=== PATIENT | female | born 1940 | race Caucasian/White ===

== ENCOUNTER 2016-07-04 18:26 | Outpatient (CLI) | payer MEDICARE | END 2016-07-04 18:27 | disposition critical access hospital (66) | DX: S09.90XA Unspecified injury of head, initial encounter (principal); R47.81 Slurred speech; W07.XXXA Fall from chair, initial encounter; Y92.009 Unspecified place in unspecified non-institutional (private) residence as the place of occurrence of the external cause | CPT/HCPCS: A0425; A0427 ==

== ENCOUNTER 2016-07-04 18:35 | Emergency (ER) | payer MEDICARE ==
[2016-07-04] MEDS ORDERED: TETANUS/DIPHTHERIA/PERTUSSIS 0.5 ML SYRINGE IM ONE ×2 (19:04→19:17)
[2016-07-04] MEDS ORDERED: LIDOCAINE 1%-EPI 1:100000 20 ML MDV ONE (20:40)
== END 2016-07-04 21:25 | disposition home or self-care (01) ==
DX: S09.90XA Unspecified injury of head, initial encounter (principal); S01.01XA Laceration without foreign body of scalp, initial encounter; W07.XXXA Fall from chair, initial encounter; Z23 Encounter for immunization; F10.129 Alcohol abuse with intoxication, unspecified; I10 Essential (primary) hypertension; Z98.1 Arthrodesis status; F17.200 Nicotine dependence, unspecified, uncomplicated
CPT/HCPCS: 12001; 36415; 70450; 72125; 80053; 83690; 85025; 86850; 86900; 86901; 90471; 90715; 99284; G0480

== ENCOUNTER 2016-10-15 19:35 | Outpatient (CLI) | payer MEDICARE ==
[2016-10-15 19:54] LABS: BASOPHILS # (AUTO) 0.1 10^3/uL (0.0-0.1); BASOPHILS % (AUTO) 1.1 %; EOSINOPHILS # (AUTO) 0.3 10^3/uL (0.0-0.7); EOSINOPHILS % (AUTO) 3.2 %; HCT - HEMATOCRIT 39.2 % (37.0-47.0); HGB - HEMOGLOBIN 12.5 g/dL (12.0-16.0); LYMPHOCYTES # (AUTO) 3.1 10^3/uL (1.5-3.5); LYMPHOCYTES % (AUTO) 33.5 %; MEAN CORPUSCULAR HEMOGLOBIN 27.1 pg (27.0-31.0); MEAN CORPUSCULAR HGB CONC 31.9 g/dL (32.0-36.0); MEAN CORPUSCULAR VOLUME 84.9 fL (81.0-99.0); MEAN PLATELET VOLUME 7.7 fL (7.9-10.8); MONOCYTES # (AUTO) 0.8 10^3/uL (0.0-1.0); MONOCYTES % (AUTO) 8.6 %; NEUTROPHILS % (AUTO) 53.6 %; RED BLOOD COUNT 4.61 10^6/uL (4.20-5.40); UNCORRECTED WHITE BLOOD COUNT 9.3 x10^3/uL; WHITE BLOOD COUNT 9.3 x10^3/uL (4.8-10.8)
--- NOTE | 2016-10-15 20:34 | CT Preliminary Report ---
Exam: CT Head W/O IMPRESSION: Normal head CT. [facility] SITE ID: [id number]
[2016-10-15 20:54] LABS: BILIRUBIN,TOTAL 0.3 mg/dL (0.2-1.0); CALCIUM 10.7 mg/dL (8.5-10.3); CREATININE 1.8 mg/dL (0.4-1.0); POTASSIUM 4.6 mmol/L (3.5-5.0); TOTAL PROTEIN 8.4 g/dL (6.7-8.2)
--- NOTE | 2016-10-15 21:05 | CT Report ---
EXAM: CT HEAD EXAM DATE: 10/15/2016 08:11 PM. CLINICAL HISTORY: Headache. Hypertension. COMPARISON: 07/04/2016. TECHNIQUE: Multiaxial CT images were obtained from the foramen magnum to the vertex. IV contrast: Non e. Reformats: Coronal. In accordance with CT protocol optimization, one or more of the following dose reduction techniques w ere utilized for this exam: automated exposure control, adjustment of mA and/or KV based on patient s ize, or use of iterative reconstructive technique. FINDINGS: Parenchyma: No intraparenchymal hemorrhage. No evidence of mass, midline shift, or CT findings of inf arction. Werner-white differentiation is distinct. Extraaxial Spaces: Normal for age. No subdural or epidural collections identified. Ventricles: Normal in size and position. Sinuses: Imaged paranasal sinuses, orbits, and mastoids show no significant abnormality. Bones: No evidence of fracture or calvarial defect. Other: Interval resolution of the left parietal scalp hematoma. IMPRESSION: Normal head CT. [facility] Referring Provider Line: [phone] SITE ID: [id number]
== END 2016-10-15 19:36 | disposition home or self-care (01) ==
LOC: DI 19:35
PROVIDERS: ATTEND Family Medicine
DX: R51 Headache (principal)
CPT/HCPCS: 36415; 70450; 80053; 85025; 85651; 86140

== ENCOUNTER 2016-11-07 14:03 | Outpatient (CLI) | payer MEDICARE ==
[2016-11-07 14:34] LABS: CALCIUM 8.9 mg/dL (8.5-10.3); CREATININE 1.2 mg/dL (0.4-1.0); POTASSIUM 4.1 mmol/L (3.5-5.0)
== END 2016-11-07 14:04 | disposition home or self-care (01) ==
LOC: LAB 14:03
PROVIDERS: ATTEND Family Medicine
DX: E87.1 Hypo-osmolality and hyponatremia (principal)
CPT/HCPCS: 36415; 80048

== ENCOUNTER 2017-01-27 14:57 | Outpatient (CLI) | payer MEDICARE | END 2017-01-27 14:58 | disposition critical access hospital (66) | LOC: EMS 14:57 | PROVIDERS: ATTEND Surgery | DX: R55 Syncope and collapse (principal) | CPT/HCPCS: A0425; A0429 ==

== ENCOUNTER 2017-01-27 15:18 | Emergency (ER) | payer MEDICARE ==
--- NOTE | 2017-01-27 15:24 | ED Physician Documentation ---
PD HPI SYNCOPE - Stated complaint Stated Complaint: NEAR SYNCOPAL - History obtained from History obtained from: Patient, Family - History of Present Illness Witnessed: Witnessed Timing - onset: Today Duration: Seconds Preceding symptoms: Generalized weakness (she had been walking around more than usual and her leg was hurting, so she felt tired. She says she was resting but family says she slumped over, but roused with stimulation right away.). No: Headache, Chest pain, Abdominal pain Associated symptoms: No: Chest pain, Palpitations Contributing factors: Decreased PO intake (had not eaten much today). No: Noxious stimulae Injury occurred: No: Fell, Head injury, Neck injury Similar symptoms before: Has not had sx before Recently seen: Surgery (had angioplasty of left arteries recently for claudication and was doing okay. Noting some pain in leg with walking further the past week, and did walk further than usual today.) Review of Systems Constitutional: denies: Fever, Chills Nose: denies: Rhinorrhea / runny nose, Congestion Throat: denies: Sore throat Cardiac: denies: Chest pain / pressure, Palpitations Respiratory: denies: Dyspnea, Cough GI: denies: Abdominal Pain, Nausea, Vomiting, Diarrhea Musculoskeletal: reports: Extremity pain (left lower leg with walking. No edema nor calf tenderness.). denies: Neck pain, Back pain Neurologic: reports: Generalized weakness. denies: Focal weakness, Numbness Immunocompromised: denies: Immunocompromised PD PAST MEDICAL HISTORY - Past Medical History Cardiovascular: Hypertension - Past Surgical History Past Surgical History: Yes - Present Medications Home Medications: Ambulatory Orders Medication Instructions Recorded Confirmed Metoprolol Tartrate 50 mg PO BID 06/01/14 01/27/17 Gabapentin 100 mg ORAL TID 01/27/17 01/27/17 Losartan [Cozaar] 100 mg PO DAILY 01/27/17 01/27/17 - Allergies Allergies/Adverse Reactions: Allergies Allergy/AdvReac Type Severity Reaction Status Date / Time acetaminophen AdvReac Intermediate Itching Verified 01/27/17 15:25 [From Tylenol-Codeine #3] codeine phosphate * AdvReac Intermediate Itching Verified 01/27/17 15:25 [From Tylenol-Codeine #3] - Social History Does the pt smoke?: Yes Smoking Status: Current every day smoker Does the pt drink ETOH?: Yes Does the pt have substance abuse?: No - Immunizations Immunizations are current?: Yes - POLST Patient has POLST: No PD ED PE NORMAL - Vitals Vital signs reviewed: Yes - General General: Alert and oriented X 3, No acute distress, Well developed/nourished - Neck Neck: Supple, no meningeal sign, No adenopathy - Cardiac Cardiac: RRR, No murmur - Respiratory Respiratory: Clear bilaterally - Abdomen Abdomen: Soft, Non tender - Female Female : Deferred - Rectal Rectal: Deferred - Back Back: No CVA TTP - Derm Derm: Normal color, Warm and dry - Extremities Extremities: No deformity, No tenderness to palpate, No edema, No calf tenderness / cord, Other (faint but palpable pulses on tops of feet. Good color and cap refill in toes. ) - Neuro Neuro: Alert and oriented X 3, paper and prints restorer 2-12 intact, No motor deficit, No sensory deficit, Normal speech - Psych Psych: Normal mood, Normal affect Results - Vitals Vitals: Oxygen O2 Source Room air - EKG (time done) 1533 Rate: Rate (enter#) (65) Rhythm: NSR [place]: Normal Intervals: Normal [place] QRS: Normal Ischemia: Normal ST segments. No: ST elevation c/w ischemia, ST depression - Labs Labs: Laboratory Tests 01/27/17 01/27/17 01/27/17 16:11 16:11 16:11 WBC 7.4 RBC 4.01 L Hgb 11.0 L Hct 34.0 L MCV 85.0 MCH 27.5 MCHC 32.4 RDW 16.7 H Plt Count 301 MPV 8.1 Neut # 4.9 Lymph # 1.7 [place] # 0.5 Eos # 0.2 Baso # 0.1 Absolute Nucleated RBC 0.00 Nucleated RBC % 0.0 Sodium 136 Potassium 4.6 Chloride 100 L Carbon Dioxide 27 Anion Gap 9.0 BUN 45 H Creatinine 1.6 H Estimated GFR (MDRD) 31 L Glucose 135 H Calcium 9.4 Magnesium 2.2 Total Bilirubin 0.4 AST 29 ALT 13 Alkaline Phosphatase 87 Total Creatine Kinase 51 Troponin I < 0.04 Total Protein 7.9 Albumin 4.2 Globulin 3.7 Albumin/Globulin Ratio 1.1 Lipase 80 H - Rads (name of study) Duplex arterial left Radiology: Prelim report reviewed (occluded SFA with collateral flow reconstituting the popliteal. Less monophasis flow distal. ) PD MEDICAL DECISION MAKING - ED course Complexity details: reviewed results (less but present flow distally. DIfficult to compare on Saturday afternoon, and since she does have flow integrity to foot, it would be deferred to next day anyway, so she can walk less and talk with her Vascular surgeon tomorrow. ), considered differential, d/w patient Departure - Departure Disposition: Home, Self Care Clinical Impression: Claudication Lower leg pain Qualifiers: Laterality: left Qualified Code(s): M79.662 - Pain in left lower leg Condition: Stable Record reviewed to determine appropriate education?: Yes Follow-Up: Arianna Smith DO [Primary Care Provider] - Comments: Use some Tylenol 500 mg 3-4 times a day for leg pains. Minimal to light walking and standing for the next couple of days. Call your vascular surgeon tomorrow to have the get the results from our ultrasound and arrange a follow- up appointment. Return if persistent pain through the legs. Discharge Date/Time: 01/27/17 17:29
[2017-01-27] MEDS ORDERED: ACETAMINOPHEN 325 MG TABLET PO STA (16:00)
[2017-01-27] MEDS ORDERED: ACETAMINOPHEN 325 MG TABLET PO ONE (16:15)
[2017-01-27 16:19] LABS: BASOPHILS # (AUTO) 0.1 10^3/uL (0.0-0.1); BASOPHILS % (AUTO) 0.8 %; EOSINOPHILS # (AUTO) 0.2 10^3/uL (0.0-0.7); EOSINOPHILS % (AUTO) 2.3 %; LYMPHOCYTES # (AUTO) 1.7 10^3/uL (1.5-3.5); LYMPHOCYTES % (AUTO) 23.2 %; MEAN CORPUSCULAR HEMOGLOBIN 27.5 pg (27.0-31.0); MEAN CORPUSCULAR HGB CONC 32.4 g/dL (32.0-36.0); MEAN PLATELET VOLUME 8.1 fL (7.9-10.8); MONOCYTES # (AUTO) 0.5 10^3/uL (0.0-1.0); MONOCYTES % (AUTO) 7.3 %; NEUTROPHILS # (AUTO) 4.9 10^3/uL (1.5-6.6); NEUTROPHILS % (AUTO) 66.4 %; RED BLOOD COUNT 4.01 10^6/uL (4.20-5.40); RED CELL DISTRIBUTION WIDTH 16.7 % (12.0-15.0); UNCORRECTED WHITE BLOOD COUNT 7.4 x10^3/uL; WHITE BLOOD COUNT 7.4 x10^3/uL (4.8-10.8)
[2017-01-27 16:30] LABS: ALBUMIN/GLOBULIN RATIO 1.1 (1.0-2.2); BILIRUBIN,TOTAL 0.4 mg/dL (0.2-1.0); CALCIUM 9.4 mg/dL (8.5-10.3); CREATININE 1.6 mg/dL (0.4-1.0); MAGNESIUM 2.2 mg/dL (1.7-2.8); POTASSIUM 4.6 mmol/L (3.5-5.0); TOTAL PROTEIN 7.9 g/dL (6.7-8.2)
--- NOTE | 2017-01-27 17:13 | Ultrasound Preliminary Report ---
Exam: US Duplex Lwr Ext Arterial LT IMPRESSION: 1. Distal left SFA occlusion with collaterals reconstituting the popliteal artery. 2. Occluded left posterior tibial artery. [facility] SITE ID: [id number]
[2017-01-27 17:27] VITALS: BP 183/55
--- NOTE | 2017-01-27 17:45 | Ultrasound Report ---
EXAM: LEFT LOWER EXTREMITY ARTERIAL DOPPLER ULTRASOUND EXAM DATE: 01/27/2017 04:55 PM. CLINICAL HISTORY: Left leg pain with walking today. COMPARISON: None. TECHNIQUE: Real-time sonographic vascular imaging was performed by the labor economist, utilizing color-f low, Doppler flow, and spectral analysis. Multiple ocean import representative static images were saved for review . FINDINGS: Right Leg: SENIOR WATER RESOURCES ENGINEER: PSV 101 cm/sec. Biphasic Waveform. Left Leg: SENIOR WATER RESOURCES ENGINEER: PSV 83 cm/sec. Triphasic Waveform. PSFA: PSV 60 cm/sec. Triphasic Waveform. MSFA: PSV 33 cm/sec. Triphasic Waveform. DSFA: PSV 21 cm/sec. Monophasic Waveform. PFA: PSV 124 cm/sec. Triphasic Waveform. POP: PSV 19 cm/sec. Monophasic Waveform. BRAXTON: PSV 12 cm/sec. Monophasic Waveform. GARBAGE COLLECTION SUPERVISOR: PSV 0 cm/sec. Occluded. PER: PSV 21 cm/sec. Monophasic Waveform. DPA: PSV 11 cm/sec. Monophasic Waveform. IMPRESSION: 1. Distal SFA occlusion with collaterals reconstituting the popliteal artery. 2. Occluded posterior tibial artery. [facility] Referring Provider Line: [phone] SITE ID: [id number]
== END 2017-01-27 17:29 | disposition home or self-care (01) ==
LOC: EDUNIT# → ED 15:18
DX: I73.9 Peripheral vascular disease, unspecified (principal); M79.662 Pain in left lower leg; I10 Essential (primary) hypertension; F17.200 Nicotine dependence, unspecified, uncomplicated
CPT/HCPCS: 36415; 80053; 82550; 83690; 83735; 84484; 85025; 93005; 93926; 99283; 99284; A9270

== ENCOUNTER 2017-03-13 15:15 | Observation (INO) | payer MEDICARE ==
[2017-03-13] MEDS ORDERED: PANTOPRAZOLE 40 MG VIAL IVP STA (15:46)
--- NOTE | 2017-03-13 15:48 | ED Physician Documentation ---
History of Present Illness - Stated complaint Stated Complaint: DIZZY,BLACK STOOL-S/P LEG SURGERY - Chief complaint Chief Complaint: General - History obtained from History obtained from: Patient - History of Present Illness Timing: Other (76-year-old woman with peripheral vascular disease had a stent placed in the left leg 8 days ago. She was feeling bad so she actually stopped her Plavix 4 days ago. She continues to have lightheadedness and headaches and black and tarry stools without abdominal pain. She has vomited a few times but she did not know for was bloody or not. She has no history of internal bleeding or ulcers. She does not drink alcohol to any significant extent.) Review of Systems Ten Systems: 10 systems reviewed and negative Constitutional: reports: Reviewed and negative Throat: reports: Reviewed and negative Cardiac: reports: Chest pain / pressure (She has ongoing intermittent chest pressure for which she has been referred to a monkey trainer) Respiratory: reports: Reviewed and negative PD PAST MEDICAL HISTORY - Past Medical History Cardiovascular: Hypertension Neuro: Peripheral neuropathy - Past Surgical History Past Surgical History: Yes - Present Medications Home Medications: Ambulatory Orders Medication Instructions Recorded Confirmed Metoprolol Tartrate 50 mg PO BID 06/01/14 01/27/17 Gabapentin 100 mg ORAL TID 01/27/17 01/27/17 Losartan [Cozaar] 100 mg PO DAILY 01/27/17 01/27/17 - Allergies Allergies/Adverse Reactions: Allergies Allergy/AdvReac Type Severity Reaction Status Date / Time acetaminophen AdvReac Intermediate Itching Verified 01/27/17 15:25 [From Tylenol-Codeine #3] codeine phosphate * AdvReac Intermediate Itching Verified 01/27/17 15:25 [From Tylenol-Codeine #3] - Social History Does the pt smoke?: Yes Smoking Status: Current every day smoker Does the pt drink ETOH?: Yes Does the pt have substance abuse?: No - Family History Family history: reports: Non contributory - Immunizations Immunizations are current?: Yes - POLST Patient has POLST: No PD ED PE NORMAL - Vitals Vital signs reviewed: Yes - General General: Alert and oriented X 3, No acute distress - HEENT HEENT: PERRL, EOMI - Neck Neck: Supple, no meningeal sign, No bony TTP - Cardiac Cardiac: RRR, No murmur - Respiratory Respiratory: No respiratory distress, Clear bilaterally - Abdomen Abdomen: Soft, Non tender - Rectal Rectal: Other (Melena, guaiac positive, Luz ELMORE present) - Extremities Extremities: No edema, No calf tenderness / cord, Other (Excellent left pedal pulses) - Neuro Neuro: Alert and oriented X 3, Normal speech - Psych Psych: Normal mood, Normal affect Results - Vitals Vitals: Vital Signs - 24 hr 03/13/17 15:31 Temperature 36.8 C Heart Rate 79 Respiratory 16 Rate Blood Pressure 144/38 H O2 Saturation 99 Oxygen O2 Source Room air - EKG (time done) 1532 Rate: Rate (enter#) (73) Rhythm: NSR [place]: Normal Intervals: Normal [place] QRS: Normal Ischemia: Normal ST segments Computer interpretation: Agree with computer - Labs Labs: Laboratory Tests 03/13/17 03/13/17 03/13/17 15:35 15:39 15:39 WBC 9.0 RBC 3.04 L Hgb 8.4 L Hct 26.2 L MCV 86.4 MCH 27.6 MCHC 31.9 L RDW 16.0 H Plt Count 523 H MPV 7.8 L Neut # 5.8 Lymph # 2.5 [place] # 0.6 Eos # 0.0 Baso # 0.1 Absolute Nucleated RBC 0.00 Nucleated RBC % 0.1 PT 11.0 INR 1.0 Sodium Potassium Chloride Carbon Dioxide Anion Gap BUN Creatinine Estimated GFR (MDRD) Glucose Calcium Total Bilirubin AST ALT Alkaline Phosphatase Troponin I < 0.04 Total Protein Albumin Globulin Albumin/Globulin Ratio Lipase Blood Type Antibody Screen Crossmatch IS Only 03/13/17 03/13/17 15:39 15:39 WBC RBC Hgb Hct MCV MCH MCHC RDW Plt Count MPV Neut # Lymph # [place] # Eos # Baso # Absolute Nucleated RBC Nucleated RBC % PT INR Sodium 136 Potassium 3.9 Chloride 100 L Carbon Dioxide 22 Anion Gap 14.0 H BUN 62 H Creatinine 1.8 H Estimated GFR (MDRD) 27 L Glucose 128 H Calcium 9.3 Total Bilirubin 0.4 AST 28 ALT 12 Alkaline Phosphatase 78 Troponin I Total Protein 7.6 Albumin 3.9 Globulin 3.7 Albumin/Globulin Ratio 1.1 Lipase 106 H Blood Type A POSITIVE Antibody Screen NEGATIVE Crossmatch IS Only See Detail PD MEDICAL DECISION MAKING - ED course ED course: 76-year-old woman with history of recent stent placement in the left leg. She presents with signs and symptoms of probably an upper GI bleed with anemia, hemoglobin 8.4, baseline is 12. Blood was readied but she does not need it at this juncture at least not initially, but may need in short order. Spoke with the on-call surgeon, Dr. Padilla at 4 PM who will see her in consultation, would like us to get the op report from [facility] to see if it was a drug-eluting stent which we will do. Spoke with Dr. Oh the hospitalist for admission at 4:08 PM. She did receive Protonix IV in the emergency department. Departure - Departure Disposition: ED Place in Observation Clinical Impression: Upper GI bleed Condition: Serious Discharge Date/Time: 03/13/17 17:00
[2017-03-13 15:52] LABS: BASOPHILS # (AUTO) 0.1 10^3/uL (0.0-0.1); EOSINOPHILS % (AUTO) 0.5 %; HCT - HEMATOCRIT 26.2 % (37.0-47.0); HGB - HEMOGLOBIN 8.4 g/dL (12.0-16.0); LYMPHOCYTES # (AUTO) 2.5 10^3/uL (1.5-3.5); LYMPHOCYTES % (AUTO) 27.8 %; MEAN CORPUSCULAR HEMOGLOBIN 27.6 pg (27.0-31.0); MEAN CORPUSCULAR HGB CONC 31.9 g/dL (32.0-36.0); MEAN CORPUSCULAR VOLUME 86.4 fL (81.0-99.0); MEAN PLATELET VOLUME 7.8 fL (7.9-10.8); MONOCYTES # (AUTO) 0.6 10^3/uL (0.0-1.0); NEUTROPHILS # (AUTO) 5.8 10^3/uL (1.5-6.6); NEUTROPHILS % (AUTO) 63.7 %; NUCLEATED RED BLOOD CELLS AUTO 0.1 /100WBC; RED BLOOD COUNT 3.04 10^6/uL (4.20-5.40)
[2017-03-13 16:05] LABS: ALBUMIN/GLOBULIN RATIO 1.1 (1.0-2.2); BILIRUBIN,TOTAL 0.4 mg/dL (0.2-1.0); CALCIUM 9.3 mg/dL (8.5-10.3); CREATININE 1.8 mg/dL (0.4-1.0); POTASSIUM 3.9 mmol/L (3.5-5.0); TOTAL PROTEIN 7.6 g/dL (6.7-8.2)
[2017-03-13] MEDS ORDERED: ONDANSETRON ODT 4 MG TABLET TL PRN (16:23)
[2017-03-13] MEDS ORDERED: ONDANSETRON 4 MG/2 ML VIAL IVP PRN (16:23)
[2017-03-13] MEDS ORDERED: LIDOCAINE-MPF 2% 5 ML VIAL IM ONE (18:50)
[2017-03-13] MEDS ORDERED: MIDAZOLAM 2 MG/2 ML VIAL IVP ONE (18:50)
[2017-03-13] MEDS ORDERED: GLYCOPYRROLATE 1 MG/5 ML VIAL IVP ONE (18:50)
[2017-03-13] MEDS ORDERED: KETAMINE 500 MG/10 ML VIAL IVP ONE (18:50)
[2017-03-13] MEDS ORDERED: SODIUM CHLORIDE 0.9% 1,000 ML IV SCH (19:00)
--- NOTE | 2017-03-13 19:24 | HISTORY & PHYSICAL EXAMINATION ---
DATE OF ADMISSION: 03/13/2017 HISTORY OF PRESENT ILLNESS: I am called on consultation by Dr. Moise Fan to evaluate this very pleasant 76-year-old female for anemia that is presumed to be due to an upper GI bleed. The patient, importantly had a biliary (this is not typographical error) stent placed in peripheral vascular posit ion in her leg approximately 8 days ago. I am a little bit unsure about the placement of her leg dewey use the ecchymosis is on her right hand side, but the paperwork says that her stent was placed on the left hand side. She started feeling badly soon after the stent was placed and after she had been joon ana on Plavix, so she stopped the Plavix. She had headaches and lightheadedness with black tarry stoo ls without any abdominal pain. She did have several bouts of vomiting, but cannot tell whether or not there was any blood in the vomit. She has no history of internal bleeding or ulcers. She does not dr ink any significant amount of alcohol. She states that she has not had a CT scan of her abdomen to ru le out a retroperitoneal or abdominal bleed following her stent placement. Additionally, she states i s the first time that the stent was placed to hold pressure they held such pressure that it had actua lly caught the stent to fail. ALLERGIES: 1. TYLENOL. 2. CODEINE. MEDICATIONS: 1. Metoprolol 50 mg p.o. b.i.d.. 2. Gabapentin 100 mg p.o. t.i.d.. 3. Losartan 100 mg p.o. daily. PAST MEDICAL AND SURGICAL HISTORY: 1. Hypertension. 2. Peripheral neuropathy. 3. Peripheral vascular disease. 4. History of stent placement. SOCIAL HISTORY: Dr. Fan's notes states that she is an everyday smoker. The patient states that thi s is incorrect. She stopped smoking on April 23, 2016 and prior to that had smoked on again off agai n for years. She affirms to me that she is not a current smoker. Alcohol small to moderate use. Recreational drug use, none. FAMILY HISTORY: No family history of gastrointestinal bleeding. REVIEW OF SYSTEMS: CONSTITUTIONAL: She denies weight loss, fever. HEENT: She denies any increase or decrease in her vision or hearing. NECK: She denies any difficulty speaking or swallowing. CARDIAC: She has occasional chest pressure, for which she is being sent to her physical sciences professor. She cece es any cardiac arrhythmias. RESPIRATORY: Denies shortness of breath or productive cough. ABDOMEN: She denies abdominal pain. NEUROLOGIC: She denies focal deficit. HEMATOLOGIC: She denies easy bleeding or bruising. PHYSICAL EXAMINATION: The patient was examined in room [facility] at [facility]'s observ ation unit. She was examined while in bed. GENERAL: She is alert and oriented to person, place and time. She asks and answers questions well. He r mood and affect are appropriate. She is thin, bordering on cachectic. VITAL SIGNS: Please refer to nurses' notes. HEENT: She is normocephalic, atraumatic. Sclerae are noninjected, nonicteric. mucous membranes are pi nk and slightly dry. NECK: Supple without mass or bruit. CARDIOVASCULAR: Her heart is regular rate and rhythm without rub, murmur or gallop although she does have an occasional PAC. LUNGS: Clear to auscultation bilaterally. EXTREMITIES: Abdomen is slightly firm. She has normoactive bowel sounds. She has no palpable hepatosp lenomegaly. She has an ecchymosis in the right lower quadrant occupying most of the right lower quadr ant, it seems to be resolving. She has no peritoneal findings. EXTREMITIES: Show no clubbing, cyanosis, or edema. RECTAL: Deferred. GENITOURINARY: Deferred. GAIT: Not evaluated. LABS: Abnormalities on his CMP include chloride of 100, anion gap 14, BUN 62, creatinine of 1.8, GFR 27, glucose 128, and a lipase of 106. She has no abnormalities on her coagulation studies and abnorma lities on her hematology include an RBC of 3.04, hemoglobin of 8.4, hematocrit 26.2, MCHC at 31.9, RD W 15. Platelet count of 523 and a MPP of 7.8. RADIOLOGY: No studies were ordered. ASSESSMENT: A 56-year-old female with a recent history of stent placement had been placed on anticoag ulation, who comes in anemic and complaining of some nausea, vomiting and some possible melena. PLAN: Esophagogastroduodenoscopy with possible biopsies and/or polypectomies. The indications, proced ure, alternatives and possible complications including, but not limited to perforation requiring oper ative repair, bleeding with all of its attendant risks including transfusion, and were fully ex plained to the patient and all questions were answered. Verbal and written consent were obtained. The patient in preparation for this has been maintained n.p.o. Additionally, if the EGD is not revealing of a potential source of bleeding, I would recommend a CT scan of her abdomen and pelvis to make alma e that she did not have a retroperitoneal bleed as a result of this intervention where the stent was placed. Again, the ecchymosis on the right-hand side without a significant hematoma that I can note. It would be easy to hide a large amount of blood in the retroperitoneum to account for her anemia. I would like to thank Dr. Fan, as well as Dr. Oh very much for this consultation. JOB #: [id number] EXT JOB #:[id number]
[2017-03-13] MEDS ORDERED: SODIUM CHLORIDE 0.9% 1,000 ML IV ONE (19:29)
[2017-03-13] MEDS ORDERED: LACTATED RINGERS 1,000 ML IV ONE (19:34)
[2017-03-13] MEDS: LACTATED RINGERS 1,000 ML IV ONE (19:35)
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
[2017-03-13] MEDS: SODIUM CHLORIDE FLUSH 0.9% 10 ML SYRINGE IVP SCH (22:02)
[2017-03-13 22:05] LABS: BASOPHILS # (AUTO) 0.1 10^3/uL (0.0-0.1); BASOPHILS % (AUTO) 0.8 %; EOSINOPHILS # (AUTO) 0.1 10^3/uL (0.0-0.7); EOSINOPHILS % (AUTO) 1.4 %; HCT - HEMATOCRIT 22.6 % (37.0-47.0); HGB - HEMOGLOBIN 7.4 g/dL (12.0-16.0); LYMPHOCYTES # (AUTO) 2.2 10^3/uL (1.5-3.5); LYMPHOCYTES % (AUTO) 28.8 %; MEAN CORPUSCULAR HGB CONC 32.9 g/dL (32.0-36.0); MEAN CORPUSCULAR VOLUME 85.1 fL (81.0-99.0); MEAN PLATELET VOLUME 7.1 fL (7.9-10.8); MONOCYTES # (AUTO) 0.7 10^3/uL (0.0-1.0); NEUTROPHILS # (AUTO) 4.6 10^3/uL (1.5-6.6); RED BLOOD COUNT 2.66 10^6/uL (4.20-5.40); RED CELL DISTRIBUTION WIDTH 15.8 % (12.0-15.0); UNCORRECTED WHITE BLOOD COUNT 7.7 x10^3/uL; WHITE BLOOD COUNT 7.7 x10^3/uL (4.8-10.8)
--- NOTE | 2017-03-13 23:40 | CT Preliminary Report ---
Exam: CT ABDOMEN/PELVIS W/O IMPRESSION: 1. Smaller nodular density seen in the right anterior aspect of the pelvis, could represent small ext raperitoneal hemorrhage measuring 1 x 2.3 x 3.9 cm. Follow-up is recommended to ensure resolution. Un derlying mass or lymphadenopathy not excluded. 2. Multiple solid-appearing liver masses, could be malignant or benign. Further evaluation could be o btained with an MR abdomen or ultrasound. 3. Multiple bilateral renal calculi which are nonobstructing. No hydronephrosis. 4. Multiple small renal cysts. There are low density masses too small to fully characterize and solid small renal masses not excluded. 5. Low-density mass at the tail the pancreas measuring 8 mm, Representing a pancreatic cyst. Pancreat ic cystic malignancy not excluded. This could be evaluated with the abdomen MRI. 6. Otherwise, as above. RADIA The above critical findings were discussed with Dr. Land by Dr. Selena Welch at 23:35 hrs on . SITE ID: [id number]
--- NOTE | 2017-03-14 00:05 | CT Report ---
EXAM: CT ABDOMEN AND PELVIS (CT KUB) EXAM DATE: 03/13/2017 09:34 PM. CLINICAL HISTORY: Anemia with recent left leg stent possible retroperitoneal bleed. COMPARISONS: Renal ultrasound 03/02/2011. TECHNIQUE: Routine axial helical CT imaging was performed through the abdomen and pelvis without IV c ontrast. Reconstructions: Coronal and sagittal. In accordance with CT protocol optimization, one or more of the following dose reduction techniques w ere utilized for this exam: automated exposure control, adjustment of mA and/or KV based on patient s ize, or use of iterative reconstructive technique. FINDINGS: Lung bases: Marked calcification of the descending thoracic aorta at the distal aspect. Mil d coronary artery calcification. Mild bibasilar atelectasis suspected. Liver: Multiple solid-appearing liver masses are seen in the right and left hepatic lobes. There is a solid-appearing mass in segment 6 of the liver measuring 1.9 x 1.2 cm. Another mass is seen in the j unction of the right and left hepatic lobes, measures 1.6 x 1.1 cm. Multiple masses seen in the left hepatic lobe, one of the largest seen measuring 1.4 cm on axial image 19. Gallbladder: Normal. Bile ducts: No bile duct dilatation. Pancreas: Small low-density mass seen at the tail of the pancreas measuring 8 mm. Hounsfield units ar e 10, most suggestive for a pancreatic cyst. Pancreatic cystic malignancy not excluded. Probable focal densely calcified splenic artery adjacent t o the pancreas. Spleen: Unremarkable. Adrenals: Unremarkable. Kidneys: There appear to be multiple small renal cysts, one of the largest seen in the upper pole rig ht kidney measuring 1.2 cm. Evaluation is limited without IV contrast. Small solid renal mass not exc luded. Multiple bilateral renal calculi which are nonobstructing, measure 3-4 mm. No hydronephrosis. No hydr oureter or ureteral calculi. Severe atherosclerotic calcification of the abdominal aorta. No abdominal aortic aneurysm. Bowel: No dilated bowel loops are seen to suggest obstruction. A few sigmoid colon diverticula withou t evidence for acute diverticulitis. No acute bowel findings are seen. No free fluid or free air. Pelvis: Bladder and remaining pelvic structures appear unremarkable. No acute bone findings. Small nodular density seen in the right anterior aspect of the pelvis, could represent small extraper itoneal hemorrhage measuring 1 x 2.3 x 3.9 cm. Follow-up is recommended to ensure resolution. Underly ing mass or lymphadenopathy not excluded. IMPRESSION: 1. Small nodular density seen in the right anterior aspect of the pelvis, could represent small extra peritoneal hemorrhage measuring 1 x 2.3 x 3.9 cm. Follow-up is recommended to ensure resolution. Unde rlying mass or lymphadenopathy not excluded. 2. Multiple solid-appearing liver masses, could be malignant or benign. Further evaluation could be o btained with an MR abdomen or ultrasound. 3. Multiple bilateral renal calculi which are nonobstructing. No hydronephrosis. 4. Multiple small renal cysts. There are low density masses too small to fully characterize and solid small renal masses not excluded. 5. Low-density mass at the tail of the pancreas measuring 8 mm, could represent a pancreatic cyst. Pa ncreatic cystic malignancy not excluded. This could be evaluated with the abdomen MRI. 6. Otherwise, as above. RADIA The above critical findings were discussed with Dr. Land by Dr. Selena Welch at 23:35 hrs on . Referring Provider Line: [phone] SITE ID: [id number]
--- NOTE | 2017-03-14 00:51 | PROVIDER PROGRESS NOTE ---
Hospitalist Cross-cover Note - Cross-Cover Note Cross-Cover Note: MD was called about critical findings on CT abdomen/pelvis without contrast. Radiology stated that there was a small extraperitoneal hemorrhage measuring 1 x 2.3 x 3.[address] imaging. The [facility] vascular surgery department was consulted. I spoke with Dr. Nogueira who stated that he thought that the size of the hemorrhage was too small to cause such a significant bleed. He felt that the most likely source of the patient's bleeding was the GI tract given the melanotic stools. He recommended a CT angiogram of the abdomen and pelvis however I did explain to him that given the patient's kidney function this was not possible at this time. He then recommended giving the patient IV fluids rechecking her kidney function and then trying to do a CT angiogram. He also recommended that the patient be transfused as needed. His final recommendation was a consult with general surgery and a colonoscopy to look for lower GI source of bleeding. The patient was updated about the situation and seemed to understand the plan. The patient's repeat hemoglobin had dropped to 7.4 therefore 2 units of packed RBCs were ordered and patient should be transfused overnight. We will continue to monitor her CBC and discuss the case with general surgery in the morning. The patient is hemodynamically stable.
[2017-03-14] MEDS: SODIUM CHLORIDE FLUSH 0.9% 10 ML SYRINGE IVP PRN ×2 (04:48→06:32)
[2017-03-14] MEDS: SODIUM CHLORIDE FLUSH 0.9% 10 ML SYRINGE IVP SCH ×2 (05:24→06:31)
[2017-03-14] MEDS ORDERED: PANTOPRAZOLE 40 MG VIAL IVP SCH (07:00)
[2017-03-14] MEDS ORDERED: INSULIN ASPART 300 UNIT/3 ML PEN SUBQ SCH (08:00)
[2017-03-14 08:27] VITALS: BP 167/58
[2017-03-14] MEDS ORDERED: POLYETHYLENE GLYCOL 3350 17 GM PACKET PO SCH (09:00)
[2017-03-14 10:26] LABS: BASOPHILS % (AUTO) 1.9 %; EOSINOPHILS % (AUTO) 1.1 %; HGB - HEMOGLOBIN 12.1 g/dL (12.0-16.0); LYMPHOCYTES % (AUTO) 14.1 %; MEAN CORPUSCULAR HEMOGLOBIN 28.2 pg (27.0-31.0); MEAN CORPUSCULAR HGB CONC 33.6 g/dL (32.0-36.0); MEAN CORPUSCULAR VOLUME 84.1 fL (81.0-99.0); MEAN PLATELET VOLUME 7.6 fL (7.9-10.8); MONOCYTES % (AUTO) 5.3 %; NEUTROPHILS % (AUTO) 77.6 %; RED BLOOD COUNT 4.28 10^6/uL (4.20-5.40); RED CELL DISTRIBUTION WIDTH 15.7 % (12.0-15.0); UNCORRECTED WHITE BLOOD COUNT 12.6 x10^3/uL; WHITE BLOOD COUNT 12.6 x10^3/uL (4.8-10.8)
[2017-03-14 10:29] LABS: BAND NEUTROPHILS % (MANUAL) 0 %
--- NOTE | 2017-03-14 10:41 | Discharge Plan ---
Discharge Plan Disposition: 01 Home, Self Care Condition: Good Diet: Regular Activity Restrictions: Activity as Tolerated Shower Restrictions: No Driving Restrictions: No Additional Instructions or Follow Up instructions: You were placed in observation in the hospital because you had come to the emergency room complaining of dizziness, and black stools after having a vascular procedure. You felt something was wrong even before you came in, and had stopped your Plavix 4 days before you came to see us. On admission your blood pressure was good at 144/38 and your heart rate was good at 79. But your hemoglobin was 8.4. We thought you were having a bleeding ulcer in your stomach that was unmasked by your Plavix. As such, you underwent an EGD, an upper endoscopy, and the surgeon found nothing present. Suspecting that you may have had a small puncture that leaked from your previous vascular procedure, he asked us to do CAT scan of your abdomen. The CAT scan of your abdomen has a small area where you seemed to have bled. This is where the catheter went in on the right side. There is a 1 cm x 2.3 cm x 3.9 cm area. We spoke to the vascular surgeon at [facility], Dr. Nogueira, who felt that the size of the hemorrhage was too small to cause such a significant drop in your hemoglobin. He still feels that you should undergo a colonoscopy in the outpatient setting to make sure there is no loss of blood in the bowel. Dr. Nogueira also wanted us to do CT angiogram of your abdomen and pelvis but your kidney function has a creatinine of 1.8 and a filtration rate of 27 and as such an angiogram is not in your best interest right now. Dye with lowered kidney function can cause further irreversible kidney function and if you can wait to do the study until your filtration is >45, that is better. You have been transfused 2 units of blood. Your blood pressure is staying stable at 167/58 today. We do not have the ability to do interventional radiology here. Weighing the pros and cons of keeping you in the hospital, I feel that you are stable enough to go home and get the rest of your workup in the outpatient setting. Right now your hemoglobin is 12. Unfortunately, the CAT scan also shows a small low-density mass in the tail of the pancreas. It looks like a simple pancreatic cyst. You also have multiple solid-appearing liver masses in the right and left lobes of the liver. They are unable to say whether these are malignant or benign looking. Recommendation is for you to have an MRI of the abdomen and pelvis. This will look at the tail of the pancreas, liver masses, and the small bleeding in the right pelvis. You may need a biopsy of the liver masses with an interventional radiologist. You have already identified that you have lived next door to an oncologist, Lauri Franks MD. And that oncologist is a partner to Lloydyelena Luc, the oncologist that sees your for his melanoma. You are seeing Dr. Smith on Saturday (today is ) and I am asking Dr. Smith to make a referral to interventional radiology at [facility] for the biopsies, and a referral to Dr. Franks or Dr. Calle. You will also need to see [facility] in follow-up for the small bleeding that you had, that is contained, in the right pelvis. They may still want a CT angiogram as well. Dr. Smith will also need to refer you for a colonoscopy, and Dr. Padilla was the surgeon who did the EGD. You can see him for the colonoscopy if you want. We are sending you home on a holiday weekend. We know that services are limited in many institutions. Please do not feel that you have to wait at home if there is a change in your status. If you develop more melanotic, dark, tarry stool, get lightheaded, get dizzy, your blood pressure drops, your heart rate gets faster or you get nauseated and sweaty, you can come back to our emergency room. No Smoking: If you smoke, Please STOP! Call for help. Follow-up with: Arianna Smith DO [Primary Care Provider] -
[2017-03-14 11:15] LABS: LYMPHOCYTES % (MANUAL) 12 %; NEUTROPHILS % (MANUAL) 84 %; TOTAL CELLS COUNTED 100
[2017-03-14 11:16] LABS: NP AUTO DIFFERENTIAL? YES; NP MAN DIFFERENTIAL? NO; PLATELET ESTIMATE, MANUAL NORMAL (130-450,000) (NORMAL); PLATELET MORPHOLOGY NORMAL APPEARANCE (NORMAL); WBC MORPHOLOGY (MULTIPLE) 2+ HYPERSEG NEUT (NORMAL)
--- NOTE | 2017-03-14 19:50 | DISCHARGE SUMMARY ---
DATE OF ADMISSION: 03/13/2017 DATE OF DISCHARGE: 03/14/2017 PRIMARY CARE PROVIDER: Arianna Smith MD. DISCHARGE DIAGNOSES: 1. Acute blood loss anemia, status post 2 units of transfused packed red cells. 2. Complication of procedure, most likely an extraperitoneal hemorrhage from recent peripheral vascular stent. 3. Melena. 4. Peripheral vascular disease with claudication. 5. Present descending artery. 6. Hypertension. DISCHARGE MEDICATIONS: All medications unchanged from admission. 1. Gabapentin 100 mg p.o. b.i.d.. 2. Hydrochlorothiazide 25 mg p.o. daily. 3. Losartan 100 mg p.o. daily. 4. Metoprolol XL 50 mg daily. 5. Rosuvastatin 10 mg daily. Plavix was discontinued. PRINCIPAL PROCEDURES: 1. Esophagogastroduodenoscopy that was completely normal. 2. Transfusion of 2 units of packed cells. 3. CT of abdomen and pelvis showing multiple followed liver masses in the right and left hepatic lobe, low density mass seen at the tail of the pancreas measuring 8 mm, most suggestive of pancreatic cyst, multiple small renal cysts with small solid renal mass is not excluded, multiple bilateral renal calculi, which were nonobstructing, severe atherosclerotic calcification of his abdominal , aortic, small modular density in the right anterior aspect of the pelvis that could possibly represent a small extraperitoneal hemorrhage measuring 1 x 2.3 x 3.9 cm. HOSPITAL COURSE: The patient was admitted placed in observation. She is 76 years old and had a recent vascular stenting procedure done for claudication of her lower extremities. She presented as melena, dizziness, weakness and fatigue in association with the use of Plavix and the procedure. She stopped the Plavix few days ago. Her usual hemoglobin is between 11 and 12. When she went to the emergency room, hemoglobin was 8. She was not hypotensive. Not tachycardic. In workup for her acute blood loss anemia she underwent an EGD which was negative. She will still need a colonoscopy to further visualize her bowel. The general surgeon felt that because of the recent stenting procedure, we should also look for retroperitoneal bleed. CT of the abdomen was ordered and the above findings noted. While we did find evidence of blood extravasation indicating a small contained air hemorrhage, we also unfortunately found the pancreatic cystic area and the liver tumors. This patient will need outpatient evaluation with MRCP, and most likely CT-guided biopsy of the liver masses. While Vascular surgeon did recommend a colonoscopy, the patient felt stable enough and we agreed that she could go home in the outpatient setting and get that done there. Throughout her entire stay, blood pressure was stable. She had no melenic stool. No abdominal pain. We felt it prudent to stop Plavix at this time. She is instructed to return to us if there are any more melenic stool, further dizziness and lightheadedness, or any abdominal pain. In reviewing her medical record in [facility] there was a note where she was referred to Dr. Sher by Kelsey Flores, for hematuria, many years ago. The patient says she has no recollection of that and she does not think it was her chart they are referring to. She does acknowledge that she saw a search engine marketing manager in January where he changed all of her blood pressure medication. But she felt so lousy after 2-3 days she went back to her normal regimen and that is why she is not on those medications from that note. She is discharged in stable condition. at the bedside. Understandably both of them are not upset at the news about the CT of the liver. Temperature is 36.6, pulse 79, blood pressure 167/58, respirations 16, she is 97% on room air. She is a slender, alert, elderly woman who looks much younger than stated age. Supple neck. Clear lungs. Regular rate and rhythm with a soft systolic ejection murmur. ABDOMEN: Soft, nontender with bilateral femoral bruits. She has a hematoma of the right groin/right lower quadrant. She continues to have claudication in the right leg. The left leg has slight pulse. She says for the most part claudication is gone on the left leg. She is ambulating in the room without any assistance. Has tolerated a regular diet without any problems. She is asked to follow through with Dr. Smith. She has an appointment on Saturday, today is . JOB #: [id number] EXT JOB #:[id number] MTDD
== END 2017-03-14 10:59 | disposition home or self-care (01) ==
LOC: ED 15:15 → OBS 16:23
PROVIDERS: ADMIT Specialist; ATTEND Specialist
PROC: 30233N1 Transfusion of Nonautologous Red Blood Cells into Peripheral Vein, Percutaneous Approach (ICD-10-PCS; 2017-03-13)
PROC: 0DB78ZX Excision of Stomach, Pylorus, Via Natural or Artificial Opening Endoscopic, Diagnostic (ICD-10-PCS; principal; 2017-03-13 19:15)
DX: I97.618 Postprocedural hemorrhage of a circulatory system organ or structure following other circulatory system procedure (principal); Y83.1 Surgical operation with implant of artificial internal device as the cause of abnormal reaction of the patient, or of later complication, without mention of misadventure at the time of the procedure; D62 Acute posthemorrhagic anemia; K92.1 Melena; I73.9 Peripheral vascular disease, unspecified; I10 Essential (primary) hypertension; G62.9 Polyneuropathy, unspecified; R93.2 Abnormal findings on diagnostic imaging of liver and biliary tract; R93.422 Abnormal radiologic findings on diagnostic imaging of left kidney; R93.421 Abnormal radiologic findings on diagnostic imaging of right kidney; R93.5 Abnormal findings on diagnostic imaging of other abdominal regions, including retroperitoneum; Z87.891 Personal history of nicotine dependence; Z95.828 Presence of other vascular implants and grafts
CPT/HCPCS: 36415; 43239; 74176; 80053; 83690; 84484; 85025; 85610; 86850; 86900; 86901; 86920; 87081; 93005; 94761; 96374; 99283; 99285; G0378; J7120; P9016; 83036; 99284

== ENCOUNTER 2017-03-21 14:54 | Outpatient (CLI) | payer MEDICARE ==
[2017-03-21 15:28] LABS: BASOPHILS # (AUTO) 0.1 10^3/uL (0.0-0.1); BASOPHILS % (AUTO) 0.8 %; EOSINOPHILS # (AUTO) 0.3 10^3/uL (0.0-0.7); EOSINOPHILS % (AUTO) 3.2 %; HCT - HEMATOCRIT 39.4 % (37.0-47.0); HGB - HEMOGLOBIN 12.8 g/dL (12.0-16.0); LYMPHOCYTES # (AUTO) 1.5 10^3/uL (1.5-3.5); LYMPHOCYTES % (AUTO) 17.9 %; MEAN CORPUSCULAR HEMOGLOBIN 28.5 pg (27.0-31.0); MEAN CORPUSCULAR HGB CONC 32.5 g/dL (32.0-36.0); MEAN CORPUSCULAR VOLUME 87.7 fL (81.0-99.0); MEAN PLATELET VOLUME 7.9 fL (7.9-10.8); MONOCYTES # (AUTO) 0.6 10^3/uL (0.0-1.0); MONOCYTES % (AUTO) 7.5 %; NEUTROPHILS # (AUTO) 5.8 10^3/uL (1.5-6.6); NEUTROPHILS % (AUTO) 70.6 %; RED CELL DISTRIBUTION WIDTH 16.4 % (12.0-15.0); UNCORRECTED WHITE BLOOD COUNT 8.2 x10^3/uL; WHITE BLOOD COUNT 8.2 x10^3/uL (4.8-10.8)
[2017-03-21 15:39] LABS: ALBUMIN/GLOBULIN RATIO 1.1 (1.0-2.2); BILIRUBIN,TOTAL 0.6 mg/dL (0.2-1.0); CALCIUM 9.7 mg/dL (8.5-10.3); CREATININE 1.5 mg/dL (0.4-1.0); POTASSIUM 4.6 mmol/L (3.5-5.0); TOTAL PROTEIN 7.6 g/dL (6.7-8.2)
--- NOTE | 2017-03-22 10:22 | Ultrasound Report ---
COMPLETE ABDOMINAL ULTRASOUND: 03/21/2017 CLINICAL INDICATION: Multiple liver masses, pancreatic cyst on CT of 03/13/2017. COMPARISON: CT of 03/13/2017, renal ultrasound of 03/02/2011. TECHNIQUE: Real-time scanning was performed with tax compliance representative static images obtained. FINDINGS: The liver measures 14.4 cm. Hepatic echotexture is heterogeneous. Multiple echogenic nodul es are present, measuring up to 2.2 cm in the right lobe and 1.5 cm in the left lobe. The ultrasound appearance is compatible with hemangiomas. The common bile duct measures 6 mm. The gallbladder is nor mal. The visualized head and body of the pancreas are unremarkable, but the pancreatic tail, includin g the region of pancreatic cyst mentioned on CT, is obscured by bowel gas. The right kidney measures 9.4 cm, and the left kidney measures 10.6 cm. Cortical cysts are present. No hydronephrosis or solid renal lesion is appreciated. The spleen measures 7 cm, and demonstrates normal echotexture. The abdom inal aorta is normal in caliber. The inferior vena cava is unremarkable. No free fluid is present. IMPRESSION: 1. MULTIPLE ECHOGENIC NODULES IN THE LIVER, COMPATIBLE WITH MULTIPLE HEMANGIOMAS, MEASURING UP TO 2.2 CM. 2. NONVISUALIZATION OF THE TAIL OF THE PANCREAS. CONSIDER MRI OF THE ABDOMEN WITH AND WITHOUT CONTRAS T TO FURTHER CHARACTERIZE THE HEMANGIOMAS AND VISUALIZE THE PANCREATIC TAIL LESION. JOB #: [id number] EXT JOB #:[id number]
== END 2017-03-21 14:55 | disposition home or self-care (01) ==
LOC: DI 14:54
PROVIDERS: ATTEND Family Medicine
DX: K76.89 Other specified diseases of liver (principal); K86.2 Cyst of pancreas
CPT/HCPCS: 36415; 76700; 80053; 85025

== ENCOUNTER 2017-04-02 15:22 | Inpatient (IN) | payer MEDICARE ==
[2017-04-02 16:20] LABS: BASOPHILS % (AUTO) 0.5 %; EOSINOPHILS # (AUTO) 0.1 10^3/uL (0.0-0.7); EOSINOPHILS % (AUTO) 1.4 %; HCT - HEMATOCRIT 29.6 % (37.0-47.0); HGB - HEMOGLOBIN 9.7 g/dL (12.0-16.0); LYMPHOCYTES # (AUTO) 1.9 10^3/uL (1.5-3.5); LYMPHOCYTES % (AUTO) 23.9 %; MEAN CORPUSCULAR HEMOGLOBIN 29.1 pg (27.0-31.0); MEAN CORPUSCULAR HGB CONC 32.8 g/dL (32.0-36.0); MEAN CORPUSCULAR VOLUME 88.9 fL (81.0-99.0); MEAN PLATELET VOLUME 8.4 fL (7.9-10.8); MONOCYTES # (AUTO) 0.6 10^3/uL (0.0-1.0); MONOCYTES % (AUTO) 7.2 %; NEUTROPHILS # (AUTO) 5.3 10^3/uL (1.5-6.6); RED BLOOD COUNT 3.34 10^6/uL (4.20-5.40); RED CELL DISTRIBUTION WIDTH 17.3 % (12.0-15.0); UNCORRECTED WHITE BLOOD COUNT 7.9 x10^3/uL; WHITE BLOOD COUNT 7.9 x10^3/uL (4.8-10.8)
[2017-04-02 16:32] LABS: ALBUMIN/GLOBULIN RATIO 1.2 (1.0-2.2); BILIRUBIN,TOTAL 0.4 mg/dL (0.2-1.0); CALCIUM 9.3 mg/dL (8.5-10.3); CREATININE 1.8 mg/dL (0.4-1.0); POTASSIUM 3.9 mmol/L (3.5-5.0); TOTAL PROTEIN 7.6 g/dL (6.7-8.2)
[2017-04-02] MEDS ORDERED: PANTOPRAZOLE 80 MG in SODIUM CHLORIDE 0.9% 100ML 100 ML IV STA (16:34)
[2017-04-02 16:35] LABS: PT - PROTHROMBIN TIME 10.8 secs (9.9-12.6)
[2017-04-02 16:43] LABS: PARTIAL THROMBOPLASTIN TIME 26.4 secs (24.9-33.3)
--- NOTE | 2017-04-02 17:18 | ED Physician Documentation ---
History of Present Illness - Stated complaint Stated Complaint: BLOODY STOOL - Chief complaint Chief Complaint: Abd Pain - Additonal information Additional information: 76-year-old female presents the emergency department with dark stools for the last 2 days.She had one episode yesterday and one episode today of formed black stool. She had this at the end of February as well, it then progressed to bloody stool.She was admitted to the hospital and transfused at that time.She has some mild chest burning since this began, she does not have any left-sided chest pain, she does report that she has been feeling dizzy ever since she started Plavix. She did have one episode of vomiting yesterday but it is nonbloody but no calf grounds or any dark matter,She complains of a headache but no abdominal pain. During her previous admission she was 8 days following her stenting procedure, that she reports was on her left groin (some uncertainty about this), and it was felt that she may have had retroperitoneal bleeding as the source of her anemia to 8.0. A CT was perfomed with a [id number] collection that may have indicated hemmorhage. EGD during admission revealed no active bleeding and mild gastritis. EGD with findings of mild gastritis. PD PAST MEDICAL HISTORY - Past Medical History Past Medical History: Yes Cardiovascular: Hypertension Respiratory: None Neuro: Peripheral neuropathy Endocrine/Autoimmune: None GI: None : None HEENT: Dental implants Psych: None Musculoskeletal: None Derm: Psoriasis - Past Surgical History Past Surgical History: Yes - Present Medications Home Medications: Ambulatory Orders Medication Instructions Recorded Confirmed Gabapentin 100 mg ORAL BID 01/27/17 04/02/17 Losartan [Cozaar] 100 mg PO DAILY 01/27/17 04/02/17 Metoprolol Succinate [Toprol Xl] 50 mg PO DAILY 03/14/17 04/02/17 Rosuvastatin Calcium 10 mg PO QPM 03/14/17 04/02/17 hydroCHLOROthiazide 25 mg PO DAILY 03/14/17 04/02/17 [Hydrochlorothiazide] - Allergies Allergies/Adverse Reactions: Allergies Allergy/AdvReac Type Severity Reaction Status Date / Time acetaminophen AdvReac Intermediate Itching Verified 01/27/17 15:25 [From Tylenol-Codeine #3] codeine phosphate * AdvReac Intermediate Itching Verified 01/27/17 15:25 [From Tylenol-Codeine #3] - Social History Does the pt smoke?: Yes Smoking Status: Current every day smoker Does the pt drink ETOH?: Yes Does the pt have substance abuse?: No - Immunizations Immunizations are current?: Yes - POLST Patient has POLST: No PD ED PE NORMAL - Vitals Vital signs reviewed: Yes - General General: No acute distress, Other (thin, frail female ) - HEENT HEENT: PERRL - Neck Neck: Supple, no meningeal sign - Cardiac Cardiac: RRR, No murmur - Respiratory Respiratory: Clear bilaterally - Abdomen Abdomen: Normal bowel sounds, Soft, Non tender, Non distended, Other (Black stool at bedside Hemoccult positive.) - Derm Derm: Warm and dry - Extremities Extremities: No deformity - Neuro Neuro: Alert and oriented X 3 - Psych Psych: Normal mood, Normal affect Results - Vitals Vitals: Vital Signs - 24 hr 04/02/17 04/02/17 15:31 16:52 Temperature 36.5 C Heart Rate 119 H 84 Respiratory 18 18 Rate Blood Pressure 139/79 H 169/62 H O2 Saturation 99 100 Oxygen O2 Source Room air - EKG (time done) No standard instances Rate: Rate (enter#) (94) Rhythm: Sinus tachycardia [place]: Normal Intervals: Normal CA Ischemia: Normal ST segments - Labs Labs: Laboratory Tests 04/02/17 04/02/17 04/02/17 16:14 16:14 16:14 WBC 7.9 RBC 3.34 L Hgb 9.7 L Hct 29.6 L MCV 88.9 MCH 29.1 MCHC 32.8 RDW 17.3 H Plt Count 305 MPV 8.4 Neut # 5.3 Lymph # 1.9 Grant # 0.6 Eos # 0.1 Baso # 0.0 Absolute Nucleated RBC 0.00 Nucleated RBC % 0.0 PT 10.8 INR 1.0 APTT 26.4 Sodium 137 Potassium 3.9 Chloride 102 Carbon Dioxide 24 Anion Gap 11.0 BUN 54 H Creatinine 1.8 H Estimated GFR (MDRD) 27 L Glucose 96 Lactic Acid Calcium 9.3 Total Bilirubin 0.4 AST 33 ALT 14 Alkaline Phosphatase 69 Troponin I Total Protein 7.6 Albumin 4.2 Globulin 3.4 Albumin/Globulin Ratio 1.2 Blood Type Antibody Screen 04/02/17 04/02/17 04/02/17 16:14 16:42 16:42 WBC RBC Hgb Hct MCV MCH MCHC RDW Plt Count MPV Neut # Lymph # Grant # Eos # Baso # Absolute Nucleated RBC Nucleated RBC % PT INR APTT Sodium Potassium Chloride Carbon Dioxide Anion Gap BUN Creatinine Estimated GFR (MDRD) Glucose Lactic Acid 1.6 Calcium Total Bilirubin AST ALT Alkaline Phosphatase Troponin I < 0.04 Total Protein Albumin Globulin Albumin/Globulin Ratio Blood Type A POSITIVE Antibody Screen NEGATIVE PD MEDICAL DECISION MAKING - ED course ED course: 76-year-old female presents with melanotic stool, Hemoccult positive. Hemoglobin decrease from 12.8 on March 21 to 9.7 today. Uncertain whether acute decrease. May have occurred over the last few days in setting of recurrent bleeding. Do not suspect that current hemoglobin drop is related to her procedure 1 month ago. Patient does have tachycardia on arrival to the emergency department, and continues to have symptoms that may be related to anemia.Given the source of her GI bleeding was not found last time and she did not have a colonoscopy, discussed with hospitalist Dr. Zamudio admission to the hospital for monitoring serial hemoglobins and colonoscopy, Uncertain of the value of repeat endoscopy, would defer to specialist. I have administered a bolus dose of Protonix, did not yet start infusion, defer to hospitalist for further management of PPI. Departure - Departure Disposition: [facility] DC/Eliceo
[2017-04-02] MEDS ORDERED: SODIUM CHLORIDE 0.9% 1,000 ML IV ONE (17:33)
[2017-04-02] MEDS ORDERED: ACETAMINOPHEN 325 MG TABLET PO PRN (18:32)
[2017-04-02] MEDS ORDERED: ONDANSETRON 4 MG/2 ML VIAL IVP PRN (18:32)
[2017-04-02] MEDS ORDERED: METOPROLOL SUCCINATE 50 MG TABLET PO SCH (18:39)
[2017-04-02] MEDS ORDERED: hydrALAZINE INJ 20 MG/ML VIAL IVP PRN (18:43)
--- NOTE | 2017-04-02 18:52 | HISTORY & PHYSICAL EXAMINATION ---
Chief Complaint - Chief Complaint Chief Complaint: GI bleeding History of Present Illness - Admitted From Admitted From:: ER - History Obtained From History obtained from: patient and her - History of Present Illness HPI Comment/Other: This is a 76-year-old female with a significant past medical history of peripheral vascular disease with status post of stent placed in the left leg , HTN, peripheral neuropathy, psoriasis, osteoarthritis, hyperlipidemia, cervical fusion, GERD, Anxiety, who present ER for complaint of black stool. Pt report she did have twice bowel movement with black stool today. Pt state to me she did take Plavix before today for peripheral vascular disease with status post of stent placed in the left leg. Pt had an EGD during her last hospitalization which did not demonstrate any significant findings other than mild gastritis. Pt denies shortness of breath, chest pain, abdominal pain, nausea, vomiting, diarrhea. Pt denies other complaints. Pt's HD is stable. Pt's HGB is 9.7, it was 12.8 on 03/21/17. Pt's CKD is her baseline today. Surgeon is consulted, plan to have colonoscopy on tomorrow. History - Past Medical History Cardiovascular: reports: Hypertension Respiratory: reports: None Neuro: reports: Peripheral neuropathy Endocrine/Autoimmune: reports: None GI: reports: None : reports: None HEENT: reports: Dental implants Psych: reports: None Musculoskeletal: reports: None Derm: reports: Psoriasis MRSA Hx?: No - Family & Social History Family History: Mother: , Cancer, Father: , CAD, COPD/Emphysema , CVA/TIA Family History Comment/Other: pt state she was retired, and lived with her at [facility]. Pt report she has one daughter with two grandchild. Pt report she quit cigarette smoking on 2016, denies alcohol and drug abuse. Living arrangement: At home Living Situation: With spouse/s.o. - Substance History Use: Uses substance without health or social issues: NONE Abuse: Recurrent use of substance despite neg consequences: NONE Dependence: Experiences withdrawal or developed tolerances: NONE - POLST Patient has POLST: No POLST Status: DNR Meds/Allgy - Home Medications Home Medications: Ambulatory Orders Medication Instructions Recorded Confirmed Losartan [Cozaar] 100 mg PO QPM 01/27/17 04/02/17 Metoprolol Succinate [Toprol Xl] 50 mg PO DAILY 03/14/17 04/02/17 hydroCHLOROthiazide 25 mg PO DAILY 03/14/17 04/02/17 [Hydrochlorothiazide] Aspirin [Aspirin EC] 81 mg PO DAILY 04/02/17 04/02/17 Rosuvastatin Calcium [Crestor] 10 mg PO QPM 04/03/17 04/03/17 - Allergies Allergies/Adverse Reactions: Allergies Allergy/AdvReac Type Severity Reaction Status Date / Time acetaminophen AdvReac Intermediate Itching Verified 01/27/17 15:25 [From Tylenol-Codeine #3] codeine phosphate * AdvReac Intermediate Itching Verified 01/27/17 15:25 [From Tylenol-Codeine #3] Review of Systems - Constitutional Constitutional: reports: Weakness. denies: Fatigue, Fever, Malaise, Poor appetite, Diaphoresis, Night sweats, Weight gain, Weight loss - Eyes Eyes: denies: Pain, Irritation, Amaurosis, Blurred vision, Spots in vision, Field loss, Vision loss, Dipolpia - Ears, Nose & Throat Ears, Nose & Throat: denies: Ear pain, Hearing loss, Hearing aids, Tinnitus, Vertigo, Nasal pain, Nasal discharge, Nosebleeds, Sore throat, Mouth lesions, Bleeding gums - Cardiovascular Cariovascular: denies: Irregular heart rate, Palpitations, Chest pain, Edema, Lightheadedness, Syncope, Exertional dyspnea, Decr. exercise tolerance - Respiratory Respiratory: denies: Cough, Sputum production, Wheezing, Snoring, Hemoptysis, Orthopnea, SOB at rest, SOB with exertion - Gastrointestinal Gastrointestinal: reports: Black stools. denies: Abdominal pain, Abdominal distention, Constipation, Diarrhea, Change in bowel habits, Rectal bleeding, Bloody stools, Nausea, Vomiting, Bile emesis, Ariel blood emesis, Coffee grounds emesis, Reflux/heartburn - Genitourinary Genitourinary: denies: Dysuria, Frequency, Urgency, Hematuria, Incontinence, Flank pain - Musculoskeletal Musculoskeletal: denies: Muscle pain, Back pain, Muscle aches, Stiffness, Limited range of motion, Muscle weakness, Gout, Joint pain - Integumentary Integumentary: denies: Rash, Pruritis, Lesions, Dryness, Pigment changes - Neurological Neurological: denies: General weakness, Focal weakness, Headache, Dizziness, Numbness, Memory problems, Abnormal gait, Seizures, Incoordination, Slurred speech - Psychiatric Psychiatric: denies: Depression, Anxiety, Suicidal, Delusions, Hallucinations, Homicidal - Endocrine Endocrine: denies: Polyuria, Polydypsia, Polyphagia, Intolerance to cold, Intolerance to heat - Hematologic/Lymphatic Hematologic/Lymphatic: reports: Anemia. denies: Bruising, Petechiae, Blood clots, Lymphadenopathy, Bleeding tendencies, Recurrent infections Exam - Vital Signs Reviewed Vital Signs: Yes Vital Signs: Vital Signs x48h Temp Pulse Resp BP Pulse Ox 04/02/17 18:22 103 H 15 182/76 H 100 04/02/17 16:52 84 18 169/62 H 100 04/02/17 15:31 36.5 C 119 H 18 139/79 H 99 - Physical Exam General Appearance: positive: No acute distress, Alert. negative: Lethargic Eyes Bilateral: positive: Normal inspection, PERRL, EOMI, No lid inflammation, Conjunctivae nml ENT: positive: ENT inspection nml, Pharynx nml, No signs of dehydration. negative: Purulent nasal drainage, Pharyngeal erythema, Oral lesions, Dry mucous membranes Neck: positive: Nml inspection, Thyroid nml, No JVD, Trachea midline. negative : Thyromegaly, Lymphadenopathy (R), Lymphadenopathy (L), Stiff neck, Carotid bruit, Swelling/bruising, Tracheal deviation Respiratory: positive: Chest non-tender, No respiratory distress, Breath sounds nml. negative: Wheezes, Rales, Rhonchi Cardiovascular: positive: Regular rate & rhythm, No murmur, No gallop, Tachycardia. negative: Irregularly irregular, Extrasystoles, Bradycardia, Systolic murmur, Diastolic murmur Peripheral Pulses: positive: 2+ Abdomen: positive: Non-tender, No organomegaly, Nml bowel sounds, No distention. negative: Tenderness, Guarding, Rebound Back: positive: Nml inspection. negative: CVA tenderness (R), CVA tenderness (L ) Skin: positive: Color nml, No rash, Warm, Dry. negative: Cyanosis, Diaphoresis , Pallor Extremities: positive: Non-tender, Full ROM, Nml appearance. negative: Calf tenderness, Joint swelling, Dank's sign/cords Neurologic/Psychiatric: positive: Oriented x3, Motor nml, Sensation nml, Mood/ affect nml. negative: Sensory loss, Facial droop, Slurred/abnml speech, Depressed mood/affect Conclusion/Plan - Problem List (1) Black stool Conclusion/Plan: it is recurrent black stool, and significantly drop HGB level. Pt took Plavix. Pt had EGD on last admission but no significant founding continue H&H consult with surgeon, plan to do Colonoscopy on next day NPO and IVF (2) Acute blood loss anemia Conclusion/Plan: pt's HGB significan drop from last test. Pt took Plavix. Pt's HD is stable. HGB today is 9.7 H&H, follow up order cross and match closely monitor vital, HD hold Plavix (3) HTN (hypertension) Conclusion/Plan: resume home BP meds PRN hydralazine (4) Claudication in peripheral vascular disease Conclusion/Plan: pt is status post of stent replaced. pt is stable, no pain reported. pt quitted the cigarette couple of months ago. hold Plavix now. pt is following up her vascular surgeon CT of abdomen does not reveal hematoma on abdomen and pelvis wall. vital monitor (5) Liver mass, right lobe Conclusion/Plan: US of abdomen on 03/21/17 indicates compatible hemangiomas. pt state she had MRI of abdomen on 04.08.17 as the out-pt. (6) Hyperlipidemia Conclusion/Plan: stable, continue home meds (7) DVT prophylaxis Conclusion/Plan: SCD (8) Do not intubate, cardiopulmonary resuscitation (CPR)-only code status Conclusion/Plan: pt request DNR - Lab Results Fish Bones: 04/03/17 13:20 04/03/17 05:23 Issues/Core Measures - Anticipated LOS Anticipated Stay Length: 2 or more midnights (pt had acute blood loss and GI bleeding, expected 2 or more midnights) - [facility] Requirement for [facility] I expect patient to be DC'd or transferred within 96 hours.: Yes
--- NOTE | 2017-04-02 19:38 | CT Preliminary Report ---
Exam: CT ABDOMEN/PELVIS W/O IMPRESSION: 1. There are several indeterminate hypodensities within the liver. 2. There is likely nephrolithiasis. No evidence of distal obstructing stone or hydronephrosis. 3. No acute gastrointestinal tract abnormalities are seen. 4. No evidence of abdominal or pelvic hematoma. SITE ID: [id number]
--- NOTE | 2017-04-02 19:40 | CT Report ---
EXAM: CT ABDOMEN AND PELVIS EXAM DATE: 04/02/2017 07:05 PM. CLINICAL HISTORY: Extraperitoneal hematoma. COMPARISONS: 03/13/2017. TECHNIQUE: Routine axial helical CT imaging was performed through the abdomen and pelvis without IV c ontrast. Reconstructions: Coronal and sagittal. In accordance with CT protocol optimization, one or more of the following dose reduction techniques w ere utilized for this exam: automated exposure control, adjustment of mA and/or KV based on patient s ize, or use of iterative reconstructive technique. FINDINGS: Lung Bases: Unremarkable. Abdominal Organs: There are several indeterminate rounded hypodensities within the liver. The largest measures 1.1 x 1.8 cm and is located within the right hepatic lobe (image 16 series 3). The spleen, pancreas, adrenal glands, and kidneys demonstrate no acute abnormalities. There is likely bilateral n ephrolithiasis. Gallbladder/bile ducts: No significant abnormalities. Peritoneal Cavity: No dilated or thick-walled bowel is seen. There is no intraperitoneal free air or free fluid. There are no enlarged mesenteric or retroperitoneal lymph nodes. Pelvic Organs: No bladder stones or wall thickening. Noncontrast images of the visualized pelvic orga ns are unremarkable. Vasculature: There are extensive vascular calcifications. No acute abnormalities are seen. Other: No evidence of abdominal wall hematoma. IMPRESSION: 1. There are several indeterminate hypodensities within the liver. 2. There is likely nephrolithiasis. No evidence of distal obstructing stone or hydronephrosis. 3. No acute gastrointestinal tract abnormalities are seen. 4. No evidence of abdominal or pelvic hematoma. Referring Provider Line: [phone] SITE ID: [id number]
[2017-04-02 19:55] LABS: HCT - HEMATOCRIT 27.7 % (37.0-47.0); HGB - HEMOGLOBIN 8.7 g/dL (12.0-16.0)
[2017-04-02] MEDS: SODIUM CHLORIDE 0.9% 1,000 ML IV SCH (19:57)
[2017-04-02] MEDS: SODIUM CHLORIDE FLUSH 0.9% 10 ML SYRINGE IVP SCH (20:18)
[2017-04-02] MEDS: LOSARTAN 50 MG TABLET PO SCH (20:18)
[2017-04-02] MEDS: PANTOPRAZOLE 40 MG VIAL IVP SCH (20:18)
[2017-04-02] MEDS ORDERED: ROSUVASTATIN CALCIUM 10 MG PO SCH (21:00)
[2017-04-03 02:09] LABS: HCT - HEMATOCRIT 24.6 % (37.0-47.0)
[2017-04-03] MEDS: SODIUM CHLORIDE FLUSH 0.9% 10 ML SYRINGE IVP SCH ×3 (03:08→16:21)
[2017-04-03] MEDS: SODIUM CHLORIDE 0.9% 1,000 ML IV SCH ×3 (03:08→22:30)
[2017-04-03 05:48] LABS: BASOPHILS % (AUTO) 0.6 %; EOSINOPHILS # (AUTO) 0.3 10^3/uL (0.0-0.7); EOSINOPHILS % (AUTO) 4.4 %; HGB - HEMOGLOBIN 8.7 g/dL (12.0-16.0); LYMPHOCYTES # (AUTO) 1.8 10^3/uL (1.5-3.5); LYMPHOCYTES % (AUTO) 27.6 %; MEAN CORPUSCULAR HEMOGLOBIN 29.1 pg (27.0-31.0); MEAN CORPUSCULAR HGB CONC 32.2 g/dL (32.0-36.0); MEAN CORPUSCULAR VOLUME 90.5 fL (81.0-99.0); MEAN PLATELET VOLUME 8.5 fL (7.9-10.8); MONOCYTES # (AUTO) 0.6 10^3/uL (0.0-1.0); MONOCYTES % (AUTO) 9.5 %; NEUTROPHILS # (AUTO) 3.8 10^3/uL (1.5-6.6); NEUTROPHILS % (AUTO) 57.9 %; RED BLOOD COUNT 2.98 10^6/uL (4.20-5.40); RED CELL DISTRIBUTION WIDTH 17.1 % (12.0-15.0); UNCORRECTED WHITE BLOOD COUNT 6.6 x10^3/uL; WHITE BLOOD COUNT 6.6 x10^3/uL (4.8-10.8)
[2017-04-03 06:01] LABS: ALBUMIN/GLOBULIN RATIO 1.3 (1.0-2.2); BILIRUBIN,TOTAL 0.6 mg/dL (0.2-1.0); CALCIUM 8.7 mg/dL (8.5-10.3); CREATININE 1.4 mg/dL (0.4-1.0); MAGNESIUM 1.9 mg/dL (1.7-2.8); POTASSIUM 4.1 mmol/L (3.5-5.0); TOTAL PROTEIN 6.2 g/dL (6.7-8.2)
[2017-04-03] MEDS: SODIUM CHLORIDE FLUSH 0.9% 10 ML SYRINGE IVP PRN ×2 (06:17→16:15)
[2017-04-03] MEDS: PANTOPRAZOLE 40 MG VIAL IVP SCH ×2 (06:17→16:14)
[2017-04-03] MEDS: hydroCHLOROthiazide 25 MG TABLET PO SCH (10:03)
[2017-04-03] MEDS: METOPROLOL SUCCINATE 50 MG TABLET PO SCH (10:03)
[2017-04-03] MEDS: POLYETHYLENE GLYCOL 3350 17 GM PACKET PO SCH (10:03)
--- NOTE | 2017-04-03 10:30 | CONSULTATION NOTE ---
Referring Provider Name of Referring Provider:: SURAJ Calle History of Present Illness - Admitted From Admitted From:: ER - History of Present Illness HPI Comment/Other: Ms. Nava is a 76-year-old female who returns to the emergency department today for recurrent dark tarry stools. She was admitted to the hospital approximately 2 weeks ago for the same complaints. At that visit her workup included a CT scan of the abdomen which demonstrated a small extraperitoneal hematoma in the right groin. She had undergone a left lower extremity stent via a right femoral access approximately 2 weeks prior. She is on Plavix daily secondary to her claudication and recent stent placement. She stopped taking Plavix yesterday. She developed 2 episodes of dark tarry stools yesterday and the day prior and subsequently came to the emergency department with these complaints. At her prior hospitalization her discharge H&H was noted to be and on evaluation in the ER yesterday 01/16. She has remained hemodynamically stable. She did receive 2 U of PRBC during her prior admission. Additionally she underwent an EGD during her last hospitalization which did not demonstrate any significant findings other than mild gastritis. Stomach biopsies were negative for H. pylori. She denies any associated GERD or peptic ulcer disease associated symptoms.She occasionally takes a baby aspirin and denies any significant use of NSAIDs. She denies abdominal pain.She believes her most recent colonoscopy was performed approximately 10 years ago. She has no family history of colon cancer. History - Past Medical History Cardiovascular: reports: Hypertension Respiratory: reports: None Neuro: reports: Peripheral neuropathy Endocrine/Autoimmune: reports: None GI: reports: None : reports: None HEENT: reports: Dental implants Psych: reports: None Musculoskeletal: reports: None Derm: reports: Psoriasis MRSA Hx?: No - POLST Patient has POLST: No Meds/Allgy - Home Medications Home Medications: Ambulatory Orders Medication Instructions Recorded Confirmed Losartan [Cozaar] 100 mg PO QPM 01/27/17 04/02/17 Metoprolol Succinate [Toprol Xl] 50 mg PO DAILY 03/14/17 04/02/17 hydroCHLOROthiazide 25 mg PO DAILY 03/14/17 04/02/17 [Hydrochlorothiazide] Aspirin [Aspirin EC] 81 mg PO DAILY 04/02/17 04/02/17 Rosuvastatin Calcium [Crestor] 10 mg PO QPM 04/03/17 04/03/17 - Allergies Allergies/Adverse Reactions: Allergies Allergy/AdvReac Type Severity Reaction Status Date / Time acetaminophen AdvReac Intermediate Itching Verified 01/27/17 15:25 [From Tylenol-Codeine #3] codeine phosphate * AdvReac Intermediate Itching Verified 01/27/17 15:25 [From Tylenol-Codeine #3] Exam - Vital Signs Reviewed Vital Signs: Yes Vital Signs: Vital Signs x48h Temp Pulse Resp BP Pulse Ox 04/03/17 07:33 36.6 C 90 16 157/54 H 98 04/03/17 05:17 36.5 C 89 18 121/62 97 - Physical Exam General Appearance: positive: No acute distress Respiratory: positive: No respiratory distress Cardiovascular: positive: Regular rate & rhythm Abdomen: positive: Non-tender, No distention Extremities: positive: No pedal edema, Other (well perfused) Neurologic/Psychiatric: positive: Oriented x3 Conclusion/Plan - Diagnosis Diagnosis: Gi bleed - Plan Plan: I do recommend proceeding with a colonoscopy for further evaluation of her dark tarry stools. An upper GI source has been ruled out by her recent EGD. The procedure was explained to the patient in detail including potential risks involved including but not limited to bleeding and perforation. I did indicate that if any large polyps are discovered polypectomy will need to be deferred until her Plavix has been held for at least 5 days. She will start her bowel prep this evening and the colonoscopy be performed tomorrow. Her recent EGD was negative and she demonstrates no symptoms concerning for an upper GI source for her bleeding at this time. If her colonoscopy is additionally negative she will require further workup including a possible capsule endoscopy, bleeding scan or push enteroscopy to rule out small bowel source. - Lab Results Fish Bones: 04/03/17 05:23 04/03/17 05:23
[2017-04-03 13:32] LABS: HCT - HEMATOCRIT 25.6 % (37.0-47.0); HGB - HEMOGLOBIN 8.5 g/dL (12.0-16.0)
--- NOTE | 2017-04-03 15:04 | PROVIDER PROGRESS NOTE ---
Subjective - Prog Note Date Prog Note Date: 04/03/17 - Subjective Pt reports feeling: Improved Subjective: pt report she did not have bowel movement yet. no other complaints. HD is stable. Current Medications - Current Medications Current Medications: Active Medications Acetaminophen (Tylenol) 650 mg PO Q4HR PRN PRN Reason: Pain 1 to 4 Hydralazine HCl (Apresoline Inj) 10 mg IVP TID PRN PRN Reason: Hypertensive Emergency Hydrochlorothiazide (Hydrodiuril) 25 mg PO DAILY [facility] Last Admin: 04/03/17 10:03 Dose: 25 mg Sodium Chloride (Normal Saline 0.9%) 1,000 mls @ 100 mls/hr IV .Q10H [facility] Last Admin: 04/03/17 13:10 Dose: 100 mls/hr Losartan Potassium (Cozaar) 100 mg PO QPM [facility] Last Admin: 04/02/17 20:18 Dose: 100 mg Metoprolol Succinate (Toprol Xl) 50 mg PO DAILY [facility] Last Admin: 04/03/17 10:03 Dose: 50 mg Ondansetron HCl (Zofran Inj) 4 mg IVP Q6HR PRN PRN Reason: Nausea / Vomiting Pantoprazole Sodium (Protonix) 40 mg IVP BIDAC [facility] Last Admin: 04/03/17 06:17 Dose: 40 mg Polyethylene Glycol (Miralax) 17 gm PO DAILY [facility] Last Admin: 04/03/17 10:03 Dose: 17 gm Sodium Chloride (Normal Saline Flush 0.9%) 10 ml IVP PRN PRN PRN Reason: NEEDED PER PROVIDER ORDERS Last Admin: 04/03/17 06:17 Dose: 10 ml Sodium Chloride (Normal Saline Flush 0.9%) 10 ml IVP Q8HR [facility] Last Admin: 04/03/17 13:50 Dose: Not Given Losartan [Cozaar] 100 mg PO QPM 01/27/17 Metoprolol Succinate [Toprol Xl] 50 mg PO DAILY 03/14/17 hydroCHLOROthiazide [Hydrochlorothiazide] 25 mg PO DAILY 03/14/17 Aspirin [Aspirin EC] 81 mg PO DAILY 04/02/17 Rosuvastatin Calcium [Crestor] 10 mg PO QPM 04/03/17 Objective - Vital Signs/Intake & Output Reviewed Vital Signs: Yes Vital Signs: Vital Signs x48h Temp Pulse Resp BP Pulse Ox 04/03/17 12:20 36.7 C 78 16 137/64 H 98 04/03/17 07:33 36.6 C 90 16 157/54 H 98 Intake & Output: Intake & Output 03/31/17 04/01/17 04/02/17 04/03/17 23:59 23:59 23:59 23:59 Intake Total 1200 2078.333 Output Total 700 Balance 1200 1378.333 - Objective General Appearance: positive: No acute distress, Alert. negative: Lethargic Eyes Bilateral: positive: Normal inspection, PERRL, No lid inflammation, Conjunctivae nml ENT: positive: ENT inspection nml, Pharynx nml, No signs of dehydration. negative: Purulent nasal drainage, Pharyngeal erythema, Oral lesions, Dry mucous membranes Neck: positive: Nml inspection, Thyroid nml, No JVD, Trachea midline. negative : Thyromegaly, Lymphadenopathy (R), Lymphadenopathy (L), Stiff neck, Carotid bruit, Swelling/bruising, Tracheal deviation Respiratory: positive: Chest non-tender, No respiratory distress, Breath sounds nml. negative: Wheezes, Rales, Rhonchi Cardiovascular: positive: Regular rate & rhythm, No murmur, No gallop. negative : Irregularly irregular, Extrasystoles, Tachycardia, Bradycardia, Systolic murmur, Diastolic murmur Peripheral Pulses: 2+ Radial (R), 2+ Radial (L), 2+ Dorsalis pedis (R), 2+ Dorsalis pedis (L) Abdomen: positive: Non-tender, No organomegaly, Nml bowel sounds, No distention. negative: Tenderness, Guarding, Rebound Back: positive: Nml inspection. negative: CVA tenderness (R), CVA tenderness (L ) Skin: positive: Color nml, No rash, Warm, Dry. negative: Cyanosis, Diaphoresis , Pallor Extremities: positive: Non-tender, Full ROM, Nml appearance. negative: Calf tenderness, Joint swelling, Dank's sign/cords Neurologic/Psychiatric: positive: Oriented x3, Motor nml, Sensation nml, Mood/ affect nml. negative: Sensory loss, Facial droop, Slurred/abnml speech, Depressed mood/affect - Lab Results Fish Bones: 04/03/17 13:20 04/03/17 05:23 Other Labs: Lab Results x24hrs 04/03/17 04/03/17 04/03/17 Range/Units 13:20 05:23 05:23 WBC 6.6 (4.8-10.8) x10^3/uL RBC 2.98 L (4.20-5.40) 10^6/uL Hgb 8.5 L 8.7 L (12.0-16.0) g/dL Hct 25.6 L 27.0 L (37.0-47.0) % MCV 90.5 (81.0-99.0) fL MCH 29.1 (27.0-31.0) pg MCHC 32.2 (32.0-36.0) g/dL RDW 17.1 H (12.0-15.0) % Plt Count 261 (130-450) 10^3/uL MPV 8.5 (7.9-10.8) fL Neut # 3.8 (1.5-6.6) 10^3/uL Lymph # 1.8 (1.5-3.5) 10^3/uL Faulkner # 0.6 (0.0-1.0) 10^3/uL Eos # 0.3 (0.0-0.7) 10^3/uL Baso # 0.0 (0.0-0.1) 10^3/uL Absolute Nucleated RBC 0.00 x10^3/uL Nucleated RBC % 0.0 /100WBC Sodium 141 (135-145) mmol/L Potassium 4.1 (3.5-5.0) mmol/L Chloride 112 H (101-111) mmol/L Carbon Dioxide 22 (21-32) mmol/L Anion Gap 7.0 (6-13) BUN 45 H (6-20) mg/dL Creatinine 1.4 H (0.4-1.0) mg/dL Estimated GFR (MDRD) 36 L (>89) Glucose 86 (70-100) mg/dL Calcium 8.7 (8.5-10.3) mg/dL Magnesium 1.9 (1.7-2.8) mg/dL Total Bilirubin 0.6 (0.2-1.0) mg/dL AST 25 (10-42) IU/L ALT 12 (10-60) IU/L Alkaline Phosphatase 56 (42-121) IU/L Total Protein 6.2 L (6.7-8.2) g/dL Albumin 3.5 (3.2-5.5) g/dL Globulin 2.7 (2.1-4.2) g/dL Albumin/Globulin Ratio 1.3 (1.0-2.2) 04/03/17 04/02/17 Range/Units 02:00 19:46 WBC (4.8-10.8) x10^3/uL RBC (4.20-5.40) 10^6/uL Hgb 8.0 L 8.7 L (12.0-16.0) g/dL Hct 24.6 L 27.7 L (37.0-47.0) % MCV (81.0-99.0) fL MCH (27.0-31.0) pg MCHC (32.0-36.0) g/dL RDW (12.0-15.0) % Plt Count (130-450) 10^3/uL MPV (7.9-10.8) fL Neut # (1.5-6.6) 10^3/uL Lymph # (1.5-3.5) 10^3/uL Faulkner # (0.0-1.0) 10^3/uL Eos # (0.0-0.7) 10^3/uL Baso # (0.0-0.1) 10^3/uL Absolute Nucleated RBC x10^3/uL Nucleated RBC % /100WBC Sodium (135-145) mmol/L Potassium (3.5-5.0) mmol/L Chloride (101-111) mmol/L Carbon Dioxide (21-32) mmol/L Anion Gap (6-13) BUN (6-20) mg/dL Creatinine (0.4-1.0) mg/dL Estimated GFR (MDRD) (>89) Glucose (70-100) mg/dL Calcium (8.5-10.3) mg/dL Magnesium (1.7-2.8) mg/dL Total Bilirubin (0.2-1.0) mg/dL AST (10-42) IU/L ALT (10-60) IU/L Alkaline Phosphatase (42-121) IU/L Total Protein (6.7-8.2) g/dL Albumin (3.2-5.5) g/dL Globulin (2.1-4.2) g/dL Albumin/Globulin Ratio (1.0-2.2) Assessment/Plan - Problem List (1) Black stool Impression: Conclusion/Plan: pt's HGB is slight decreased, could be derived from dilation of IVF pt's HD is stable continue H&H, and closely monitor pt will have Colonoscopy tomorrow it is recurrent black stool, and significantly drop HGB level. Pt took Plavix. Pt had EGD on last admission but no significant founding continue H&H consult with surgeon, plan to do Colonoscopy on next day NPO and IVF (2) Acute blood loss anemia Conclusion/Plan: pt's HGB is slight decreased, could be derived from dilation of IVF pt's HD is stable will transfusion of blood as clinic indicated pt's HGB significan drop from last test. Pt took Plavix. Pt's HD is stable. HGB today is 9.7 H&H, follow up order cross and match closely monitor vital, HD hold Plavix (3) HTN (hypertension) Conclusion/Plan: STABLE continue vital monitor resume home BP meds PRN hydralazine (4) Claudication in peripheral vascular disease Conclusion/Plan: pt is status post of stent replaced. pt is stable, no pain reported. pt quitted the cigarette couple of months ago. hold Plavix now. pt is following up her vascular surgeon CT of abdomen does not reveal hematoma on abdomen and pelvis wall. vital monitor (5) Liver mass, right lobe Conclusion/Plan: US of abdomen on 03/21/17 indicates compatible hemangiomas. pt state she had MRI of abdomen on 04.08.17 as the out-pt. (6) Hyperlipidemia Conclusion/Plan: stable, continue home meds
[2017-04-03 19:09] LABS: HCT - HEMATOCRIT 25.2 % (37.0-47.0); HGB - HEMOGLOBIN 8.2 g/dL (12.0-16.0)
[2017-04-03] MEDS: SODIUM/POTASSIUM/MAG SULFATES 354 ML PREP KIT PO SCH (19:58)
[2017-04-03] MEDS: LOSARTAN 50 MG TABLET PO SCH (20:01)
[2017-04-04 05:11] LABS: BASOPHILS % (AUTO) 0.7 %; EOSINOPHILS # (AUTO) 0.3 10^3/uL (0.0-0.7); EOSINOPHILS % (AUTO) 4.2 %; HCT - HEMATOCRIT 28.8 % (37.0-47.0); HGB - HEMOGLOBIN 9.2 g/dL (12.0-16.0); LYMPHOCYTES # (AUTO) 2.5 10^3/uL (1.5-3.5); LYMPHOCYTES % (AUTO) 35.8 %; MEAN CORPUSCULAR HEMOGLOBIN 29.2 pg (27.0-31.0); MEAN CORPUSCULAR VOLUME 91.1 fL (81.0-99.0); MEAN PLATELET VOLUME 8.5 fL (7.9-10.8); MONOCYTES # (AUTO) 0.6 10^3/uL (0.0-1.0); MONOCYTES % (AUTO) 8.9 %; NEUTROPHILS # (AUTO) 3.6 10^3/uL (1.5-6.6); NEUTROPHILS % (AUTO) 50.4 %; RED BLOOD COUNT 3.16 10^6/uL (4.20-5.40); RED CELL DISTRIBUTION WIDTH 17.6 % (12.0-15.0); UNCORRECTED WHITE BLOOD COUNT 7.1 x10^3/uL; WHITE BLOOD COUNT 7.1 x10^3/uL (4.8-10.8)
[2017-04-04 05:23] LABS: ALBUMIN/GLOBULIN RATIO 1.3 (1.0-2.2); BILIRUBIN,TOTAL 0.5 mg/dL (0.2-1.0); CALCIUM 8.6 mg/dL (8.5-10.3); CREATININE 1.1 mg/dL (0.4-1.0); POTASSIUM 4.7 mmol/L (3.5-5.0); TOTAL PROTEIN 6.1 g/dL (6.7-8.2)
[2017-04-04] MEDS: PANTOPRAZOLE 40 MG VIAL IVP SCH ×2 (06:42→16:28)
[2017-04-04] MEDS: SODIUM CHLORIDE FLUSH 0.9% 10 ML SYRINGE IVP SCH ×2 (06:43→12:46)
[2017-04-04] MEDS: SODIUM/POTASSIUM/MAG SULFATES 354 ML PREP KIT PO SCH (08:43)
[2017-04-04] MEDS: SODIUM CHLORIDE 0.9% 1,000 ML IV SCH (08:43)
[2017-04-04] MEDS: POLYETHYLENE GLYCOL 3350 17 GM PACKET PO SCH (08:43)
[2017-04-04] MEDS: hydroCHLOROthiazide 25 MG TABLET PO SCH (12:42)
[2017-04-04] MEDS: METOPROLOL SUCCINATE 50 MG TABLET PO SCH (12:42)
[2017-04-04] MEDS ORDERED: SODIUM CHLORIDE 0.9% 1,000 ML IV ONE (16:32)
[2017-04-04] MEDS ORDERED: LACTATED RINGERS 1,000 ML IV ONE (17:00)
--- NOTE | 2017-04-04 17:52 | PROVIDER PROGRESS NOTE ---
Subjective - Prog Note Date Prog Note Date: 04/04/17 - Subjective Pt reports feeling: Improved Objective - Vital Signs/Intake & Output Vital Signs: Vital Signs x48h Temp Pulse Resp BP Pulse Ox 04/04/17 17:40 100 04/04/17 17:35 100 04/04/17 17:30 100 04/04/17 17:25 99 04/04/17 15:25 36.7 C 77 18 164/64 H 98 04/04/17 12:15 36.6 C 74 20 164/56 H 99 Intake & Output: Intake & Output 04/01/17 04/02/17 04/03/17 04/04/17 23:59 23:59 23:59 23:59 Intake Total 1200 3561.666 1781.667 Output Total 1350 250 Balance 1200 2211.666 1531.667 - Lab Results Fish Bones: 04/04/17 04:50 04/04/17 04:50 Other Labs: Lab Results x24hrs 04/04/17 04/04/17 04/03/17 Range/Units 04:50 04:50 19:02 WBC 7.1 (4.8-10.8) x10^3/uL RBC 3.16 L (4.20-5.40) 10^6/uL Hgb 9.2 L 8.2 L (12.0-16.0) g/dL Hct 28.8 L 25.2 L (37.0-47.0) % MCV 91.1 (81.0-99.0) fL MCH 29.2 (27.0-31.0) pg MCHC 32.0 (32.0-36.0) g/dL RDW 17.6 H (12.0-15.0) % Plt Count 298 (130-450) 10^3/uL MPV 8.5 (7.9-10.8) fL Neut # 3.6 (1.5-6.6) 10^3/uL Lymph # 2.5 (1.5-3.5) 10^3/uL Sevier # 0.6 (0.0-1.0) 10^3/uL Eos # 0.3 (0.0-0.7) 10^3/uL Baso # 0.0 (0.0-0.1) 10^3/uL Absolute Nucleated RBC 0.00 x10^3/uL Nucleated RBC % 0.0 /100WBC Sodium 142 (135-145) mmol/L Potassium 4.7 (3.5-5.0) mmol/L Chloride 110 (101-111) mmol/L Carbon Dioxide 23 (21-32) mmol/L Anion Gap 9.0 (6-13) BUN 24 H (6-20) mg/dL Creatinine 1.1 H (0.4-1.0) mg/dL Estimated GFR (MDRD) 48 L (>89) Glucose 97 (70-100) mg/dL Calcium 8.6 (8.5-10.3) mg/dL Total Bilirubin 0.5 (0.2-1.0) mg/dL AST 25 (10-42) IU/L ALT 11 (10-60) IU/L Alkaline Phosphatase 52 (42-121) IU/L Total Protein 6.1 L (6.7-8.2) g/dL Albumin 3.4 (3.2-5.5) g/dL Globulin 2.7 (2.1-4.2) g/dL Albumin/Globulin Ratio 1.3 (1.0-2.2)
--- NOTE | 2017-04-04 18:42 | Discharge Plan ---
Discharge Plan Disposition: 01 Home, Self Care Condition: Stable Diet: Regular Activity Restrictions: Activity as Tolerated Shower Restrictions: No Weight Bearing: Full Weight Instruction Topics: Bleeding Gastrointestinal, ED Hematochezia Stable Additional Instructions or Follow Up instructions: May follow up PCP in four days, see Digital Sales Assistant within one week. May hold Aspirin for 48 hours. Should symptoms return or worsen, call 911 or present to ER. You are welcome to our service. Follow-Up Care: [facility] - Cardiac No Smoking: If you smoke, Please STOP! Call for help. Follow-up with: Arianna Smith DO [Primary Care Provider] -
--- NOTE | 2017-04-04 18:57 | DISCHARGE SUMMARY ---
"Discharge Summary Discharge Date: 04/04/17 Condition at Discharge: Stable Discharge Disposition: 01 Home, Self Care - DIAGNOSES Admission Diagnoses: (1) Black stool (2) anemia (3) HTN (hypertension) (4) Claudication in peripheral vascular disease (5) Liver mass, right lobe (6) Hyperlipidemia Discharge Diagnoses with Status of Each Condition: (1) Black stool occult stool test positive. No bleeding site was found by surgeon on Colonoscopy , per surgeon on phone call to me. Surgeon did remove many Polyps when on Colonoscopy. Per surgeon recommend if pt still has black stool, pt is advised to see GI specialist. Pt state she understand, and will request urgent referral from her PCP to see GI doctor if happened again. surgeon recommend pt hold her blood thinner medications: Aspirin and Plavix for 48 hours. Pt state she understands. (2) anemia stable, pt initiate HGB 9.7 at admission, HGB 9.2 at discharge. No further bleeding at hospital. (3) HTN (hypertension) stable, continue home meds regime (4) Claudication in peripheral vascular disease pt state she will follow up her vascular surgeon (5) Liver mass, right lobe Pt state she will have MRI at 04/08/17 as out-pt. Pt is informed the CT finding as her previous findings. Pt had US of liver on 03/21/17, which was reviewed by her oncologist, and was begin per pt's statement. (6) Hyperlipidemia stable, continue home regime - HPI History of Present Illness: please refer from my HPI on 04/02/17 as the following: This is a 76-year-old female with a significant past medical history of peripheral vascular disease with status post of stent placed in the left leg , HTN, peripheral neuropathy, psoriasis, osteoarthritis, hyperlipidemia, cervical fusion, GERD, Anxiety, who present ER for complaint of black stool. Pt report she did have twice bowel movement with black stool today. Pt state to me she did take Plavix before today for peripheral vascular disease with status post of stent placed in the left leg. Pt had an EGD during her last hospitalization which did not demonstrate any significant findings other than mild gastritis. Pt denies shortness of breath, chest pain, abdominal pain, nausea, vomiting, diarrhea. Pt denies other complaints. Pt's HD is stable. Pt's HGB is 9.7, it was 12.8 on 03/21/17. Pt's CKD is her baseline today. Surgeon is consulted, plan to have colonoscopy on tomorrow. - CONSULTS | PROCEDURES Consultations: surgeon Dr. Becerra - HOSPITAL COURSE Hospital Course: pt was admitted for black stool. Pt's HGB 9.7 at admission. Her HGB was above 12 about one month ago. Occult stool test positive. Surgeon was consulted. Colonoscopy was done. Surgeon called me she did not find any bleeding site at colonoscopy. She recommended pt can be d/c, if symptoms returns, see GI doctor as the out-pt, hold blood thinner for 48 hours. Surgeon removed lots of polyps in the colonoscopy. Pt was informed above information. pt state she understand. pt's HGB is 9.2 at discharge day. pt really want to be discharged to home tonight. - ALLERGIES Allergies/Adverse Reactions: Allergies Allergy/AdvReac Type Severity Reaction Status Date / Time acetaminophen AdvReac Intermediate Itching Verified 01/27/17 15:25 [From Tylenol-Codeine #3] codeine phosphate * AdvReac Intermediate Itching Verified 01/27/17 15:25 [From Tylenol-Codeine #3] - MEDICATIONS Home Medications: Ambulatory Orders Medication Instructions Recorded Confirmed Losartan [Cozaar] 100 mg PO QPM 01/27/17 04/04/17 Metoprolol Succinate [Toprol Xl] 50 mg PO DAILY 03/14/17 04/04/17 hydroCHLOROthiazide 25 mg PO DAILY 03/14/17 04/04/17 [Hydrochlorothiazide] Aspirin [Aspirin EC] 81 mg PO DAILY 04/02/17 04/04/17 Rosuvastatin Calcium [Crestor] 10 mg PO QPM 04/03/17 04/04/17 - PHYSICAL EXAM AT DISCHARGE General Appearance: positive: No acute distress, Alert. negative: Lethargic Eyes Bilateral: positive: Normal inspection, PERRL, EOMI, No lid inflammation, Conjunctivae nml ENT: positive: ENT inspection nml, Pharynx nml, No signs of dehydration. negative: Purulent nasal drainage, Pharyngeal erythema, Oral lesions, Dry mucous membranes Neck: positive: Nml inspection, Thyroid nml, No JVD, Trachea midline. negative : Thyromegaly, Lymphadenopathy (R), Lymphadenopathy (L), Stiff neck, Carotid bruit, Swelling/bruising, Tracheal deviation Respiratory: positive: Chest non-tender, No respiratory distress, Breath sounds nml. negative: Wheezes, Rales, Rhonchi Cardiovascular: positive: Regular rate & rhythm, No murmur, No gallop. negative : Irregularly irregular, Extrasystoles, Tachycardia, Bradycardia, Systolic murmur, Diastolic murmur Peripheral Pulses: positive: 2+ Abdomen: positive: Non-tender, No organomegaly, Nml bowel sounds, No distention. negative: Tenderness, Guarding, Rebound Back: positive: Nml inspection. negative: CVA tenderness (R), CVA tenderness (L ) Skin: positive: Color nml, No rash, Warm, Dry. negative: Cyanosis, Diaphoresis , Pallor, Skin rash Extremities: positive: Non-tender, Full ROM, Nml appearance. negative: Pedal edema, Joint swelling, Dank's sign/cords Neurologic/Psychiatric: positive: Oriented x3, Motor nml, Sensation nml, Mood/ affect nml. negative: Sensory loss, Facial droop, Slurred/abnml speech, Depressed mood/affect - LABS Result Diagrams: 04/04/17 04:50 04/04/17 04:50 - FOLLOW UP Follow Up: May see PCP in four days, urgent referral to GI specialist if continue the black stool or GI bleeding. May hold blooding thinner, Aspirin or Plavix, for 48 hours. Should symptoms return or worsen, present ER or call 911 for help. - TIME SPENT Time Spent in Discharge (Minutes): 60"
[2017-04-04 19:28] VITALS: BP 154/72
== END 2017-04-04 19:19 | disposition home or self-care (01) | DRG 378 ==
LOC: ED 15:22 → MS2 18:32
PROVIDERS: ADMIT Nurse Practitioner Gerontology; ATTEND Nurse Practitioner Gerontology
PROC: 0DBE8ZZ Excision of Large Intestine, Via Natural or Artificial Opening Endoscopic (ICD-10-PCS; principal; 2017-04-04 15:45)
DX: K92.1 Melena (principal); D64.9 Anemia, unspecified; I10 Essential (primary) hypertension; D62 Acute posthemorrhagic anemia; F17.200 Nicotine dependence, unspecified, uncomplicated; I73.9 Peripheral vascular disease, unspecified; Z95.9 Presence of cardiac and vascular implant and graft, unspecified; I12.9 Hypertensive chronic kidney disease with stage 1 through stage 4 chronic kidney disease, or unspecified chronic kidney disease; N18.9 Chronic kidney disease, unspecified; E78.5 Hyperlipidemia, unspecified; G62.9 Polyneuropathy, unspecified; K21.9 Gastro-esophageal reflux disease without esophagitis; Z66 Do not resuscitate; Z79.82 Long term (current) use of aspirin; Z79.02 Long term (current) use of antithrombotics/antiplatelets; Z95.828 Presence of other vascular implants and grafts; Z98.1 Arthrodesis status; Z87.19 Personal history of other diseases of the digestive system; Z87.891 Personal history of nicotine dependence
CPT/HCPCS: 36415; 74176; 80053; 82270; 83605; 83735; 84484; 85014; 85018; 85025; 85610; 85730; 86850; 86900; 86901; 93005; 96365; 99283; 99284

== ENCOUNTER 2017-04-04 20:41 | Outpatient (CLI) | payer MEDICARE | END 2017-04-04 20:42 | disposition critical access hospital (66) | LOC: EMS 20:41 | PROVIDERS: ATTEND Surgery | DX: R55 Syncope and collapse (principal) | CPT/HCPCS: A0425; A0429 ==

== ENCOUNTER 2017-04-08 15:29 | Outpatient (CLI) | payer MEDICARE ==
--- NOTE | 2017-04-09 12:29 | MRI Report ---
EXAM: MR ABDOMEN WITHOUT CONTRAST EXAM DATE: 04/08/2017 04:51 PM. CLINICAL HISTORY: Pancreatic cyst. Liver mass. Follow up. COMPARISON: 04/02/2017. 03/13/2017. 03/21/2017. 03/02/2011. TECHNIQUE: Multiplanar breath-hold T1, T2, and DWI sequences obtained through the abdomen on an [facility] k[facility]ene. No intravenous contrast was utilized due to patient's GFR. FINDINGS: Lung Bases: Heart is enlarged lung bases are clear. Liver: Approximately 11 lesions are seen in the liver, some of which are markedly T2 hyperintense and some of which are only mildly T2 hyperintense, although the lesions are of decreased signal intensit y on the T1 weighted sequences and correspond to the lesions noted on recent CT. The largest in the l eft lobe and segment 4A measuring 1.1 x 1 cm as well as along the margins of segment 4A and 8 measuri ng 1.6 x 1.4 cm. The largest in the right lobe along the margins of segment 8/7 posteriorly measuring 1.3 x 1.1 cm and more inferiorly there is either a lobular or 2 separate adjacent lesions measuring overall 1.8 x 1.2 cm. Several lesions are smaller than 1 cm in size. Gallbladder: Gallbladder is mildly distended. Common bile duct in its upper portion measures 8-9 mm. The lower common bile duct tapers and measures 6-7 mm and can be seen to the ampulla and confluence w ith the pancreatic duct. No filling defects are identified. Mild intrahepatic ductal dilatation is no munir. Pancreas: Mildly atrophic pancreas. No peripancreatic edema. Involving the tail of the pancreas is a T2 hyperintense and T1 hypointense lesion which measures 1.1 x 1.1 cm. Due to its location, it is unc ertain whether this communicates with the pancreatic duct. In the body of the pancreas are at two T2 hyperintense lesions, one of which is oval and appears to communicate with the duct measuring approxi mately 5 mm seen best on the thin section MRCP images. Pancreatic duct measures 2.5-3 mm and can be s een down its confluence with the common bile lobe. Spleen: The spleen appears normal. Kidneys and Adrenals: Within both kidneys are numerous largely subcentimeter T2 hyperintense lesions, some of which are markedly T2 hyperintense and some of which are very mildly T2 hyperintense . There is a lesion in the lower pole of the right kidney which has a fluid-fluid level and is T1 hyperinten se measuring 5 mm, favoring a proteinaceous or hemorrhagic cyst. Similar appearance is a lesion measu ring 5 mm in the upper pole of the right kidney. The largest T2 hyperintense lesion is in the upper p ole measuring approximately 5 mm. The largest T2 hyperintense lesion in the left kidney is in the upp er pole measuring 9 mm and 10 mm in the mid left kidney. Other lesions or largely less than 5 or 6 mm in size and numerous which are indeterminant. No hydronephrosis. Mild perinephric stranding which ma y be senescent. Adrenal glands appear normal. Bowel: Stomach is mildly distended and unremarkable. No evidence for small bowel obstruction. Include d portions of the small bowel and colon are unremarkable. No mesenteric adenopathy. Retroperitoneum: Abdominal aortic atheromatous disease is seen. No aneurysm. No retroperitoneal adeno maryse. Degenerative changes of the thoracic and lumbar spine. IMPRESSION: 1. Multiple hepatic cystic lesions as described, some of which likely represent cysts, others of whi ch are indeterminant, although some which may represent hemangiomas. Although a solid lesion would be difficult to exclude given the appearance of several of the lesions. Continued surveillance is recom mended. 2. Mild common bile duct prominence and mild intrahepatic ductal dilatation. Common bile duct is like ly normal for patient's age. No MR evidence for choledocholithiasis. 3. Pancreatic cystic lesions the largest in the pancreatic tail measuring 1.1 cm. Uncertain whether i t communicates with the duct, although may represent IPM although appear simple. Smaller lesions dulce g the body of pancreas appear to communicate may represent IPMT. 4. Renal cysts, the majority of which likely represent simple cysts, and with others which may repres ent hemorrhagic or proteinaceous cysts. [facility] Referring Provider Line: [phone] SITE ID: [id number]
== END 2017-04-08 15:30 | disposition home or self-care (01) ==
LOC: DI 15:29
PROVIDERS: ATTEND Family Medicine
DX: K76.9 Liver disease, unspecified (principal); K86.2 Cyst of pancreas; Q61.02 Congenital multiple renal cysts
CPT/HCPCS: 74181

== ENCOUNTER 2017-05-03 14:45 | Outpatient (CLI) | payer MEDICARE ==
[2017-05-03 19:03] LABS: BASOPHILS % (AUTO) 0.5 %; EOSINOPHILS # (AUTO) 0.1 10^3/uL (0.0-0.7); EOSINOPHILS % (AUTO) 1.3 %; HGB - HEMOGLOBIN 8.6 g/dL (12.0-16.0); LYMPHOCYTES % (AUTO) 21.4 %; MEAN CORPUSCULAR HEMOGLOBIN 27.1 pg (27.0-31.0); MEAN CORPUSCULAR HGB CONC 31.1 g/dL (32.0-36.0); MEAN PLATELET VOLUME 7.8 fL (7.9-10.8); MONOCYTES # (AUTO) 0.7 10^3/uL (0.0-1.0); MONOCYTES % (AUTO) 7.3 %; NEUTROPHILS # (AUTO) 6.4 10^3/uL (1.5-6.6); NEUTROPHILS % (AUTO) 69.5 %; PLT - PLATELET COUNT 609 10^3/uL (130-450); RED BLOOD COUNT 3.18 10^6/uL (4.20-5.40); RED CELL DISTRIBUTION WIDTH 17.3 % (12.0-15.0); WHITE BLOOD COUNT 9.2 x10^3/uL (4.8-10.8)
[2017-05-03 19:20] LABS: ALBUMIN 3.8 g/dL (3.2-5.5); BILIRUBIN,TOTAL 0.2 mg/dL (0.2-1.0); CALCIUM 9.2 mg/dL (8.5-10.3); CREATININE 1.4 mg/dL (0.4-1.0); TOTAL PROTEIN 7.8 g/dL (6.7-8.2)
== END 2017-05-03 14:46 | disposition home or self-care (01) ==
LOC: LAB.WCP 14:45
PROVIDERS: ATTEND Physician Assistant Medical
DX: R42 Dizziness and giddiness (principal); R51 Headache
CPT/HCPCS: 36415; 80053; 85025

== ENCOUNTER 2017-06-23 10:24 | Emergency (ER) | payer MEDICARE ==
--- NOTE | 2017-06-23 11:53 | XRAY Preliminary Report ---
Exam: XR CHEST 2 VIEW X-RAY IMPRESSION: 3 mm hyperdense structure overlying right paratracheal stripe, query surgical suture from prior procedure. [facility] SITE ID: [id number]
--- NOTE | 2017-06-23 11:53 | XRAY Report ---
EXAM: CHEST RADIOGRAPHY EXAM DATE: 06/23/2017 11:11 AM. CLINICAL HISTORY: May have swallowed partial plate. COMPARISON: None. TECHNIQUE: 2 views. FINDINGS: Lungs/Pleura: No focal opacities evident. No pleural effusion. No pneumothorax. 3 mm hyperdensity ove rlying the right paratracheal stripe on AP view. Mediastinum: Heart and mediastinal contours are unremarkable. Other: None. IMPRESSION: 3 mm hyperdense structure overlying right paratracheal stripe, query surgical suture from prior procedure. [facility] Referring Provider Line: [phone] SITE ID: [id number]
--- NOTE | 2017-06-23 12:14 | ED Physician Documentation ---
History of Present Illness - Stated complaint Stated Complaint: POSSIBLE F/O INGESTION - Chief complaint Chief Complaint: General - History obtained from History obtained from: Patient, Family - History of Present Illness Timing: Other (16) Pain level max: 0 Pain level now: 0 Improved by: nothing Worsened by: nothing - Additonal information Additional information: States she thinks that she may have swallowed her bridge last night (3 teeth). No abd pain. no vomiting. Normal BM today. No cough. Review of Systems GI: denies: Vomiting, Diarrhea Skin: denies: Rash PD PAST MEDICAL HISTORY - Past Medical History Cardiovascular: None Respiratory: None Neuro: Peripheral neuropathy Endocrine/Autoimmune: None GI: None : None HEENT: None Psych: None Musculoskeletal: None Derm: Psoriasis - Past Surgical History Past Surgical History: Yes Ortho: Other - Present Medications Home Medications: Ambulatory Orders Medication Instructions Recorded Confirmed Losartan [Cozaar] 100 mg PO QPM 01/27/17 05/21/17 Metoprolol Succinate [Toprol Xl] 50 mg PO DAILY 03/14/17 05/21/17 hydroCHLOROthiazide 25 mg PO DAILY 03/14/17 05/21/17 [Hydrochlorothiazide] Aspirin [Aspirin EC] 81 mg PO DAILY 04/02/17 05/21/17 - Allergies Allergies/Adverse Reactions: Allergies Allergy/AdvReac Type Severity Reaction Status Date / Time acetaminophen AdvReac Intermediate Itching Verified 01/27/17 15:25 [From Tylenol-Codeine #3] codeine phosphate * AdvReac Intermediate Itching Verified 01/27/17 15:25 [From Tylenol-Codeine #3] - Social History Does the pt smoke?: Yes Smoking Status: Current every day smoker Does the pt drink ETOH?: Yes Does the pt have substance abuse?: No - Immunizations Immunizations are current?: Yes - POLST Patient has POLST: No POLST Status: DNR PD ED PE NORMAL - Vitals Vital signs reviewed: Yes - General General: Alert and oriented X 3, No acute distress - HEENT HEENT: Moist mucous membranes - Neck Neck: Supple, no meningeal sign - Cardiac Cardiac: RRR, Strong equal pulses - Respiratory Respiratory: No respiratory distress, Clear bilaterally - Abdomen Abdomen: Soft, Non tender, Non distended - Derm Derm: Warm and dry - Neuro Neuro: Alert and oriented X 3 - Psych Psych: Normal mood, Normal affect Results - Vitals Vitals: Vital Signs - 24 hr 06/23/17 06/23/17 10:34 12:39 Temperature 36.6 C Heart Rate 69 82 Respiratory 18 16 Rate Blood Pressure 181/68 H 158/88 H O2 Saturation 100 98 Oxygen O2 Source Room air - Rads (name of study) cxr Radiology: Prelim report reviewed, EMP read contemporaneously, See rad report ( 3 mm hyperdense structure overlying right paratracheal stripe, query surgical suture from prior procedure. ) PD MEDICAL DECISION MAKING - ED course Complexity details: reviewed results, re-evaluated patient, considered differential, d/w patient, d/w family ED course: Patient is a 68-year-old female who thinks that she may have swallowed her partial bridge. No radiopaque foreign bodies on x-ray. She is asymptomatic. We will have her monitor herself at home and return if she develops abdominal pain, vomiting or blood in the stool. Patient counseled regarding signs and symptoms for which I believe and urgent re-evaluation would be necessary. Patient with good understanding of and agreement to plan and is comfortable going home at this time This document was made in part using voice recognition software. While efforts are made to proofread this document, sound alike and grammatical errors may occur. Departure - Departure Disposition: 01 Home, Self Care Clinical Impression: Foreign body ingestion Qualifiers: Encounter type: initial encounter Qualified Code(s): T18.9XXA - Foreign body of alimentary tract, part unspecified, initial encounter Condition: Good Instructions: ED Foreign Body Swallowed Adult Follow-Up: Arianna Smith DO [Primary Care Provider] - Within 1 week Comments: We do not see any foreign body on the xrays today. Return if you develop symptoms such as abdominal pain, vomiting, or bleeding from the rectum. Discharge Date/Time: 06/23/17 12:39
[2017-06-23 12:39] VITALS: BP 158/88
== END 2017-06-23 12:39 | disposition home or self-care (01) ==
LOC: ED 10:24
DX: T18.9XXA Foreign body of alimentary tract, part unspecified, initial encounter (principal); X58.XXXA Exposure to other specified factors, initial encounter; G62.9 Polyneuropathy, unspecified; F17.200 Nicotine dependence, unspecified, uncomplicated
CPT/HCPCS: 71046; 99283

== ENCOUNTER 2017-06-25 13:26 | Outpatient (CLI) | payer MEDICARE ==
--- NOTE | 2017-06-25 17:06 | XRAY Report ---
TWO-VIEW ABDOMEN: 06/25/2017 CLINICAL INDICATION: Possible foreign body ingestion (dental bridge). FINDINGS: Supine and upright views of the abdomen demonstrate a normal bowel gas pattern. No radiopaque foreign body is appreciated. Vascular calcifications are noted. No free intraperitoneal gas is present. IMPRESSION: NO EVIDENCE OF A RADIOPAQUE FOREIGN BODY IN THE ABDOMEN. NO EVIDENCE OF OBSTRUCTION OR PERFORATION. cc: Arianna Smith D.O. TD: 06/25/2017 17:05 cc: Arianna Smith D.O.
== END 2017-06-25 13:27 | disposition home or self-care (01) ==
LOC: DI 13:26
PROVIDERS: ATTEND Family Medicine
DX: T18.9XXA Foreign body of alimentary tract, part unspecified, initial encounter (principal)
CPT/HCPCS: 74019

== ENCOUNTER 2017-07-04 21:29 | Outpatient (CLI) | payer MEDICARE | END 2017-07-04 21:30 | disposition critical access hospital (66) | LOC: EMS 21:29 | PROVIDERS: ATTEND Surgery | DX: R10.31 Right lower quadrant pain (principal); W18.30XA Fall on same level, unspecified, initial encounter; Y92.003 Bedroom of unspecified non-institutional (private) residence as the place of occurrence of the external cause | CPT/HCPCS: A0425; A0429 ==

== ENCOUNTER 2017-07-04 21:44 | Inpatient (IN) | payer MEDICARE ==
--- NOTE | 2017-07-04 21:54 | ED Physician Documentation ---
PD HPI LOWER EXT INJURY - Stated complaint Stated Complaint: R SIDE PX - History obtained from History obtained from: Patient, EMS - History of Present Illness PD HPI LOW EXT INJURY LOCATION: Right, Hip, Upper leg Type of injury: Twist Where injury occurred: Home Timing - details: Abrupt onset Worsened by: Moving, Palpating Similar symptoms before: Has not had sx before Recently seen: Not recently seen - Additional information Additional information: Patient is a 76 year old female with multiple medical issues who is presenting to the emergency department for right sided hip pain. Patient states that tonight the dogs were getting into bed with her this evening and she twisted her right leg. Patient denies any other trauma but reports that she cannot lift up her right leg without pain. Review of Systems Constitutional: denies: Fever, Chills Eyes: reports: Reviewed and negative Ears: reports: Reviewed and negative Nose: reports: Reviewed and negative Throat: reports: Reviewed and negative Cardiac: denies: Chest pain / pressure, Palpitations Respiratory: denies: Dyspnea GI: denies: Nausea, Vomiting : reports: Reviewed and negative Skin: denies: Abrasion (s), Laceration (s) Musculoskeletal: reports: Extremity pain, Joint pain, Pain with weight bearing Neurologic: reports: Focal weakness. denies: Generalized weakness Immunocompromised: denies: Immunocompromised PD PAST MEDICAL HISTORY - Past Medical History Cardiovascular: None Respiratory: None Neuro: Peripheral neuropathy Endocrine/Autoimmune: None GI: None : None HEENT: None Psych: None Musculoskeletal: None Derm: Psoriasis - Past Surgical History Past Surgical History: Yes Ortho: Other - Present Medications Home Medications: Ambulatory Orders Medication Instructions Recorded Confirmed Metoprolol Succinate [Toprol Xl] 50 mg PO DAILY 03/14/17 06/25/17 hydroCHLOROthiazide 25 mg PO DAILY 03/14/17 06/25/17 [Hydrochlorothiazide] Aspirin [Aspirin EC] 81 mg PO DAILY 04/02/17 06/25/17 - Allergies Allergies/Adverse Reactions: Allergies Allergy/AdvReac Type Severity Reaction Status Date / Time acetaminophen AdvReac Intermediate Itching Verified 01/27/17 15:25 [From Tylenol-Codeine #3] codeine phosphate * AdvReac Intermediate Itching Verified 07/04/17 21:53 [From Tylenol-Codeine #3] - Social History Does the pt smoke?: Yes Smoking Status: Current every day smoker Does the pt drink ETOH?: Yes Does the pt have substance abuse?: No - Immunizations Immunizations are current?: Yes - POLST Patient has POLST: No POLST Status: DNR PD ED PE NORMAL - Vitals Vital signs reviewed: Yes - General General: Alert and oriented X 3 - HEENT HEENT: Atraumatic, PERRL, Dentition benign - Neck Neck: Supple, no meningeal sign, No bony TTP - Cardiac Cardiac: RRR, No murmur - Respiratory Respiratory: No respiratory distress - Abdomen Abdomen: Soft, Non distended - Derm Derm: Normal color, No rash - Neuro Neuro: Alert and oriented X 3, No sensory deficit, Normal speech Eye Opening: Spontaneous Motor: Obeys Commands Verbal: Oriented GCS Score: 15 PD ED PE EXPANDED - HEENT HEENT: Dry mucous membranes - Extremities Extremities: Right hip (tenderness to palpation of right hip, decreased rom secondary to pain), Vascular intact Results - Vitals Vitals: Vital Signs - 24 hr 07/04/17 21:44 Temperature 36.2 C L Heart Rate 78 Respiratory 18 Rate Blood Pressure 191/71 H O2 Saturation 96 Oxygen O2 Source Room air - Labs Labs: Laboratory Tests 07/04/17 07/04/17 07/04/17 23:52 23:52 23:52 WBC 7.8 RBC 4.03 L Hgb 11.6 L Hct 36.2 L MCV 89.8 MCH 28.7 MCHC 31.9 L RDW 21.0 H Plt Count 238 MPV 8.4 Neut # 5.8 Lymph # 1.5 [place] # 0.4 Eos # 0.1 Baso # 0.1 Absolute Nucleated RBC 0.00 Nucleated RBC % 0.0 Manual Slide Review Indicated Platelet Estimate NORMAL (130-450,000) RBC Morph Micro Appear 1+ OVALOCYTES PT 10.6 INR 0.9 APTT 24.4 L Sodium 137 Potassium 4.1 Chloride 104 Carbon Dioxide 21 Anion Gap 12.0 BUN 38 H Creatinine 1.3 H Estimated GFR (MDRD) 40 L Glucose 112 H Calcium 8.9 Total Bilirubin 0.5 AST 33 ALT 17 Alkaline Phosphatase 91 Total Protein 7.5 Albumin 4.0 Globulin 3.5 Albumin/Globulin Ratio 1.1 Lipase 72 H - Rads (name of study) right hip x-ray Radiology: Final report received (femoral neck fracture. ) PD MEDICAL DECISION MAKING - ED course Complexity details: reviewed old records, reviewed results, re-evaluated patient , considered differential, d/w patient, d/w building energy consultant ED course: Patient was seen and examined at bedside. patient was sent for imaging. when patient returned the results were reviewed and were consistent with a hip fracture. IV access was gained and patient was treated with morphine for pain. business applications analyst orthopedics, dr. Chance was contacted and the case was discussed with him. He agreed to consult on the patient. Hospitalist was contacted and case was discussed with her. Patient was admitted for further evaluation and care. Departure - Departure Disposition: [facility]/[place] Clinical Impression: Femoral neck fracture Condition: Good Discharge Date/Time: 07/05/17 02:09
--- NOTE | 2017-07-04 22:27 | XRAY Preliminary Report ---
Exam: XR HIP W/PELVIS 2-3V RT IMPRESSION: Subcapital right femoral neck fracture. [facility] SITE ID: [id number]
--- NOTE | 2017-07-04 22:27 | XRAY Report ---
EXAM: RIGHT HIP AND PELVIS RADIOGRAPHY EXAM DATE: 07/04/2017 10:20 PM. HISTORY: Pain with moving her rt. leg, twisted it . COMPARISONS: None. TECHNIQUE: 1 view of the pelvis and 1 view of the hip. FINDINGS: Bones: Minimally displaced subcapital right femoral neck fracture. No other fracture seen. Joints: The bilateral hip, pubis symphysis, and sacroiliac joints are preserved. Soft Tissues: Normal. No soft tissue swelling. IMPRESSION: Subcapital right femoral neck fracture. [facility] Referring Provider Line: [phone] SITE ID: [id number]
[2017-07-04] MEDS ORDERED: MORPHINE 2 MG/ML CARPUJECT IVP STA (23:05)
[2017-07-05 00:05] LABS: BASOPHILS # (AUTO) 0.1 10^3/uL (0.0-0.1); BASOPHILS % (AUTO) 0.8 %; EOSINOPHILS # (AUTO) 0.1 10^3/uL (0.0-0.7); HGB - HEMOGLOBIN 11.6 g/dL (12.0-16.0); INR 0.9 (0.8-1.2); LYMPHOCYTES # (AUTO) 1.5 10^3/uL (1.5-3.5); LYMPHOCYTES % (AUTO) 19.2 %; MEAN CORPUSCULAR HEMOGLOBIN 28.7 pg (27.0-31.0); MEAN CORPUSCULAR HGB CONC 31.9 g/dL (32.0-36.0); MEAN CORPUSCULAR VOLUME 89.8 fL (81.0-99.0); MEAN PLATELET VOLUME 8.4 fL (7.9-10.8); MONOCYTES # (AUTO) 0.4 10^3/uL (0.0-1.0); MONOCYTES % (AUTO) 5.2 %; NEUTROPHILS # (AUTO) 5.8 10^3/uL (1.5-6.6); NEUTROPHILS % (AUTO) 73.8 %; PLT - PLATELET COUNT 238 10^3/uL (130-450); PT - PROTHROMBIN TIME 10.6 secs (9.9-12.6); RED BLOOD COUNT 4.03 10^6/uL (4.20-5.40); WHITE BLOOD COUNT 7.8 x10^3/uL (4.8-10.8)
[2017-07-05 00:12] LABS: ALBUMIN/GLOBULIN RATIO 1.1 (1.0-2.2); BILIRUBIN,TOTAL 0.5 mg/dL (0.2-1.0); CALCIUM 8.9 mg/dL (8.5-10.3); CREATININE 1.3 mg/dL (0.4-1.0); TOTAL PROTEIN 7.5 g/dL (6.7-8.2)
[2017-07-05 00:23] LABS: PLATELET ESTIMATE, MANUAL NORMAL (130-450,000) (NORMAL)
[2017-07-05] MEDS ORDERED: MORPHINE 2 MG/ML CARPUJECT IVP STA (00:39)
[2017-07-05] MEDS ORDERED: ONDANSETRON 4 MG/2 ML VIAL IVP PRN (00:55)
[2017-07-05] MEDS ORDERED: SODIUM CHLORIDE FLUSH 0.9% 10 ML SYRINGE IVP PRN (00:55)
[2017-07-05] MEDS ORDERED: HYDROmorphone 1 MG/ML SYRINGE IVP PRN (00:55)
[2017-07-05] MEDS ORDERED: TEMAZEPAM 15 MG CAPSULE PO PRN (00:55)
[2017-07-05] MEDS ORDERED: DEXTROSE 5%-0.9% NACL 1,000 ML IV SCH (01:00)
[2017-07-05] MEDS: METOPROLOL SUCCINATE 50 MG TABLET PO SCH ×3 (03:03→20:31)
[2017-07-05] MEDS: SODIUM CHLORIDE FLUSH 0.9% 10 ML SYRINGE IVP SCH ×3 (03:04→18:21)
[2017-07-05] MEDS: HYDROmorphone 1 MG/ML SYRINGE IVP PRN ×4 (03:04→09:15)
--- NOTE | 2017-07-05 04:09 | HISTORY & PHYSICAL EXAMINATION ---
DATE OF SERVICE: 07/05/2017 Physician: Mary Samuel MD HISTORY OF PRESENT ILLNESS: This is a 76-year-old, white female with history of peripheral vascular disease with stenting of the left leg, history of anemia felt to be due to an occult GI blood loss for which she underwent multiple evaluations in [place] including endoscopy, colonoscopy, and even pill endoscopy imaging, and states that the site was found ; and she points to her right lower quadrant. She is supposed to get endoscopy for cauterization of this area in the next week. The patient states she was on Plavix and this has been discontinued because of the bleeding. The patient presents today after tripping on a stair-step next to her bed, which is there for animals, and falling, while twisting her foot under the opening for the stair-step and developed right hip pain. She was in the emergency room and diagnosed with a right hip fracture. The Orthopod has been called regarding a potential surgery. The patient describes a 7 to 8 out of 10 pain, but she received narcotics and is currently under better pain control. Her blood pressure is excessive, however. She states that she missed last night's metoprolol dose. REVIEW OF SYSTEMS: A comprehensive review of systems was performed and pertinent positives are described above, all the rest are negative. PAST MEDICAL HISTORY: GI blood loss anemia, hypertension, recent ex-smoker. SOCIAL HISTORY: The patient smoked a pack a day, but quit 14 months ago. Drinks social alcohol, more heavily when she was young. Denies any illicit drug use. ALLERGIES 1. TYLENOL. 2. CODEINE. MEDICATIONS AT HOME 1. Hydrochlorothiazide 25 mg daily. 2. Baby aspirin daily. 3. Metoprolol succinate 50 mg in the morning and 100 mg in the evening. FAMILY HISTORY: Positive for hypertension, otherwise no inherited diseases. PHYSICAL EXAMINATION GENERAL: White female who is in no distress, supine in bed. VITAL SIGNS: Blood pressure 208/72, pulse is 80 in sinus rhythm. She is afebrile. Room air saturation 93%. HEENT: Unremarkable, except for increased facial wrinkling consistent with her heavy smoking history. Oral mucosa is moist. NECK: Without JVD or carotid bruits. CHEST: Clear. HEART: Heart sounds normal. No audible murmur. ABDOMEN: Soft. EXTREMITIES: Without clubbing, cyanosis or edema. NEUROLOGIC: Intact. LABORATORIES: Normal electrolytes. BUN 38, creatinine 1.3. INR normal at 0.9. White blood count 7.8, hemoglobin 11.6, RDW 21, platelet count normal at 238. No chest x-ray was done. No EKG was done. Hip x-rays showed a subcapital right femoral neck fracture. IMPRESSION/DIAGNOSES 1. Right hip fracture after a fall at home. 2. Hypertension, poorly controlled. 3. Recent ex-smoker 4. Anemia from a GI bleed. 5. Peripheral vascular disease with stent of the left leg. 6. Pre-renal azotemia, possibly from HCTZ use. RECOMMENDATIONS AND PLAN: Obtain an EKG. This patient states that her "body's blood vessels" have been evaluated, including her cardiac status, when she was evaluated for the peripheral vascular disease and states there is no coronary artery disease. Since she gives me no history of angina, if her EKG is acceptable, she will have low cardiac risk for undergoing hip fracture with general anesthesia. Treat her blood pressure by resuming her normal medications, but stop the HCTZ since she has prerenal azotemia. Some P.r.n. hydralazine could be used for better blood pressure control. Pain control will also help improve her blood pressure. Dilaudid will be used for pain control. Because of this patient's Tylenol allergy, Motrin could also be considered. Aspirin will be discontinued briefly before surgery. DEEP VENOUS THROMBOSIS PROPHYLAXIS: Lovenox. CODE STATUS: FULL CODE. ATTESTATION: The patient is expected to be discharged or transferred to another facility within 96 hours: Yes. TD: 07/05/2017 04:07 ANGELA
[2017-07-05] MEDS ORDERED: hydrALAZINE INJ 20 MG/ML VIAL IVP ONE (04:17)
[2017-07-05 06:01] LABS: BASOPHILS # (AUTO) 0.1 10^3/uL (0.0-0.1); BASOPHILS % (AUTO) 0.8 %; EOSINOPHILS # (AUTO) 0.1 10^3/uL (0.0-0.7); EOSINOPHILS % (AUTO) 0.7 %; HGB - HEMOGLOBIN 11.3 g/dL (12.0-16.0); LYMPHOCYTES # (AUTO) 1.7 10^3/uL (1.5-3.5); LYMPHOCYTES % (AUTO) 17.8 %; MEAN CORPUSCULAR HEMOGLOBIN 28.9 pg (27.0-31.0); MEAN CORPUSCULAR HGB CONC 32.1 g/dL (32.0-36.0); MEAN CORPUSCULAR VOLUME 90.1 fL (81.0-99.0); MEAN PLATELET VOLUME 8.4 fL (7.9-10.8); MONOCYTES # (AUTO) 0.7 10^3/uL (0.0-1.0); MONOCYTES % (AUTO) 7.5 %; NEUTROPHILS # (AUTO) 6.8 10^3/uL (1.5-6.6); NEUTROPHILS % (AUTO) 73.2 %; PLT - PLATELET COUNT 232 10^3/uL (130-450); RED CELL DISTRIBUTION WIDTH 20.9 % (12.0-15.0); WHITE BLOOD COUNT 9.3 x10^3/uL (4.8-10.8)
[2017-07-05 06:10] LABS: CALCIUM 8.8 mg/dL (8.5-10.3); CREATININE 1.2 mg/dL (0.4-1.0); MAGNESIUM 1.7 mg/dL (1.7-2.8)
[2017-07-05] MEDS ORDERED: ENOXAPARIN 40 MG/0.4 ML SYRINGE SUBQ SCH (09:00)
[2017-07-05] MEDS ORDERED: ENOXAPARIN 30 MG/0.3 ML SYRINGE SUBQ SCH (09:00)
--- NOTE | 2017-07-05 09:51 | CONSULTATION NOTE ---
DATE OF SERVICE: Physician: Juaquin Elise MD REQUESTING PROVIDER: Dr. Samuel HISTORY OF PRESENT ILLNESS: This 76-year-old woman fell at home in the middle of the night, fracturing her right hip. She is interesting in that for the past 4-5 days since some unusual gardening, she has had some vague anterior hip pain. She does not think that she hit the ground in the fall, but actually twisted her hip hard. She has not had prior fractures except for what was a patellar fracture 3 or so years ago. This was nondisplaced and healed uneventfully. PAST MEDICAL HISTORY: She recently had a problem with bleeding in the GI area. She was treated on the [facility]. She was to go to the [facility] for a colonoscopy I think with some cauterization of the bleeding point, which was found by arteriogram I believe. In mid March she had treatment of peripheral artery disease with a stent placed in her left lower extremity. She says this was successful. She had some peripheral artery disease on the right side, but has not had this fixed possibly because she has some collateral flow that she describes. She was placed on Plavix after the stent, but then developed the bleeding mentioned above. She has not used Plavix for about 3 months. Other past medical history, she has a 40-year smoking history but quit just over a year ago. She does drink some alcohol, but not every day. She drank more earlier. She does not use illicit drugs. PAST SURGICAL HISTORY: Cervical fusion back in the '60s. ALLERGIES 1. TYLENOL. 2. CODEINE. MEDICATIONS AT HOME 1. Hydrochlorothiazide. 2. Metoprolol. 3. ASA 81 mg. 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 She lives with her . [place] They are considering moving to the [facility] to be closer to her. PHYSICAL EXAMINATION GENERAL: She is a cachectic, elderly woman who is cognitively intact. History taken from her. HEENT: Her pupils are equally reactive to light. She is able to lift her head off the pillow without pain. EXTREMITIES: Both upper extremities move well without any sign of injury. She has no pain with compression of the iliac crest. Her right lower extremity is shortened and externally rotated. Thigh is not excessively large yet. In the foot she has sensation and moves her toes well. I cannot feel a dorsalis pedis pulse. There is 1 second capillary refill. RADIOGRAPHS: AP pelvis as her only film shows a high femoral neck fracture with complete displacement. There is no arthritis in the natural hip joint. She has osteopenia. LABORATORY DATA: Hemoglobin is 11.4. INR 0.9. Platelets are greater than 100,000. IMPRESSION: Elderly, frail woman with a displaced femoral neck fracture. PLAN: Proper treatment for this is a hemiarthroplasty or a total hip replacement. Given her bleeding situation, certainly we would do only a hemiarthroplasty today. I spent some time discussing the procedure with the patient including risk of infection, bleeding, DVT, and dislocation. A discussion of normal aftercare was done. She had no further questions and signed the surgical consent in my presence. Her came in just after that and I went over the explanation again with him. He seemed to understand well and also wishes to proceed. TD: 07/05/2017 09:13
[2017-07-05] MEDS ORDERED: LACTATED RINGERS 1,000 ML IV ONE ×2 (10:29→12:41)
[2017-07-05] MEDS ORDERED: BUPIVACAINE 0.25% PF 30 ML VIAL SUBQ ONE ×2 (10:35→11:10)
[2017-07-05] MEDS ORDERED: fentaNYL 250 MCG/5 ML VIAL IVP ONE (12:00)
[2017-07-05] MEDS ORDERED: LIDOCAINE-MPF 2% 5 ML VIAL IM ONE (12:00)
[2017-07-05] MEDS ORDERED: SUCCINYLCHOLINE 200 MG/10 ML VIAL IVP ONE (12:00)
[2017-07-05] MEDS ORDERED: PHENYLEPHRINE 10 MG/ML VIAL IV ONE (12:00)
[2017-07-05] MEDS ORDERED: MIDAZOLAM 2 MG/2 ML VIAL IVP ONE (12:00)
[2017-07-05] MEDS ORDERED: PROPOFOL 200 MG/20 ML VIAL IVP ONE (12:00)
[2017-07-05] MEDS ORDERED: ONDANSETRON 4 MG/2 ML VIAL IVP ONE (12:00)
[2017-07-05] MEDS ORDERED: DEXAMETHASONE 4 MG/ML VIAL IVP ONE (12:00)
[2017-07-05] MEDS ORDERED: ceFAZolin 1 GM VIAL IV ONE (12:00)
[2017-07-05] MEDS ORDERED: ACETAMINOPHEN 1,000 MG/100 ML 100 ML IV ONE (12:00)
--- NOTE | 2017-07-05 13:25 | OPERATIVE REPORT ---
Operative Report - General Admit Date: 07/05/17 Procedure Date: 07/05/17 Planned Procedure: Hemiarthroplasty right hip Pre-Op Diagnosis: right hip femoral neck fracture Procedure Performed: Right hip hemiarthroplasty Post Op Diagnosis: same - Procedure Note Primary Surgeon: PARTHA Secondary Surgeon: Krista Anesthesia Provider: KARI Anesthesia Technique: General ET tube Pathology: NO SPECIMEN SENT Estimated Blood Loss (mL): 150 Complications: NONE - Other Other Information/Narrative: cOMPONENTS. bIOMET TAPELOC POROUS STEM #11 BY 142 STD OFFSET 28 BY -3 BEARING; 46 MM BIPOLAR SHELL
[2017-07-05] MEDS: FAMOTIDINE 20 MG TABLET PO SCH (15:37)
[2017-07-05] MEDS: POLYETHYLENE GLYCOL 3350 17 GM PACKET PO SCH (15:38)
[2017-07-05] MEDS: D5.45NS W/20 MEQ KCL 1,000 ML IV SCH (16:31)
[2017-07-05] MEDS: ceFAZolin 1 GM in SODIUM CHLORIDE 0.9% MINIBAG 100 ML IV SCH (18:19)
--- NOTE | 2017-07-05 20:13 | OPERATIVE REPORT ---
DATE OF SERVICE: 07/05/2017 Physician: Juaquin Elise MD PREOPERATIVE DIAGNOSIS: Right hip displaced femoral neck fracture. POSTOPERATIVE DIAGNOSIS: Right hip displaced femoral neck fracture. NAME OF PROCEDURE: Right hip hemiarthroplasty for fracture. SURGEON: Juaquin Elise MD [employer] BUSINESS DEVELOPMENT OFFICER: None. ANESTHESIA TYPE: General endotracheal. AUTOCLAVE OPERATOR: KARI. IMPLANTS 1. Biomet Taperloc 11 x 142, standard offset, type 1 taper, porous coat. 2. Bipolar acetabular cup, 46 mm. 3. Modular head component, 28 mm taper with a -3 neck. COMPLICATIONS: None. ESTIMATED BLOOD LOSS: 150 mL. INDICATIONS: This woman had fallen last night, suffering the above-mentioned injury. DESCRIPTION OF PROCEDURE: The patient was brought into the operating room and placed under adequate general anesthesia with ET tube. She was then brought supine to the operating table and then turned into the left lateral decubitus position with pegboard to hold her securely. Bony prominences were padded. The right hip region was prepped and sterilely draped. A timeout was held to identify the patient, site and procedure. The posterolateral wound was designed and skin infiltrated with 0.25% Marcaine with epinephrine. A straight incision was then carried down through the dermis sharply with spreading through the subcutaneous tissue with a Padilla scissors. The fascia jase was found quickly. Division was made in the direction of its fibers and through the gluteus josé miguel down into the tendinous portion. This was divided for a short distance in the direction of the fibers. A Charnley retractor was placed. The fatty bursa which was hemorrhagic distally was then swept back. Hemostasis obtained with electrocautery. The piriformis was then identified, cut as far distally as possible, and retracted. The short external rotators were then cut from the femoral neck with electrocautery. A Hohmann retractor was gotten around the inferior aspect of the neck for better inspection. There was a jagged fracture through the femoral neck. The oscillating saw was then used to cut off the jagged portion of the neck and this turned out to be exactly the right length relative to the lesser trochanter. It then possible to pull the main portion of the femur anteriorly a bit and gain good access to the femoral head. A corkscrew device was then placed in, and the head was removed. The wound was irrigated throughout the procedure with normal saline. Sometimes, this was pulse lavaged. The acetabulum was inspected and several bits of bone were removed from it. The box osteotome was then used in the femur, as well as a canal finder. Broaching was then done from a size 4 on up to a size 11. At 10, there was very poor rotatory control. With introducing the 11, there was immediately good rotatory control. Briefly, a 12 was pushed in and it seemed like it would be a tough fit, and so this was not actually broached. Trial reduction was then done. It was very difficult to be sure what was going on. It was clear that the patellae were even and the heels showed a little short on the operative side. On the other hand, if a longer neck was placed in, the hip joint was too tight even though the feet got a little closer to same length, but the patella too distal. The components were removed. The pulsating lavage was used to carefully wash the wound in the femur. A 11 Biomet Taperloc component was then hammered into place. It sat very well with a snug fit and good rotational control. She had about 10 degrees of anteversion. This actually was a little greater than her natural anteversion, judging by the posterior neck. Trialing was again done, and the decision was made to proceed with a -3 neck, giving her a good range of motion just out to full extension. She was somewhat tight in external rotation. She was stable to 45 degrees of internal rotation and 90 degrees flexion. At 45 degrees of flexion, hanging her by her ankle did not produce dislocation. The final components were then applied. Range of motion and stability were as above. The wound was irrigated with pulse lavage again. The capsule, which was difficult to reapproximate, was pulled together some in its more proximal portion. Piriformis was then attached to the posterolateral corner of the trochanter with 0 PDS suture. The iliotibial band was then reapproximated distally with [id number] 0 PDS sutures and more proximally through the muscle with a running 0 PDS suture. The subcutaneous tissue was again lavaged. Some of this was tacked together with 3-0 PDS interrupted sutures and a running suture more proximally. The skin was closed with a running 3-0 Prolene subcuticular stitch, reinforced with Steri-Strips. A bandage was applied. The patient was then turned supine and taken to the recovery room in good condition, having tolerated the procedure well. TD: 07/05/2017 20:12
[2017-07-06] MEDS: ceFAZolin 1 GM in SODIUM CHLORIDE 0.9% MINIBAG 100 ML IV SCH (01:34)
[2017-07-06] MEDS: D5.45NS W/20 MEQ KCL 1,000 ML IV SCH (02:22)
[2017-07-06] MEDS: SODIUM CHLORIDE FLUSH 0.9% 10 ML SYRINGE IVP SCH ×3 (02:49→17:14)
[2017-07-06] MEDS: HYDROmorphone 1 MG/ML SYRINGE IVP PRN ×2 (07:43→08:48)
[2017-07-06 07:45] LABS: CALCIUM 7.9 mg/dL (8.5-10.3); CREATININE 1.2 mg/dL (0.4-1.0)
[2017-07-06 07:49] LABS: HGB - HEMOGLOBIN 9.8 g/dL (12.0-16.0); MEAN CORPUSCULAR HEMOGLOBIN 29.6 pg (27.0-31.0); MEAN CORPUSCULAR HGB CONC 32.8 g/dL (32.0-36.0); MEAN PLATELET VOLUME 8.2 fL (7.9-10.8); RED BLOOD COUNT 3.31 10^6/uL (4.20-5.40); RED CELL DISTRIBUTION WIDTH 21.3 % (12.0-15.0); WHITE BLOOD COUNT 9.7 x10^3/uL (4.8-10.8)
[2017-07-06] MEDS: METOPROLOL SUCCINATE 50 MG TABLET PO SCH ×2 (08:43→20:12)
[2017-07-06] MEDS: POLYETHYLENE GLYCOL 3350 17 GM PACKET PO SCH (08:44)
[2017-07-06] MEDS: FAMOTIDINE 20 MG TABLET PO SCH (08:44)
[2017-07-06] MEDS: AMOXICILLIN 500 MG PO SCH ×2 (08:46→20:14)
[2017-07-06] MEDS: CLARITHROMYCIN 500 MG PO SCH ×2 (08:46→20:15)
--- NOTE | 2017-07-06 09:32 | PROVIDER PROGRESS NOTE ---
Subjective - General Admit Date: 07/05/17 Procedure Date: 07/05/17 Post Op Days: 1 - Review of Systems General: positive: Other (11/29 pain before analgesic) Objective - Patient Data Vital Signs: Vital Signs x48h Temp Pulse Resp BP Pulse Ox 07/06/17 08:00 36.8 C 72 16 188/68 H 97 Weight: Weight 07/04/17 07/05/17 07/06/17 23:59 23:59 23:59 Weight (kg) 45 kg Intake & Output: Intake and Output Totals x24h 07/04/17 07/05/17 07/06/17 23:59 23:59 23:59 Intake Total 1908 1445 Output Total 350 775 Balance 1558 670 - Lab Results Lab Results: 07/06/17 07:30 07/06/17 07:30 Other Lab Results: Lab Results x24hrs 07/06/17 07/06/17 Range/Units 07:30 07:30 WBC 9.7 (4.8-10.8) x10^3/uL RBC 3.31 L (4.20-5.40) 10^6/uL Hgb 9.8 L (12.0-16.0) g/dL Hct 29.8 L (37.0-47.0) % MCV 90.0 (81.0-99.0) fL MCH 29.6 (27.0-31.0) pg MCHC 32.8 (32.0-36.0) g/dL RDW 21.3 H (12.0-15.0) % Plt Count 184 (130-450) 10^3/uL MPV 8.2 (7.9-10.8) fL Sodium 132 L (135-145) mmol/L Potassium 5.0 (3.5-5.0) mmol/L Chloride 105 (101-111) mmol/L Carbon Dioxide 20 L (21-32) mmol/L Anion Gap 7.0 (6-13) BUN 23 H (6-20) mg/dL Creatinine 1.2 H (0.4-1.0) mg/dL Estimated GFR (MDRD) 43 L (>89) Glucose 148 H (70-100) mg/dL Calcium 7.9 L (8.5-10.3) mg/dL - Imaging Results Radiology Imaging: positive: Other (to be done) - Current Medications Current Medications: Current Medications Generic Name Dose Route Start Last Admin Trade Name Freq PRN Reason Stop Dose Admin Famotidine 20 mg 07/05/17 09:00 07/06/17 08:44 Pepcid PO 20 mg DAILY JIA Administration Hydromorphone HCl 1 mg 07/05/17 08:08 07/06/17 08:48 Dilaudid Inj Syringe IVP 1 mg Q1H PRN Administration PAIN Dextrose/Sodium Chloride 1,000 mls @ 0 mls/hr 07/05/17 01:00 07/05/17 16:34 D5ns IV Infused .Q0M JIA Infusion TKO Potassium Chloride/Dextrose/Sod Cl 1,000 mls @ 100 mls/hr 07/05/17 14:00 02:22 D5.45ns W/20 Meq Kcl IV 100 mls/hr .Q10H JIA Administration Metoprolol Succinate 50 mg 07/05/17 09:00 07/06/17 08:43 Toprol Xl PO 50 mg DAILY JIA Administration Metoprolol Succinate 100 mg 07/05/17 03:00 07/05/17 20:31 Toprol Xl PO 100 mg QPM JIA Administration (Amoxicillin [ 2 each 07/06/17 09:00 07/06/17 08:46 Amoxicillin] 500 Mg) PO 07/09/17 21:01 2 each Caps BID JIA Administration (Clarithromycin [ 1 each 07/06/17 09:00 07/06/17 08:46 Clarithromycin] 500 PO 07/09/17 21:01 1 each Mg) Tab BID JIA Administration (Omeprazole [ 1 each 07/06/17 09:00 07/06/17 08:46 Omeprazole] 20 Mg) PO 07/09/17 21:01 Not Given Cap BID JIA Polyethylene Glycol 17 gm 07/05/17 09:00 07/06/17 08:44 Miralax PO 17 gm DAILY JIA Administration Sodium Chloride 10 ml 07/05/17 01:00 07/06/17 02:49 Normal Saline Flush 0.9% IVP Not Given 0100,0900,1700 JIA - Physical Exam Wound/Incisions: positive: Other (two small areas of drainage visible along wound area) Extremities: positive: Other (good position and length of RLE. MS intact right foot. good cap refill with no pulse.)
[2017-07-06] MEDS: oxyCOD/ACETAMIN 5 MG/325 MG TABLET PO PRN ×3 (10:42→20:21)
--- NOTE | 2017-07-06 12:33 | PROVIDER PROGRESS NOTE ---
Subjective - Prog Note Date Prog Note Date: 07/06/17 Prog Note Time: 11:45 - Subjective Pt reports feeling: Improved (The patient has had her hip surgically repaired in her pain is under control. Yesterday she was unable to move because of fear of the unstable hip. She denies any fever, chills, shortness of breath, nausea , or vomiting.) Current Medications - Current Medications Current Medications: D5W, Pepcid, hydromorphone, metoprolol, Zofran, Percocet, polyethylene glycol, sodium chloride, temazepam Objective - Vital Signs/Intake & Output Reviewed Vital Signs: Yes Vital Signs: Vital Signs x48h Temp Pulse Resp BP Pulse Ox 07/06/17 12:10 78 138/70 H 07/06/17 08:00 36.8 C 72 16 188/68 H 97 Intake & Output: Intake & Output 07/03/17 07/04/17 07/05/17 07/06/17 23:59 23:59 23:59 23:59 Intake Total 1908 1445 Output Total 350 775 Balance 1558 670 - Objective General Appearance: positive: No acute distress, Alert Eyes Bilateral: positive: Normal inspection, PERRL, EOMI, No lid inflammation, Conjunctivae nml, No scleral icterus ENT: positive: ENT inspection nml, Pharynx nml, No signs of dehydration Neck: positive: Nml inspection, Thyroid nml, No JVD, Trachea midline. negative : Thyromegaly Respiratory: positive: Chest non-tender, No respiratory distress, Breath sounds nml. negative: Wheezes, Rales, Rhonchi Cardiovascular: positive: Regular rate & rhythm, No murmur, No gallop Abdomen: positive: Non-tender, No organomegaly, Nml bowel sounds, No distention. negative: Guarding, Rebound Back: positive: Nml inspection. negative: CVA tenderness (R), CVA tenderness (L ) Skin: positive: Color nml, No rash, Warm, Dry. negative: Cyanosis Extremities: positive: Non-tender, Full ROM, Nml appearance. negative: No pedal edema Neurologic/Psychiatric: positive: Oriented x3, CN's nml (2-12), Motor nml, Sensation nml, Mood/affect nml - Lab Results Fish Bones: 07/06/17 07:30 07/06/17 07:30 Other Labs: Lab Results x24hrs 07/06/17 07/06/17 Range/Units 07:30 07:30 WBC 9.7 (4.8-10.8) x10^3/uL RBC 3.31 L (4.20-5.40) 10^6/uL Hgb 9.8 L (12.0-16.0) g/dL Hct 29.8 L (37.0-47.0) % MCV 90.0 (81.0-99.0) fL MCH 29.6 (27.0-31.0) pg MCHC 32.8 (32.0-36.0) g/dL RDW 21.3 H (12.0-15.0) % Plt Count 184 (130-450) 10^3/uL MPV 8.2 (7.9-10.8) fL Sodium 132 L (135-145) mmol/L Potassium 5.0 (3.5-5.0) mmol/L Chloride 105 (101-111) mmol/L Carbon Dioxide 20 L (21-32) mmol/L Anion Gap 7.0 (6-13) BUN 23 H (6-20) mg/dL Creatinine 1.2 H (0.4-1.0) mg/dL Estimated GFR (MDRD) 43 L (>89) Glucose 148 H (70-100) mg/dL Calcium 7.9 L (8.5-10.3) mg/dL - Diagnostic Imaging Diagnostic Imaging Results: positive: Final report reviewed Diagnostic Imaging Comments: EXAM: RIGHT HIP AND PELVIS RADIOGRAPHY EXAM DATE: 07/04/2017 10:20 PM. HISTORY: Pain with moving her rt. leg, twisted it . COMPARISONS: None. TECHNIQUE: 1 view of the pelvis and 1 view of the hip. FINDINGS: Bones: Minimally displaced subcapital right femoral neck fracture. No other fracture seen. Joints: The bilateral hip, pubis symphysis, and sacroiliac joints are preserved. Soft Tissues: Normal. No soft tissue swelling. IMPRESSION: Subcapital right femoral neck fracture. Assessment/Plan - Problem List (1) Closed right hip fracture Impression: The patient's hip was surgically repaired yesterday and she is doing well today. Distal toes are warm and pink with good capillary refill. Patient's pain is well-managed. Continue present care. (2) Acute blood loss anemia Impression: The patient's GI bleed was isolated following a camera study in which the patient swallowed the pill had a camera in it. She will follow-up with those providers for care of the GI bleed. (3) Claudication in peripheral vascular disease Impression: Continue losartan. If the claudication continues consider Pletal. (4) HTN (hypertension) Impression: The patient's blood pressure is elevated but this may be related to pain associated with the recent surgery. Continue hydrochlorothiazide, losartan, and metoprolol.
--- NOTE | 2017-07-06 19:54 | XRAY Report ---
EXAM: RIGHT HIP AND PELVIS RADIOGRAPHY EXAM DATE: 07/06/2017 01:44 PM. HISTORY: Postoperative right hip surgery. COMPARISONS: 07/04/2017. TECHNIQUE: 1 view of the pelvis and 1 view of the hip. FINDINGS: Bones: The patient has had placement of a right hip arthroplasty with non-fixated components. There i s gross anatomic alignment. No unexpected periprostatic lucencies or fractures. Mild osteopenia is pr esent. Soft Tissues: Normal. No soft tissue swelling. IMPRESSION: Expected appearance of right hip arthroplasty. [facility] Referring Provider Line: [phone] SITE ID: [id number]
[2017-07-07] MEDS: oxyCOD/ACETAMIN 5 MG/325 MG TABLET PO PRN ×5 (00:37→21:55)
[2017-07-07] MEDS: HYDROmorphone 1 MG/ML SYRINGE IVP PRN ×2 (02:39→07:25)
[2017-07-07] MEDS: SODIUM CHLORIDE FLUSH 0.9% 10 ML SYRINGE IVP SCH ×3 (02:40→18:13)
[2017-07-07 06:45] LABS: HGB - HEMOGLOBIN 8.9 g/dL (12.0-16.0); MEAN CORPUSCULAR HGB CONC 31.7 g/dL (32.0-36.0); MEAN CORPUSCULAR VOLUME 91.4 fL (81.0-99.0); MEAN PLATELET VOLUME 8.4 fL (7.9-10.8); RED BLOOD COUNT 3.08 10^6/uL (4.20-5.40); RED CELL DISTRIBUTION WIDTH 21.8 % (12.0-15.0); WHITE BLOOD COUNT 9.9 x10^3/uL (4.8-10.8)
[2017-07-07 06:56] LABS: CALCIUM 8.3 mg/dL (8.5-10.3); CREATININE 1.3 mg/dL (0.4-1.0)
[2017-07-07] MEDS: METOPROLOL SUCCINATE 50 MG TABLET PO SCH ×2 (08:56→22:00)
[2017-07-07] MEDS: FAMOTIDINE 20 MG TABLET PO SCH (08:56)
[2017-07-07] MEDS: POLYETHYLENE GLYCOL 3350 17 GM PACKET PO SCH (08:57)
[2017-07-07] MEDS: CLARITHROMYCIN 500 MG PO SCH ×2 (09:01→21:57)
[2017-07-07] MEDS: AMOXICILLIN 500 MG PO SCH ×2 (09:01→21:57)
--- NOTE | 2017-07-07 11:45 | Discharge Plan ---
Discharge Plan Disposition: Home, Self Care Condition: Good Prescriptions: oxyCODONE/ACET 5/325 [Percocet 5 mg/325 mg] 1 tab PO Q4HR PRN #25 tablet PRN Reason: Pain Diet: Regular Activity Restrictions: Wt Bearing as Tolerated Shower Restrictions: No Driving Restrictions: No Assistance Devices: Walker Weight Bearing: Partial Weight Instruction Topics: Acetaminophen Oxycodone tablets, Hip Replace Total Activity , Hip Replace At Home, Hip Replace Total Dc Additional Instructions or Follow Up instructions: Follow up with Dr Cho in 1-2 weeks. Follow up with Dr Smith in 1 week. Follow-Up Care: Outpatient Rehab - PT, Outpatient Rehab - OT No Smoking: If you smoke, Please STOP! Call for help. Follow-up with: Arianna Smith DO [Primary Care Provider] -
--- NOTE | 2017-07-07 11:56 | PROVIDER PROGRESS NOTE ---
Subjective - Prog Note Date Prog Note Date: 07/07/17 Prog Note Time: 11:40 - Subjective Pt reports feeling: Improved (The patient is doing well. She is ambulating with assistance in the hallway and to the bathroom. She complains of some pain to the right hip which is not unexpected given that she recently had a right hip replacement. She is eating and drinking and moving her bowels. She denies any shortness of breath, fevers or chills.) Current Medications - Current Medications Current Medications: D5W, Pepcid, hydromorphone, metoprolol, Zofran, Percocet, polyethylene glycol, sodium chloride, temazepam Objective - Vital Signs/Intake & Output Reviewed Vital Signs: Yes Vital Signs: Vital Signs x48h Temp Pulse Resp BP Pulse Ox 07/07/17 08:00 36.9 C 66 20 186/51 H 96 Intake & Output: Intake & Output 07/04/17 07/05/17 07/06/17 07/07/17 23:59 23:59 23:59 23:59 Intake Total 1908 3425 360 Output Total 350 1525 Balance 1558 1900 360 - Objective General Appearance: positive: No acute distress, Alert Eyes Bilateral: positive: Normal inspection, PERRL, EOMI, No lid inflammation, Conjunctivae nml, No scleral icterus ENT: positive: ENT inspection nml, Pharynx nml, No signs of dehydration Neck: positive: Nml inspection, Thyroid nml, No JVD, Trachea midline. negative : Thyromegaly Respiratory: positive: Chest non-tender, No respiratory distress, Breath sounds nml. negative: Wheezes, Rales, Rhonchi Cardiovascular: positive: Regular rate & rhythm, No murmur, No gallop Abdomen: positive: Non-tender, No organomegaly, Nml bowel sounds, No distention. negative: Guarding, Rebound Back: positive: Nml inspection. negative: CVA tenderness (R), CVA tenderness (L ) Skin: positive: Color nml, No rash, Warm, Dry. negative: Cyanosis Extremities: positive: Non-tender, Full ROM, Nml appearance, No pedal edema Neurologic/Psychiatric: positive: Oriented x3, CN's nml (2-12), Motor nml, Sensation nml, Mood/affect nml - Lab Results Fish Bones: 03/18/18 06:18 18 06:18 Other Labs: Lab Results x24hrs 07/07/17 07/07/17 Range/Units 06:18 06:18 WBC 9.9 (4.8-10.8) x10^3/uL RBC 3.08 L (4.20-5.40) 10^6/uL Hgb 8.9 L (12.0-16.0) g/dL Hct 28.2 L (37.0-47.0) % MCV 91.4 (81.0-99.0) fL MCH 29.0 (27.0-31.0) pg MCHC 31.7 L (32.0-36.0) g/dL RDW 21.8 H (12.0-15.0) % Plt Count 185 (130-450) 10^3/uL MPV 8.4 (7.9-10.8) fL Sodium 136 (135-145) mmol/L Potassium 5.3 H (3.5-5.0) mmol/L Chloride 107 (101-111) mmol/L Carbon Dioxide 23 (21-32) mmol/L Anion Gap 6.0 (6-13) BUN 28 H (6-20) mg/dL Creatinine 1.3 H (0.4-1.0) mg/dL Estimated GFR (MDRD) 40 L (>89) Glucose 107 H (70-100) mg/dL Calcium 8.3 L (8.5-10.3) mg/dL - Diagnostic Imaging Diagnostic Imaging Comments: EXAM: RIGHT HIP AND PELVIS RADIOGRAPHY EXAM DATE: 07/06/2017 01:44 PM. HISTORY: Postoperative right hip surgery. COMPARISONS: 07/04/2017. TECHNIQUE: 1 view of the pelvis and 1 view of the hip. FINDINGS: Bones: The patient has had placement of a right hip arthroplasty with non- fixated components. There is gross anatomic alignment. No unexpected periprostatic lucencies or fractures. Mild osteopenia is present. Soft Tissues: Normal. No soft tissue swelling. IMPRESSION: Expected appearance of right hip arthroplasty. EXAM: RIGHT HIP AND PELVIS RADIOGRAPHY EXAM DATE: 07/04/2017 10:20 PM. HISTORY: Pain with moving her rt. leg, twisted it . COMPARISONS: None. TECHNIQUE: 1 view of the pelvis and 1 view of the hip. FINDINGS: Bones: Minimally displaced subcapital right femoral neck fracture. No other fracture seen. Joints: The bilateral hip, pubis symphysis, and sacroiliac joints are preserved. Soft Tissues: Normal. No soft tissue swelling. IMPRESSION: Subcapital right femoral neck fracture. Assessment/Plan - Problem List (1) Closed right hip fracture Impression: The patient's hip was surgically repaired Saturday and she is doing well today. Distal toes are warm and pink with good capillary refill. Patient's pain is well-managed. Anticipate discharge tomorrow to home. Continue present care. (2) Acute blood loss anemia Impression: The patient lost about a unit of blood during her surgery on Saturday, which was not unexpected.The patient's GI bleed was isolated following a camera study in which the patient swallowed the pill had a camera in it. She will follow-up with those providers for care of the GI bleed. (3) Claudication in peripheral vascular disease Impression: Continue losartan. If the claudication continues consider Pletal. (4) HTN (hypertension) Impression: The patient's blood pressure is elevated but this may be related to pain associated with the recent surgery. Continue hydrochlorothiazide, losartan, and metoprolol.
--- NOTE | 2017-07-07 12:08 | PROVIDER PROGRESS NOTE ---
Subjective - General Admit Date: 07/05/17 Procedure Date: 07/05/17 Post Op Days: 2 Procedure Performed: Hemiarthroplasty right hip - Review of Systems Wound/Incisions: positive: Other (two small areas of drainage visible along wound area) General: positive: Other (3/10 pain before analgesic) - Other Other Information/Narrative: Able to walk around [place] times 2. Feels ready for DC tomorrow Objective - Patient Data Vital Signs: Vital Signs x48h Temp Pulse Resp BP Pulse Ox 07/07/17 08:00 36.9 C 66 20 186/51 H 96 Weight: Weight 07/05/17 07/06/17 07/07/17 23:59 23:59 23:59 Weight (kg) 45 kg Intake & Output: Intake and Output Totals x24h 07/05/17 07/06/17 07/07/17 23:59 23:59 23:59 Intake Total 1908 3425 360 Output Total 350 1525 Balance 1558 1900 360 - Lab Results Lab Results: 07/07/17 06:18 07/07/17 06:18 Other Lab Results: Lab Results x24hrs 07/07/17 07/07/17 Range/Units 06:18 06:18 WBC 9.9 (4.8-10.8) x10^3/uL RBC 3.08 L (4.20-5.40) 10^6/uL Hgb 8.9 L (12.0-16.0) g/dL Hct 28.2 L (37.0-47.0) % MCV 91.4 (81.0-99.0) fL MCH 29.0 (27.0-31.0) pg MCHC 31.7 L (32.0-36.0) g/dL RDW 21.8 H (12.0-15.0) % Plt Count 185 (130-450) 10^3/uL MPV 8.4 (7.9-10.8) fL Sodium 136 (135-145) mmol/L Potassium 5.3 H (3.5-5.0) mmol/L Chloride 107 (101-111) mmol/L Carbon Dioxide 23 (21-32) mmol/L Anion Gap 6.0 (6-13) BUN 28 H (6-20) mg/dL Creatinine 1.3 H (0.4-1.0) mg/dL Estimated GFR (MDRD) 40 L (>89) Glucose 107 H (70-100) mg/dL Calcium 8.3 L (8.5-10.3) mg/dL - Current Medications Current Medications: Current Medications Generic Name Dose Route Start Last Admin Trade Name Freq PRN Reason Stop Dose Admin Famotidine 20 mg 07/05/17 09:00 07/07/17 08:56 Pepcid PO 20 mg DAILY JIA Administration Hydromorphone HCl 1 mg 07/05/17 08:08 07/07/17 07:25 Dilaudid Inj Syringe IVP 1 mg Q1H PRN Administration PAIN Dextrose/Sodium Chloride 1,000 mls @ 0 mls/hr 07/05/17 01:00 07/05/17 16:34 D5ns IV Infused .Q0M JIA Infusion TKO Metoprolol Succinate 50 mg 07/05/17 09:00 07/07/17 08:56 Toprol Xl PO 50 mg DAILY JIA Administration Metoprolol Succinate 100 mg 07/05/17 03:00 07/06/17 20:12 Toprol Xl PO 100 mg QPM JIA Administration Oxycodone/Acetaminophen 1 tab 07/06/17 09:28 07/07/17 06:31 Percocet 5 Mg/325 Mg PO 1 tab Q4HR PRN Administration PAIN (Amoxicillin [ 2 each 07/06/17 09:00 07/07/17 09:01 Amoxicillin] 500 Mg) PO 07/09/17 21:01 2 each Caps BID JIA Administration (Clarithromycin [ 1 each 07/06/17 09:00 07/07/17 09:01 Clarithromycin] 500 PO 07/09/17 21:01 1 each Mg) Tab BID JIA Administration (Omeprazole [ 1 each 07/06/17 09:00 07/07/17 09:02 Omeprazole] 20 Mg) PO 07/09/17 21:01 Not Given Cap BID JIA Polyethylene Glycol 17 gm 07/05/17 09:00 07/07/17 08:57 Miralax PO 17 gm DAILY JIA Administration Sodium Chloride 10 ml 07/05/17 01:00 07/07/17 07:27 Normal Saline Flush 0.9% IVP 20 ml 0100,0900,1700 JIA Administration - Physical Exam Wound/Incisions: positive: Drainage (Very small drainage. Dressing changed. Margins well apposed.) Impression/Plan - Problem List Problem List: Doing very well post op. Patient ready for DC to home tomorrow. I provided extra dressing material, but for use only if problem with existing. F/u in my office in 2 wks and 2 days. Urged patient to call my office anytime she thinks there could be a problem.
[2017-07-07] MEDS ORDERED: HYDROmorphone 1 MG/ML CARPUJECT IVP PRN (13:13)
[2017-07-07] MEDS: DOCUSATE SODIUM 250 MG CAPSULE PO SCH (21:55)
[2017-07-07] MEDS: SENNA 8.6 MG TABLET PO SCH (21:55)
[2017-07-08] MEDS: SODIUM CHLORIDE FLUSH 0.9% 10 ML SYRINGE IVP SCH ×2 (02:04→08:06)
[2017-07-08 06:09] LABS: HGB - HEMOGLOBIN 8.5 g/dL (12.0-16.0); MEAN CORPUSCULAR HEMOGLOBIN 28.8 pg (27.0-31.0); MEAN CORPUSCULAR HGB CONC 31.6 g/dL (32.0-36.0); MEAN CORPUSCULAR VOLUME 91.3 fL (81.0-99.0); MEAN PLATELET VOLUME 8.6 fL (7.9-10.8); RED BLOOD COUNT 2.95 10^6/uL (4.20-5.40); RED CELL DISTRIBUTION WIDTH 21.2 % (12.0-15.0); WHITE BLOOD COUNT 8.2 x10^3/uL (4.8-10.8)
[2017-07-08 06:17] LABS: CALCIUM 8.2 mg/dL (8.5-10.3); CREATININE 1.3 mg/dL (0.4-1.0)
[2017-07-08] MEDS: DOCUSATE SODIUM 250 MG CAPSULE PO SCH (08:01)
[2017-07-08] MEDS: oxyCOD/ACETAMIN 5 MG/325 MG TABLET PO PRN ×2 (08:02→12:44)
[2017-07-08] MEDS: METOPROLOL SUCCINATE 50 MG TABLET PO SCH (08:02)
[2017-07-08] MEDS: SENNA 8.6 MG TABLET PO SCH (08:02)
[2017-07-08] MEDS: FAMOTIDINE 20 MG TABLET PO SCH (08:03)
[2017-07-08] MEDS: POLYETHYLENE GLYCOL 3350 17 GM PACKET PO SCH (08:03)
[2017-07-08] MEDS: AMOXICILLIN 500 MG PO SCH (08:03)
[2017-07-08] MEDS: CLARITHROMYCIN 500 MG PO SCH (08:04)
[2017-07-08 08:10] VITALS: BP 172/56
[2017-07-08] MEDS ORDERED: SENNA 8.6 MG TABLET PO SCH (09:00)
--- NOTE | 2017-07-08 12:20 | DISCHARGE SUMMARY ---
Discharge Summary Admit Date: 07/05/17 Discharge Date: 07/08/17 Discharging Provider: Leila Salguero DO Primary Care Provider: Arianna Smith Code Status: Attempt Resuscitation Condition at Discharge: Good Discharge Disposition: 01 Home, Self Care - DIAGNOSES Admission Diagnoses: 1. Right hip fracture after fall at home 2. Hypertension, poorly controlled 3. Recent ex-smoker 4. Anemia from GI bleed 5. Peripheral vascular disease with stenting of left leg 6. Prerenal azotemia Discharge Diagnoses with Status of Each Condition: 1. Right hip fracture after fall at home -Surgically repaired, follow up with Dr. Cho in 1-2 weeks.Follow-up with Dr. Smith in 1 week. 2. Hypertension, poorly controlled- Resume your home medications, with the addition of amlodipine. 3. Recent ex-smoker- Continue to remain smoke-free 4. Anemia from GI bleed - Area detected on camera pill. Follow-up next week. Your red blood cell count is dropping slowly every day. 5. Peripheral vascular disease with stenting of left leg - No new events during this current hospitalization. Resume home care. 6. Prerenal azotemia- Corrected. - HPI History of Present Illness: From Dr. aSmuel's H&P: The patient is a 76-year-old white female with a history of peripheral vascular disease with stenting of the left leg, history of anemia felt to be due to an occult GI blood loss for which she underwent multiple evaluations in [place] including endoscopy, colonoscopy, and even pill endoscopy imaging, and states that the site was found; and she points to her right lower quadrant. She is supposed to get endoscopy for cauterization of this area in the next week. Patient states she was on Plavix and this has been discontinued because of the bleeding. Patient presents today after tripping on a stair step next to her bed and while falling twisting her foot and developing right hip pain. Patient was found to have a right hip fracture and orthopedics has been called in for evaluation and treatment. - HOSPITAL COURSE Hospital Course: The patient was admitted to the hospital and underwent a right hip repair. She had some hypertension following the surgery but this has been well controlled and her pain has been well controlled as well. Her plan is now to go home with the help of her who is taken 2 weeks off of work and she will also return to neighbors for additional assistance should she need it. - ALLERGIES Allergies/Adverse Reactions: Allergies Allergy/AdvReac Type Severity Reaction Status Date / Time codeine phosphate * AdvReac Intermediate Itching Verified 07/04/17 21:53 [From Tylenol-Codeine #3] - MEDICATIONS Home Medications: Ambulatory Orders Medication Instructions Recorded Confirmed Metoprolol Succinate [Toprol Xl] 50 mg PO DAILY 03/14/17 07/05/17 hydroCHLOROthiazide 25 mg PO DAILY 03/14/17 07/05/17 [Hydrochlorothiazide] Aspirin [Aspirin EC] 81 mg PO DAILY 04/02/17 07/05/17 Amoxicillin 1,000 mg PO [id number] 07/05/17 07/05/17 Clarithromycin 500 mg PO [id number] 07/05/17 07/05/17 Losartan Potassium 100 mg PO DAILY 07/05/17 07/05/17 Omeprazole 20 mg PO [id number] 07/05/17 07/05/17 oxyCODONE/ACET 5/325 [Percocet 5 1 tab PO Q4HR PRN #25 tablet 07/07/17 mg/325 mg] - PHYSICAL EXAM AT DISCHARGE General Appearance: positive: No acute distress, Alert Eyes Bilateral: positive: Normal inspection, PERRL, EOMI, No lid inflammation, Conjunctivae nml, No scleral icterus ENT: positive: ENT inspection nml, Pharynx nml, No signs of dehydration Neck: positive: Nml inspection, Thyroid nml, No JVD, Trachea midline. negative : Thyromegaly Respiratory: positive: Chest non-tender, No respiratory distress, Breath sounds nml. negative: Wheezes, Rales, Rhonchi Cardiovascular: positive: Regular rate & rhythm, No murmur, No gallop Peripheral Pulses: positive: 1+ Abdomen: positive: Non-tender, No organomegaly, Nml bowel sounds, No distention. negative: Guarding, Rebound Back: positive: Nml inspection. negative: CVA tenderness (R), CVA tenderness (L ) Skin: positive: Color nml, No rash, Warm, Dry. negative: Cyanosis Extremities: positive: Non-tender, Full ROM, Nml appearance Neurologic/Psychiatric: positive: Oriented x3, CN's nml (2-12), Motor nml, Sensation nml, Mood/affect nml - LABS Result Diagrams: 07/08/17 05:23 07/08/17 05:23 - DIAGNOSTIC IMAGING Diagnostic Imaging Results: Final report reviewed Diagnostic Imaging Results Comments: EXAM: RIGHT HIP AND PELVIS RADIOGRAPHY EXAM DATE: 07/06/2017 01:44 PM. HISTORY: Postoperative right hip surgery. COMPARISONS: 07/04/2017. TECHNIQUE: 1 view of the pelvis and 1 view of the hip. FINDINGS: Bones: The patient has had placement of a right hip arthroplasty with non- fixated components. There is gross anatomic alignment. No unexpected periprostatic lucencies or fractures. Mild osteopenia is present. Soft Tissues: Normal. No soft tissue swelling. IMPRESSION: Expected appearance of right hip arthroplasty. - FOLLOW UP Follow Up: Follow-up with Dr. Smith next week. Follow-up with gastroenterology for your GI bleed next week. - TIME SPENT Time Spent in Discharge (Minutes): 40
--- NOTE | 2017-07-08 12:21 | PROVIDER PROGRESS NOTE ---
Subjective - General Admit Date: 07/05/17 Procedure Date: 07/05/17 Post Op Days: 3 Procedure Performed: Hemiarthroplasty right hip - Review of Systems Wound/Incisions: positive: Drainage (Very small drainage. Dressing changed. Margins well apposed.) General: positive: Other (3/10 pain before analgesic) - Other Other Information/Narrative: Patient has no complaints. Is worried about her being overwhelmed. She does not think he will actually have to do much for her at home. Therapist has suggest that DC to home is OK and that she does not need SNF Objective - Patient Data Vital Signs: Vital Signs x48h Temp Pulse Resp BP Pulse Ox 07/08/17 08:00 36.6 C 72 20 172/56 H 97 Intake & Output: Intake and Output Totals x24h 07/06/17 07/07/17 07/08/17 23:59 23:59 23:59 Intake Total 3425 1140 200 Output Total 1525 Balance 1900 1140 200 - Lab Results Lab Results: 07/08/17 05:23 07/08/17 05:23 Other Lab Results: Lab Results x24hrs 07/08/17 07/08/17 Range/Units 05:23 05:23 WBC 8.2 (4.8-10.8) x10^3/uL RBC 2.95 L (4.20-5.40) 10^6/uL Hgb 8.5 L (12.0-16.0) g/dL Hct 27.0 L (37.0-47.0) % MCV 91.3 (81.0-99.0) fL MCH 28.8 (27.0-31.0) pg MCHC 31.6 L (32.0-36.0) g/dL RDW 21.2 H (12.0-15.0) % Plt Count 183 (130-450) 10^3/uL MPV 8.6 (7.9-10.8) fL Sodium 136 (135-145) mmol/L Potassium 4.9 (3.5-5.0) mmol/L Chloride 106 (101-111) mmol/L Carbon Dioxide 24 (21-32) mmol/L Anion Gap 6.0 (6-13) BUN 30 H (6-20) mg/dL Creatinine 1.3 H (0.4-1.0) mg/dL Estimated GFR (MDRD) 40 L (>89) Glucose 95 (70-100) mg/dL Calcium 8.2 L (8.5-10.3) mg/dL - Current Medications Current Medications: Current Medications Generic Name Dose Route Start Last Admin Trade Name Freq PRN Reason Stop Dose Admin Docusate Sodium 250 - 500 mg 07/07/17 18:07 07/08/17 08:01 Colace 250mg Capsule PO 250 mg DAILY JIA Administration Famotidine 20 mg 07/05/17 09:00 07/08/17 08:03 Pepcid PO 20 mg DAILY JIA Administration Dextrose/Sodium Chloride 1,000 mls @ 0 mls/hr 07/05/17 01:00 07/05/17 16:34 D5ns IV Infused .Q0M JIA Infusion TKO Metoprolol Succinate 50 mg 07/05/17 09:00 07/08/17 08:02 Toprol Xl PO 50 mg DAILY JIA Administration Metoprolol Succinate 100 mg 07/05/17 03:00 07/07/17 22:00 Toprol Xl PO 100 mg QPM JIA Administration Oxycodone/Acetaminophen 1 tab 07/06/17 09:28 07/08/17 08:02 Percocet 5 Mg/325 Mg PO 1 tab Q4HR PRN Administration PAIN (Amoxicillin [ 2 each 07/06/17 09:00 07/08/17 08:03 Amoxicillin] 500 Mg) PO 07/09/17 21:01 2 each Caps BID JIA Administration (Clarithromycin [ 1 each 07/06/17 09:00 07/08/17 08:04 Clarithromycin] 500 PO 07/09/17 21:01 1 each Mg) Tab BID JIA Administration (Omeprazole [ 1 each 07/06/17 09:00 07/08/17 08:05 Omeprazole] 20 Mg) PO 07/09/17 21:01 Not Given Cap BID JIA Polyethylene Glycol 17 gm 07/05/17 09:00 07/08/17 08:03 Miralax PO 17 gm DAILY JIA Administration Senna 8.6 - 17.2 mg 07/07/17 18:11 07/08/17 08:02 Senokot PO 17.2 mg DAILY JIA Administration Sodium Chloride 10 ml 07/05/17 01:00 07/08/17 08:06 Normal Saline Flush 0.9% IVP Not Given 0100,0900,1700 JIA - Physical Exam Extremities: positive: Other (Seated without pain.) Impression/Plan - Problem List Problem List: Fx Hip -- Patient is cleared surgically for DC to home. Followup in 2 weeks at Ortho office. No wound care needed.
== END 2017-07-08 14:25 | disposition home or self-care (01) | DRG 470 ==
LOC: EDUNIT# → ED 21:44 → MS2 07-05 00:55
PROVIDERS: ADMIT Internal Medicine; ATTEND Hospitalist
PROC: 0SRR01A Replacement of Right Hip Joint, Femoral Surface with Metal Synthetic Substitute, Uncemented, Open Approach (ICD-10-PCS; principal; 2017-07-05 10:00)
DX: S72.011A Unspecified intracapsular fracture of right femur, initial encounter for closed fracture (principal); X50.1XXA Overexertion from prolonged static or awkward postures, initial encounter; D62 Acute posthemorrhagic anemia; F17.200 Nicotine dependence, unspecified, uncomplicated; K92.2 Gastrointestinal hemorrhage, unspecified; I10 Essential (primary) hypertension; I73.9 Peripheral vascular disease, unspecified; W10.8XXA Fall (on) (from) other stairs and steps, initial encounter; Y92.003 Bedroom of unspecified non-institutional (private) residence as the place of occurrence of the external cause; M85.88 Other specified disorders of bone density and structure, other site; Z87.891 Personal history of nicotine dependence; Z95.828 Presence of other vascular implants and grafts; Z79.82 Long term (current) use of aspirin; Z98.1 Arthrodesis status
CPT/HCPCS: 36415; 80048; 80053; 83690; 83735; 85025; 85610; 85730; 93005; 96374; 96376; 99283; 99284

== ENCOUNTER 2017-10-01 14:45 | Outpatient (CLI) | payer MEDICARE ==
--- NOTE | 2017-10-02 13:35 | Ultrasound Report ---
Procedure Date: 10/01/2017 Accession Number: [id number] / [id number] Procedure: US - Duplex Lwr Ext Arterial Bilat CPT Code: FULL RESULT: EXAM: BILATERAL LOWER EXTREMITY ARTERIAL DOPPLER ULTRASOUND EXAM DATE: 10/01/2017 04:05 PM. CLINICAL HISTORY: Claudication, intermittent. Peripheral artery disease. COMPARISON: None. TECHNIQUE: Real-time sonographic vascular imaging was performed by the printing plate setter, utilizing color-flow, Doppler flow, and spectral analysis. Multiple access services representative static images were saved for review. FINDINGS: Right Lower Extremity: Common Femoral: PSV 134 cm/sec, triphasic waveform. SFA Proximal: PSV 73 cm/sec, biphasic waveform. SFA Mid: PSV 136 cm/sec, biphasic waveform. SFA Distal: PSV 29 cm/sec, monophasic waveform. PFA: PSV 91 cm/sec, biphasic waveform. Popliteal: PSV 19 cm/sec, monophasic waveform. BRAXTON: PSV 32 cm/sec, monophasic waveform. POSTAL [employer]ICE MAIL PROCESSOR: PSV 23 cm/sec, monophasic waveform. PER: PSV 27 cm/sec, monophasic waveform. DPA: PSV 7 cm/sec, monophasic waveform. Left Lower Extremity: Common Femoral: PSV 100 cm/sec, triphasic waveform. SFA Proximal: PSV 81 cm/sec, triphasic waveform. SFA Mid: PSV 115 cm/sec, biphasic waveform. SFA Distal: PSV 312 cm/sec, biphasic waveform. PFA: PSV 111 cm/sec, biphasic waveform. Popliteal: PSV 59 cm/sec, biphasic waveform. BRAXTON: PSV 21 cm/sec, monophasic waveform. POSTAL SERVICE MAIL PROCESSOR: Not seen. PER: PSV 17 cm/sec, monophasic waveform. DPA: PSV 32 cm/sec, monophasic waveform. IMPRESSION: 1. Mid right SFA shows biphasic mildly elevated flow indicative of moderate stenosis. 2. Low amplitude monophasic flow below the knee on the right side. 3. Marked increased flow seen at the distal left SFA stent measuring up to 312 cm/s. High-grade stenosis. 4. Left posterior tibial not seen, presumably occluded. 5. Left popliteal is biphasic flow. Anterior tibial, peroneal and dorsalis pedis show low velocity monophasic flow. RADIA
== END 2017-10-01 14:46 | disposition home or self-care (01) ==
LOC: DI 14:45
PROVIDERS: ATTEND Family Medicine
DX: I73.9 Peripheral vascular disease, unspecified (principal); I70.202 Unspecified atherosclerosis of native arteries of extremities, left leg
CPT/HCPCS: 93925

== ENCOUNTER 2018-03-17 10:54 | Emergency (ER) | payer MEDICARE ==
[2018-03-17 11:45] LABS: MEAN CORPUSCULAR HEMOGLOBIN 30.2 pg (27.0-31.0); MEAN CORPUSCULAR HGB CONC 32.5 g/dL (32.0-36.0); MEAN CORPUSCULAR VOLUME 92.8 fL (81.0-99.0); MEAN PLATELET VOLUME 8.2 fL (7.9-10.8); RED BLOOD COUNT 3.31 10^6/uL (4.20-5.40); RED CELL DISTRIBUTION WIDTH 14.1 % (12.0-15.0); WHITE BLOOD COUNT 8.5 x10^3/uL (4.8-10.8)
[2018-03-17 12:03] LABS: ALBUMIN 3.8 g/dL (3.2-5.5); BILIRUBIN,TOTAL 0.7 mg/dL (0.2-1.0); CALCIUM 9.2 mg/dL (8.5-10.3); CREATININE 1.7 mg/dL (0.4-1.0); TOTAL PROTEIN 7.6 g/dL (6.7-8.2)
[2018-03-17 12:22] LABS: PT - PROTHROMBIN TIME 11.2 secs (9.9-12.6)
[2018-03-17 14:04] VITALS: BP 185/73
--- NOTE | 2018-03-17 14:45 | ED Physician Documentation ---
History of Present Illness - Stated complaint Stated Complaint: BLACK STOOL - Chief complaint Chief Complaint: Abd Pain - Additonal information Additional information: hx from pt 77 female in short summary she has chronic / recurrent GI bleeding that started a year ago when she was put on plavix for claudication - not on plavix now - she has been extensively worked up by numerous GI specialists and a pill camera identified two bleeding sites in her small bowel and she still has not had surgery though she might be getting surgery at the [facility] in [place] she periodically needs transfusions at the [facility] today she felt weak and had black macey [facility] sent her to ER no fever no abd pain no NV no urianry sx cough etc Review of Systems Constitutional: reports: Fatigue. denies: Fever, Chills Cardiac: denies: Chest pain / pressure Respiratory: denies: Dyspnea, Cough GI: reports: Bloody / black stool. denies: Abdominal Pain, Vomiting : denies: Dysuria Neurologic: reports: Generalized weakness Endocrine: denies: Easy bruising / bleeding Immunocompromised: denies: Immunocompromised PD PAST MEDICAL HISTORY - Past Medical History Cardiovascular: None, Hypertension, Peripheral Vascular Disease, Other Respiratory: None Endocrine/Autoimmune: None GI: GI bleed : None HEENT: None Psych: None Musculoskeletal: None Derm: Psoriasis Other Past Medical History: arterial sclerolsis of bilateral elgs - Past Surgical History Past Surgical History: Yes General: Colonoscopy, EGD Ortho: Hip replacement, Other Cardiovascular: Vascular surgery, Angioplasty - Present Medications Home Medications: Ambulatory Orders Medication Instructions Recorded Confirmed Metoprolol Succinate [Toprol Xl] 50 mg PO DAILY 03/14/17 12/24/17 hydroCHLOROthiazide 25 mg PO DAILY 03/14/17 12/24/17 [Hydrochlorothiazide] Aspirin [Aspirin EC] 81 mg PO DAILY 04/02/17 12/24/17 Losartan Potassium 100 mg PO DAILY 07/05/17 12/24/17 Omeprazole 20 mg PO [id number] 07/05/17 12/24/17 - Allergies Allergies/Adverse Reactions: Allergies Allergy/AdvReac Type Severity Reaction Status Date / Time codeine phosphate * AdvReac Intermediate Itching Verified 03/17/18 11:20 [From Tylenol-Codeine #3] - Social History Does the pt smoke?: Yes Smoking Status: Former smoker Does the pt drink ETOH?: Yes ETOH Use: Wine Does the pt have substance abuse?: No - Immunizations Immunizations are current?: Yes - POLST Patient has POLST: No POLST Status: DNR PD ED PE NORMAL - Vitals Vital signs reviewed: Yes - Neck Neck: Supple, no meningeal sign - Cardiac Cardiac: RRR - Respiratory Respiratory: No respiratory distress - Abdomen Abdomen: Soft, Non tender - Rectal Rectal: Other (no mass, black stool, occult blood +) Results - Vitals Vitals: Vital Signs - 24 hr 03/17/18 03/17/18 11:11 14:04 Temperature 36.4 C L Heart Rate 69 72 Respiratory 16 20 Rate Blood Pressure 148/69 H 185/73 H O2 Saturation 100 100 Oxygen O2 Source [With Activity] Room air O2 Source Room air - Labs Labs: Laboratory Tests 03/17/18 03/17/18 03/17/18 11:38 11:38 11:38 WBC 8.5 RBC 3.31 L Hgb 10.0 L Hct 30.7 L MCV 92.8 MCH 30.2 MCHC 32.5 RDW 14.1 Plt Count 406 MPV 8.2 PT INR APTT 27.9 Sodium 139 Potassium 5.0 Chloride 109 Carbon Dioxide 21 Anion Gap 9.0 BUN 61 H Creatinine 1.7 H Estimated GFR (MDRD) 29 L Glucose 95 Calcium 9.2 Total Bilirubin 0.7 AST 27 ALT 12 Alkaline Phosphatase 91 Total Protein 7.6 Albumin 3.8 Globulin 3.8 Albumin/Globulin Ratio 1.0 Lipase 73 H Blood Type Antibody Screen 03/17/18 03/17/18 12:12 Unknown WBC RBC Hgb Hct MCV MCH MCHC RDW Plt Count MPV PT 11.2 INR 1.0 APTT Sodium Potassium Chloride Carbon Dioxide Anion Gap BUN Creatinine Estimated GFR (MDRD) Glucose Calcium Total Bilirubin AST ALT Alkaline Phosphatase Total Protein Albumin Globulin Albumin/Globulin Ratio Lipase Blood Type A POSITIVE Antibody Screen NEGATIVE PD MEDICAL DECISION MAKING - ED course ED course: hgb presently 10 and BP HR [facility] very close to capacity for admissions seems reasonable to set pt up for next day blood ct and [place] if [place] [facility] [place] site of this surgery cannot be addressed at [facility] she is potentially getting surgery at [facility] next Apr but in the meantime will need symptomatic care and periodic transfusions as has been going on for the last year since this started Departure - Departure Disposition: 01 Home, Self Care Clinical Impression: GI bleed Qualifiers: GI bleed type/associated pathology: unspecified gastrointestinal hemorrhage type Qualified Code(s): K92.2 - Gastrointestinal hemorrhage, unspecified Condition: Good Follow-Up: Arianna Smith DO [Primary Care Provider] - Comments: You do have blood in your stools again. But your blood count is fine right now. My understanding is that you might be going to get surgery at [facility] next April but in the mean time are being managed with periodic blood transfusions as needed. Right now your hemoglobin is 10 so you do not need a transfusion today But you should have another blood count tomorrow - you might lose more blood and need a transfusion by then The [facility] should be able to handle this. Please walk over to schedule an appointment for tomorrow. If you are worse in any way or cannot otherwise get a repeat blood count tomorrow, please just come back to the ER You also have renal insufficiency but that is not new - please follow up with Dr Smith about that
[2018-03-17 15:55] LABS: BILIRUBIN,URINE NEGATIVE (NEGATIVE); GLUCOSE, URINE (UA) NEGATIVE (NEGATIVE); KETONES,URINE (UA) NEGATIVE (NEGATIVE); LEUKOCYTE ESTERASE, URINE NEGATIVE (NEGATIVE); NITRITE,URINE NEGATIVE (NEGATIVE); OCCULT BLOOD,URINE NEGATIVE (NEGATIVE); PROTEIN,URINE NEGATIVE (NEGATIVE); UROBILINOGEN,URINE 0.2 (NORMAL) E.U./dL (NORMAL)
[2018-03-17 15:59] LABS: CLARITY,URINE CLEAR (CLEAR)
== END 2018-03-17 15:18 | disposition home or self-care (01) ==
LOC: ED 10:54
DX: K92.2 Gastrointestinal hemorrhage, unspecified (principal); K92.1 Melena; I10 Essential (primary) hypertension; Z87.891 Personal history of nicotine dependence
CPT/HCPCS: 36415; 80053; 81001; 81003; 83690; 85027; 85610; 85730; 86850; 86900; 86901; 87086; 99283

== ENCOUNTER 2018-06-18 08:56 | Outpatient (CLI) | payer MEDICARE ==
[2018-06-18 09:44] LABS: CHOLESTEROL 249 mg/dL; HDL CHOLESTEROL 124 mg/dL; LDL CHOLESTEROL,CALCULATED 112 mg/dL; LDL/HDL RATIO 0.9 (<4.4); VLDL CHOLESTEROL 13 mg/dL
== END 2018-06-18 08:57 | disposition home or self-care (01) ==
LOC: LAB 08:56
PROVIDERS: ATTEND Family Medicine
DX: E78.5 Hyperlipidemia, unspecified (principal)
CPT/HCPCS: 36415; 80061; 83721

== ENCOUNTER 2019-02-18 08:00 | Outpatient (CLI) | payer MEDICARE ==
[2019-02-18 19:01] LABS: BASOPHILS % (AUTO) 0.4 %; EOSINOPHILS # (AUTO) 0.1 10^3/uL (0.0-0.7); EOSINOPHILS % (AUTO) 0.7 %; HGB - HEMOGLOBIN 13.1 g/dL (12.0-16.0); LYMPHOCYTES # (AUTO) 1.8 10^3/uL (1.5-3.5); LYMPHOCYTES % (AUTO) 25.6 %; MEAN CORPUSCULAR HEMOGLOBIN 29.2 pg (27.0-31.0); MEAN CORPUSCULAR HGB CONC 29.7 g/dL (32.0-36.0); MEAN CORPUSCULAR VOLUME 98.4 fL (81.0-99.0); MONOCYTES # (AUTO) 0.7 10^3/uL (0.0-1.0); MONOCYTES % (AUTO) 10.3 %; NEUTROPHILS # (AUTO) 4.3 10^3/uL (1.5-6.6); NEUTROPHILS % (AUTO) 62.7 %; PLT - PLATELET COUNT 300 10^3/uL (130-450); RED BLOOD COUNT 4.48 10^6/uL (4.20-5.40); RED CELL DISTRIBUTION WIDTH 14.2 % (12.0-15.0); WHITE BLOOD COUNT 6.9 x10^3/uL (4.8-10.8)
[2019-02-18 19:18] LABS: ALBUMIN 4.1 g/dL (3.2-5.5); ALKALINE PHOSPHATASE 108 IU/L (42-121); ALT ALANINE AMINOTRANSFERASE 14 IU/L (10-60); AST ASPARTATE AMINOTRANSFERASE 32 IU/L (10-42); BILIRUBIN,TOTAL 0.7 mg/dL (0.2-1.0); BUN - BLOOD UREA NITROGEN 44 mg/dL (6-20); CALCIUM 9.1 mg/dL (8.5-10.3); CARBON DIOXIDE - CO2 27 mmol/L (21-32); CHLORIDE 103 mmol/L (101-111); CHOL/HDL RATIO 2.4 (<4.4); CHOLESTEROL 248 mg/dL; CREATININE 1.5 mg/dL (0.4-1.0); GFR - MDRD 33 (>89); GLUCOSE 103 mg/dL (70-100); HDL CHOLESTEROL 102 mg/dL; LDL CHOLESTEROL,CALCULATED 128 mg/dL; LDL/HDL RATIO 1.3 (<4.4); SODIUM 139 mmol/L (135-145); TOTAL PROTEIN 8.2 g/dL (6.7-8.2); VLDL CHOLESTEROL 18 mg/dL
== END 2019-02-18 23:59 | disposition home or self-care (01) ==
LOC: LAB.WCP 08:00
PROVIDERS: ATTEND Family Medicine
DX: I10 Essential (primary) hypertension (principal); E78.5 Hyperlipidemia, unspecified
CPT/HCPCS: 36415; 80053; 80061; 83721; 85025

== ENCOUNTER 2019-05-12 17:57 | Outpatient (CLI) | payer MEDICARE | END 2019-05-12 17:58 | disposition critical access hospital (66) | LOC: EMS 17:57 | PROVIDERS: ATTEND Surgery | DX: M25.552 Pain in left hip (principal); M25.512 Pain in left shoulder; W19.XXXA Unspecified fall, initial encounter; Y92.000 Kitchen of unspecified non-institutional (private) residence as the place of occurrence of the external cause | CPT/HCPCS: A0425; A0427 ==

== ENCOUNTER 2019-05-12 18:14 | Inpatient (IN) | payer MEDICARE ==
--- NOTE | 2019-05-12 18:22 | ED Physician Documentation ---
PD HPI HEAD INJURY - Stated complaint Stated Complaint: FALL - History obtained from History obtained from: Patient (Her went to the store to go grocery shopping, evidently she had some alcohol and then was found on the floor when she got back. She has a bruise on the forehead. She does not know what happened. She does not really know why she is here. She does not really want to be here. She denies any pain. Paramedics tell me she was having left shoulder pain but now she is moving it fine. I asked her if they try to walk her and they said yes but she could not, I asked why she could not walk, was a due to pain or weakness?, Alcohol was the answer.), EMS Review of Systems Unable to obtain: Intoxicated PD PAST MEDICAL HISTORY - Past Medical History Cardiovascular: None, Hypertension, Peripheral Vascular Disease, Other Respiratory: None Endocrine/Autoimmune: None GI: GI bleed : None HEENT: None Psych: None Musculoskeletal: None Derm: Psoriasis - Past Surgical History Past Surgical History: Yes General: Colonoscopy, EGD Ortho: Hip replacement, Other Cardiovascular: Vascular surgery, Angioplasty - Present Medications Home Medications: Ambulatory Orders Medication Instructions Recorded Confirmed Metoprolol Succinate [Toprol Xl] 50 mg PO DAILY 03/14/17 05/27/18 Aspirin [Aspirin EC] 81 mg PO DAILY 04/02/17 05/27/18 Losartan Potassium 100 mg PO DAILY 07/05/17 05/27/18 Omeprazole 20 mg PO [id number] 07/05/17 05/27/18 - Allergies Allergies/Adverse Reactions: Allergies Allergy/AdvReac Type Severity Reaction Status Date / Time hydrocodone Allergy Nausea Verified 05/12/19 18:29 lisinopril Allergy Nausea Verified 05/12/19 18:29 codeine phosphate * AdvReac Intermediate Itching Verified 05/12/19 18:29 [From Tylenol-Codeine #3] - Living Situation Living Situation: reports: With spouse/s.o. - Social History Does the pt smoke?: Yes Smoking Status: Former smoker Does the pt drink ETOH?: Yes Does the pt have substance abuse?: No - Immunizations Immunizations are current?: Yes - POLST Patient has POLST: No POLST Status: DNR PD ED PE NORMAL - Vitals Vital signs reviewed: Yes - General General: Other (Alert and oriented to person and place but not time or events) - HEENT HEENT: PERRL, EOMI, Other (There is a small bruise that is forming just anterior to the right confucianism) - Neck Neck: No bony TTP - Cardiac Cardiac: RRR, No murmur - Respiratory Respiratory: No respiratory distress, Clear bilaterally - Abdomen Abdomen: Normal bowel sounds, Soft, Non tender - Extremities Extremities: No deformity, No tenderness to palpate, Other (I am able to range all major joints without evident pain) - Neuro Neuro: No motor deficit, No sensory deficit Eye Opening: Spontaneous Motor: Obeys Commands Verbal: Confused GCS Score: 14 Results - Vitals Vitals: Vital Signs - 24 hr 05/12/19 05/12/19 05/12/19 18:30 18:57 19:17 Temperature 36.6 C Heart Rate 69 65 Respiratory 18 14 16 Rate Blood Pressure 199/102 H 222/99 H O2 Saturation 95 93 05/12/19 05/12/19 19:25 19:43 Temperature Heart Rate 71 Respiratory 17 17 Rate Blood Pressure 237/93 H O2 Saturation 94 Oxygen O2 Source [With Activity] Room air O2 Source Room air - Labs Labs: Laboratory Tests 05/12/19 05/12/19 05/12/19 18:50 18:50 18:50 WBC 6.8 RBC 3.96 L Hgb 11.9 L Hct 39.2 MCV 99.0 MCH 30.1 MCHC 30.4 L RDW 13.1 Plt Count 310 MPV 10.5 Neut # (Auto) 5.0 Lymph # (Auto) 1.1 L Archuleta # (Auto) 0.4 Eos # (Auto) 0.1 Baso # (Auto) 0.1 Absolute Nucleated RBC 0.00 Nucleated RBC % 0.0 PT 10.9 INR 1.0 Sodium 140 Potassium 4.6 Chloride 103 Carbon Dioxide 24 Anion Gap 13.0 BUN 44 H Creatinine 1.6 H Estimated GFR (MDRD) 31 L Glucose 112 H Calcium 9.3 Total Bilirubin 0.4 AST 31 ALT 17 Alkaline Phosphatase 90 Total Protein 7.6 Albumin 3.9 Globulin 3.7 Albumin/Globulin Ratio 1.1 Lipase 102 H Ethyl Alcohol 219.5 - Rads (name of study) Head CT Radiology: EMP read contemporaneously (atrophy, NAD) C Spine CT Radiology: EMP read contemporaneously (DJD/DDD, no frx) PD MEDICAL DECISION MAKING - ED course Complexity details: d/w design center consultant (Dr Kauffman, ortho will see in c/s. Sling for shoulder, that is non-op, plans to fix hip tomorrow after clinic. ) ED course: 78-year-old presents after a fall while intoxicated that she does not remember. Initial concern was for head injury but CT C-spine and head were negative. She did have a femoral neck and proximal humeral fracture on plain film imaging and case was discussed by phone with on-call orthopedics, Dr. Kemp, humeral fracture will be non-op but plans to take her to the OR for the hip tomorrow. Spoke with Dr. Boone for admission at 8:14 PM. Departure - Departure Disposition: [facility] DC/Xfer Clinical Impression: Left displaced femoral neck fracture Closed fracture of left proximal humerus Qualifiers: Encounter type: initial encounter Fracture morphology: other fracture Fracture alignment: nondisplaced Qualified Code(s): S42.295A - Other nondisplaced fracture of upper end of left humerus, initial encounter for closed fracture Alcohol intoxication Qualifiers: Complication of substance-induced condition: with delirium Qualified Code(s): F10.921 - Alcohol use, unspecified with intoxication delirium Head injury Qualifiers: Encounter type: initial encounter Qualified Code(s): S09.90XA - Unspecified injury of head, initial encounter Condition: Stable
[2019-05-12 18:59] LABS: BASOPHILS # (AUTO) 0.1 10^3/uL (0.0-0.1); BASOPHILS % (AUTO) 0.9 %; EOSINOPHILS # (AUTO) 0.1 10^3/uL (0.0-0.7); EOSINOPHILS % (AUTO) 1.5 %; HGB - HEMOGLOBIN 11.9 g/dL (12.0-16.0); LYMPHOCYTES # (AUTO) 1.1 10^3/uL (1.5-3.5); LYMPHOCYTES % (AUTO) 16.6 %; MEAN CORPUSCULAR HEMOGLOBIN 30.1 pg (27.0-31.0); MEAN CORPUSCULAR HGB CONC 30.4 g/dL (32.0-36.0); MEAN PLATELET VOLUME 10.5 fL (7.9-10.8); MONOCYTES # (AUTO) 0.4 10^3/uL (0.0-1.0); MONOCYTES % (AUTO) 6.2 %; NEUTROPHILS % (AUTO) 74.2 %; PLT - PLATELET COUNT 310 10^3/uL (130-450); RED BLOOD COUNT 3.96 10^6/uL (4.20-5.40); RED CELL DISTRIBUTION WIDTH 13.1 % (12.0-15.0); WHITE BLOOD COUNT 6.8 x10^3/uL (4.8-10.8)
[2019-05-12 19:12] LABS: ALBUMIN 3.9 g/dL (3.2-5.5); ALBUMIN/GLOBULIN RATIO 1.1 (1.0-2.2); BILIRUBIN,TOTAL 0.4 mg/dL (0.2-1.0); CALCIUM 9.3 mg/dL (8.5-10.3); CREATININE 1.6 mg/dL (0.4-1.0); PT - PROTHROMBIN TIME 10.9 secs (9.9-12.6); TOTAL PROTEIN 7.6 g/dL (6.7-8.2)
--- NOTE | 2019-05-12 19:35 | CT Report ---
Reason: head injury, etoh Procedure Date: 05/12/2019 Accession Number: [id number] / [id number] Procedure: CT - HEAD WO CPT Code: Final Report FULL RESULT: EXAM: CT HEAD EXAM DATE: 05/12/2019 07:12 PM. CLINICAL HISTORY: Head injury, etoh. COMPARISON: HEAD W/O 10/15/2016 8:07 PM. TECHNIQUE: Multiaxial CT images were obtained from the foramen magnum to the vertex. Reformats: Sagittal and coronal. IV contrast: None. In accordance with CT protocol optimization, one or more of the following dose reduction techniques were utilized for this exam: automated exposure control, adjustment of mA and/or KV based on patient size, or use of iterative reconstructive technique. FINDINGS: Parenchyma: No intraparenchymal hemorrhage. No evidence of mass, midline shift, or CT findings of infarction. Werner-white differentiation is distinct. Extraaxial Spaces: Mild generalized sulcal prominence. No subdural or epidural collections identified. Ventricles: Normal in size and position. Sinuses and Orbits: Imaged paranasal sinuses, orbits, and mastoids show no significant abnormality. Bilateral cataract surgery. Bones: No evidence of fracture or calvarial defect. Other: No scalp contusion is identified. IMPRESSION: 1. No intracranial hemorrhage or skull fracture. 2. Mild diffuse cerebral and cerebellar volume loss. RADIA
[2019-05-12] MEDS ORDERED: ACETAMINOPHEN 325 MG TABLET PO STA (19:37)
--- NOTE | 2019-05-12 19:39 | CT Report ---
Reason: head injury, etoh Procedure Date: 05/12/2019 Accession Number: [id number] / [id number] Procedure: CT - CERVICAL SPINE WO CPT Code: Final Report FULL RESULT: EXAM: CT CERVICAL SPINE WITHOUT CONTRAST DATE: 05/12/2019 07:12 PM. HISTORY: Fall. Neck pain. Head injury. ETOH. COMPARISONS: CERVICAL SPINE W/O 07/04/2016 7:36 PM. TECHNIQUE: Thin-section axial images were acquired of the cervical spine without contrast. Post-processing: Coronal and sagittal reformats. Other: None. In accordance with CT protocol optimization, one or more of the following dose reduction techniques were utilized for this exam: automated exposure control, adjustment of mA and/or KV based on patient size, or use of iterative reconstructive technique. FINDINGS: Alignment: Mild levoscoliosis. Mild chronic anterolisthesis at C7-T1. Bones: No fracture or bone lesion. Interspace Levels/Facets: C1-C2: Continued degenerative changes. C2-C3: Unremarkable. C3-C4: Severe disk space narrowing with endplate sclerosis and spurring.. C4-C5: See her disk space narrowing spurring. C5-C7: Anterior bony interbody fusion. C7-T1: Moderate disk space narrowing. Left foraminal narrowing. Musculature: Normal. No fatty atrophy. Other: The paravertebral and prevertebral soft tissues are unremarkable. Centrilobular emphysema. IMPRESSION: 1. No acute cervical spine abnormalities. 2. Stable multilevel degenerative disk disease, and stable anterior bony interbody fusion from C5-C7. RADIA
[2019-05-12] MEDS ORDERED: THIAMINE INJ 100 MG in SODIUM CHLORIDE 0.9% 50 ML IV STA (20:15)
[2019-05-12] MEDS ORDERED: D5.45NS W/20 MEQ KCL 1,000 ML IV STA (20:15)
[2019-05-12] MEDS ORDERED: MORPHINE 10 MG/ML VIAL IVP STA (20:15)
[2019-05-12] MEDS ORDERED: hydrALAZINE INJ 20 MG/ML VIAL IVP STA (20:16)
[2019-05-12] MEDS ORDERED: SODIUM CHLORIDE FLUSH 0.9% 10 ML SYRINGE IVP PRN (20:17)
[2019-05-12] MEDS ORDERED: ACETAMINOPHEN 325 MG TABLET PO PRN (20:17)
[2019-05-12] MEDS ORDERED: hydrALAZINE INJ 20 MG/ML VIAL IVP PRN (20:24)
--- NOTE | 2019-05-12 20:25 | XRAY Report ---
Reason: hip/shoulder inj Procedure Date: 05/12/2019 Accession Number: [id number] / [id number] Procedure: XR - Hip w/Pelvis 2-3V LT CPT Code: Final Report FULL RESULT: EXAM: LEFT HIP RADIOGRAPHY EXAM DATE: 05/12/2019 08:05 PM. CLINICAL HISTORY: Left hip pain. Fall today. COMPARISON: HIP W/PELVIS 2-3V RT 07/06/2017 1:20 PM. TECHNIQUE: 2 views. FINDINGS: Bones: Acute transverse fracture of the mid left femoral neck with mild displacement and varus angulation no other fracture or focal bone lesion is identified. Joints: Left hip joint space is within normal limits. There is a bipolar right hip hemiarthroplasty, as before. Soft Tissues: Normal. No soft tissue swelling. IMPRESSION: Mildly displaced and angulated acute fracture of the mid left femoral neck. RADIA
--- NOTE | 2019-05-12 20:26 | XRAY Report ---
Reason: hip/shoulder inj Procedure Date: 05/12/2019 Accession Number: [id number] / [id number] Procedure: XR - Shoulder 3 View LT CPT Code: Final Report FULL RESULT: EXAM: LEFT SHOULDER RADIOGRAPHY EXAM DATE: 05/12/2019 08:04 PM. CLINICAL HISTORY: Fall today. Left shoulder pain. COMPARISON: CHEST 2 VIEW 06/23/2017 11:02 AM. TECHNIQUE: 3 views. FINDINGS: Bones: Acute transverse fracture of the surgical neck of the left humerus with mild impaction. Mildly displaced acute fracture through the base of the greater tuberosity. No other fracture or focal bone lesion is identified. Joints: The glenohumeral and acromioclavicular joints are normal. Soft tissues: The visualized hemithorax is unremarkable. No soft tissue swelling. IMPRESSION: Mildly displaced acute fractures of the left humeral surgical neck and greater tuberosity. RADIA
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
[2019-05-12 20:43] LABS: BASOPHILS # (AUTO) 0.1 10^3/uL (0.0-0.1); BASOPHILS % (AUTO) 0.4 %; EOSINOPHILS % (AUTO) 0.3 %; HGB - HEMOGLOBIN 11.6 g/dL (12.0-16.0); LYMPHOCYTES # (AUTO) 0.9 10^3/uL (1.5-3.5); LYMPHOCYTES % (AUTO) 7.5 %; MEAN CORPUSCULAR HEMOGLOBIN 30.2 pg (27.0-31.0); MEAN CORPUSCULAR HGB CONC 31.3 g/dL (32.0-36.0); MEAN CORPUSCULAR VOLUME 96.6 fL (81.0-99.0); MEAN PLATELET VOLUME 10.1 fL (7.9-10.8); MONOCYTES # (AUTO) 0.4 10^3/uL (0.0-1.0); MONOCYTES % (AUTO) 3.3 %; NEUTROPHILS # (AUTO) 10.2 10^3/uL (1.5-6.6); NEUTROPHILS % (AUTO) 87.8 %; PLT - PLATELET COUNT 291 10^3/uL (130-450); RED BLOOD COUNT 3.84 10^6/uL (4.20-5.40); RED CELL DISTRIBUTION WIDTH 13.2 % (12.0-15.0); WHITE BLOOD COUNT 11.6 x10^3/uL (4.8-10.8)
[2019-05-12 20:50] LABS: PT - PROTHROMBIN TIME 10.9 secs (9.9-12.6)
[2019-05-12 20:56] LABS: ALBUMIN 3.6 g/dL (3.2-5.5); BILIRUBIN,TOTAL 0.5 mg/dL (0.2-1.0); CALCIUM 8.6 mg/dL (8.5-10.3); CREATININE 1.4 mg/dL (0.4-1.0); TOTAL PROTEIN 7.2 g/dL (6.7-8.2)
[2019-05-12] MEDS ORDERED: SODIUM CHLORIDE 0.9% 1,000 ML IV SCH (21:00)
[2019-05-12] MEDS ORDERED: D5.45NS W/20 MEQ KCL 1,000 ML IV SCH (22:00)
[2019-05-12] MEDS: MORPHINE 2 MG/ML CARPUJECT IVP PRN (22:42)
[2019-05-13] MEDS: SODIUM CHLORIDE FLUSH 0.9% 10 ML SYRINGE IVP SCH ×3 (00:26→15:36)
[2019-05-13] MEDS: MORPHINE 2 MG/ML CARPUJECT IVP PRN ×7 (00:43→22:58)
[2019-05-13] MEDS ORDERED: SODIUM CHLORIDE 0.9% 1,000 ML IV SCH (05:00)
[2019-05-13 05:33] LABS: BASOPHILS % (AUTO) 0.5 %; EOSINOPHILS % (AUTO) 0.1 %; HGB - HEMOGLOBIN 10.2 g/dL (12.0-16.0); LYMPHOCYTES # (AUTO) 0.9 10^3/uL (1.5-3.5); LYMPHOCYTES % (AUTO) 10.6 %; MEAN CORPUSCULAR HEMOGLOBIN 29.1 pg (27.0-31.0); MEAN CORPUSCULAR HGB CONC 30.6 g/dL (32.0-36.0); MEAN CORPUSCULAR VOLUME 95.1 fL (81.0-99.0); MEAN PLATELET VOLUME 10.6 fL (7.9-10.8); MONOCYTES # (AUTO) 0.7 10^3/uL (0.0-1.0); NEUTROPHILS # (AUTO) 6.9 10^3/uL (1.5-6.6); NEUTROPHILS % (AUTO) 80.5 %; PLT - PLATELET COUNT 273 10^3/uL (130-450); RED CELL DISTRIBUTION WIDTH 13.2 % (12.0-15.0); WHITE BLOOD COUNT 8.6 x10^3/uL (4.8-10.8)
[2019-05-13 05:55] LABS: CALCIUM 8.3 mg/dL (8.5-10.3); CREATININE 1.4 mg/dL (0.4-1.0); MAGNESIUM 1.9 mg/dL (1.7-2.8); PHOSPHORUS 3.5 mg/dL (2.5-4.6)
[2019-05-13] MEDS ORDERED: METOPROLOL SUCCINATE 50 MG TABLET PO SCH ×2 (08:00→09:00)
[2019-05-13] MEDS ORDERED: LOSARTAN 50 MG TABLET PO SCH (08:30)
[2019-05-13] MEDS: METOPROLOL SUCCINATE 50 MG TABLET PO SCH (08:33)
[2019-05-13] MEDS: THIAMINE 100 MG TABLET PO SCH (08:33)
[2019-05-13] MEDS: PRENATAL VITAMIN TABLET PO SCH (08:33)
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
[2019-05-13] MEDS ORDERED: ceFAZolin 2 GM in SODIUM CHLORIDE 0.9% 100ML 100 ML IV SCH (09:31)
--- NOTE | 2019-05-13 09:49 | XRAY Report ---
Reason: pre-op eval Procedure Date: 05/13/2019 Accession Number: [id number] / [id number] Procedure: XR - Chest 1 View X-Ray CPT Code: 39751 Final Report FULL RESULT: EXAM: CHEST RADIOGRAPHY EXAM DATE: 05/13/2019 07:32 AM. CLINICAL HISTORY: Left hip fracture COMPARISON: CHEST 2 VIEW 06/23/2017 11:02 AM. TECHNIQUE: 1 view. FINDINGS: Lungs/Pleura: No focal opacities evident. No pleural effusion. No pneumothorax. Lungs are well expanded. Mediastinum: There is mild cardiomegaly. There is thoracic aortic calcification. Other: There are remote left lateral rib fractures. There is fracture through the proximal left humerus. IMPRESSION: 1. No acute intrathoracic plain film abnormality. 2. There is fracture through the proximal left humerus. RADIA
--- NOTE | 2019-05-13 09:51 | CONSULTATION NOTE ---
DATE OF SERVICE: 05/13/2019 Physician: Carlos Kauffman MD REFERRING PHYSICIAN: Dr. Moise Fan of the Emergency Department. CHIEF COMPLAINT: "I had a bad fall." HISTORY OF PRESENT ILLNESS: The patient is an 78-year-old, right-hand dominant, female who apparently lost her balance and fell down yesterday afternoon, landing on her left side. Noted pain in her left shoulder and her left hip. No loss of consciousness or other injuries noted. Unable to stand or weightbear on her left side. She was taken by ambulance to the emergency room here at [facility]. Her evaluation and x-rays showed a comminuted, minimally displaced left proxim al humerus fracture, as well as a mildly angulated and mildly displaced left femoral neck hip fractur e. No other damages or injuries were appreciated. The patient was admitted to the hospital with the likelihood of proceeding with surgical fixation of her hip fracture. PHYSICAL EXAMINATION: The patient's left shoulder shows some mild swelling and minimal bruising note d. Has tenderness on palpation around the shoulder. Able to rotate about 20 degrees of her left abel ulder with some mild discomfort. Neurovascular to be intact distally. Left hip shows some tendernes s in the anterior left groin. Minimal tenderness laterally at the hip. Moves her toes satisfactoril y on command. Sensation intact throughout. Good capillary filling noted. RADIOLOGY: X-rays show a mildly comminuted, minimally displaced proximal humerus fracture. Joint is reduced. Left hip x-rays show a mildly angulated, mildly displaced left femoral neck fracture. ASSESSMENT: 1. Closed left femoral neck hip fracture - minimally angulated or displaced. 2. Closed, comminuted, minimally displaced, left nondominant proximal humerus fracture - joint is re duced. 3. Acute alcohol intoxication. PLAN: In view of her injuries to both her left and lower extremities, she is going to be very limite d in mobility postoperatively. Risks and benefits of surgical intervention for her left hip fracture were discussed with the patient today. We have decided to proceed with a closed reduction and multi ple cannulated screw fixation of her fracture, in view of the minimal displacement or angulation of h er current fracture and the limited mobility she is going to have postoperatively in view of her ipsi lateral left proximal humerus fracture. Risks and benefits of surgery were explained, including, but not limited to anesthesia risks, infection, blood loss, nerve damage, malunion, nonunion, avascular necrosis of the hip, deep venous thrombosis or pulmonary embolus, etc. The patient appears to underst and these risks. Also, is aware that if she does lose the reduction of her fracture or goes on to a malunion, nonunion or avascular necrosis of her hip, she may require future surgery, namely a hemiart hroplasty. All of her questions were answered today. Her leg was marked and consent signed. TD: 05/13/2019 09:40
[2019-05-13] MEDS ORDERED: ONDANSETRON 4 MG/2 ML VIAL IVP PRN (10:49)
--- NOTE | 2019-05-13 12:04 | PHARMACY PROGRESS NOTE ---
- Best Possible Medication History Admit Date and Time: 05/12/192016 Processed by: Pharmacy Medication History completed: Yes Patient Interview: Completed Secondary Source(s): Physician records As the person ultimately responsible for medication therapy, providers are able to order a medication from an existing home medication list in [facility] via the "Reconcile Routine" prior to Confirmation of that medication by ict customer support officer. Such practice is discouraged except when the physician, in their clinical judgment, deems that a medical need exists for a medication without regard to previous use.
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
[2019-05-13] MEDS: hydrALAZINE INJ 20 MG/ML VIAL IVP PRN ×2 (15:34→21:14)
--- NOTE | 2019-05-13 15:37 | PROVIDER PROGRESS NOTE ---
Subjective - Prog Note Date Prog Note Date: 05/13/19 - Subjective Pt reports feeling: Improved Subjective: pt report her pain is controlled with pain meds. she denies headache, chest pain, fever, chill, shortness of breath. Unfortunately Dr. Kauffman could not arrange pt to do surgery today. we will let pt have diet and NPO midnight. Current Medications - Current Medications Current Medications: Active Medications Acetaminophen (Tylenol) 650 mg PO Q4HR PRN PRN Reason: Pain 1 to 4 Amlodipine Besylate (Norvasc) 5 mg PO DAILY [facility] Clonidine HCl (Catapres) 0.1 mg PO BID PRN PRN Reason: Hypertensive Emergency Heparin Sodium (Porcine) () 2,500 unit SUBQ BID [facility] Hydralazine HCl (Apresoline Inj) 10 mg IVP Q6H PRN PRN Reason: PER PHYSICIAN ORDER Last Admin: 05/13/19 15:34 Dose: 10 mg Sodium Chloride (Normal Saline 0.9%) 1,000 mls @ 83.3 mls/hr IV .Q12H1M [facility] Metoprolol Succinate (Toprol Xl) 50 mg PO DAILY [facility] Last Admin: 05/13/19 08:33 Dose: 50 mg Morphine Sulfate (Morphine (Carpuject)) 2 mg IVP Q2H PRN PRN Reason: PAIN Last Admin: 05/13/19 10:45 Dose: 2 mg Ondansetron HCl (Zofran Inj) 4 mg IVP Q6HR PRN PRN Reason: Nausea / Vomiting Last Admin: 05/13/19 11:06 Dose: 4 mg Multivit/Folic Acid/Iron (Trinatal Rx 1) 1 tab PO DAILY [facility] Last Admin: 05/13/19 08:33 Dose: 1 tab Sodium Chloride (Normal Saline Flush 0.9%) 10 ml IVP PRN PRN PRN Reason: NEEDED PER PROVIDER ORDERS Last Admin: 05/12/19 22:42 Dose: 10 ml Sodium Chloride (Normal Saline Flush 0.9%) 10 ml IVP 0100,0900,1700 [facility] Last Admin: 05/13/19 15:36 Dose: 10 ml Thiamine HCl (Vitamin B-1) 100 mg PO DAILY [facility] Last Admin: 05/13/19 08:33 Dose: 100 mg Metoprolol Succinate [Toprol Xl] 50 mg PO DAILY 03/14/17 Aspirin [Aspirin EC] 81 mg PO DAILY 04/02/17 Omeprazole 20 mg PO BID 07/05/17 Rosuvastatin Calcium [Crestor] 5 mg PO QPM 05/13/19 hydroCHLOROthiazide [Hydrodiuril] 25 mg PO DAILY 05/13/19 Objective - Vital Signs/Intake & Output Vital Signs: Vital Signs x48h Temp Pulse Resp BP Pulse Ox 05/13/19 15:37 79 213/66 H 05/13/19 15:26 36.9 C 77 16 230/65 H 93 05/13/19 11:32 36.8 C 77 18 191/57 H 93 05/13/19 09:09 98 05/13/19 07:40 36.8 C 75 18 207/64 H 100 Intake & Output: Intake & Output 05/10/19 05/11/19 05/12/19 05/13/19 23:59 23:59 23:59 23:59 Intake Total 51 1150 Output Total 225 500 Balance -174 650 - Objective General Appearance: positive: No acute distress, Alert. negative: Lethargic Eyes Bilateral: positive: Normal inspection, PERRL, EOMI, No lid inflammation ENT: positive: ENT inspection nml, Pharynx nml, No signs of dehydration. negative: Purulent nasal drainage Neck: positive: Nml inspection, Thyroid nml, No JVD, Trachea midline. negative: Thyromegaly, Lymphadenopathy (R), Lymphadenopathy (L), Stiff neck, Tracheal deviation Respiratory: positive: Chest non-tender, No respiratory distress, Breath sounds nml. negative: Wheezes, Rales, Rhonchi Cardiovascular: positive: Regular rate & rhythm, No murmur, No gallop. negative: Irregularly irregular, Extrasystoles, Tachycardia, Bradycardia, JVD present, Systolic murmur, Diastolic murmur Peripheral Pulses: 2+ Radial (R), 2+ Radial (L), 2+ Dorsalis pedis (R), 2+ Dorsalis pedis (L) Abdomen: positive: Non-tender, No organomegaly, Nml bowel sounds, No distention. negative: Tenderness, Guarding, Rebound Back: positive: Nml inspection. negative: CVA tenderness (R), CVA tenderness (L) Skin: positive: Color nml, No rash, Warm, Dry. negative: Cyanosis, Diaphoresis, Pallor Extremities: negative: Pedal edema, Calf tenderness, Dank's sign/cords Neurologic/Psychiatric: positive: Oriented x3, Sensation nml, Mood/affect nml. negative: Weakness, Sensory loss, Facial droop, Slurred/abnml speech, Depressed mood/affect - Lab Results Fish Bones: 05/13/19 04:50 05/13/19 04:50 Other Labs: Lab Results x24hrs 05/13/19 05/13/19 05/12/19 Range/Units 04:50 04:50 20:39 WBC 8.6 (4.8-10.8) x10^3/uL RBC 3.50 L (4.20-5.40) 10^6/uL Hgb 10.2 L (12.0-16.0) g/dL Hct 33.3 L (37.0-47.0) % MCV 95.1 (81.0-99.0) fL MCH 29.1 (27.0-31.0) pg MCHC 30.6 L (32.0-36.0) g/dL RDW 13.2 (12.0-15.0) % Plt Count 273 (130-450) 10^3/uL MPV 10.6 (7.9-10.8) fL Neut # (Auto) 6.9 H (1.5-6.6) 10^3/uL Lymph # (Auto) 0.9 L (1.5-3.5) 10^3/uL [place] # (Auto) 0.7 (0.0-1.0) 10^3/uL Eos # (Auto) 0.0 (0.0-0.7) 10^3/uL Baso # (Auto) 0.0 (0.0-0.1) 10^3/uL Absolute Nucleated RBC 0.00 x10^3/uL Nucleated RBC % 0.0 /100WBC PT (9.9-12.6) secs INR (0.8-1.2) Sodium 137 137 (135-145) mmol/L Potassium 4.7 4.2 (3.5-5.0) mmol/L Chloride 103 99 L (101-111) mmol/L Carbon Dioxide 24 23 (21-32) mmol/L Anion Gap 10.0 15.0 H (6-13) BUN 41 H 43 H (6-20) mg/dL Creatinine 1.4 H 1.4 H (0.4-1.0) mg/dL Estimated GFR (MDRD) 36 L 36 L (>89) Glucose 127 H 116 H (70-100) mg/dL Calcium 8.3 L 8.6 (8.5-10.3) mg/dL Phosphorus 3.5 (2.5-4.6) mg/dL Magnesium 1.9 (1.7-2.8) mg/dL Total Bilirubin 0.5 (0.2-1.0) mg/dL AST 29 (10-42) IU/L ALT 16 (10-60) IU/L Alkaline Phosphatase 89 (42-121) IU/L Total Protein 7.2 (6.7-8.2) g/dL Albumin 3.6 (3.2-5.5) g/dL Globulin 3.6 (2.1-4.2) g/dL Albumin/Globulin Ratio 1.0 (1.0-2.2) Lipase (22-51) U/L Ethyl Alcohol mg/dL 05/12/19 05/12/19 05/12/19 Range/Units 20:39 20:39 18:50 WBC 11.6 H (4.8-10.8) x10^3/uL RBC 3.84 L (4.20-5.40) 10^6/uL Hgb 11.6 L (12.0-16.0) g/dL Hct 37.1 (37.0-47.0) % MCV 96.6 (81.0-99.0) fL MCH 30.2 (27.0-31.0) pg MCHC 31.3 L (32.0-36.0) g/dL RDW 13.2 (12.0-15.0) % Plt Count 291 (130-450) 10^3/uL MPV 10.1 (7.9-10.8) fL Neut # (Auto) 10.2 H (1.5-6.6) 10^3/uL Lymph # (Auto) 0.9 L (1.5-3.5) 10^3/uL [place] # (Auto) 0.4 (0.0-1.0) 10^3/uL Eos # (Auto) 0.0 (0.0-0.7) 10^3/uL Baso # (Auto) 0.1 (0.0-0.1) 10^3/uL Absolute Nucleated RBC 0.00 x10^3/uL Nucleated RBC % 0.0 /100WBC PT 10.9 (9.9-12.6) secs INR 1.0 (0.8-1.2) Sodium 140 (135-145) mmol/L Potassium 4.6 (3.5-5.0) mmol/L Chloride 103 (101-111) mmol/L Carbon Dioxide 24 (21-32) mmol/L Anion Gap 13.0 (6-13) BUN 44 H (6-20) mg/dL Creatinine 1.6 H (0.4-1.0) mg/dL Estimated GFR (MDRD) 31 L (>89) Glucose 112 H (70-100) mg/dL Calcium 9.3 (8.5-10.3) mg/dL Phosphorus (2.5-4.6) mg/dL Magnesium (1.7-2.8) mg/dL Total Bilirubin 0.4 (0.2-1.0) mg/dL AST 31 (10-42) IU/L ALT 17 (10-60) IU/L Alkaline Phosphatase 90 (42-121) IU/L Total Protein 7.6 (6.7-8.2) g/dL Albumin 3.9 (3.2-5.5) g/dL Globulin 3.7 (2.1-4.2) g/dL Albumin/Globulin Ratio 1.1 (1.0-2.2) Lipase 102 H (22-51) U/L Ethyl Alcohol 219.5 mg/dL 05/12/19 05/12/19 Range/Units 18:50 18:50 WBC 6.8 (4.8-10.8) x10^3/uL RBC 3.96 L (4.20-5.40) 10^6/uL Hgb 11.9 L (12.0-16.0) g/dL Hct 39.2 (37.0-47.0) % MCV 99.0 (81.0-99.0) fL MCH 30.1 (27.0-31.0) pg MCHC 30.4 L (32.0-36.0) g/dL RDW 13.1 (12.0-15.0) % Plt Count 310 (130-450) 10^3/uL MPV 10.5 (7.9-10.8) fL Neut # (Auto) 5.0 (1.5-6.6) 10^3/uL Lymph # (Auto) 1.1 L (1.5-3.5) 10^3/uL [place] # (Auto) 0.4 (0.0-1.0) 10^3/uL Eos # (Auto) 0.1 (0.0-0.7) 10^3/uL Baso # (Auto) 0.1 (0.0-0.1) 10^3/uL Absolute Nucleated RBC 0.00 x10^3/uL Nucleated RBC % 0.0 /100WBC PT 10.9 (9.9-12.6) secs INR 1.0 (0.8-1.2) Sodium (135-145) mmol/L Potassium (3.5-5.0) mmol/L Chloride (101-111) mmol/L Carbon Dioxide (21-32) mmol/L Anion Gap (6-13) BUN (6-20) mg/dL Creatinine (0.4-1.0) mg/dL Estimated GFR (MDRD) (>89) Glucose (70-100) mg/dL Calcium (8.5-10.3) mg/dL Phosphorus (2.5-4.6) mg/dL Magnesium (1.7-2.8) mg/dL Total Bilirubin (0.2-1.0) mg/dL AST (10-42) IU/L ALT (10-60) IU/L Alkaline Phosphatase (42-121) IU/L Total Protein (6.7-8.2) g/dL Albumin (3.2-5.5) g/dL Globulin (2.1-4.2) g/dL Albumin/Globulin Ratio (1.0-2.2) Lipase (22-51) U/L Ethyl Alcohol mg/dL ABX Reporting Has patient been on IV antibiotics over the past 48 hours?: No Assessment/Plan - Problem List (1) Left displaced femoral neck fracture Impression: pt will have surgery on tomorrow. Dr. Boone already assessed for Patient's revised cardiac risk index (risk of a cardiac event during surgery) is 0.4% Patient is medically optimized once blood pressure appropriately controlled. pt's ECHO is pending now. EKG is SR continue pain control followup orthopedics, DVT prophylaxis per orthopedics (2) Closed fracture of left proximal humerus Conclusion/Plan: Left arm currently in a sling. Pain management continue OT evaluation and treatment continue followup orthopedics consulting (3) HTN (hypertension) Conclusion/Plan: 05/13 poor control. pt had hydralazine PRN but pt was not given it on lunch time when pt's SBP was 191 at the time. add Norvasc and PRN Clonidine, continue home Metoprolol and PRN hydralazine. (4) Alcohol intoxication Conclusion/Plan: Will monitor. CIWA ordered. (5) Hyperlipidemia Conclusion/Plan: Will resume home medication once verified (6) GERD (gastroesophageal reflux disease) Conclusion/Plan: Protonix ordered (7) CKD Conclusion/Plan: pt has hx of CKD stage 3, continue hydration gently, daily lab monitor
[2019-05-13] MEDS ORDERED: amLODIPine 5 MG TABLET PO SCH (15:38)
[2019-05-13] MEDS: SODIUM CHLORIDE 0.9% 1,000 ML IV SCH (17:08)
[2019-05-13] MEDS: cloNIDine 0.1 MG TABLET PO PRN (23:05)
[2019-05-14] MEDS: SODIUM CHLORIDE FLUSH 0.9% 10 ML SYRINGE IVP SCH ×3 (00:50→16:45)
[2019-05-14] MEDS: SODIUM CHLORIDE 0.9% 1,000 ML IV SCH ×2 (03:09→11:26)
[2019-05-14 05:14] LABS: BASOPHILS % (AUTO) 0.3 %; HGB - HEMOGLOBIN 9.4 g/dL (12.0-16.0); LYMPHOCYTES % (AUTO) 8.8 %; MEAN CORPUSCULAR HEMOGLOBIN 29.1 pg (27.0-31.0); MEAN CORPUSCULAR HGB CONC 30.6 g/dL (32.0-36.0); MEAN PLATELET VOLUME 10.9 fL (7.9-10.8); MONOCYTES # (AUTO) 0.9 10^3/uL (0.0-1.0); MONOCYTES % (AUTO) 8.2 %; NEUTROPHILS # (AUTO) 8.9 10^3/uL (1.5-6.6); NEUTROPHILS % (AUTO) 82.1 %; PLT - PLATELET COUNT 240 10^3/uL (130-450); RED BLOOD COUNT 3.23 10^6/uL (4.20-5.40); RED CELL DISTRIBUTION WIDTH 13.6 % (12.0-15.0); WHITE BLOOD COUNT 10.8 x10^3/uL (4.8-10.8)
[2019-05-14 05:23] LABS: CALCIUM 7.7 mg/dL (8.5-10.3); CREATININE 1.1 mg/dL (0.4-1.0)
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
--- NOTE | 2019-05-14 07:41 | PROVIDER PROGRESS NOTE ---
Subjective - Prog Note Date Prog Note Date: 05/14/19 Prog Note Time: 07:39 - Subjective Pt reports feeling: No change Objective - Vital Signs/Intake & Output Vital Signs: Vital Signs x48h Temp Pulse Resp BP Pulse Ox 05/14/19 03:50 36.8 C 82 16 124/90 H 93 05/13/19 23:45 36.7 C 83 16 188/62 H 94 Intake & Output: Intake & Output 05/11/19 05/12/19 05/13/19 05/14/19 23:59 23:59 23:59 23:59 Intake Total 51 2450 834.388 Output Total 225 725 150 Balance -174 1725 684.388 - Lab Results Fish Bones: 05/14/19 04:35 05/14/19 04:35 Other Labs: Lab Results x24hrs 05/14/19 05/14/19 Range/Units 04:35 04:35 WBC 10.8 (4.8-10.8) x10^3/uL RBC 3.23 L (4.20-5.40) 10^6/uL Hgb 9.4 L (12.0-16.0) g/dL Hct 30.7 L (37.0-47.0) % MCV 95.0 (81.0-99.0) fL MCH 29.1 (27.0-31.0) pg MCHC 30.6 L (32.0-36.0) g/dL RDW 13.6 (12.0-15.0) % Plt Count 240 (130-450) 10^3/uL MPV 10.9 H (7.9-10.8) fL Neut # (Auto) 8.9 H (1.5-6.6) 10^3/uL Lymph # (Auto) 1.0 L (1.5-3.5) 10^3/uL Dickenson # (Auto) 0.9 (0.0-1.0) 10^3/uL Eos # (Auto) 0.0 (0.0-0.7) 10^3/uL Baso # (Auto) 0.0 (0.0-0.1) 10^3/uL Absolute Nucleated RBC 0.00 x10^3/uL Nucleated RBC % 0.0 /100WBC Sodium 138 (135-145) mmol/L Potassium 3.9 (3.5-5.0) mmol/L Chloride 109 (101-111) mmol/L Carbon Dioxide 20 L (21-32) mmol/L Anion Gap 9.0 (6-13) BUN 31 H (6-20) mg/dL Creatinine 1.1 H (0.4-1.0) mg/dL Estimated GFR (MDRD) 48 L (>89) Glucose 111 H (70-100) mg/dL Calcium 7.7 L (8.5-10.3) mg/dL - Other Results/Comments Other Results/Comments: EXAM: Unchanged from yesterday Assessment/Plan - Problem List (1) Closed fracture of left proximal humerus Qualifiers: Encounter type: initial encounter Fracture morphology: other fracture Fracture alignment: nondisplaced Qualified Code(s): S42.295A - Other nondisplaced fracture of upper end of left humerus, initial encounter for closed fracture (2) Left displaced femoral neck fracture Impression: Stable PLAN: To OR today for cannulated screw fixation of left hip fracture. Patient exam and condition has not changed. She wishes to proceed with surgery.
[2019-05-14] MEDS ORDERED: ROPIVACAINE 0.5% PF 20 ML AMPULE ONE (07:52)
[2019-05-14] MEDS: METOPROLOL SUCCINATE 50 MG TABLET PO SCH (07:53)
[2019-05-14] MEDS ORDERED: ROPIVACAINE 0.2% PF 20ML VIAL ONE (07:55)
[2019-05-14] MEDS: amLODIPine 5 MG TABLET PO SCH (08:33)
[2019-05-14] MEDS: PRENATAL VITAMIN TABLET PO SCH (08:33)
[2019-05-14] MEDS: THIAMINE 100 MG TABLET PO SCH (08:34)
[2019-05-14] MEDS ORDERED: LACTATED RINGERS 1,000 ML IV ONE ×2 (08:50→10:00)
[2019-05-14] MEDS ORDERED: amLODIPine 5 MG TABLET PO SCH (09:00)
[2019-05-14] MEDS ORDERED: BUPIVACAINE 0.25% PF 30 ML VIAL SUBQ ONE (09:36)
--- NOTE | 2019-05-14 10:12 | OPERATIVE REPORT ---
Operative Report - General Admit Date: 05/12/19 Procedure Date: 05/14/19 Planned Procedure: Closed reduction and multiple cannulated screw fixation of left hip fracture Pre-Op Diagnosis: Mildly angulated left femoral neck hip fracture Procedure Performed: Closed reduction and multiple cannulated screw fixation of left hip fracture Post Op Diagnosis: Same - Procedure Note Primary Surgeon: Melinda Kauffman MD Anesthesia Technique: General ET tube, Regional block IV Fluids (mL): 700 Estimated Blood Loss (mL): 20 Complications: None
[2019-05-14] MEDS ORDERED: ONDANSETRON 4 MG/2 ML VIAL IVP PRN (10:13)
[2019-05-14] MEDS ORDERED: DOCUSATE SODIUM 100 MG CAPSULE PO PRN (10:13)
[2019-05-14] MEDS ORDERED: PROCHLORPERAZINE 10 MG/2 ML VIAL IVP PRN (10:13)
[2019-05-14] MEDS ORDERED: SENNA 8.6 MG TABLET PO PRN (10:13)
[2019-05-14] MEDS ORDERED: ACETAMINOPHEN 1,000 MG/100 ML 100 ML IV ONE (10:32)
--- NOTE | 2019-05-14 10:54 | XRAY Report ---
Reason: ORIF LEFT HIP Procedure Date: 05/14/2019 Accession Number: [id number] / [id number] Procedure: [place] - OR C-Arm Procedure CPT Code: Final Report FULL RESULT: EXAM: FLUOROSCOPIC GUIDANCE EXAM DATE: 05/14/2019 09:38 AM. CLINICAL HISTORY: ORIF LEFT HIP. COMPARISON: None. FINDINGS: Fluoroscopy for surgical guidance. IMPRESSION: Fluoroscopic guidance provided for Dr. Kauffman. Total fluoroscopy time: 0.9 minutes. Number of images: 2. RADIA
--- NOTE | 2019-05-14 10:58 | OPERATIVE REPORT ---
DATE OF SERVICE: 05/14/2019 Physician: Carlos Kauffman MD PREOPERATIVE DIAGNOSIS: Mildly angulated left femoral neck hip fracture; comminuted closed left prox imal humerus fracture. POSTOPERATIVE DIAGNOSIS: Mildly angulated left femoral neck hip fracture; comminuted closed left pro ximal humerus fracture. PROCEDURE PERFORMED: Closed reduction and multiple cannulated screw fixation of left hip fracture. SURGEON: Carlos Kauffman MD ANESTHESIA: Combination of a regional peripheral nerve block and general anesthesia. DESCRIPTION OF PROCEDURE: The patient was taken to the operating room on the morning of 05/14/2019 w here a regional nerve block was performed for her left hip and left shoulder. An attempt for spinal anesthesia was attempted, but was unsuccessful. An intubation and general anesthetic was then used t o supplement the peripheral nerve blocks. When she was anesthetized, we then transferred supine onto the fracture table. The right unfractured extremity hip was then widely flexed and abducted and hel d in a well leg marquez. The fractured left lower extremity was then placed in axial traction with th e leg internally rotated at approximately 30 degrees. Fluoroscopic views showed the fracture to be o ut to length and a mild angulation to be improved. We then prepped and draped the lateral aspect of the hip in the usual fashion for our procedure. Through a small lateral skin incision, the skin was incised and blunt dissection down through the mus cular layers, down to the lateral proximal femoral shaft. A threaded tip guidewire was then inserted from the posterior inferior aspect and driven with power in the axis of the femoral neck and advance d to within a few millimeters of the subchondral bone. Once the initial pin was obtained and we were satisfied with its position, we then proceeded to use the parallel pin guide to insert 2 additional threaded tip guidewires in nearly parallel fashion, again putting the tip of the guide pins within a few millimeters of the subchondral bone in each case. Satisfied with the position of our guidepins, we then used the direct measuring guide and determined we would use three 90 mm length 16 mm threaded tip 7.3 mm cannulated screws. The cannulated drill was then used to perforate the lateral femoral c ortex using the guidepins in each case. Finally, the selected 7.0 mm cannulated screw was then inser munir over our guidepins. We obtained good compression with all three screws. Fluoroscopic views afte r the guidepins were taken out showed the fracture to be compacted and in good position. The tips of all three screws were within the femoral head in both AP and lateral projections. Satisfied with th is, we then irrigated the wound thoroughly with saline. Closed the wound in layers using 2-0 Vicryl stitch to close the fascia jase layer and the subcutaneous tissues. Finally, skin marcio used to ap proximate the skin edge. We then dressed the wound with Xeroform gauze, 4 x 4, and Tegaderm dressing . The patient transferred off the fracture table onto her bed and taken to the recovery room in sati sfactory condition. ESTIMATED BLOOD LOSS: 20 mL. REPLACEMENT: 700 mL of crystalloid. INTRAOPERATIVE COMPLICATIONS: None. PLAN: In view of patient's left proximal humerus fracture as well as her left hip fracture, she will be limited in her mobility for the next 3-4 weeks. Anticipate keeping her in a sling for the left u pper extremity for about a week before we start moving in therapy for active-assisted range of motion to her shoulder as tolerated. We will work on [id number] transfers only, though she can be weight bearing as tolerated on the left lower extremity. Her main mode of locomotion initially will be just with wheelchair ambulation. TD: 05/14/2019 10:27
[2019-05-14] MEDS ORDERED: ceFAZolin 1 GM in SODIUM CHLORIDE 0.9% 100ML 100 ML IV SCH (11:00)
[2019-05-14] MEDS: HEPARIN 5,000 UNIT/ML VIAL SUBQ SCH ×2 (11:26→21:41)
[2019-05-14 11:57] LABS: BILIRUBIN,URINE NEGATIVE (NEGATIVE); GLUCOSE, URINE (UA) NEGATIVE (NEGATIVE); KETONES,URINE (UA) NEGATIVE (NEGATIVE); LEUKOCYTE ESTERASE, URINE TRACE (NEGATIVE); NITRITE,URINE NEGATIVE (NEGATIVE); OCCULT BLOOD,URINE SMALL (NEGATIVE); PROTEIN,URINE 100 mg/dL (NEGATIVE); UROBILINOGEN,URINE 0.2 (NORMAL) E.U./dL (NORMAL)
[2019-05-14 11:58] LABS: CLARITY,URINE HAZY (CLEAR)
[2019-05-14] MEDS: MORPHINE 2 MG/ML CARPUJECT IVP PRN ×2 (12:02→21:11)
[2019-05-14] MEDS: hydrALAZINE INJ 20 MG/ML VIAL IVP PRN (12:02)
[2019-05-14 12:06] LABS: BACTERIA,URINE Few /HPF (None Seen); SQUAMOUS EPITHELIAL CELL,UR FEW Squamous (<= Few); WBC CLUMPS,URINE PRESENT
--- NOTE | 2019-05-14 12:49 | PROVIDER PROGRESS NOTE ---
Assessment/Plan - Problem List (1) Left displaced femoral neck fracture Assessment/Plan: 05/14 pt had surgery today morning. she recover very well and she ate her lunch, and worked with PT/OT today as well. continue pain control, Monitor pt's H&H continue PT/OT followup orthopedics pt will have surgery on tomorrow. Dr. Boone already assessed for Patient's revised cardiac risk index (risk of a cardiac event during surgery) is 0.4% Patient is medically optimized once blood pressure appropriately controlled. pt's ECHO is pending now. EKG is SR continue pain control followup orthopedics, DVT prophylaxis per orthopedics (2) Closed fracture of left proximal humerus Conclusion/Plan: 05/14 stable, pt report her pain is better controlled continue followup orthopedics and OT continue pain control Left arm currently in a sling. Pain management continue OT evaluation and treatment continue followup orthopedics consulting (3) HTN (hypertension) Conclusion/Plan: 05/14 is better controlled today, continue BP meds and PRN meds, and vital monitor 05/13 poor control. pt had hydralazine PRN but pt was not given it on lunch time when pt's SBP was 191 at the time. add Norvasc and PRN Clonidine, continue home Metoprolol and PRN hydralazine. (4) Alcohol intoxication Conclusion/Plan: Will monitor. CIWA ordered. (5) Hyperlipidemia Conclusion/Plan: Will resume home medication once verified (6) GERD (gastroesophageal reflux disease) Conclusion/Plan: Protonix ordered (7) CKD Conclusion/Plan: 05/14 significantly improved, creatinine is 1.1, continue keep hydration, and lab monitor pt has hx of CKD stage 3, continue hydration gently, daily lab monitor - Current Meds Current Meds: Current Medications Generic Name Dose Route Start Last Admin Trade Name Freq PRN Reason Stop Dose Admin Amlodipine Besylate 10 mg 05/14/19 09:00 05/14/19 08:33 Norvasc PO Not Given DAILY JIA Clonidine HCl 0.1 mg 05/13/19 16:56 05/13/19 23:05 Catapres PO 0.1 mg BID PRN Administration Hypertensive Emergency Heparin Sodium (Porcine) 2,500 unit 05/14/19 11:00 05/14/19 11:26 SUBQ 2,500 unit BID JIA Administration Hydralazine HCl 10 mg 05/13/19 15:16 05/14/19 12:02 Apresoline Inj IVP 10 mg Q6H PRN Administration PER PHYSICIAN ORDER Metoprolol Succinate 50 mg 05/13/19 08:00 05/14/19 07:53 Toprol Xl PO 50 mg DAILY JIA Administration Morphine Sulfate 2 mg 05/12/19 20:22 05/14/19 12:02 Morphine (Carpuject) IVP 2 mg Q2H PRN Administration PAIN Ondansetron HCl 4 mg 05/13/19 10:49 05/13/19 11:06 Zofran Inj IVP 4 mg Q6HR PRN Administration Nausea / Vomiting Multivit/Folic Acid/Iron 1 tab 05/13/19 09:00 05/14/19 08:33 Trinatal Rx 1 PO Not Given DAILY JIA Thiamine HCl 100 mg 05/13/19 09:00 05/14/19 08:34 Vitamin B-1 PO Not Given DAILY JIA - Lab Result Fish Bone Diagrams: 05/14/19 04:35 05/14/19 04:35 - Additional Planning My Orders: My Active Orders 05/13/19 15:16 hydrALAZINE INJ [Apresoline Inj] 10 mg IVP Q6H PRN 05/13/19 16:55 Accucheck [Blood Glucose POC] [RC] 0800,1200,1700,2100 05/13/19 16:56 cloNIDine [Catapres] 0.1 mg PO BID PRN 05/14/19 09:00 amLODIPine [Norvasc] 10 mg PO DAILY 05/14/19 11:00 Heparin 2,500 unit SUBQ BID 05/14/19 11:45 CUL, URINE [RM] Urgent Subjective - Subjective Patient Reports: Feeling Better Objective Vital Signs: Vital Signs - 24 hr 05/13/19 05/13/19 05/13/19 15:26 15:37 15:42 Temperature 36.9 C Heart Rate Heart Rate [ 77 79 79 Brachial] Respiratory 16 Rate Blood Pressure Blood Pressure 230/65 H 213/66 H 209/64 H [Right Brachial artery] O2 Saturation 93 05/13/19 05/13/19 05/13/19 15:47 16:04 16:05 Temperature Heart Rate Heart Rate [ 79 Brachial] Respiratory Rate Blood Pressure 111/78 Blood Pressure 174/57 H 176/47 H [Right Brachial artery] O2 Saturation 05/13/19 05/13/19 05/13/19 16:23 16:36 17:05 Temperature Heart Rate Heart Rate [ 82 82 82 Brachial] Respiratory Rate Blood Pressure Blood Pressure 111/78 175/53 H 162/68 H [Right Brachial artery] O2 Saturation 05/13/19 05/13/19 05/13/19 20:24 21:14 21:22 Temperature 36.9 C Heart Rate Heart Rate [ 82 84 Brachial] Respiratory 16 Rate Blood Pressure 221/67 H Blood Pressure 215/73 H 213/67 H [Right Brachial artery] O2 Saturation 93 05/13/19 05/13/19 05/13/19 21:27 21:32 21:47 Temperature Heart Rate Heart Rate [ 85 85 86 Brachial] Respiratory Rate Blood Pressure Blood Pressure 184/60 H 177/59 H 185/58 H [Right Brachial artery] O2 Saturation 05/13/19 05/13/19 05/13/19 22:08 22:22 23:05 Temperature Heart Rate Heart Rate [ 85 85 Brachial] Respiratory Rate Blood Pressure 175/61 H Blood Pressure 182/58 H 175/61 H 172/60 H [Right Brachial artery] O2 Saturation 05/13/19 05/14/19 05/14/19 23:45 03:50 10:12 Temperature 36.7 C 36.8 C 37 C Heart Rate 75 Heart Rate [ 83 82 Brachial] Respiratory 16 16 17 Rate Blood Pressure 156/62 H Blood Pressure 188/62 H 124/90 H [Right Brachial artery] O2 Saturation 94 93 100 05/14/19 05/14/19 05/14/19 10:15 10:20 10:25 Temperature 37.1 C Heart Rate 74 74 71 Heart Rate [ Brachial] Respiratory 21 22 22 Rate Blood Pressure 146/65 H 169/63 H 161/59 H Blood Pressure [Right Brachial artery] O2 Saturation 100 96 95 05/14/19 05/14/19 05/14/19 10:30 10:35 10:40 Temperature 37.2 C 37.1 C Heart Rate 73 74 75 Heart Rate [ Brachial] Respiratory 24 18 22 Rate Blood Pressure 147/64 H 168/60 H 164/61 H Blood Pressure [Right Brachial artery] O2 Saturation 94 94 96 05/14/19 05/14/19 05/14/19 10:45 11:05 11:43 Temperature 37.5 C 37 C Heart Rate 75 Heart Rate [ 78 74 Brachial] Respiratory 21 14 16 Rate Blood Pressure 156/57 H Blood Pressure 165/69 H 198/66 H [Right Brachial artery] O2 Saturation 95 95 95 05/14/19 05/14/19 12:02 12:15 Temperature Heart Rate Heart Rate [ 83 Brachial] Respiratory 16 Rate Blood Pressure 199/66 H Blood Pressure 141/64 H [Right Brachial artery] O2 Saturation 95 Oxygen O2 Source [With Activity] Room air O2 Source Room air I&O (Last 24 Hrs): Intake and Output Totals x24h 05/12/19 05/13/19 05/14/19 23:59 23:59 23:59 Intake Total 51 2450 1282.820 Output Total 225 725 150 Balance -174 1725 1132.820 General: Alert, Oriented x3, No acute distress HEENT: Atraumatic Neck: Supple Lymphatic: no adenopathy Neuro: Alert, Non Focal, Oriented Times 3 Cardiovascular: Regular rate, Normal S1, Normal S2 Respiratory: Chest non-tender, No respiratory distress, Breath sounds nml Abdomen: Normal bowel sounds, Soft Extremities: No edema, Normal pulses - Results Results: Laboratory Results WBC 10.8 x10^3/uL (4.8-10.8) 05/14/19 04:35 RBC 3.23 10^6/uL (4.20-5.40) L 05/14/19 04:35 Hgb 9.4 g/dL (12.0-16.0) L 05/14/19 04:35 Hct 30.7 % (37.0-47.0) L 05/14/19 04:35 MCV 95.0 fL (81.0-99.0) 05/14/19 04:35 MCH 29.1 pg (27.0-31.0) 05/14/19 04:35 MCHC 30.6 g/dL (32.0-36.0) L 05/14/19 04:35 RDW 13.6 % (12.0-15.0) 05/14/19 04:35 Plt Count 240 10^3/uL (130-450) 05/14/19 04:35 MPV 10.9 fL (7.9-10.8) H 05/14/19 04:35 Neut # (Auto) 8.9 10^3/uL (1.5-6.6) H 05/14/19 04:35 Lymph # (Auto) 1.0 10^3/uL (1.5-3.5) L 05/14/19 04:35 [place] # (Auto) 0.9 10^3/uL (0.0-1.0) 05/14/19 04:35 Eos # (Auto) 0.0 10^3/uL (0.0-0.7) 05/14/19 04:35 Baso # (Auto) 0.0 10^3/uL (0.0-0.1) 05/14/19 04:35 Absolute Nucleated RBC 0.00 x10^3/uL 05/14/19 04:35 Nucleated RBC % 0.0 /100WBC 05/14/19 04:35 PT 10.9 secs (9.9-12.6) 05/12/19 20:39 INR 1.0 (0.8-1.2) 05/12/19 20:39 Sodium 138 mmol/L (135-145) 05/14/19 04:35 Potassium 3.9 mmol/L (3.5-5.0) 05/14/19 04:35 Chloride 109 mmol/L (101-111) 05/14/19 04:35 Carbon Dioxide 20 mmol/L (21-32) L 05/14/19 04:35 Anion Gap 9.0 (6-13) 05/14/19 04:35 BUN 31 mg/dL (6-20) H 05/14/19 04:35 Creatinine 1.1 mg/dL (0.4-1.0) H 05/14/19 04:35 Estimated GFR (MDRD) 48 (>89) L 05/14/19 04:35 Glucose 111 mg/dL (70-100) H 05/14/19 04:35 Calcium 7.7 mg/dL (8.5-10.3) L 05/14/19 04:35 Phosphorus 3.5 mg/dL (2.5-4.6) 05/13/19 04:50 Magnesium 1.9 mg/dL (1.7-2.8) 05/13/19 04:50 Total Bilirubin 0.5 mg/dL (0.2-1.0) 05/12/19 20:39 AST 29 IU/L (10-42) 05/12/19 20:39 ALT 16 IU/L (10-60) 05/12/19 20:39 Alkaline Phosphatase 89 IU/L (42-121) 05/12/19 20:39 Total Protein 7.2 g/dL (6.7-8.2) 05/12/19 20:39 Albumin 3.6 g/dL (3.2-5.5) 05/12/19 20:39 Globulin 3.6 g/dL (2.1-4.2) 05/12/19 20:39 Albumin/Globulin Ratio 1.0 (1.0-2.2) 05/12/19 20:39 Lipase 102 U/L (22-51) H 05/12/19 18:50 Urine Color YELLOW 05/14/19 11:45 Urine Clarity HAZY (CLEAR) 05/14/19 11:45 Urine pH 6.0 PH (5.0-7.5) 05/14/19 11:45 Ur Specific [place] 1.020 (1.002-1.030) 05/14/19 11:45 Urine Protein 100 mg/dL (NEGATIVE) H 05/14/19 11:45 Urine Glucose (UA) NEGATIVE mg/dL (NEGATIVE) 05/14/19 11:45 Urine Ketones NEGATIVE mg/dL (NEGATIVE) 05/14/19 11:45 Urine Occult Blood SMALL (NEGATIVE) H 05/14/19 11:45 Urine Nitrite NEGATIVE (NEGATIVE) 05/14/19 11:45 Urine Bilirubin NEGATIVE (NEGATIVE) 05/14/19 11:45 Urine Urobilinogen 0.2 (NORMAL) E.U./dL (NORMAL) 05/14/19 11:45 Ur Leukocyte Esterase TRACE (NEGATIVE) H 05/14/19 11:45 Urine RBC 11-25 /HPF (0-5) H 05/14/19 11:45 Urine WBC 11-25 /HPF (0-5) H 05/14/19 11:45 Urine WBC Clumps PRESENT 05/14/19 11:45 Ur Squamous Epith Cells FEW Squamous (<= Few) 05/14/19 11:45 Urine Bacteria Few /HPF (None Seen) 05/14/19 11:45 Urine Culture Comments INDICATED 05/14/19 11:45 Ethyl Alcohol 219.5 mg/dL 05/12/19 18:50 - Procedures Procedures: Procedures EXCISION OF LARGE INTESTINE, ENDO (04/02/17) EXCISION OF STOMACH, PYLORUS, ENDO, DIAGN (03/13/17) REPLACE R HIP JT, FEMORAL W METAL, UNCEMENT, OPEN (07/05/17) TRANSFUSE NONAUT RED BLOOD CELLS IN PERIPH VEIN, PERC (03/13/17) Sepsis Event Note (H) - Evaluation Current Stage of Sepsis: Ruled out Current Medications - Current Medications Current Medications: Active Medications Acetaminophen (Tylenol) 650 - 975 mg PO Q4HR PRN PRN Reason: PAIN Amlodipine Besylate (Norvasc) 10 mg PO DAILY [facility] Last Admin: 05/14/19 08:33 Dose: Not Given Calcium Citrate () 250 mg PO 1200 [facility] Cholecalciferol (Vitamin D3) 1,000 unit PO DAILY [facility] Clonidine HCl (Catapres) 0.1 mg PO BID PRN PRN Reason: Hypertensive Emergency Last Admin: 05/13/19 23:05 Dose: 0.1 mg Docusate Sodium (Colace 100mg Capsule) 100 mg PO BID PRN PRN Reason: Constipation Heparin Sodium (Porcine) () 2,500 unit SUBQ BID [facility] Last Admin: 05/14/19 11:26 Dose: 2,500 unit Hydralazine HCl (Apresoline Inj) 10 mg IVP Q6H PRN PRN Reason: PER PHYSICIAN ORDER Last Admin: 05/14/19 12:02 Dose: 10 mg Cefazolin Sodium 1 gm/ Sodium (Chloride) 100 mls @ 200 mls/hr IV Q12H [facility] Stop: 05/15/19 09:29 Metoprolol Succinate (Toprol Xl) 50 mg PO DAILY [facility] Last Admin: 05/14/19 07:53 Dose: 50 mg Morphine Sulfate (Morphine (Carpuject)) 2 mg IVP Q2H PRN PRN Reason: PAIN Last Admin: 05/14/19 12:02 Dose: 2 mg Ondansetron HCl (Zofran Inj) 4 mg IVP Q6HR PRN PRN Reason: Nausea / Vomiting Last Admin: 05/13/19 11:06 Dose: 4 mg Oxycodone HCl (Roxicodone) 5 mg PO Q4HR PRN PRN Reason: PAIN Multivit/Folic Acid/Iron (Trinatal Rx 1) 1 tab PO DAILY [facility] Last Admin: 05/14/19 08:33 Dose: Not Given Prochlorperazine Edisylate (Compazine Inj) 10 mg IVP Q6HR PRN PRN Reason: Nausea / Vomiting Senna (Senokot) 17.2 mg PO Q12H PRN PRN Reason: Constipation Sodium Chloride (Normal Saline Flush 0.9%) 10 ml IVP 0100,0900,1700 [facility] Sodium Chloride (Normal Saline Flush 0.9%) 10 ml IVP PRN PRN PRN Reason: NEEDED PER PROVIDER ORDERS Thiamine HCl (Vitamin B-1) 100 mg PO DAILY [facility] Last Admin: 05/14/19 08:34 Dose: Not Given Metoprolol Succinate [Toprol Xl] 50 mg PO DAILY 03/14/17 Aspirin [Aspirin EC] 81 mg PO DAILY 04/02/17 Omeprazole 20 mg PO BID 07/05/17 Rosuvastatin Calcium [Crestor] 5 mg PO QPM 05/13/19 hydroCHLOROthiazide [Hydrodiuril] 25 mg PO DAILY 05/13/19
[2019-05-14] MEDS: cloNIDine 0.1 MG TABLET PO PRN (16:45)
[2019-05-14] MEDS: oxyCODONE 5 MG TABLET PO PRN (16:50)
[2019-05-14] MEDS: SODIUM CHLORIDE FLUSH 0.9% 10 ML SYRINGE IVP PRN (21:11)
[2019-05-14] MEDS: ceFAZolin 1 GM in SODIUM CHLORIDE 0.9% 100ML 100 ML IV SCH (21:40)
[2019-05-15] MEDS: SODIUM CHLORIDE FLUSH 0.9% 10 ML SYRINGE IVP SCH ×3 (00:53→16:41)
[2019-05-15] MEDS: oxyCODONE 5 MG TABLET PO PRN ×4 (00:58→20:19)
[2019-05-15 05:30] LABS: BASOPHILS % (AUTO) 0.1 %; HGB - HEMOGLOBIN 8.1 g/dL (12.0-16.0); LYMPHOCYTES # (AUTO) 0.8 10^3/uL (1.5-3.5); LYMPHOCYTES % (AUTO) 8.1 %; MEAN CORPUSCULAR HEMOGLOBIN 30.3 pg (27.0-31.0); MEAN CORPUSCULAR VOLUME 97.8 fL (81.0-99.0); MEAN PLATELET VOLUME 10.8 fL (7.9-10.8); MONOCYTES # (AUTO) 0.8 10^3/uL (0.0-1.0); MONOCYTES % (AUTO) 8.2 %; NEUTROPHILS # (AUTO) 7.9 10^3/uL (1.5-6.6); NEUTROPHILS % (AUTO) 82.7 %; PLT - PLATELET COUNT 217 10^3/uL (130-450); RED BLOOD COUNT 2.67 10^6/uL (4.20-5.40); RED CELL DISTRIBUTION WIDTH 13.7 % (12.0-15.0); WHITE BLOOD COUNT 9.5 x10^3/uL (4.8-10.8)
[2019-05-15 05:38] LABS: CALCIUM 7.7 mg/dL (8.5-10.3); CREATININE 1.3 mg/dL (0.4-1.0)
[2019-05-15] MEDS: cloNIDine 0.1 MG TABLET PO PRN (06:32)
[2019-05-15 08:05] LABS: ABSOLUTE RETICS # AUTO 0.055 10^6/uL (0.020-0.110); RED BLOOD COUNT 2.66 10^6/uL (4.20-5.40)
[2019-05-15 08:14] LABS: % IRON SATURATION 5 % (20-50); IRON 12 ug/dL (28-170); TOTAL IRON BINDING CAPACITY 245 ug/dL (250-450); TRANSFERRIN 175 mg/dL (192-382)
[2019-05-15] MEDS: polyethylene glycoL 3350 17 GM PACKET PO SCH (08:24)
[2019-05-15] MEDS: ceFAZolin 1 GM in SODIUM CHLORIDE 0.9% 100ML 100 ML IV SCH (08:25)
[2019-05-15] MEDS: METOPROLOL SUCCINATE 50 MG TABLET PO SCH (08:27)
[2019-05-15] MEDS: SODIUM CHLORIDE 0.9% 1,000 ML IV SCH ×2 (08:27→16:55)
[2019-05-15] MEDS: PRENATAL VITAMIN TABLET PO SCH (08:27)
[2019-05-15] MEDS: amLODIPine 5 MG TABLET PO SCH (08:27)
[2019-05-15] MEDS: CHOLECALCIFEROL 1,000 UNIT TABLET PO SCH (08:27)
[2019-05-15] MEDS: THIAMINE 100 MG TABLET PO SCH (08:27)
[2019-05-15] MEDS: HEPARIN 5,000 UNIT/ML VIAL SUBQ SCH (08:28)
[2019-05-15 08:46] LABS: FERRITIN 87.5 ng/mL (11.0-306.8)
[2019-05-15] MEDS ORDERED: PROPOFOL 200 MG/20 ML VIAL IVP ONE (08:46)
[2019-05-15] MEDS ORDERED: GLYCOPYRROLATE 1 MG/5 ML VIAL IVP ONE (08:46)
[2019-05-15] MEDS ORDERED: NEOSTIGMINE 1 MG/1 ML 10 ML MDV IVP ONE (08:46)
[2019-05-15] MEDS ORDERED: ePHEDrine 50 MG/ML VIAL IVP ONE (08:46)
[2019-05-15] MEDS ORDERED: ROCURONIUM 50 MG/5 ML VIAL IVP ONE (08:46)
[2019-05-15] MEDS ORDERED: ENOXAPARIN 30 MG/0.3 ML SYRINGE SUBQ SCH (09:00)
[2019-05-15] MEDS: FERROUS SULFATE 325 MG TABLET PO SCH (10:24)
[2019-05-15] MEDS: CALCIUM CITRATE 250 MG TABLET PO SCH (12:13)
--- NOTE | 2019-05-15 12:59 | PROVIDER PROGRESS NOTE ---
Assessment/Plan - Problem List (1) Left displaced femoral neck fracture Assessment/Plan: 05/15 pt is doing well after surgery with PT/OT, continue PT/OT evaluation and treatment, and pain control 05/14 pt had surgery today morning. she recover very well and she ate her lunch, and worked with PT/OT today as well. continue pain control, Monitor pt's H&H continue PT/OT followup orthopedics pt will have surgery on tomorrow. Dr. Boone already assessed for Patient's revised cardiac risk index (risk of a cardiac event during surgery) is 0.4% Patient is medically optimized once blood pressure appropriately controlled. pt's ECHO is pending now. EKG is SR continue pain control followup orthopedics, DVT prophylaxis per orthopedics (2) Closed fracture of left proximal humerus Conclusion/Plan: 05/14 stable, pt report her pain is better controlled continue followup orthopedics and OT continue pain control Left arm currently in a sling. Pain management continue OT evaluation and treatment continue followup orthopedics consulting (3) HTN (hypertension) Conclusion/Plan: 05/15 BP is good controlled now, continue current BP meds, and vital check 05/14 is better controlled today, continue BP meds and PRN meds, and vital monitor 05/13 poor control. pt had hydralazine PRN but pt was not given it on lunch time when pt's SBP was 191 at the time. add Norvasc and PRN Clonidine, continue home Metoprolol and PRN hydralazine. (4) Alcohol intoxication Conclusion/Plan: Will monitor. CIWA ordered. (5) Hyperlipidemia Conclusion/Plan: Will resume home medication once verified (6) GERD (gastroesophageal reflux disease) Conclusion/Plan: Protonix ordered (7) CKD Conclusion/Plan: 05/15 slight increased creatinine, continue hydration, lab monitor 05/14 significantly improved, creatinine is 1.1, continue keep hydration, and lab monitor pt has hx of CKD stage 3, continue hydration gently, daily lab monitor (8) anemia 05/15 today pt's HGB is 8.1, it is likely from acute blood loss from surgery. Iron study indicate iron deficiency as well, start with iron pill. daily lab monitor - Current Meds Current Meds: Current Medications Generic Name Dose Route Start Last Admin Trade Name Freq PRN Reason Stop Dose Admin Amlodipine Besylate 10 mg 05/14/19 09:00 05/15/19 08:27 Norvasc PO 10 mg DAILY JIA Administration Calcium Citrate 250 mg 05/15/19 12:00 05/15/19 12:13 PO 250 mg 1200 JIA Administration Cholecalciferol 1,000 unit 05/15/19 09:00 05/15/19 08:27 Vitamin D3 PO 1,000 unit DAILY JIA Administration Clonidine HCl 0.1 mg 05/13/19 16:56 05/15/19 06:32 Catapres PO 0.1 mg BID PRN Administration Hypertensive Emergency Ferrous Sulfate 325 mg 05/15/19 10:00 05/15/19 10:24 Feosol PO 325 mg DAILYWM JIA Administration Heparin Sodium (Porcine) 2,500 unit 05/14/19 11:00 05/15/19 08:28 SUBQ Not Given BID [facility] Hydralazine HCl 10 mg 05/13/19 15:16 05/14/19 12:02 Apresoline Inj IVP 10 mg Q6H PRN Administration PER PHYSICIAN ORDER Sodium Chloride 1,000 mls @ 83.333 mls/hr 05/15/19 08:00 05/15/19 08:27 Normal Saline 0.9% IV 05/16/19 07:59 83.333 mls/hr .Q12H JIA Administration Metoprolol Succinate 50 mg 05/13/19 08:00 05/15/19 08:27 Toprol Xl PO 50 mg DAILY JIA Administration Morphine Sulfate 2 mg 05/12/19 20:22 05/14/19 21:11 Morphine (Carpuject) IVP 2 mg Q2H PRN Administration PAIN Ondansetron HCl 4 mg 05/13/19 10:49 05/13/19 11:06 Zofran Inj IVP 4 mg Q6HR PRN Administration Nausea / Vomiting Oxycodone HCl 5 mg 05/14/19 10:13 05/15/19 06:31 Roxicodone PO 5 mg Q4HR PRN Administration PAIN Polyethylene Glycol 17 gm 05/15/19 09:00 05/15/19 08:24 Miralax PO 17 gm DAILY JIA Administration Multivit/Folic Acid/Iron 1 tab 05/13/19 09:00 05/15/19 08:27 Trinatal Rx 1 PO 1 tab DAILY JIA Administration Sodium Chloride 10 ml 05/14/19 17:00 05/15/19 08:27 Normal Saline Flush 0.9% IVP Not Given 0100,0900,1700 JIA Sodium Chloride 10 ml 05/14/19 10:13 05/14/19 21:11 Normal Saline Flush 0.9% IVP 10 ml PRN PRN Administration NEEDED PER PROVIDER ORDERS Thiamine HCl 100 mg 05/13/19 09:00 05/15/19 08:27 Vitamin B-1 PO 100 mg DAILY JIA Administration - Lab Result Fish Bone Diagrams: 05/15/19 04:45 05/15/19 04:45 - Additional Planning My Orders: My Active Orders 05/15/19 08:00 Sodium Chloride 0.9% [Normal Saline 0.9%] 1,000 ml IV 83.333 mls/hr 05/15/19 09:00 Cholecalciferol [Vitamin D3] 1,000 unit PO DAILY 05/15/19 10:00 Ferrous Sulfate [Feosol] 325 mg PO DAILYWM 05/15/19 12:00 Calcium Citrate 250 mg PO 1200 Subjective - Subjective Patient Reports: Feeling Better Objective Vital Signs: Vital Signs - 24 hr 05/14/19 05/14/19 05/14/19 14:10 16:15 22:00 Temperature 36.7 C 36.7 C Heart Rate [ 77 Activity] Heart Rate [ 77 74 Brachial] Heart Rate [ 77 Supine] Respiratory 20 18 Rate Blood Pressure 152/60 H [Activity] Blood Pressure 175/64 H 138/52 H [Right Brachial artery] Blood Pressure 174/68 H [Supine] O2 Saturation 95 94 05/14/19 05/15/19 05/15/19 23:35 06:00 07:20 Temperature 36.7 C 36.7 C 36.3 C L Heart Rate [ Activity] Heart Rate [ 77 72 71 Brachial] Heart Rate [ Supine] Respiratory 16 16 18 Rate Blood Pressure [Activity] Blood Pressure 158/65 H 161/66 H 153/69 H [Right Brachial artery] Blood Pressure [Supine] O2 Saturation 95 97 97 05/15/19 12:27 Temperature 36.7 C Heart Rate [ Activity] Heart Rate [ 72 Brachial] Heart Rate [ Supine] Respiratory 16 Rate Blood Pressure [Activity] Blood Pressure 157/48 H [Right Brachial artery] Blood Pressure [Supine] O2 Saturation 98 Oxygen O2 Source [With Activity] Room air O2 Source Room air I&O (Last 24 Hrs): Intake and Output Totals x24h 05/13/19 05/14/19 05/15/19 23:59 23:59 23:59 Intake Total 2450 2390.820 440 Output Total 725 400 400 Balance 1725 1990.820 40 General: Alert, Oriented x3, No acute distress HEENT: Atraumatic Neck: Supple Lymphatic: no adenopathy Neuro: Alert, Non Focal, Oriented Times 3 Cardiovascular: Regular rate, Normal S1, Normal S2 Respiratory: Chest non-tender, No respiratory distress, Breath sounds nml Abdomen: Normal bowel sounds, Soft Extremities: No edema, Normal pulses - Results Results: Laboratory Results WBC 9.5 x10^3/uL (4.8-10.8) 05/15/19 04:45 RBC 2.66 10^6/uL (4.20-5.40) L 05/15/19 04:45 Hgb 8.1 g/dL (12.0-16.0) L 05/15/19 04:45 Hct 26.1 % (37.0-47.0) L 05/15/19 04:45 MCV 97.8 fL (81.0-99.0) 05/15/19 04:45 MCH 30.3 pg (27.0-31.0) 05/15/19 04:45 MCHC 31.0 g/dL (32.0-36.0) L 05/15/19 04:45 RDW 13.7 % (12.0-15.0) 05/15/19 04:45 Plt Count 217 10^3/uL (130-450) 05/15/19 04:45 MPV 10.8 fL (7.9-10.8) 05/15/19 04:45 Reticulocyte % (Auto) 2.07 % (0.5-2.3) 05/15/19 04:45 Neut # (Auto) 7.9 10^3/uL (1.5-6.6) H 05/15/19 04:45 Lymph # (Auto) 0.8 10^3/uL (1.5-3.5) L 05/15/19 04:45 [place] # (Auto) 0.8 10^3/uL (0.0-1.0) 05/15/19 04:45 Eos # (Auto) 0.0 10^3/uL (0.0-0.7) 05/15/19 04:45 Baso # (Auto) 0.0 10^3/uL (0.0-0.1) 05/15/19 04:45 Absolute Nucleated RBC 0.00 x10^3/uL 05/15/19 04:45 Nucleated RBC % 0.0 /100WBC 05/15/19 04:45 Absolute Retic 0.055 10^6/uL (0.020-0.110) 05/15/19 04:45 PT 10.9 secs (9.9-12.6) 05/12/19 20:39 INR 1.0 (0.8-1.2) 05/12/19 20:39 Sodium 136 mmol/L (135-145) 05/15/19 04:45 Potassium 4.5 mmol/L (3.5-5.0) 05/15/19 04:45 Chloride 107 mmol/L (101-111) 05/15/19 04:45 Carbon Dioxide 20 mmol/L (21-32) L 05/15/19 04:45 Anion Gap 9.0 (6-13) 05/15/19 04:45 BUN 31 mg/dL (6-20) H 05/15/19 04:45 Creatinine 1.3 mg/dL (0.4-1.0) H 05/15/19 04:45 Estimated GFR (MDRD) 39 (>89) L 05/15/19 04:45 Glucose 127 mg/dL (70-100) H 05/15/19 04:45 Calcium 7.7 mg/dL (8.5-10.3) L 05/15/19 04:45 Phosphorus 3.5 mg/dL (2.5-4.6) 05/13/19 04:50 Magnesium 1.9 mg/dL (1.7-2.8) 05/13/19 04:50 Iron 12 ug/dL (28-170) L 05/15/19 04:45 TIBC 245 ug/dL (250-450) L 05/15/19 04:45 % Saturation 5 % (20-50) L 05/15/19 04:45 Transferrin 175 mg/dL (192-382) L 05/15/19 04:45 Ferritin 87.5 ng/mL (11.0-306.8) 05/15/19 04:45 Total Bilirubin 0.5 mg/dL (0.2-1.0) 05/12/19 20:39 AST 29 IU/L (10-42) 05/12/19 20:39 ALT 16 IU/L (10-60) 05/12/19 20:39 Alkaline Phosphatase 89 IU/L (42-121) 05/12/19 20:39 Lactate Dehydrogenase 148 IU/L (91-225) 05/15/19 04:45 Total Protein 7.2 g/dL (6.7-8.2) 05/12/19 20:39 Albumin 3.6 g/dL (3.2-5.5) 05/12/19 20:39 Globulin 3.6 g/dL (2.1-4.2) 05/12/19 20:39 Albumin/Globulin Ratio 1.0 (1.0-2.2) 05/12/19 20:39 Lipase 102 U/L (22-51) H 05/12/19 18:50 Vitamin B12 422 pg/mL (180-914) 05/15/19 04:45 Urine Color YELLOW 05/14/19 11:45 Urine Clarity HAZY (CLEAR) 05/14/19 11:45 Urine pH 6.0 PH (5.0-7.5) 05/14/19 11:45 Ur Specific [place] 1.020 (1.002-1.030) 05/14/19 11:45 Urine Protein 100 mg/dL (NEGATIVE) H 05/14/19 11:45 Urine Glucose (UA) NEGATIVE mg/dL (NEGATIVE) 05/14/19 11:45 Urine Ketones NEGATIVE mg/dL (NEGATIVE) 05/14/19 11:45 Urine Occult Blood SMALL (NEGATIVE) H 05/14/19 11:45 Urine Nitrite NEGATIVE (NEGATIVE) 05/14/19 11:45 Urine Bilirubin NEGATIVE (NEGATIVE) 05/14/19 11:45 Urine Urobilinogen 0.2 (NORMAL) E.U./dL (NORMAL) 05/14/19 11:45 Ur Leukocyte Esterase TRACE (NEGATIVE) H 05/14/19 11:45 Urine RBC 11-25 /HPF (0-5) H 05/14/19 11:45 Urine WBC 11-25 /HPF (0-5) H 05/14/19 11:45 Urine WBC Clumps PRESENT 05/14/19 11:45 Ur Squamous Epith Cells FEW Squamous (<= Few) 05/14/19 11:45 Urine Bacteria Few /HPF (None Seen) 05/14/19 11:45 Urine Culture Comments INDICATED 05/14/19 11:45 Ethyl Alcohol 219.5 mg/dL 05/12/19 18:50 - Procedures Procedures: Procedures EXCISION OF LARGE INTESTINE, ENDO (04/02/17) EXCISION OF STOMACH, PYLORUS, ENDO, DIAGN (03/13/17) REPLACE R HIP JT, FEMORAL W METAL, UNCEMENT, OPEN (07/05/17) TRANSFUSE NONAUT RED BLOOD CELLS IN PERIPH VEIN, PERC (03/13/17) Sepsis Event Note (H) - Evaluation Current Stage of Sepsis: Ruled out ABX Reporting Has patient been on IV antibiotics over the past 48 hours?: No Current Medications - Current Medications Current Medications: Active Medications Acetaminophen (Tylenol) 650 - 975 mg PO Q4HR PRN PRN Reason: PAIN Amlodipine Besylate (Norvasc) 10 mg PO DAILY [facility] Last Admin: 05/15/19 08:27 Dose: 10 mg Calcium Citrate () 250 mg PO 1200 [facility] Last Admin: 05/15/19 12:13 Dose: 250 mg Cholecalciferol (Vitamin D3) 1,000 unit PO DAILY [facility] Last Admin: 05/15/19 08:27 Dose: 1,000 unit Clonidine HCl (Catapres) 0.1 mg PO BID PRN PRN Reason: Hypertensive Emergency Last Admin: 05/15/19 06:32 Dose: 0.1 mg Docusate Sodium (Colace 100mg Capsule) 100 mg PO BID PRN PRN Reason: Constipation Ferrous Sulfate (Feosol) 325 mg PO DAILYWM [facility] Last Admin: 05/15/19 10:24 Dose: 325 mg Heparin Sodium (Porcine) () 5,000 unit SUBQ BID [facility] Hydralazine HCl (Apresoline Inj) 10 mg IVP Q6H PRN PRN Reason: PER PHYSICIAN ORDER Last Admin: 05/14/19 12:02 Dose: 10 mg Sodium Chloride (Normal Saline 0.9%) 1,000 mls @ 83.333 mls/hr IV .Q12H [facility] Stop: 05/16/19 07:59 Last Admin: 05/15/19 08:27 Dose: 83.333 mls/hr Metoprolol Succinate (Toprol Xl) 50 mg PO DAILY [facility] Last Admin: 05/15/19 08:27 Dose: 50 mg Morphine Sulfate (Morphine (Carpuject)) 2 mg IVP Q2H PRN PRN Reason: PAIN Last Admin: 05/14/19 21:11 Dose: 2 mg Ondansetron HCl (Zofran Inj) 4 mg IVP Q6HR PRN PRN Reason: Nausea / Vomiting Last Admin: 05/13/19 11:06 Dose: 4 mg Oxycodone HCl (Roxicodone) 5 mg PO Q4HR PRN PRN Reason: PAIN Last Admin: 05/15/19 06:31 Dose: 5 mg Polyethylene Glycol (Miralax) 17 gm PO DAILY [facility] Last Admin: 05/15/19 08:24 Dose: 17 gm Multivit/Folic Acid/Iron (Trinatal Rx 1) 1 tab PO DAILY [facility] Last Admin: 05/15/19 08:27 Dose: 1 tab Prochlorperazine Edisylate (Compazine Inj) 10 mg IVP Q6HR PRN PRN Reason: Nausea / Vomiting Senna (Senokot) 17.2 mg PO Q12H PRN PRN Reason: Constipation Sodium Chloride (Normal Saline Flush 0.9%) 10 ml IVP 0100,0900,1700 [facility] Last Admin: 05/15/19 08:27 Dose: Not Given Sodium Chloride (Normal Saline Flush 0.9%) 10 ml IVP PRN PRN PRN Reason: NEEDED PER PROVIDER ORDERS Last Admin: 05/14/19 21:11 Dose: 10 ml Thiamine HCl (Vitamin B-1) 100 mg PO DAILY [facility] Last Admin: 05/15/19 08:27 Dose: 100 mg Metoprolol Succinate [Toprol Xl] 50 mg PO DAILY 03/14/17 Aspirin [Aspirin EC] 81 mg PO DAILY 04/02/17 Omeprazole 20 mg PO BID 07/05/17 Rosuvastatin Calcium [Crestor] 5 mg PO QPM 05/13/19 hydroCHLOROthiazide [Hydrodiuril] 25 mg PO DAILY 05/13/19
[2019-05-15] MEDS: SODIUM CHLORIDE FLUSH 0.9% 10 ML SYRINGE IVP PRN (16:57)
[2019-05-15] MEDS: hydrALAZINE INJ 20 MG/ML VIAL IVP PRN (16:58)
--- NOTE | 2019-05-15 17:14 | PROVIDER PROGRESS NOTE ---
Subjective - Prog Note Date Prog Note Date: 05/15/19 Prog Note Time: 07:30 - Subjective Pt reports feeling: Improved (Patient sitting up eating breakfast reports some shoulder soreness but says left hip feels okay denies other setbacks or new complaint) Objective - Vital Signs/Intake & Output Vital Signs: Vital Signs x48h Temp Pulse Pulse Resp BP BP BP 05/15/19 17:08 83 157/68 H 05/15/19 17:03 78 178/76 H 05/15/19 16:58 187/74 H 05/15/19 15:50 36.7 C 78 16 178/58 H 05/15/19 12:30 77 152/60 H 05/15/19 12:27 36.7 C 72 16 157/48 H Pulse Ox 05/15/19 17:08 05/15/19 17:03 05/15/19 16:58 05/15/19 15:50 96 05/15/19 12:30 05/15/19 12:27 98 Intake & Output: Intake & Output 05/12/19 05/13/19 05/14/19 05/15/19 23:59 23:59 23:59 23:59 Intake Total 51 2450 2390.820 1445.553 Output Total 225 725 400 400 Balance -174 1725 4551.835 1623.553 - Lab Results Fish Bones: 05/15/19 04:45 05/15/19 04:45 Other Labs: Lab Results x24hrs 05/15/19 05/15/19 05/15/19 Range/Units 04:45 04:45 04:45 WBC (4.8-10.8) x10^3/uL RBC (4.20-5.40) 10^6/uL Hgb (12.0-16.0) g/dL Hct (37.0-47.0) % MCV (81.0-99.0) fL MCH (27.0-31.0) pg MCHC (32.0-36.0) g/dL RDW (12.0-15.0) % Plt Count (130-450) 10^3/uL MPV (7.9-10.8) fL Reticulocyte % (Auto) (0.5-2.3) % Neut # (Auto) (1.5-6.6) 10^3/uL Lymph # (Auto) (1.5-3.5) 10^3/uL [place] # (Auto) (0.0-1.0) 10^3/uL Eos # (Auto) (0.0-0.7) 10^3/uL Baso # (Auto) (0.0-0.1) 10^3/uL Absolute Nucleated RBC x10^3/uL Nucleated RBC % /100WBC Absolute Retic (0.020-0.110) 10^6/uL Sodium (135-145) mmol/L Potassium (3.5-5.0) mmol/L Chloride (101-111) mmol/L Carbon Dioxide (21-32) mmol/L Anion Gap (6-13) BUN (6-20) mg/dL Creatinine (0.4-1.0) mg/dL Estimated GFR (MDRD) (>89) Glucose (70-100) mg/dL Calcium (8.5-10.3) mg/dL Iron 12 L (28-170) ug/dL TIBC 245 L (250-450) ug/dL % Saturation 5 L (20-50) % Transferrin 175 L (192-382) mg/dL Ferritin 87.5 (11.0-306.8) ng/mL Lactate Dehydrogenase 148 (91-225) IU/L Vitamin B12 422 (180-914) pg/mL 05/15/19 05/15/19 05/15/19 Range/Units 04:45 04:45 04:45 WBC 9.5 (4.8-10.8) x10^3/uL RBC 2.66 L 2.67 L (4.20-5.40) 10^6/uL Hgb 8.1 L (12.0-16.0) g/dL Hct 26.1 L (37.0-47.0) % MCV 97.8 (81.0-99.0) fL MCH 30.3 (27.0-31.0) pg MCHC 31.0 L (32.0-36.0) g/dL RDW 13.7 (12.0-15.0) % Plt Count 217 (130-450) 10^3/uL MPV 10.8 (7.9-10.8) fL Reticulocyte % (Auto) 2.07 (0.5-2.3) % Neut # (Auto) 7.9 H (1.5-6.6) 10^3/uL Lymph # (Auto) 0.8 L (1.5-3.5) 10^3/uL [place] # (Auto) 0.8 (0.0-1.0) 10^3/uL Eos # (Auto) 0.0 (0.0-0.7) 10^3/uL Baso # (Auto) 0.0 (0.0-0.1) 10^3/uL Absolute Nucleated RBC 0.00 x10^3/uL Nucleated RBC % 0.0 /100WBC Absolute Retic 0.055 (0.020-0.110) 10^6/uL Sodium 136 (135-145) mmol/L Potassium 4.5 (3.5-5.0) mmol/L Chloride 107 (101-111) mmol/L Carbon Dioxide 20 L (21-32) mmol/L Anion Gap 9.0 (6-13) BUN 31 H (6-20) mg/dL Creatinine 1.3 H (0.4-1.0) mg/dL Estimated GFR (MDRD) 39 L (>89) Glucose 127 H (70-100) mg/dL Calcium 7.7 L (8.5-10.3) mg/dL Iron (28-170) ug/dL TIBC (250-450) ug/dL % Saturation (20-50) % Transferrin (192-382) mg/dL Ferritin (11.0-306.8) ng/mL Lactate Dehydrogenase (91-225) IU/L Vitamin B12 (180-914) pg/mL - Other Results/Comments Other Results/Comments: Patient's left upper extremity demonstrates gross radial median ulnar motor and sensory function. She is not asked to actively range the shoulder though comfortably moves elbow wrist and hand. Gentle passive internal and external rotation of shoulder proximal humerus moves as a unit with the shaft. Arm and form compartments soft. Patient is in a sling. Patient's left lower extremity has palpable dorsalis pedis she is able to flex extend toes and ankle. She gently flex and extend knee and denies pain with gentle logrolling thigh calf soft nontender. Patient's left hip dressing minimal bloodstained dry no erythema Sepsis Event Note (H) - Evaluation Current Stage of Sepsis: Ruled out Assessment/Plan - Problem List (1) Closed fracture of left proximal humerus Impression: Stable Qualifiers: Encounter type: subsequent encounter Fracture morphology: other fracture Fracture alignment: displaced Fracture healing: with routine healing Qualified Code(s): S42.292D - Other displaced fracture of upper end of left humerus, subsequent encounter for fracture with routine healing (2) Left displaced femoral neck fracture Impression: Patient orthopedically stable status post left hip mini open pinning. She also has left proximal humerus fracture which is minimally displaced. Dr. Kauffman's plan for left shoulder is nonoperative. patient is remains in sling. she is advised on a safe way to use the sling and advised on away to avoid active shoulder motion. Regarding left lower extremity patient is doing well and shows no signs or symptoms of infection or DVT. Per Dr. Kauffman patient may be weightbearing as tolerated left lower extremity. She will be nonweightbearing left upper extremity. She would use assistance and assistive device as necessary for ambulation and transfers. May be discharged to correction facility when appropriate from medical standpoint. Patient may have dressing change on day #2 silver dressing. Patient should follow-up at the latest orthopedic clinic 10 to 14 days postoperatively or sooner should problems questions or worsening of her condition arise.
[2019-05-15] MEDS ORDERED: LIDOCAINE PATCH 5% TOP PRN (17:45)
[2019-05-15] MEDS ORDERED: HEPARIN 5,000 UNIT/ML VIAL SUBQ SCH (21:00)
[2019-05-15 21:59] LABS: HGB - HEMOGLOBIN 7.9 g/dL (12.0-16.0)
[2019-05-15] MEDS: MORPHINE 2 MG/ML CARPUJECT IVP PRN (22:23)
[2019-05-16] MEDS: SODIUM CHLORIDE FLUSH 0.9% 10 ML SYRINGE IVP SCH ×3 (00:34→20:23)
[2019-05-16] MEDS: oxyCODONE 5 MG TABLET PO PRN ×5 (00:48→20:21)
[2019-05-16] MEDS: cloNIDine 0.1 MG TABLET PO PRN ×2 (00:49→16:02)
[2019-05-16 05:56] LABS: BASOPHILS % (AUTO) 0.1 %; EOSINOPHILS # (AUTO) 0.1 10^3/uL (0.0-0.7); EOSINOPHILS % (AUTO) 1.1 %; HGB - HEMOGLOBIN 7.5 g/dL (12.0-16.0); LYMPHOCYTES # (AUTO) 1.6 10^3/uL (1.5-3.5); LYMPHOCYTES % (AUTO) 19.4 %; MEAN CORPUSCULAR HEMOGLOBIN 30.1 pg (27.0-31.0); MEAN CORPUSCULAR HGB CONC 30.5 g/dL (32.0-36.0); MEAN CORPUSCULAR VOLUME 98.8 fL (81.0-99.0); MEAN PLATELET VOLUME 10.4 fL (7.9-10.8); MONOCYTES # (AUTO) 0.6 10^3/uL (0.0-1.0); MONOCYTES % (AUTO) 6.6 %; PLT - PLATELET COUNT 224 10^3/uL (130-450); RED BLOOD COUNT 2.49 10^6/uL (4.20-5.40); RED CELL DISTRIBUTION WIDTH 13.7 % (12.0-15.0); WHITE BLOOD COUNT 8.4 x10^3/uL (4.8-10.8)
[2019-05-16 06:11] LABS: CALCIUM 7.5 mg/dL (8.5-10.3); CREATININE 1.4 mg/dL (0.4-1.0)
[2019-05-16] MEDS: FERROUS SULFATE 325 MG TABLET PO SCH (08:54)
[2019-05-16] MEDS: PRENATAL VITAMIN TABLET PO SCH (08:54)
[2019-05-16] MEDS: CHOLECALCIFEROL 1,000 UNIT TABLET PO SCH (08:54)
[2019-05-16] MEDS: THIAMINE 100 MG TABLET PO SCH (08:54)
[2019-05-16] MEDS: DOCUSATE SODIUM 250 MG CAPSULE PO SCH (08:55)
[2019-05-16] MEDS: polyethylene glycoL 3350 17 GM PACKET PO SCH (08:56)
[2019-05-16] MEDS: METOPROLOL SUCCINATE 50 MG TABLET PO SCH (08:56)
[2019-05-16] MEDS: SENNA 8.6 MG TABLET PO SCH (08:57)
[2019-05-16] MEDS ORDERED: amLODIPine 5 MG TABLET PO SCH (09:00)
[2019-05-16] MEDS ORDERED: ENOXAPARIN 30 MG/0.3 ML SYRINGE SUBQ SCH (09:00)
--- NOTE | 2019-05-16 11:21 | PROVIDER PROGRESS NOTE ---
Subjective - Prog Note Date Prog Note Date: 05/16/19 Prog Note Time: 11:19 - Subjective Pt reports feeling: Improved Subjective: Gabriela continues to have pain in her left arm, left hip, and notes that she believes that she is urinating well. She will require one more day of stay due to her trending up AMBER (serum creatinine). Current Medications - Current Medications Current Medications: Active Medications Acetaminophen (Tylenol) 650 - 975 mg PO Q4HR PRN PRN Reason: PAIN Amlodipine Besylate (Norvasc) 5 mg PO DAILY [facility] Last Admin: 05/16/19 08:58 Dose: 5 mg Aspirin (Samaria) 325 mg PO DAILYWM [facility] Calcium Citrate () 250 mg PO 1200 [facility] Last Admin: 05/15/19 12:13 Dose: 250 mg Cholecalciferol (Vitamin D3) 1,000 unit PO DAILY [facility] Last Admin: 05/16/19 08:54 Dose: 1,000 unit Clonidine HCl (Catapres) 0.1 mg PO BID PRN PRN Reason: Hypertensive Emergency Last Admin: 05/16/19 00:49 Dose: 0.1 mg Docusate Sodium (Colace 100mg Capsule) 100 mg PO BID PRN PRN Reason: Constipation Docusate Sodium (Colace 250mg Capsule) 250 - 500 mg PO DAILY [facility] Last Admin: 05/16/19 08:55 Dose: 250 mg Ferrous Gluconate (Fergon) 324 mg PO DAILYWM [facility] Hydralazine HCl (Apresoline Inj) 10 mg IVP Q6H PRN PRN Reason: PER PHYSICIAN ORDER Last Admin: 05/15/19 16:58 Dose: 10 mg Hydrochlorothiazide (Hydrodiuril) 25 mg PO DAILY [facility] Lidocaine (Lidoderm Patch) 1 patch TOP DAILY PRN PRN Reason: PAIN Last Admin: 05/16/19 11:00 Dose: 1 patch Metoprolol Succinate (Toprol Xl) 50 mg PO DAILY [facility] Last Admin: 05/16/19 08:56 Dose: 50 mg Ondansetron HCl (Zofran Inj) 4 mg IVP Q6HR PRN PRN Reason: Nausea / Vomiting Last Admin: 05/13/19 11:06 Dose: 4 mg Oxycodone HCl (Roxicodone) 5 mg PO Q4HR PRN PRN Reason: PAIN Last Admin: 05/16/19 10:17 Dose: 5 mg Polyethylene Glycol (Miralax) 17 gm PO DAILY [facility] Last Admin: 05/16/19 08:56 Dose: 17 gm Multivit/Folic Acid/Iron (Trinatal Rx 1) 1 tab PO DAILY [facility] Last Admin: 05/16/19 08:54 Dose: 1 tab Senna (Senokot) 17.2 mg PO Q12H PRN PRN Reason: Constipation Last Admin: 05/16/19 08:55 Dose: 17.2 mg Senna (Senokot) 8.6 - 17.2 mg PO DAILY [facility] Last Admin: 05/16/19 08:57 Dose: Not Given Sodium Chloride (Normal Saline Flush 0.9%) 10 ml IVP 0100,0900,1700 [facility] Last Admin: 05/16/19 08:57 Dose: 10 ml Sodium Chloride (Normal Saline Flush 0.9%) 10 ml IVP PRN PRN PRN Reason: NEEDED PER PROVIDER ORDERS Last Admin: 05/15/19 16:57 Dose: 10 ml Thiamine HCl (Vitamin B-1) 100 mg PO DAILY [facility] Last Admin: 05/16/19 08:54 Dose: 100 mg Metoprolol Succinate [Toprol Xl] 50 mg PO DAILY 03/14/17 Aspirin [Aspirin EC] 81 mg PO DAILY 04/02/17 Omeprazole 20 mg PO BID 07/05/17 Rosuvastatin Calcium [Crestor] 5 mg PO QPM 05/13/19 hydroCHLOROthiazide [Hydrodiuril] 25 mg PO DAILY 05/13/19 Objective - Vital Signs/Intake & Output Reviewed Vital Signs: Yes Vital Signs: Vital Signs x48h Temp Pulse Resp BP BP Pulse Ox 05/16/19 07:57 36.7 C 70 16 175/58 H 92 05/16/19 03:50 36.7 C 70 16 143/74 H 93 Intake & Output: Intake & Output 05/13/19 05/14/19 05/15/19 05/16/19 23:59 23:59 23:59 23:59 Intake Total 2450 2390.820 5148.395 5054 Output Total 725 400 400 400 Balance 1725 0079.065 0878.553 1180 - Objective General Appearance: positive: No acute distress, Alert Eyes Bilateral: positive: PERRL Eyes: OU Conjunctivae pale ENT: positive: Pharynx nml, No signs of dehydration Neck: positive: Thyroid nml, No JVD, Trachea midline Respiratory: positive: Chest non-tender, Other (scattered crackles, bilaterally) Cardiovascular: positive: Regular rate & rhythm, No gallop, Systolic murmur, Decreased pulse(s) Peripheral Pulses: 1+ Radial (R), 1+ Radial (L), 1+ Femoral (R), 1+ Femoral (L) Abdomen: positive: Non-tender, Nml bowel sounds, No distention Back: positive: Nml inspection Skin: positive: No rash, Warm, Dry, Pallor Extremities: positive: No pedal edema, Joint swelling (left hip, left arm in a sling) Neurologic/Psychiatric: positive: Oriented x3, CN's nml (2-12), Motor nml, Weakness, Sensory loss, Depressed mood/affect, Other (baseline dementia) Reflexes: Bicep (R): 2+, Bicep (L): 0 - Lab Results Fish Bones: 05/16/19 05:40 05/16/19 05:40 Other Labs: Lab Results x24hrs 05/16/19 05/16/19 05/15/19 Range/Units 05:40 05:40 21:47 WBC 8.4 (4.8-10.8) x10^3/uL RBC 2.49 L (4.20-5.40) 10^6/uL Hgb 7.5 L 7.9 L (12.0-16.0) g/dL Hct 24.6 L 26.0 L (37.0-47.0) % MCV 98.8 (81.0-99.0) fL MCH 30.1 (27.0-31.0) pg MCHC 30.5 L (32.0-36.0) g/dL RDW 13.7 (12.0-15.0) % Plt Count 224 (130-450) 10^3/uL MPV 10.4 (7.9-10.8) fL Neut # (Auto) 6.0 (1.5-6.6) 10^3/uL Lymph # (Auto) 1.6 (1.5-3.5) 10^3/uL [place] # (Auto) 0.6 (0.0-1.0) 10^3/uL Eos # (Auto) 0.1 (0.0-0.7) 10^3/uL Baso # (Auto) 0.0 (0.0-0.1) 10^3/uL Absolute Nucleated RBC 0.00 x10^3/uL Nucleated RBC % 0.0 /100WBC Sodium 136 (135-145) mmol/L Potassium 4.3 (3.5-5.0) mmol/L Chloride 111 (101-111) mmol/L Carbon Dioxide 19 L (21-32) mmol/L Anion Gap 6.0 (6-13) BUN 34 H (6-20) mg/dL Creatinine 1.4 H (0.4-1.0) mg/dL Estimated GFR (MDRD) 36 L (>89) Glucose 97 (70-100) mg/dL Calcium 7.5 L (8.5-10.3) mg/dL ABX Reporting Has patient been on IV antibiotics over the past 48 hours?: No Assessment/Plan - Problem List (1) Left displaced femoral neck fracture Impression: -Ground level fall at home, brought in by EMS on 05/12/2019 -Reported by who found the patient on the floor in the kitchen -Unknown LOC -Alcohol use per -Continue PT/OT, discharge to rehab facility in 1-2 days Closed fracture of left proximal humerus -Left shoulder complaints upon arrival to the ED -Imaging of the left arm shows a mildly displaced acute fracture of the left humeral surgical neck and greater tuberosity -Left arm remains in a sling, no surgical interventions at this point -Continue PT/OT, discharge to rehab facility in 1-2 days Fall -Reported upon arrival to the ED, past ED visits show facial/head lacerations -Extensive bruising to left arm today on exam -Fall precautions AMBER (acute kidney injury) -Baseline CKD, baseline serum creatinine is 1.3 -Daily labs show creatinine 1.1-1.6 -Nursing reports low urine output at times, patient does not have a dominguez cath -Routine labs, avoid nephrotoxins, hypotension Alcohol dependence -Reported by the patients , several years of ETOH abuse -Ethyl alcohol level upon admission was elevated at 219.5 -Continue vitamins, thiamine, treat anemia CKD -Baseline CKD, baseline serum creatinine is 1.3 -GFR has been ~30 Iron deficiency anemia -Iron panel on labs confirm this diagnosis -Continue daily iron supplement Claudication in PAD -Status post femoral stenting by vascular surgery (Marita) -Patient failed Plavix, caused GI bleeding -No edema on exam -Encourage activity, DVT prophylaxis with daily ASA HTN (hypertension) -Home meds include; BB and HCTZ -Started on Norvasc while here, now added HCTZ back in -Continue to monitor Weakness -Since being post-op left hip repair, patient has been more weak -PT recommends SNF for rehab -Continue fall precautions
[2019-05-16] MEDS: CALCIUM CITRATE 250 MG TABLET PO SCH (13:50)
[2019-05-16] MEDS: hydroCHLOROthiazide 25 MG TABLET PO SCH (13:50)
[2019-05-16] MEDS: ACETAMINOPHEN 325 MG TABLET PO PRN (16:01)
[2019-05-17] MEDS: oxyCODONE 5 MG TABLET PO PRN ×3 (01:43→11:17)
[2019-05-17] MEDS: SODIUM CHLORIDE FLUSH 0.9% 10 ML SYRINGE IVP SCH ×2 (01:47→08:36)
[2019-05-17 05:30] LABS: BASOPHILS % (AUTO) 0.3 %; EOSINOPHILS # (AUTO) 0.3 10^3/uL (0.0-0.7); EOSINOPHILS % (AUTO) 3.5 %; HGB - HEMOGLOBIN 8.7 g/dL (12.0-16.0); LYMPHOCYTES # (AUTO) 2.1 10^3/uL (1.5-3.5); LYMPHOCYTES % (AUTO) 23.7 %; MEAN CORPUSCULAR HEMOGLOBIN 29.9 pg (27.0-31.0); MEAN CORPUSCULAR HGB CONC 30.9 g/dL (32.0-36.0); MEAN CORPUSCULAR VOLUME 96.9 fL (81.0-99.0); MONOCYTES # (AUTO) 0.7 10^3/uL (0.0-1.0); MONOCYTES % (AUTO) 8.5 %; NEUTROPHILS # (AUTO) 5.5 10^3/uL (1.5-6.6); NEUTROPHILS % (AUTO) 63.2 %; PLT - PLATELET COUNT 298 10^3/uL (130-450); RED BLOOD COUNT 2.91 10^6/uL (4.20-5.40); RED CELL DISTRIBUTION WIDTH 13.6 % (12.0-15.0); WHITE BLOOD COUNT 8.7 x10^3/uL (4.8-10.8)
[2019-05-17 05:42] LABS: CALCIUM 8.4 mg/dL (8.5-10.3); CREATININE 1.4 mg/dL (0.4-1.0)
[2019-05-17] MEDS: ACETAMINOPHEN 325 MG TABLET PO PRN (06:40)
[2019-05-17] MEDS: hydrALAZINE INJ 20 MG/ML VIAL IVP PRN (06:43)
[2019-05-17] MEDS ORDERED: FERROUS GLUCONATE 324 MG TABLET PO SCH (08:00)
[2019-05-17] MEDS ORDERED: ASPIRIN 325 MG TABLET PO SCH (08:00)
--- NOTE | 2019-05-17 08:16 | Discharge Plan ---
"Discharge Plan for SNF / [facility] - Discharge Plan And Transition Orders Problem Reviewed?: Yes Disposition: 03 SNF DC/Xfer Condition: Good Allergies and Adverse Reactions: Allergies Allergy/AdvReac Type Severity Reaction Status Date / Time hydrocodone Allergy Nausea Verified 05/12/19 18:29 lisinopril Allergy Nausea Verified 05/12/19 18:29 codeine phosphate * AdvReac Intermediate Itching Verified 05/12/19 18:29 [From Tylenol-Codeine #3] Health Concerns: Fracture of left femur Fracture of upper end of humerus Fall Hypertension Pain control Acute on chronic kidney failure Alcohol use Iron deficiency anemia Plan of Treatment: Continue to participate in rehab at [facility] with the goal of returning home Follow the recommendations of orthopedic surgery in regards to your fractured left arm Take all medications as prescribed An additional medication has been added for blood pressure control Use assistive devices as instructed to prevent falls Care Goals: Prevent falls Prevent hospital stays Control blood pressure Return home after rehab stay Assessment: The patient was admitted to the hospital after her found her on the floor in her kitchen. Alcohol screen was positive. She was found to have fractured both her left humerus, and her left femur. Her femur was repaired by Dr. Kauffman on 05/14/2019 using a left hip cannulated screw fixation technique. Blood loss was documented as 700 mL and she has had no post-operative complications. Norvasc was added to her medication list in the days following surgery for uncontrolled blood pressure that should continue at home. Iron studies were completed and she was started on iron supplement. She was monitored for one extra day for her kidney function and since starting more blood pressure medications. Her pain has been controlled using oxycodone prior to therapy. - SNF / [facility] Transition Orders Admit to (Facility): [facility] karen Boswell Under the care of (Name): Arianna Smith/Dr. Parrish Discharge Diagnosis: Left displaced femoral neck fracture Closed fracture of left proximal humerus Fall AMBER (acute kidney injury) Alcohol dependence CKD (chronic kidney disease) MARLEN (iron deficiency anemia) Claudication in peripheral vascular disease HTN (hypertension) Weakness Weight on admission and: Monthly Additional Bowel Program Orders: If no BM after 2 days, nurse may give M.O.M. 30ml PO PRN and/or ducolax Supp 1 ND and/or B[place] 250mg P.O., and/or senna 1-2 tabs PO. On day 3 nurse may give repeat above order until residents constipation is resolved. Annual Influenza Vaccine (between Dec 21 and July 20): Yes Two-step PPD per [facility] [id number] or approved exception documents: Yes Orthopedic Orders: Patient orthopedically stable status post left hip mini open pinning. She also has left proximal humerus fracture which is minimally displaced. Dr. Kauffman's plan for left shoulder is non-operative and remains in sling. She has been advised on a safe way to use the sling and advised on a way to avoid active shoulder motion. Per Dr. Kauffman, patient may be weight bearing as tolerated left lower extremity. She will be non-weight bearing left upper extremity. . Patient may have dressing change on day #2 silver dressing. Patient should follow-up at the latest orthopedic clinic 10 to 14 days postoperatively or sooner should problems questions or worsening of her condition arise. Medication Orders: PLEASE REFER TO THE DISCHARGE MEDICATION LIST. Insulin Orders?: No - Medications New Prescriptions: Acetaminophen [Tylenol] 650 - 975 mg PO Q4HR PRN #60 tablet PRN Reason: Pain oxyCODONE [Roxicodone] 5 mg PO Q4HR PRN #21 tablet PRN Reason: Pain amLODIPine [Norvasc] 10 mg PO DAILY #60 tablet Aspirin [Samaria] 325 mg PO 0800 #30 tablet Cholecalciferol (Vitamin D3) [Vitamin D3] 2,000 unit PO DAILY #30 tab.chew Ferrous Gluconate [Iron] 240 mg PO DAILY #30 tablet Lidocaine Patch 5% [Lidoderm Patch] 1 patch TOP DAILY PRN #30 patch PRN Reason: Pain polyethylene glycoL 3350 [Miralax] 17 gm PO DAILY #30 packet Vitamin [Trinatal Rx 1] 1 tab PO DAILY #30 tablet Senna [Senokot] 8.6 mg PO DAILY #30 tablet Thiamine [Vitamin B-1] 100 mg PO DAILY #30 tablet - Diet Type: Geriatric Texture: Regular Liquids: Thin May have monthly special meal: Yes - Therapies | Activity Therapy: Evaluation | Treat if indicated: PT, OT Rehabilitation Potential: Maximize functional status, Return to independent living Activity: Activity as Tolerated Assistance Devices: Wheelchair, Walker"
[2019-05-17] MEDS: PRENATAL VITAMIN TABLET PO SCH (08:35)
[2019-05-17] MEDS: CHOLECALCIFEROL 1,000 UNIT TABLET PO SCH (08:35)
[2019-05-17] MEDS: THIAMINE 100 MG TABLET PO SCH (08:35)
[2019-05-17] MEDS: DOCUSATE SODIUM 250 MG CAPSULE PO SCH (08:35)
[2019-05-17] MEDS: SENNA 8.6 MG TABLET PO SCH (08:35)
[2019-05-17] MEDS: METOPROLOL SUCCINATE 50 MG TABLET PO SCH (08:36)
[2019-05-17] MEDS: polyethylene glycoL 3350 17 GM PACKET PO SCH (08:36)
[2019-05-17] MEDS: hydroCHLOROthiazide 25 MG TABLET PO SCH (08:36)
[2019-05-17] MEDS ORDERED: amLODIPine 5 MG TABLET PO SCH (09:00)
[2019-05-17] MEDS ORDERED: hydrALAZINE 10 MG TABLET PO ONE (10:47)
--- NOTE | 2019-05-17 11:06 | PROVIDER PROGRESS NOTE ---
Subjective - Prog Note Date Prog Note Date: 05/17/19 Prog Note Time: 09:00 - Subjective Pt reports feeling: Improved Objective - Vital Signs/Intake & Output Vital Signs: Vital Signs x48h Temp Pulse Resp BP BP Pulse Ox 05/17/19 10:20 170/53 H 05/17/19 09:57 37 C 84 20 158/53 H 05/17/19 07:52 171/45 H 05/17/19 07:38 162/45 H 05/17/19 07:22 70 148/50 H 05/17/19 07:13 168/56 H 05/17/19 07:00 74 178/52 H 05/17/19 06:55 74 182/55 H 05/17/19 06:47 189/48 H 05/17/19 06:43 189/57 H 05/17/19 06:14 36.7 C 71 16 184/57 H 95 Intake & Output: Intake & Output 05/14/19 05/15/19 05/16/19 05/17/19 23:59 23:59 23:59 23:59 Intake Total 2390.820 3242.359 8481 80 Output Total 400 400 825 350 Balance 0545.867 2687.553 1895 -270 - Lab Results Fish Bones: 05/17/19 05:25 05/17/19 05:25 Other Labs: Lab Results x24hrs 05/17/19 05/17/19 Range/Units 05:25 05:25 WBC 8.7 (4.8-10.8) x10^3/uL RBC 2.91 L (4.20-5.40) 10^6/uL Hgb 8.7 L (12.0-16.0) g/dL Hct 28.2 L (37.0-47.0) % MCV 96.9 (81.0-99.0) fL MCH 29.9 (27.0-31.0) pg MCHC 30.9 L (32.0-36.0) g/dL RDW 13.6 (12.0-15.0) % Plt Count 298 (130-450) 10^3/uL MPV 10.0 (7.9-10.8) fL Neut # (Auto) 5.5 (1.5-6.6) 10^3/uL Lymph # (Auto) 2.1 (1.5-3.5) 10^3/uL [place] # (Auto) 0.7 (0.0-1.0) 10^3/uL Eos # (Auto) 0.3 (0.0-0.7) 10^3/uL Baso # (Auto) 0.0 (0.0-0.1) 10^3/uL Absolute Nucleated RBC 0.00 x10^3/uL Nucleated RBC % 0.0 /100WBC Sodium 136 (135-145) mmol/L Potassium 4.4 (3.5-5.0) mmol/L Chloride 108 (101-111) mmol/L Carbon Dioxide 20 L (21-32) mmol/L Anion Gap 8.0 (6-13) BUN 33 H (6-20) mg/dL Creatinine 1.4 H (0.4-1.0) mg/dL Estimated GFR (MDRD) 36 L (>89) Glucose 99 (70-100) mg/dL Calcium 8.4 L (8.5-10.3) mg/dL - Other Results/Comments Other Results/Comments: Left upper extremity and left lower extremity no neurovascular changes noted. Elbow wrist and hand with comfortable movement. Left lower extremity calf nontender left hip dressing clean dry intact no erythema appreciated. Thigh calf soft nontender. Sepsis Event Note (H) - Evaluation Current Stage of Sepsis: Ruled out Assessment/Plan - Problem List (1) Closed fracture of left proximal humerus Impression: Stable status post left hip pinning and left proximal humerus fracture treated in sling. Okay to transfer to long-term facility from orthopedic perspective. Patient should follow-up 10 to 14 days postop in orthopedic clinic or sooner on an as-needed basis. Per Dr. Kauffman patient may bear weight left lower extremity. She should be nonweightbearing left upper extremity in sling and avoid left shoulder active motion. Recommend continue analgesics as necessary and DVT prophylaxis. Qualifiers: Encounter type: subsequent encounter Fracture morphology: other fracture Fracture alignment: displaced Fracture healing: with routine healing Qualified Code(s): S42.292D - Other displaced fracture of upper end of left humerus, subsequent encounter for fracture with routine healing
[2019-05-17] MEDS: CALCIUM CITRATE 250 MG TABLET PO SCH (11:18)
[2019-05-17 11:53] VITALS: BP 159/55
--- NOTE | 2019-05-17 13:07 | DISCHARGE SUMMARY ---
"Discharge Summary Admit Date: 05/12/19 Discharge Date: 05/17/19 Discharging Provider: MICHI Lynn Primary Care Provider: Arianna Smith Code Status: Do Not Attempt Resuscitation Condition at Discharge: Good Discharge Disposition: 03 SNF DC/Xfer Discharge Facility Name: [facility] Age of Elbert - DIAGNOSES Admission Diagnoses: Left displaced femoral neck fracture Closed fracture of left proximal humerus HTN (hypertension) Alcohol intoxication Hyperlipidemia GERD (gastroesophageal reflux disease) AMBER (acute kidney injury) Discharge Diagnoses with Status of Each Condition: Left displaced femoral neck fracture- new on this admission, continue PT at rehab, continue D3, calcium supplements Closed fracture of left proximal humerus-New on this admit, non-surgical, continue sling, follow up with ortho as scheduled Fall-Chronic, recurrent, continue rehab plans AMBER (acute kidney injury)-Resolved, returned to baseline Alcohol dependence-Chronic, no alcohol use since admission, encourage cessation CKD (chronic kidney disease)-Chronic, back to baseline creatinine MARLEN (iron deficiency anemia)-Continue iron supplement Claudication in peripheral vascular disease-Status post left femoral stenting by vascular surgery, no issues HTN (hypertension)-chronic, stable, started on Norvasc to be added to her daily Weakness-Improving with physical therapy, needs to continue at rehab, then anticipate returning home Osteoporosis-Continue on D3, calcium supplement, Fosomax sent to primary pharmacy to be started after Rehab completion at home - HPI History of Present Illness: Gabriela Nava is an 78-year old female with a past medical history of falls, hypertension, hyperlipidemia, CKD, anemia, claudication in PVD, cervical DDD, GERD, tobacco dependence, alcohol dependence, psoriasis, right liver mass, rheumatoid arthritis, pancreatic cyst, upper GI bleed, and medical noncompliance. The patient was brought in by EMS after her found her on the kitchen floor and noted that he believed that she had been drinking a significant, but unspecified amount of alcohol (whiskey) at home. She could not remember hitting her head or a loss of consciousness. Work up in the ED included CT of head/neck which were negative for any acute process and xray of the shoulder and hip/pelvis which showed mildly displaced fracture of the left geovanna ral surgical neck and greater tuberosity and mildly displaced fracture of the left femoral neck respectively. She was also found to have a positive alcohol level of 219. The patient complained of nausea, without vomiting. The patients a SBP of 230 in the ED, and notes that she had not taken her anti-hypertensive medications today. An orthopedic consult was made, and Dr. Kauffman plans to repair her left hip during this hospital stay, with non-surgical approach for her left arm fracture. - CONSULTS | PROCEDURES Consultations: Orthopedic surgery-Dr. Kauffman Procedures: Admit Date: 05/12/19 Procedure Date: 05/14/19 Planned Procedure: Closed reduction and multiple cannulated screw fixation of left hip fracture Pre-Op Diagnosis: Mildly angulated left femoral neck hip fracture Procedure Performed: Closed reduction and multiple cannulated screw fixation of left hip fracture Post Op Diagnosis: Same Primary Surgeon: Melinda Kauffman MD Anesthesia Technique: General ET tube, Regional block IV Fluids (mL): 700 Estimated Blood Loss (mL): 20 Complications: None - HOSPITAL COURSE Hospital Course: The patient was admitted to the hospital after her found her on the floor in her kitchen. Alcohol screen was positive. She was found to have fractured both her left humerus, and her left femur. Her femur was repaired by Dr. Kauffman on 05/14/2019 using a left hip cannulated screw fixation technique. Blood loss was documented as 20 mL and she has had no post-operative complications. Norvasc was added to her medication list in the days following surgery for uncontrolled blood pressure that should continue at home. Iron studies were completed and she was started on iron supplement. She was monitored for one extra day for her kidney function and since starting more blood pressure medications. Her pain has been controlled using oxycodone prior to therapy. - ALLERGIES Allergies/Adverse Reactions: Allergies Allergy/AdvReac Type Severity Reaction Status Date / Time hydrocodone Allergy Nausea Verified 05/12/19 18:29 lisinopril Allergy Nausea Verified 05/12/19 18:29 codeine phosphate * AdvReac Intermediate Itching Verified 05/12/19 18:29 [From Tylenol-Codeine #3] - MEDICATIONS Home Medications: Ambulatory Orders Medication Instructions Recorded Confirmed Omeprazole 20 mg PO BID 07/05/17 05/13/19 Acetaminophen [Tylenol] 650 - 975 mg PO Q4HR PRN #60 tablet 05/17/19 Alendronate [Fosamax] 70 mg PO Q7D #60 tablet 05/17/19 Aspirin [Samaria] 325 mg PO 0800 #30 tablet 05/17/19 Cholecalciferol (Vitamin D3) 2,000 unit PO DAILY #30 tab.chew 05/17/19 [Vitamin D3] Ferrous Gluconate [Iron] 240 mg PO DAILY #30 tablet 05/17/19 Lidocaine Patch 5% [Lidoderm Patch] 1 patch TOP DAILY PRN #30 patch 05/17/19 Metoprolol Succinate [Toprol Xl] 50 mg PO DAILY #30 05/17/19 05/13/19 Vitamin [Trinatal Rx 1] 1 tab PO DAILY #30 tablet 05/17/19 Rosuvastatin Calcium [Crestor] 5 mg PO QPM #30 05/17/19 05/13/19 Senna [Senokot] 8.6 mg PO DAILY #30 tablet 05/17/19 Thiamine [Vitamin B-1] 100 mg PO DAILY #30 tablet 05/17/19 amLODIPine [Norvasc] 10 mg PO DAILY #60 tablet 05/17/19 hydroCHLOROthiazide [Hydrodiuril] 25 mg PO DAILY #30 05/17/19 05/13/19 oxyCODONE [Roxicodone] 5 mg PO Q4HR PRN #21 tablet 05/17/19 polyethylene glycoL 3350 [Miralax] 17 gm PO DAILY #30 packet 05/17/19 - PHYSICAL EXAM AT DISCHARGE General Appearance: positive: No acute distress, Alert Eyes Bilateral: positive: PERRL, No lid inflammation ENT: positive: Pharynx nml, No signs of dehydration Neck: positive: Nml inspection, No JVD, Trachea midline Respiratory: positive: Chest non-tender, No respiratory distress, Other (diminished, bilaterally) Cardiovascular: positive: Regular rate & rhythm, No gallop, Systolic murmur, Decreased pulse(s) Peripheral Pulses: positive: 1+ Abdomen: positive: Non-tender, Nml bowel sounds, Other (rounded, soft) Back: positive: Nml inspection Skin: positive: Color nml, No rash, Warm, Dry Extremities: positive: Pedal edema, Joint swelling (left hip post op swelling, left arm with extensive dark bruising, remains in a sling) Neurologic/Psychiatric: positive: Oriented x3, CN's nml (2-12), Motor nml, Sensation nml, Mood/affect nml, Other (baseline dementia) Reflexes: Bicep (R): 2+, Bicep (L): 0 - LABS Result Diagrams: 05/17/19 05:25 05/17/19 05:25 - QUALITY (Female Hip Fx Only) Was patient sent home on osteoporosis medication?: Yes (D3, calcium supplement, Fosomax should be considered after rehab stay) - FOLLOW UP Follow Up: See PCP within one week of discharge from SNF. - TIME SPENT Time Spent in Discharge (Minutes): 60"
== END 2019-05-17 14:08 | DRG 481 ==
LOC: EDUNIT# → ED 18:14 → MS2 20:17
PROVIDERS: ADMIT Internal Medicine; ATTEND Nurse Practitioner
PROC: 0QS734Z Reposition Left Upper Femur with Internal Fixation Device, Percutaneous Approach (ICD-10-PCS; principal; 2019-05-14 08:00)
DX: M80.052A Age-related osteoporosis with current pathological fracture, left femur, initial encounter for fracture (principal); S42.215A Unspecified nondisplaced fracture of surgical neck of left humerus, initial encounter for closed fracture; N17.9 Acute kidney failure, unspecified; S00.83XA Contusion of other part of head, initial encounter; M80.022A Age-related osteoporosis with current pathological fracture, left humerus, initial encounter for fracture; W18.30XA Fall on same level, unspecified, initial encounter; F10.921 Alcohol use, unspecified with intoxication delirium; R40.2412 Glasgow coma scale score 13-15, at arrival to emergency department; M50.31 Other cervical disc degeneration, high cervical region; I10 Essential (primary) hypertension; Y92.000 Kitchen of unspecified non-institutional (private) residence as the place of occurrence of the external cause; I12.9 Hypertensive chronic kidney disease with stage 1 through stage 4 chronic kidney disease, or unspecified chronic kidney disease; N18.3 Chronic kidney disease, stage 3 (moderate); T44.7X6A Underdosing of beta-adrenoreceptor antagonists, initial encounter; T50.2X6A Underdosing of carbonic-anhydrase inhibitors, benzothiadiazides and other diuretics, initial encounter; Z91.128 Patient's intentional underdosing of medication regimen for other reason; F10.229 Alcohol dependence with intoxication, unspecified; E78.5 Hyperlipidemia, unspecified; D50.9 Iron deficiency anemia, unspecified; E86.0 Dehydration; K21.9 Gastro-esophageal reflux disease without esophagitis; I73.9 Peripheral vascular disease, unspecified; F03.90 Unspecified dementia, unspecified severity, without behavioral disturbance, psychotic disturbance, mood disturbance, and anxiety; Y90.7 Blood alcohol level of 200-239 mg/100 ml; Z66 Do not resuscitate; Z96.641 Presence of right artificial hip joint; Z91.81 History of falling; Z79.899 Other long term (current) drug therapy; Z95.820 Peripheral vascular angioplasty status with implants and grafts; Z98.1 Arthrodesis status; Z87.891 Personal history of nicotine dependence; Z79.82 Long term (current) use of aspirin; Z87.19 Personal history of other diseases of the digestive system
CPT/HCPCS: 36415; 51702; 70450; 71045; 72125; 73030; 73502; 80048; 80053; 81001; 82607; 82728; 83540; 83615; 83690; 83735; 84100; 84466; 85014; 85018; 85025; 85045; 85610; 87086; 93005; 93306; 97162; 97166; 97530; 99285; A9270; J0131; J1650; J2795; J3411; J7040; J7120; 80320

== ENCOUNTER 2019-05-21 14:50 | Outpatient (CLI) | payer MEDICARE, OTHER ==
[2019-05-21 18:51] LABS: ALBUMIN/GLOBULIN RATIO 0.9 (1.0-2.2); BILIRUBIN,TOTAL 0.6 mg/dL (0.2-1.0); CALCIUM 8.4 mg/dL (8.5-10.3); CREATININE 1.1 mg/dL (0.4-1.0); TOTAL PROTEIN 6.2 g/dL (6.7-8.2)
== END 2019-05-21 23:59 | disposition home or self-care (01) ==
LOC: LAB.R 14:50
DX: E78.5 Hyperlipidemia, unspecified (principal); N99.0 Postprocedural (acute) (chronic) kidney failure
CPT/HCPCS: 80053; 85025

== ENCOUNTER 2019-05-22 06:00 | Outpatient (CLI) | payer MEDICARE, OTHER ==
[2019-05-22 07:33] LABS: BASOPHILS # (AUTO) 0.1 10^3/uL (0.0-0.1); BASOPHILS % (AUTO) 0.6 %; EOSINOPHILS # (AUTO) 0.3 10^3/uL (0.0-0.7); EOSINOPHILS % (AUTO) 4.1 %; HGB - HEMOGLOBIN 10.2 g/dL (12.0-16.0); LYMPHOCYTES # (AUTO) 1.3 10^3/uL (1.5-3.5); MEAN CORPUSCULAR HGB CONC 31.1 g/dL (32.0-36.0); MEAN CORPUSCULAR VOLUME 96.5 fL (81.0-99.0); MEAN PLATELET VOLUME 9.7 fL (7.9-10.8); MONOCYTES # (AUTO) 0.8 10^3/uL (0.0-1.0); MONOCYTES % (AUTO) 9.6 %; NEUTROPHILS # (AUTO) 5.7 10^3/uL (1.5-6.6); NEUTROPHILS % (AUTO) 67.8 %; PLT - PLATELET COUNT 594 10^3/uL (130-450); WHITE BLOOD COUNT 8.4 x10^3/uL (4.8-10.8)
[2019-05-22 08:02] LABS: ALBUMIN 3.3 g/dL (3.2-5.5); ALBUMIN/GLOBULIN RATIO 0.9 (1.0-2.2); BILIRUBIN,TOTAL 1.1 mg/dL (0.2-1.0); CALCIUM 8.7 mg/dL (8.5-10.3); CREATININE 1.3 mg/dL (0.4-1.0)
== END 2019-05-22 23:59 | disposition home or self-care (01) ==
LOC: LAB.R 06:00
PROVIDERS: ATTEND Family Medicine
DX: E78.5 Hyperlipidemia, unspecified (principal); N99.0 Postprocedural (acute) (chronic) kidney failure
CPT/HCPCS: 80053; 85025

== ENCOUNTER 2019-07-23 09:04 | Outpatient (CLI) | payer MEDICARE ==
--- NOTE | 2019-07-23 10:20 | XRAY Report ---
Reason: FRACTURE OF UNSPEC PART OF NECK FEMUR Procedure Date: 07/23/2019 Accession Number: [id number] / [id number] Procedure: XR - Hip w/Pelvis 2-3V LT CPT Code: Final Report FULL RESULT: EXAM: LEFT HIP RADIOGRAPHY EXAM DATE: 07/23/2019 09:23 AM. CLINICAL HISTORY: Fracture of unspecified part of the left femoral neck. COMPARISON: HIP 2 VIEW LT 05/28/2019 12:30 PM. TECHNIQUE: 2 views. FINDINGS: Bones: As before, there is internal fixation changes involving the proximal left femur with 3 fixation screws again seen in place. Left femoral neck fracture deformity is in near anatomic alignment. No hardware failure is identified. Joints: Right hip arthroplasty changes are present. Mild left hip DJD changes are seen. Soft Tissues: Normal. No soft tissue swelling. IMPRESSION: Stable postoperative exam. No hardware failure demonstrated. RADIA
== END 2019-07-23 09:05 | disposition home or self-care (01) ==
LOC: DI 09:04
PROVIDERS: ATTEND Orthopaedic Surgery Sports Medicine
DX: S72.002D Fracture of unspecified part of neck of left femur, subsequent encounter for closed fracture with routine healing (principal); M16.12 Unilateral primary osteoarthritis, left hip; Z96.641 Presence of right artificial hip joint

== ENCOUNTER 2019-08-19 13:57 | Outpatient (CLI) | payer MEDICARE ==
--- NOTE | 2019-08-19 17:41 | XRAY Report ---
Reason: LEFT HIP PAIN Procedure Date: 08/19/2019 Accession Number: [id number] / [id number] Procedure: WCP - Hip 1 View LT CPT Code: Final Report FULL RESULT: EXAM: LEFT HIP RADIOGRAPHY EXAM DATE: 08/19/2019 01:57 PM. CLINICAL HISTORY: LEFT HIP PAIN. Pain for 3 weeks. COMPARISON: HIP W/PELVIS 2-3V LT 07/23/2019 9:12 AM HIP 2 VIEW LT 05/28/2019 12:30 PM HIP W/PELVIS 2-3V LT 05/12/2019 7:27 PM. TECHNIQUE: 3 views. FINDINGS: Bones: 3 lag screws span the moderately impacted left subcapital femoral neck fracture, as before. The tip of 1 of the screws extends to the articular surface as seen on the frog-leg lateral view. No evidence of hardware failure or migration. No new fracture is identified. As before. Left hip joint space is preserved. Minimal chondrocalcinosis of the pubic symphysis. Sacroiliac joints are unremarkable. Soft Tissues: Minimal atherosclerotic calcification. IMPRESSION: Screw-fixation of the moderately impacted subcapital left femoral neck fracture, as before. The screws extends to the articular surface of the femoral head. No new findings are identified. RADIA
== END 2019-08-19 23:59 | disposition home or self-care (01) ==
LOC: DI.WCP 13:57
PROVIDERS: ATTEND Family Medicine
DX: M25.552 Pain in left hip (principal)

== ENCOUNTER 2019-09-07 11:29 | Outpatient (CLI) | payer MEDICARE ==
[2019-09-07 11:47] LABS: BASOPHILS # (AUTO) 0.1 10^3/uL (0.0-0.1); BASOPHILS % (AUTO) 0.8 %; EOSINOPHILS # (AUTO) 0.2 10^3/uL (0.0-0.7); EOSINOPHILS % (AUTO) 1.9 %; HGB - HEMOGLOBIN 11.7 g/dL (12.0-16.0); LYMPHOCYTES # (AUTO) 2.2 10^3/uL (1.5-3.5); LYMPHOCYTES % (AUTO) 27.9 %; MEAN CORPUSCULAR HEMOGLOBIN 29.7 pg (27.0-31.0); MEAN CORPUSCULAR HGB CONC 31.3 g/dL (32.0-36.0); MEAN CORPUSCULAR VOLUME 94.9 fL (81.0-99.0); MONOCYTES # (AUTO) 0.6 10^3/uL (0.0-1.0); NEUTROPHILS # (AUTO) 4.7 10^3/uL (1.5-6.6); NEUTROPHILS % (AUTO) 60.9 %; PLT - PLATELET COUNT 347 10^3/uL (130-450); RED BLOOD COUNT 3.94 10^6/uL (4.20-5.40); RED CELL DISTRIBUTION WIDTH 14.6 % (12.0-15.0); WHITE BLOOD COUNT 7.7 x10^3/uL (4.8-10.8)
== END 2019-09-07 11:30 | disposition home or self-care (01) ==
LOC: LAB 11:29
PROVIDERS: ATTEND Orthopaedic Surgery Sports Medicine
DX: M25.552 Pain in left hip (principal)
CPT/HCPCS: 36415; 85025; 85651; 86140

== ENCOUNTER 2019-09-16 15:19 | Outpatient (CLI) | payer MEDICARE | END 2019-09-16 15:20 | disposition critical access hospital (66) | LOC: EMS 15:19 | PROVIDERS: ATTEND Surgery | DX: R41.82 Altered mental status, unspecified (principal); R47.81 Slurred speech; R03.0 Elevated blood-pressure reading, without diagnosis of hypertension | CPT/HCPCS: A0425; A0429 ==

== ENCOUNTER 2019-09-16 15:32 | Emergency (ER) | payer MEDICARE ==
--- NOTE | 2019-09-16 15:37 | ED Physician Documentation ---
PD HPI FOCAL NEURO - Stated complaint Stated Complaint: POSS STROKE - History obtained from History obtained from: Patient, EMS - History of Present Illness Timing - onset: Today (78-year-old woman with history of alcoholism, I guess her left home around noon and then was found to be altered with slurred speech later. Blood sugar was unremarkable. She admits to drinking alcohol heavily today "I was a bad girl.") Review of Systems Unable to obtain: Intoxicated PD PAST MEDICAL HISTORY - Past Medical History Cardiovascular: None, Hypertension, Peripheral Vascular Disease, Other Respiratory: None Neuro: None Endocrine/Autoimmune: None GI: GERD, GI bleed : Renal insuffiency HEENT: None Psych: None Musculoskeletal: Osteoarthritis, Rheumatoid arthritis, Gout Derm: Psoriasis - Past Surgical History Past Surgical History: Yes General: Colonoscopy, EGD Ortho: Hip replacement, Other Cardiovascular: Vascular surgery, Angioplasty - Present Medications Home Medications: Ambulatory Orders Medication Instructions Recorded Confirmed Omeprazole 20 mg PO BID 07/05/17 05/13/19 Acetaminophen [Tylenol] 650 - 975 mg PO Q4HR PRN #60 tablet 05/17/19 Alendronate [Fosamax] 70 mg PO Q7D #60 tablet 05/17/19 Aspirin [Samaria] 325 mg PO 0800 #30 tablet 05/17/19 Cholecalciferol (Vitamin D3) 2,000 unit PO DAILY #30 tab.chew 05/17/19 [Vitamin D3] Ferrous Gluconate [Iron] 240 mg PO DAILY #30 tablet 05/17/19 Lidocaine Patch 5% [Lidoderm Patch] 1 patch TOP DAILY PRN #30 patch 05/17/19 Metoprolol Succinate [Toprol Xl] 50 mg PO DAILY #30 05/17/19 05/13/19 Vitamin [Trinatal Rx 1] 1 tab PO DAILY #30 tablet 05/17/19 Rosuvastatin Calcium [Crestor] 5 mg PO QPM #30 05/17/19 05/13/19 Senna [Senokot] 8.6 mg PO DAILY #30 tablet 05/17/19 Thiamine [Vitamin B-1] 100 mg PO DAILY #30 tablet 05/17/19 amLODIPine [Norvasc] 10 mg PO DAILY #60 tablet 05/17/19 hydroCHLOROthiazide [Hydrodiuril] 25 mg PO DAILY #30 01/26/20 01/22/20 oxyCODONE [Roxicodone] 5 mg PO Q4HR PRN #21 tablet 05/17/19 polyethylene glycoL 3350 [Miralax] 17 gm PO DAILY #30 packet 05/17/19 - Allergies Allergies/Adverse Reactions: Allergies Allergy/AdvReac Type Severity Reaction Status Date / Time hydrocodone Allergy Nausea Verified 05/12/19 18:29 lisinopril Allergy Nausea Verified 05/12/19 18:29 codeine phosphate * AdvReac Intermediate Itching Verified 05/12/19 18:29 [From Tylenol-Codeine #3] - Social History Does the pt smoke?: Yes Smoking Status: Former smoker (quit 2015) Does the pt drink ETOH?: Yes Does the pt have substance abuse?: No - Immunizations Immunizations are current?: Yes - POLST Patient has POLST: No POLST Status: DNR PD ED PE NORMAL - Vitals Vital signs reviewed: Yes - General General: No acute distress, Other (She is alert and oriented to person but says it is October 1939.) - HEENT HEENT: PERRL, EOMI (With a lot of nystagmus) - Neck Neck: Supple, no meningeal sign, No bony TTP - Cardiac Cardiac: RRR, No murmur - Respiratory Respiratory: No respiratory distress, Clear bilaterally - Abdomen Abdomen: Normal bowel sounds, Soft, Non tender - Back Back: No CVA TTP, No spinal TTP - Derm Derm: Normal color, Warm and dry - Neuro Neuro: No motor deficit, No sensory deficit, Other (Moves all extremities excellently. Does not respond to threat on either side with straight gaze.) Eye Opening: Spontaneous Motor: Obeys Commands Results - Vitals Vitals: Vital Signs - 24 hr 09/16/19 09/16/19 09/16/19 15:59 16:13 16:41 Temperature 36.3 C L 36.3 C L Heart Rate 72 78 74 Respiratory 18 18 18 Rate Blood Pressure 199/75 H 186/105 H 204/76 H O2 Saturation 94 96 96 09/16/19 17:22 Temperature Heart Rate 71 Respiratory 14 Rate Blood Pressure 178/72 H O2 Saturation 95 Oxygen O2 Source [] Room air O2 Source Room air - EKG (time done) 1549 Rate: Rate (enter#) (72) Rhythm: NSR [place]: Normal Intervals: Other (borderline IVCD) Ischemia: Normal ST segments - Labs Labs: Laboratory Tests 09/16/19 09/16/19 09/16/19 16:26 16:26 16:50 WBC 8.5 RBC 3.63 L Hgb 10.9 L Hct 34.9 L MCV 96.1 MCH 30.0 MCHC 31.2 L RDW 14.7 Plt Count 302 MPV 10.0 Neut # (Auto) 4.4 Lymph # (Auto) 3.1 [place] # (Auto) 0.8 Eos # (Auto) 0.1 Baso # (Auto) 0.1 Absolute Nucleated RBC 0.00 Nucleated RBC % 0.0 Sodium 139 Potassium 3.9 Chloride 99 L Carbon Dioxide 28 Anion Gap 12.0 BUN 44 H Creatinine 1.3 H Estimated GFR (MDRD) 39 L Glucose 95 Calcium 9.6 Total Bilirubin 0.4 AST 29 ALT 15 Alkaline Phosphatase 77 Total Protein 7.5 Albumin 3.9 Globulin 3.6 Albumin/Globulin Ratio 1.1 Lipase 93 H Urine Color YELLOW Urine Clarity CLEAR Urine pH 6.5 Ur Specific [place] <=1.005 Urine Protein 30 H Urine Glucose (UA) NEGATIVE Urine Ketones NEGATIVE Urine Occult Blood NEGATIVE Urine Nitrite NEGATIVE Urine Bilirubin NEGATIVE Urine Urobilinogen 0.2 (NORMAL) Ur Leukocyte Esterase NEGATIVE Urine RBC None Seen Urine WBC 0-3 Ur Squamous Epith Cells RARE Squamous Urine Bacteria None Seen Ur Microscopic Review INDICATED Urine Culture Comments NOT INDICATED Urine Opiates Screen NEGATIVE Ur Oxycodone Screen POSITIVE H Urine Methadone Screen NEGATIVE Ur Propoxyphene Screen NEGATIVE Ur Barbiturates Screen NEGATIVE Ur Tricyclics Screen NEGATIVE Ur Phencyclidine Scrn NEGATIVE Ur Amphetamine Screen NEGATIVE U Methamphetamines Scrn NEGATIVE U Benzodiazepines Scrn NEGATIVE Urine Cocaine Screen NEGATIVE U Cannabinoids Screen POSITIVE H Ethyl Alcohol 284.2 - Rads (name of study) CT Head Radiology: EMP read contemporaneously (NAD) PD MEDICAL DECISION MAKING - ED course ED course: 78-year-old woman brought in as a stroke code, but history and physical are more consistent with alcohol intoxication. She was allowed to sober up in the department and her supportive sober will come pick her up. There is no evidence of stroke. Departure - Departure Disposition: 01 Home, Self Care Clinical Impression: Stroke-like symptoms Alcohol intoxication Qualifiers: Complication of substance-induced condition: uncomplicated Qualified Code(s): F10.920 - Alcohol use, unspecified with intoxication, uncomplicated Condition: Good Record reviewed to determine appropriate education?: Yes Instructions: ED Alcohol Intoxication Comments: You were seen today for strokelike symptoms, however these were found to be due to drinking too much alcohol. Please refrain from using alcohol. Return for new or worsening symptoms. There is no evidence of stroke. Follow-up with your doctor, next available appointment.
--- NOTE | 2019-09-16 15:53 | CT Report ---
Reason: altered Procedure Date: 09/16/2019 Accession Number: [id number] / [id number] Procedure: CT - HEAD WO CPT Code: Final Report FULL RESULT: EXAM: CT HEAD EXAM DATE: 09/16/2019 03:38 PM. CLINICAL HISTORY: AMS. HBD. COMPARISON: 05/12/2019. TECHNIQUE: Multiaxial CT images were obtained from the foramen magnum to the vertex. Reformats: Sagittal and coronal. IV contrast: None. In accordance with CT protocol optimization, one or more of the following dose reduction techniques were utilized for this exam: automated exposure control, adjustment of mA and/or KV based on patient size, or use of iterative reconstructive technique. FINDINGS: Parenchyma: Evidence of probable age-related diffuse parenchymal volume loss again noted and small amount of low attenuation in the periventricular white matter. No acute hemorrhage, mass-effect, or midline shift. Werner-white differentiation appears maintained. Extraaxial Spaces: No acute extra-axial collection. Ventricles: Appropriate in size and configuration. Sinuses and Orbits: Imaged paranasal sinuses, orbits, and mastoids show no significant abnormality. Bones: No depressed skull fracture. Other: Vascular calcification noted. IMPRESSION: No acute intracranial abnormality identified. No significant change. RADIA
[2019-09-16 16:36] LABS: BASOPHILS # (AUTO) 0.1 10^3/uL (0.0-0.1); BASOPHILS % (AUTO) 0.6 %; EOSINOPHILS # (AUTO) 0.1 10^3/uL (0.0-0.7); EOSINOPHILS % (AUTO) 1.7 %; HGB - HEMOGLOBIN 10.9 g/dL (12.0-16.0); LYMPHOCYTES # (AUTO) 3.1 10^3/uL (1.5-3.5); LYMPHOCYTES % (AUTO) 36.1 %; MEAN CORPUSCULAR HGB CONC 31.2 g/dL (32.0-36.0); MEAN CORPUSCULAR VOLUME 96.1 fL (81.0-99.0); MONOCYTES # (AUTO) 0.8 10^3/uL (0.0-1.0); MONOCYTES % (AUTO) 9.2 %; NEUTROPHILS # (AUTO) 4.4 10^3/uL (1.5-6.6); PLT - PLATELET COUNT 302 10^3/uL (130-450); RED BLOOD COUNT 3.63 10^6/uL (4.20-5.40); RED CELL DISTRIBUTION WIDTH 14.7 % (12.0-15.0); WHITE BLOOD COUNT 8.5 x10^3/uL (4.8-10.8)
[2019-09-16 16:46] LABS: ALBUMIN 3.9 g/dL (3.2-5.5); ALBUMIN/GLOBULIN RATIO 1.1 (1.0-2.2); BILIRUBIN,TOTAL 0.4 mg/dL (0.2-1.0); CALCIUM 9.6 mg/dL (8.5-10.3); CREATININE 1.3 mg/dL (0.4-1.0); TOTAL PROTEIN 7.5 g/dL (6.7-8.2)
[2019-09-16 16:55] LABS: MUDS CUTOFF CONCENTRATIONS CUTOFF CONC BELOW:
[2019-09-16 16:57] LABS: BILIRUBIN,URINE NEGATIVE (NEGATIVE); GLUCOSE, URINE (UA) NEGATIVE (NEGATIVE); KETONES,URINE (UA) NEGATIVE (NEGATIVE); LEUKOCYTE ESTERASE, URINE NEGATIVE (NEGATIVE); NITRITE,URINE NEGATIVE (NEGATIVE); OCCULT BLOOD,URINE NEGATIVE (NEGATIVE); PH,URINE 6.5 PH (5.0-7.5); PROTEIN,URINE 30 mg/dL (NEGATIVE); UROBILINOGEN,URINE 0.2 (NORMAL) E.U./dL (NORMAL)
[2019-09-16 17:04] LABS: CLARITY,URINE CLEAR (CLEAR)
[2019-09-16 17:06] LABS: BACTERIA,URINE None Seen /HPF (None Seen); RBC,URINE None Seen /HPF (0-5); SQUAMOUS EPITHELIAL CELL,UR RARE Squamous (<= Few)
[2019-09-16 17:08] LABS: AMPHETAMINE SCREEN,URINE NEGATIVE (NEGATIVE); BENZODIAZEPINES SCREEN, URINE NEGATIVE (NEGATIVE); COCAINE SCREEN URINE NEGATIVE (NEGATIVE); METHADONE SCREEN, URINE NEGATIVE (NEGATIVE); METHAMPHETAMINES SCREEN, URINE NEGATIVE (NEGATIVE); OPIATE SCREEN, URINE NEGATIVE (NEGATIVE); OXYCODONE SCREEN, URINE POSITIVE (NEGATIVE); PROPOXYPHENE SCREEN, URINE NEGATIVE (NEGATIVE); TRICYCLIC ANTIDEPRESSANT,URINE NEGATIVE (NEGATIVE)
[2019-09-16 17:31] VITALS: BP 122/109
== END 2019-09-16 17:51 | disposition home or self-care (01) ==
LOC: EDBD → EDUNIT# → ED 15:32
DX: F10.229 Alcohol dependence with intoxication, unspecified (principal); I10 Essential (primary) hypertension; I73.9 Peripheral vascular disease, unspecified; Z79.82 Long term (current) use of aspirin; Z87.891 Personal history of nicotine dependence; Z66 Do not resuscitate
CPT/HCPCS: 36415; 70450; 80053; 80306; 80320; 81001; 81003; 83690; 85025; 87086; 93005; 99281; 99284

== ENCOUNTER 2020-03-04 09:30 | Emergency (ER) | payer MEDICARE ==
--- NOTE | 2020-03-04 09:46 | ED Physician Documentation ---
PD HPI ABD PAIN - Stated complaint Stated Complaint: STOMACH PX - Chief complaint Chief Complaint: Abd Pain - History obtained from History obtained from: Patient - History of Present Illness Timing - onset: How many months ago (1) Timing - duration: Months (1) Timing - details: Abrupt onset (onset of nausea and diarrhea a month ago after eating bad tasting soy sauce at home. Then with some diarrhea that has persisted. No vomiting beyond first day. persists loose to watery diarrhea. The past few days with increased stomach cramps and pains epigastric area, worse with eating.) Quality: Cramping, Aching Location: Epigastric, Other (mid abdomen) Radiation: Chest (lower esophagus). No: Lower back Improved by: No: Eating, BM Worsened by: Eating Associated symptoms: Nausea, Diarrhea. No: Fever, Vomiting, Melena, Hematochezia, Dysuria Similar symptoms before: Has not had sx before Recently seen: Not recently seen Review of Systems Constitutional: denies: Fever, Chills Nose: denies: Rhinorrhea / runny nose, Congestion Throat: denies: Sore throat Respiratory: denies: Cough GI: reports: Abdominal Pain, Nausea, Diarrhea. denies: Vomiting, Bloody / black stool : denies: Dysuria, Frequency Skin: denies: Rash, Lesions Neurologic: reports: Generalized weakness. 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 : Renal insuffiency HEENT: None Psych: None Musculoskeletal: Osteoarthritis, Rheumatoid arthritis, Gout Derm: Psoriasis - Past Surgical History Past Surgical History: Yes General: Colonoscopy, EGD Ortho: Hip replacement, Other Cardiovascular: Vascular surgery, Angioplasty - Present Medications Home Medications: Ambulatory Orders Medication Instructions Recorded Confirmed Omeprazole 20 mg PO BID 07/05/17 05/13/19 Acetaminophen [Tylenol] 650 - 975 mg PO Q4HR PRN #60 tablet 05/17/19 Alendronate [Fosamax] 70 mg PO Q7D #60 tablet 05/17/19 Aspirin [Samaria] 325 mg PO 0800 #30 tablet 05/17/19 Cholecalciferol (Vitamin D3) 2,000 unit PO DAILY #30 tab.chew 05/17/19 [Vitamin D3] Ferrous Gluconate [Iron] 240 mg PO DAILY #30 tablet 05/17/19 Lidocaine Patch 5% [Lidoderm Patch] 1 patch TOP DAILY PRN #30 patch 05/17/19 Metoprolol Succinate [Toprol Xl] 50 mg PO DAILY #30 05/17/19 05/13/19 Vitamin [Trinatal Rx 1] 1 tab PO DAILY #30 tablet 05/17/19 Rosuvastatin Calcium [Crestor] 5 mg PO QPM #30 05/17/19 05/13/19 Senna [Senokot] 8.6 mg PO DAILY #30 tablet 05/17/19 Thiamine [Vitamin B-1] 100 mg PO DAILY #30 tablet 05/17/19 amLODIPine [Norvasc] 10 mg PO DAILY #60 tablet 05/17/19 hydroCHLOROthiazide [Hydrodiuril] 25 mg PO DAILY #30 05/17/19 05/13/19 oxyCODONE [Roxicodone] 5 mg PO Q4HR PRN #21 tablet 05/17/19 polyethylene glycoL 3350 [Miralax] 17 gm PO DAILY #30 packet 05/17/19 Diphenoxylate/Atropine [Lomotil] 1 each PO QID PRN #16 tablet 03/04/20 L.acid/L.casei/B.bif/B.yulia/Fos 1 each PO BID #20 capsule 03/04/20 [Probiotic Blend Capsule] Ondansetron Odt [Zofran] 4 mg TL Q6H PRN #20 tablet 03/04/20 oxyCODONE [Roxicodone] 5 mg PO TID PRN #15 tablet 03/04/20 - Allergies Allergies/Adverse Reactions: Allergies Allergy/AdvReac Type Severity Reaction Status Date / Time hydrocodone Allergy Nausea Verified 03/04/20 09:31 lisinopril Allergy Nausea Verified 03/04/20 09:31 codeine phosphate * AdvReac Intermediate Itching Verified 03/04/20 09:31 [From Tylenol-Codeine #3] - Social History Does the pt smoke?: Yes Smoking Status: Current every day smoker Does the pt drink ETOH?: Yes Does the pt have substance abuse?: No - Immunizations Immunizations are current?: Yes - POLST Patient has POLST: No POLST Status: DNR PD ED PE NORMAL - Vitals Vital signs reviewed: Yes - General General: Alert and oriented X 3, Well developed/nourished - HEENT HEENT: Pharynx benign - Neck Neck: Supple, no meningeal sign, No adenopathy - Cardiac Cardiac: RRR, No murmur - Respiratory Respiratory: Clear bilaterally - Abdomen Abdomen: Normal bowel sounds, Soft, Non distended, No organomegaly, Other (some tender epigastric area) - Rectal Rectal: Deferred - Back Back: No CVA TTP - Derm Derm: Normal color, Warm and dry - Extremities Extremities: No deformity, No tenderness to palpate, Normal ROM s pain, No edema, No calf tenderness / cord Results - Vitals Vitals: Oxygen O2 Source [With Activity] Room air O2 Source Room air - Labs Labs: Microbiology 03/04/20 10:20 Urine Culture - Preliminary Urine,Random Laboratory Tests 03/04/20 03/04/20 03/04/20 10:20 10:20 10:20 WBC 8.3 RBC 3.96 L Hgb 10.0 L Hct 33.1 L MCV 83.6 MCH 25.3 L MCHC 30.2 L RDW 17.2 H Plt Count 352 MPV 10.4 Neut # (Auto) 5.9 Lymph # (Auto) 1.5 [place] # (Auto) 0.7 Eos # (Auto) 0.1 Baso # (Auto) 0.0 Absolute Nucleated RBC 0.00 Nucleated RBC % 0.0 Sodium 140 Potassium 4.3 Chloride 103 Carbon Dioxide 24 Anion Gap 13.0 BUN 64 H Creatinine 2.1 H Estimated GFR (MDRD) 23 L Glucose 95 Calcium 9.2 Magnesium 1.7 Total Bilirubin 0.8 AST 21 ALT 11 Alkaline Phosphatase 56 Total Protein 7.2 Albumin 3.7 Globulin 3.5 Albumin/Globulin Ratio 1.1 Lipase 83 H Urine Color YELLOW Urine Clarity CLEAR Urine pH 5.5 Ur Specific [place] 1.020 Urine Protein TRACE Urine Glucose (UA) NEGATIVE Urine Ketones NEGATIVE Urine Occult Blood NEGATIVE Urine Nitrite NEGATIVE Urine Bilirubin NEGATIVE Urine Urobilinogen 0.2 (NORMAL) Ur Leukocyte Esterase TRACE H Urine RBC None Seen Urine WBC 6-10 H Ur Squamous Epith Cells FEW Squamous Urine Bacteria Rare Ur Microscopic Review INDICATED Urine Culture Comments INDICATED - Rads (name of study) abd CT Radiology: Prelim report reviewed (nonspecific bowel loops but not obstruction. No focal findings. ), See rad report PD MEDICAL DECISION MAKING - ED course Complexity details: re-evaluated patient (she did not need to have BM while here. Sent with stool collection kit. To bring it back for culture, C diff, and H pylori. ), considered differential (has had cramps and diarrhea for a month after eating bad tasting soysauce at home. COnsdier bacterial enteritis. Will need stool sample for testing.), d/w patient Departure - Departure Disposition: Home, Self Care Clinical Impression: Abdominal pain Qualifiers: Abdominal location: upper abdomen, unspecified Qualified Code(s): R10.10 - Upper abdominal pain, unspecified Diarrhea Qualifiers: Diarrhea type: presumed infectious Qualified Code(s): R19.7 - Diarrhea, unspecified Condition: Stable Record reviewed to determine appropriate education?: Yes Follow-Up: Arianna Smith DO [Primary Care Provider] - Prescriptions: Diphenoxylate/Atropine [Lomotil] 1 each PO QID PRN #16 tablet PRN Reason: Diarrhea L.acid/L.casei/B.bif/B.yulia/Fos [Probiotic Blend Capsule] 1 each PO BID #20 capsule oxyCODONE [Roxicodone] 5 mg PO TID PRN #15 tablet PRN Reason: Pain Ondansetron Odt [Zofran] 4 mg TL Q6H PRN #20 tablet PRN Reason: Nausea / Vomiting Comments: Bishop food but try to have some carbohydrates and starches as well as simple proteins. Avoid spicy and fatty foods for now. Your gallbladder appears normal on ultrasound. No other acute abnormality seen on CT scan. Still presume there may be some infectious diarrhea because for the pains. Bring stool sample back to the lab for testing. Do not take any antidiarrhea medicine until you obtain a sample. Use ondansetron if needed for nausea and Imodium for diarrhea as well as a probiotic twice a day. Use these as prescribed. Add Tylenol or oxycodone if needed for abdominal pain. Do not take any aspirin or anti-inflammatories. Continue your omeprazole once or twice daily. Follow-up if not improving well over the next several days. Follow-up with your primary care about the stool culture results as well. They should result a day or 2 after your bring it to the lab. Discharge Date/Time: 03/04/20 14:31
[2020-03-04] MEDS ORDERED: SODIUM CHLORIDE 0.9% 1,000 ML IV STA (10:13)
[2020-03-04] MEDS ORDERED: ONDANSETRON 4 MG/2 ML VIAL IVP STA (10:13)
[2020-03-04] MEDS ORDERED: MORPHINE 2 MG/ML CARPUJECT IVP STA (10:13)
[2020-03-04 10:32] LABS: BASOPHILS % (AUTO) 0.5 %; EOSINOPHILS # (AUTO) 0.1 10^3/uL (0.0-0.7); EOSINOPHILS % (AUTO) 1.2 %; LYMPHOCYTES # (AUTO) 1.5 10^3/uL (1.5-3.5); LYMPHOCYTES % (AUTO) 18.1 %; MEAN CORPUSCULAR HEMOGLOBIN 25.3 pg (27.0-31.0); MEAN CORPUSCULAR HGB CONC 30.2 g/dL (32.0-36.0); MEAN CORPUSCULAR VOLUME 83.6 fL (81.0-99.0); MEAN PLATELET VOLUME 10.4 fL (7.9-10.8); MONOCYTES # (AUTO) 0.7 10^3/uL (0.0-1.0); MONOCYTES % (AUTO) 8.7 %; NEUTROPHILS # (AUTO) 5.9 10^3/uL (1.5-6.6); NEUTROPHILS % (AUTO) 71.1 %; PLT - PLATELET COUNT 352 10^3/uL (130-450); RED BLOOD COUNT 3.96 10^6/uL (4.20-5.40); RED CELL DISTRIBUTION WIDTH 17.2 % (12.0-15.0); WHITE BLOOD COUNT 8.3 x10^3/uL (4.8-10.8)
[2020-03-04 10:33] LABS: BILIRUBIN,URINE NEGATIVE (NEGATIVE); GLUCOSE, URINE (UA) NEGATIVE (NEGATIVE); KETONES,URINE (UA) NEGATIVE (NEGATIVE); LEUKOCYTE ESTERASE, URINE TRACE (NEGATIVE); NITRITE,URINE NEGATIVE (NEGATIVE); OCCULT BLOOD,URINE NEGATIVE (NEGATIVE); PH,URINE 5.5 PH (5.0-7.5); PROTEIN,URINE TRACE mg/dL (NEGATIVE); UROBILINOGEN,URINE 0.2 (NORMAL) E.U./dL (NORMAL)
[2020-03-04 10:35] LABS: CLARITY,URINE CLEAR (CLEAR)
[2020-03-04 10:38] LABS: BACTERIA,URINE Rare /HPF (None Seen); RBC,URINE None Seen /HPF (0-5); SQUAMOUS EPITHELIAL CELL,UR FEW Squamous (<= Few)
[2020-03-04 10:44] LABS: ALBUMIN 3.7 g/dL (3.2-5.5); ALBUMIN/GLOBULIN RATIO 1.1 (1.0-2.2); BILIRUBIN,TOTAL 0.8 mg/dL (0.2-1.0); CALCIUM 9.2 mg/dL (8.5-10.3); CREATININE 2.1 mg/dL (0.4-1.0); MAGNESIUM 1.7 mg/dL (1.7-2.8); TOTAL PROTEIN 7.2 g/dL (6.7-8.2)
--- NOTE | 2020-03-04 12:35 | Ultrasound Report ---
PROCEDURE: Abdomen Limited INDICATIONS: upper abd/RUQ pain with eating for a month TECHNIQUE: Real-time focused scanning was performed of the abdomen, with image documentation. COMPARISON: None FINDINGS: Visualized portions of the proximal pancreas are within normal limits. Duct is normal in caliber. Normal caliber intrahepatic and extrahepatic biliary ducts. The common duct measures approximately 3 mm at the josé luis hepatis. The gallbladder is normally distended without wall thickening or pericholecystic fluid. There is a ti ny mobile gallstone near the gallbladder neck measuring 4 mm. Normal size of the liver. Hyperechoic posterior right hepatic lobe mass corresponds to a hemangioma o n abdominal MRI obtained 04/08/2017. No evidence of solid liver mass. Abnormally echogenic right kidney with multiple punctate nonobstructing renal calculi. No hydronephro sis. IMPRESSION: Cholelithiasis without findings of cholecystitis. Increased right renal echogenicity which suggests possible medical renal disease. Multiple nonobstructing right renal calculi. Reviewed by: Abisai Montejo MD on 03/04/2020 12:33 PM PST Approved by: Abisai Montejo MD on 03/04/2020 12:33 PM PST Station ID: [id number]
--- NOTE | 2020-03-04 13:33 | CT Report ---
PROCEDURE: Abdomen/Pelvis WO INDICATIONS: upper abd pain; low GFR TECHNIQUE: Noncontrast 5 mm thick sections acquired from the diaphragms to the symphysis. 5 mm coronal and sagi ttal reformats were then performed. For radiation dose reduction, the following was used: automated exposure control, adjustment of mA and/or kV according to patient size. COMPARISON: CT abdomen pelvis 04/02/2007, ultrasound abdomen 03/04/2020 FINDINGS: Image quality: There is limited visualization of the pelvis secondary to artifact from bilateral hip arthroplasty. ABDOMEN: Lung bases: Lung bases are clear. Heart size is normal. Solid organs: Liver and spleen are normal in size. Gallbladder is unremarkable Pancreas is normal in contours. No adrenal nodules. Kidneys are normal in size, without hydronephrosis. Nonobstructin g bilateral renal calculi are unchanged. Left renal cyst is noted. Peritoneum and bowel: No free fluid or air. Mild prominence of scattered small bowel loops. Nodes and vessels: No retroperitoneal or mesenteric adenopathy by size criteria. Aorta and inferior vena cava are normal in caliber. Miscellaneous: No ventral hernias. PELVIS: Genitourinary: Bladder wall thickness is normal. Miscellaneous: No inguinal hernias or adenopathy. Bones: No suspicious bony lesions. No vertebral body compression fractures. IMPRESSION: 1. Mild scattered prominence of small bowel loops, overall nonspecific. Ileus cannot be excluded. 2. Mild scattered stool. 3. Unchanged nonobstructing bilateral renal calculi. 4. Limited visualization of the pelvis secondary to artifact from bilateral hip arthroplasty. Reviewed by: Cara Hanley MD on 03/04/2020 1:32 PM PST Approved by: Cara Hanley MD on 03/04/2020 1:32 PM PST Station ID: [id number]
[2020-03-04 14:31] VITALS: BP 177/61
== END 2020-03-04 14:31 | disposition home or self-care (01) ==
LOC: ED 09:30
DX: R19.7 Diarrhea, unspecified (principal); R10.10 Upper abdominal pain, unspecified; I10 Essential (primary) hypertension; I73.9 Peripheral vascular disease, unspecified; F17.200 Nicotine dependence, unspecified, uncomplicated
CPT/HCPCS: 36415; 74176; 76705; 80053; 81001; 81003; 81599; 83690; 83735; 85025; 87086; 87338; 96361; 96374; 99284

== ENCOUNTER 2020-03-07 08:00 | Outpatient (CLI) | payer MEDICARE ==
[2020-03-07 22:35] LABS: H. PYLORIS ANTIGEN STL NEGATIVE (Negative)
== END 2020-03-07 23:59 | disposition home or self-care (01) ==
LOC: LAB.R 08:00
PROVIDERS: ATTEND Emergency Medicine
DX: R19.7 Diarrhea, unspecified (principal)
CPT/HCPCS: 87045; 87046; 87338; 87493

== ENCOUNTER 2020-03-25 15:32 | Inpatient (IN) | payer MEDICARE ==
[2020-03-25] MEDS ORDERED: ONDANSETRON 4 MG/2 ML VIAL IVP STA (15:49)
[2020-03-25] MEDS ORDERED: HYDROmorphone 1 MG/ML CARPUJECT IVP STA ×2 (15:49→18:30)
--- NOTE | 2020-03-25 15:51 | ED Physician Documentation ---
PD HPI ABD PAIN - Stated complaint Stated Complaint: ABD PX - Chief complaint Chief Complaint: Abd Pain - History obtained from History obtained from: Patient - Additional information Additional information: 79-year-old woman with history of peripheral vascular disease, history of alcohol abuse but has since quit. She was seen here March 04 for right upper quadrant pain associated with vomiting and diarrhea. Had an ultrasound showing cholelithiasis and a CT showing nonobstructing nephroliths and prominence of small bowel loops. She was doing well after and did not have any pain until after eating some soup today around 2 PM and now has recurrent right upper quadrant pain associated with one episode of vomiting and a loose stool. No history of abdominal surgeries. 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 : Renal insuffiency HEENT: None Psych: None Musculoskeletal: Osteoarthritis, Rheumatoid arthritis, Gout Derm: Psoriasis - Past Surgical History Past Surgical History: Yes General: Colonoscopy, EGD Ortho: Hip replacement, Other Cardiovascular: Vascular surgery, Angioplasty - Present Medications Home Medications: Ambulatory Orders Medication Instructions Recorded Confirmed Omeprazole 20 mg PO BID 07/05/17 05/13/19 Acetaminophen [Tylenol] 650 - 975 mg PO Q4HR PRN #60 tablet 05/17/19 Alendronate [Fosamax] 70 mg PO Q7D #60 tablet 05/17/19 Aspirin [Samaria] 325 mg PO 0800 #30 tablet 05/17/19 Cholecalciferol (Vitamin D3) 2,000 unit PO DAILY #30 tab.chew 05/17/19 [Vitamin D3] Ferrous Gluconate [Iron] 240 mg PO DAILY #30 tablet 05/17/19 Lidocaine Patch 5% [Lidoderm Patch] 1 patch TOP DAILY PRN #30 patch 05/17/19 Metoprolol Succinate [Toprol Xl] 50 mg PO DAILY #30 05/17/19 05/13/19 Vitamin [Trinatal Rx 1] 1 tab PO DAILY #30 tablet 05/17/19 Rosuvastatin Calcium [Crestor] 5 mg PO QPM #30 05/17/19 05/13/19 Senna [Senokot] 8.6 mg PO DAILY #30 tablet 05/17/19 Thiamine [Vitamin B-1] 100 mg PO DAILY #30 tablet 05/17/19 amLODIPine [Norvasc] 10 mg PO DAILY #60 tablet 05/17/19 hydroCHLOROthiazide [Hydrodiuril] 25 mg PO DAILY #30 05/17/19 05/13/19 oxyCODONE [Roxicodone] 5 mg PO Q4HR PRN #21 tablet 05/17/19 polyethylene glycoL 3350 [Miralax] 17 gm PO DAILY #30 packet 05/17/19 Diphenoxylate/Atropine [Lomotil] 1 each PO QID PRN #16 tablet 03/04/20 L.acid/L.casei/B.bif/B.yulia/Fos 1 each PO BID #20 capsule 03/04/20 [Probiotic Blend Capsule] Ondansetron Odt [Zofran] 4 mg TL Q6H PRN #20 tablet 03/04/20 oxyCODONE [Roxicodone] 5 mg PO TID PRN #15 tablet 03/04/20 - Allergies Allergies/Adverse Reactions: Allergies Allergy/AdvReac Type Severity Reaction Status Date / Time hydrocodone Allergy Nausea Verified 03/25/20 15:41 lisinopril Allergy Nausea Verified 03/25/20 15:41 codeine phosphate * AdvReac Intermediate Itching Verified 03/25/20 15:41 [From Tylenol-Codeine #3] - Social History Does the pt smoke?: Yes Smoking Status: Current every day smoker Does the pt drink ETOH?: Yes Does the pt have substance abuse?: No - Immunizations Immunizations are current?: Yes - POLST Patient has POLST: No POLST Status: DNR PD ED PE NORMAL - Vitals Vital signs reviewed: Yes - General General: Alert and oriented X 3, No acute distress - HEENT HEENT: PERRL, EOMI - Neck Neck: Supple, no meningeal sign, No bony TTP - Cardiac Cardiac: RRR, No murmur - Respiratory Respiratory: No respiratory distress, Clear bilaterally - Abdomen Abdomen: Normal bowel sounds, Soft, Other (Minimal right upper quadrant tenderness with equivocal Hahn sign, no diffuse tenderness.) - Back Back: No CVA TTP - Derm Derm: Normal color, Warm and dry - Extremities Extremities: No edema, No calf tenderness / cord - Neuro Neuro: Alert and oriented X 3, Normal speech Results - Vitals Vitals: Vital Signs - 24 hr 03/25/20 03/25/20 03/25/20 15:37 17:56 18:55 Temperature 36.5 C Heart Rate 78 70 74 Respiratory 20 18 16 Rate Blood Pressure 137/89 H 192/69 H 186/61 H O2 Saturation 97 100 96 Oxygen O2 Source [] Room air O2 Source Room air - EKG (time done) 1859 Rate: Rate (enter#) (69) Rhythm: NSR [place]: Normal Intervals: Normal [place] Ischemia: Non specific changes. No: ST elevation c/w ischemia Computer interpretation: Agree with computer - Labs Labs: Laboratory Tests 03/25/20 03/25/20 16:15 16:15 WBC 10.0 RBC 4.60 Hgb 11.5 L Hct 38.1 MCV 82.8 MCH 25.0 L MCHC 30.2 L RDW 17.9 H Plt Count 403 MPV 10.1 Neut # (Auto) 7.4 H Lymph # (Auto) 1.6 [place] # (Auto) 0.8 Eos # (Auto) 0.0 Baso # (Auto) 0.0 Absolute Nucleated RBC 0.00 Nucleated RBC % 0.0 Sodium 138 Potassium 4.1 Chloride 98 L Carbon Dioxide 24 Anion Gap 16.0 H BUN 35 H Creatinine 1.7 H Estimated GFR (MDRD) 29 L Glucose 123 H Calcium 9.4 Total Bilirubin 0.9 AST 26 ALT 11 Alkaline Phosphatase 68 Total Protein 7.4 Albumin 3.8 Globulin 3.6 Albumin/Globulin Ratio 1.1 Lipase 61 H PD MEDICAL DECISION MAKING - ED course ED course: 79-year-old woman presents with recurrent right upper quadrant pain consistent with biliary colic. Repeat ultrasound shows evidence of early cholecystitis and labs are not too bad, her renal function is improved over her last visit. Case was discussed by phone with Dr. Douglass, the surgeon at 6:50 PM. He has some concerns about her comorbidities and cardiac risk and asked us to get an EKG and call the INTERIOR ASSEMBLIES INSTALLER on-call to see if she was an appropriate surgical risk for this small critical access facility. Her EKG did not show ischemic changes, and Tello Hinton felt that she could be safely operated on here if needed. Spoke again with Dr. Douglass who agrees to admit, plans to do further work-up before decision to operate is made. Departure - Departure Disposition: 66 [facility] DC/Xfer Clinical Impression: Cholecystitis Condition: Stable
[2020-03-25 16:21] LABS: BASOPHILS % (AUTO) 0.4 %; EOSINOPHILS % (AUTO) 0.3 %; HGB - HEMOGLOBIN 11.5 g/dL (12.0-16.0); LYMPHOCYTES # (AUTO) 1.6 10^3/uL (1.5-3.5); LYMPHOCYTES % (AUTO) 16.4 %; MEAN CORPUSCULAR HGB CONC 30.2 g/dL (32.0-36.0); MEAN CORPUSCULAR VOLUME 82.8 fL (81.0-99.0); MEAN PLATELET VOLUME 10.1 fL (7.9-10.8); MONOCYTES # (AUTO) 0.8 10^3/uL (0.0-1.0); MONOCYTES % (AUTO) 7.9 %; NEUTROPHILS # (AUTO) 7.4 10^3/uL (1.5-6.6); NEUTROPHILS % (AUTO) 74.4 %; PLT - PLATELET COUNT 403 10^3/uL (130-450); RED CELL DISTRIBUTION WIDTH 17.9 % (12.0-15.0)
[2020-03-25 16:36] LABS: ALBUMIN 3.8 g/dL (3.2-5.5); ALBUMIN/GLOBULIN RATIO 1.1 (1.0-2.2); BILIRUBIN,TOTAL 0.9 mg/dL (0.2-1.0); CALCIUM 9.4 mg/dL (8.5-10.3); CREATININE 1.7 mg/dL (0.4-1.0); TOTAL PROTEIN 7.4 g/dL (6.7-8.2)
--- NOTE | 2020-03-25 18:42 | Ultrasound Report ---
PROCEDURE: Abdomen Limited INDICATIONS: RUQ pain TECHNIQUE: Real-time focused scanning was performed of the abdomen, with image documentation. COMPARISON: Ultrasound abdomen, 03/04/2020. CT abdomen and pelvis without contrast, 03/04/2020. MRI abdomen, 04/08/2017. FINDINGS: , There is mildly distended. There are non-mobile gallstones. Possible pericholecystic flu id. No gallbladder wall thickening or sonographic Hahn sign. There are multiple echogenic foci in the liver, unchanged. The largest one measures 1.8 cm in the rig ht hepatic lobe. The right kidney appears slightly decreased in size. No hydronephrosis. There are multiple small cyst s in right kidney. IMPRESSION: 1. Cholelithiasis. Gallbladder is mildly distended. There may be a small amount of pericholecystic fl uid. Recommend clinical correlation for early acute cholecystitis. 2. Multiple echogenic foci in liver are most likely hepatic hemangiomas. Reviewed by: Eulogio Iglesias MD on 03/25/2020 6:40 PM PST Approved by: Eulogio Iglesias MD on 03/25/2020 6:40 PM PST Station ID: [id number]
[2020-03-25] MEDS ORDERED: AMPICILLIN/SULBACTAM 3 GM in SODIUM CHLORIDE 0.9% MINIBAG 100 ML IV STA (18:53)
[2020-03-25] MEDS ORDERED: ONDANSETRON 4 MG/2 ML VIAL IVP PRN (21:00)
[2020-03-25] MEDS ORDERED: SODIUM CHLORIDE FLUSH 0.9% 10 ML SYRINGE IVP PRN (21:00)
[2020-03-25] MEDS ORDERED: ONDANSETRON ODT 4 MG TABLET TL PRN (21:00)
[2020-03-25] MEDS ORDERED: LORazepam 1 MG TABLET PO PRN (21:09)
[2020-03-25 21:37] LABS: C. PNEUMONIAE- RESP PCR PANEL NOT DETECTED
[2020-03-25] MEDS: oxyCODONE 5 MG TABLET PO PRN (22:17)
[2020-03-25] MEDS: D5.45NS W/20 MEQ KCL 1,000 ML IV SCH (22:18)
[2020-03-26] MEDS: METOPROLOL TARTRATE 50 MG TABLET PO SCH ×3 (00:08→21:25)
[2020-03-26] MEDS: SODIUM CHLORIDE FLUSH 0.9% 10 ML SYRINGE IVP SCH ×3 (00:23→16:35)
[2020-03-26] MEDS: oxyCODONE 5 MG TABLET PO PRN ×4 (03:48→21:25)
[2020-03-26] MEDS: PANTOPRAZOLE 40 MG TABLET PO SCH (06:19)
[2020-03-26] MEDS ORDERED: METOPROLOL TARTRATE 50 MG TABLET PO SCH (09:00)
[2020-03-26] MEDS: amLODIPine 5 MG TABLET PO SCH (09:38)
[2020-03-26] MEDS: hydroCHLOROthiazide 25 MG TABLET PO SCH (09:39)
[2020-03-26] MEDS: ENOXAPARIN 40 MG/0.4 ML SYRINGE SUBQ SCH (09:39)
[2020-03-26] MEDS: D5.45NS W/20 MEQ KCL 1,000 ML IV SCH ×2 (11:16→22:57)
--- NOTE | 2020-03-26 11:51 | HISTORY & PHYSICAL EXAMINATION ---
Chief Complaint - Chief Complaint Chief Complaint: right mid to lower quadrant abdominal pain yesterday with n/v Abdominal Pain HPI - Admitted From Admitted from: ED - History Obtained From History obtained from: Patient Exam limitations: No limitations - History of Present Illness Severity at the worst: Severe Pain Quality: Sharp Context-Pain started w/: Eating Timing: Abrupt onset Duration: Minutes: Improved with: Other (not eating) HPI Comment/Other: She has known vascular disease. She continues to smoke. She has seen [facility] and more recently vascular. She states she has a left leg stent. She has significant right leg claudication from calf to buttock. She has been told the rigth side cannot be stented. She is known to [facility]. She had a colonoscopy in 2017. Multiple polyps were removed. She had an EGD at [facility] in 2018 and a gastric ulcer was seen. She had recurrent GI bleeding on plavix and had enteroscopy and treatment of avms at . She had abdominal pain 2 weeks ago and was seen [facility] ED. Her pain improved. Yesterday she had soup, developed sharp mid to left lower quadrant pain that lasted minutes followed by n/v. She denies epigastric pain. She has no pain, bloating, nausea at this time. She denies symptoms of biliary cholic. She states she is afraid to eat because the sharp mid abdominal pain comes on as soon she eats. She had a ct scan 2 weeks ago and 3 years ago. Her gallbladder is similar in mild distension, appearing slightly large and floppy without inflammation. She has had 3 ultrasounds of her gallbladder, 2 in the last 2 weeks. No gallbladder inflammation. Radiologist mentioned stones. She has a single tiny polyp. 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 : positive: Renal insuffiency HEENT: positive: None Psych: positive: None Musculoskeletal: positive: Osteoarthritis, Rheumatoid arthritis, Gout Derm: positive: Psoriasis MRSA Hx?: No - Past Surgical History General: positive: Colonoscopy, EGD Ortho: positive: Hip replacement, Other Cardiovascular: positive: Vascular surgery, Angioplasty Social & Family Hx - Social History Does the pt smoke?: Yes Smoking Status: Former smoker Does the pt drink ETOH?: Yes Does the pt have substance abuse?: No - POLST Patient has POLST: No POLST Status: DNR Meds/Allgy - Home Medications Home Medications: Ambulatory Orders Medication Instructions Recorded Confirmed Omeprazole 20 mg PO BID 07/05/17 05/13/19 Acetaminophen [Tylenol] 650 - 975 mg PO Q4HR PRN #60 tablet 05/17/19 Alendronate [Fosamax] 70 mg PO Q7D #60 tablet 05/17/19 Aspirin [Samaria] 325 mg PO 0800 #30 tablet 05/17/19 Cholecalciferol (Vitamin D3) 2,000 unit PO DAILY #30 tab.chew 05/17/19 [Vitamin D3] Ferrous Gluconate [Iron] 240 mg PO DAILY #30 tablet 05/17/19 Lidocaine Patch 5% [Lidoderm Patch] 1 patch TOP DAILY PRN #30 patch 05/17/19 Metoprolol Succinate [Toprol Xl] 50 mg PO DAILY #30 05/17/19 05/13/19 Vitamin [Trinatal Rx 1] 1 tab PO DAILY #30 tablet 05/17/19 Rosuvastatin Calcium [Crestor] 5 mg PO QPM #30 05/17/19 05/13/19 Senna [Senokot] 8.6 mg PO DAILY #30 tablet 05/17/19 Thiamine [Vitamin B-1] 100 mg PO DAILY #30 tablet 05/17/19 amLODIPine [Norvasc] 10 mg PO DAILY #60 tablet 05/17/19 hydroCHLOROthiazide [Hydrodiuril] 25 mg PO DAILY #30 05/17/19 05/13/19 polyethylene glycoL 3350 [Miralax] 17 gm PO DAILY #30 packet 05/17/19 Ondansetron Odt [Zofran Odt] 4 mg SL Q6HR PRN 03/26/20 oxyCODONE [Roxicodone] 5 mg PO TID PRN 03/26/20 - Allergies Allergies/Adverse Reactions: Allergies Allergy/AdvReac Type Severity Reaction Status Date / Time hydrocodone Allergy Nausea Verified 03/25/20 15:41 lisinopril Allergy Nausea Verified 03/25/20 15:41 codeine phosphate * AdvReac Intermediate Itching Verified 03/25/20 15:41 [From Tylenol-Codeine #3] Review of Systems - Constitutional Constitutional: reports: Fatigue (10 pt ros as above otherwise unremarkable) Exam - Vital Signs Reviewed Vital Signs: Yes Vital Signs: Vital Signs x48h Temp Pulse Resp BP BP Pulse Ox 03/26/20 11:20 65 164/61 H 03/26/20 10:25 60 175/52 H 03/26/20 09:39 189/54 H 03/26/20 08:11 36.9 C 63 16 161/59 H 96 03/26/20 06:14 55 L 144/51 H 03/26/20 05:20 60 182/56 H 03/26/20 04:02 206/58 H - Physical Exam General Appearance: positive: No acute distress, Alert Eyes Bilateral: positive: Normal inspection, PERRL, EOMI ENT: positive: No signs of dehydration Neck: positive: No JVD, Trachea midline Respiratory: positive: No respiratory distress Abdomen: positive: Non-tender, No distention Extremities: positive: No pedal edema Neurologic/Psychiatric: positive: Oriented x3 Results - Lab Results Fish Bones: 03/25/20 16:15 03/25/20 16:15 Other Lab Results: Lab Results x24hrs 03/25/20 03/25/20 03/25/20 Range/Units 20:05 16:15 16:15 WBC 10.0 (4.8-10.8) x10^3/uL RBC 4.60 (4.20-5.40) 10^6/uL Hgb 11.5 L (12.0-16.0) g/dL Hct 38.1 (37.0-47.0) % MCV 82.8 (81.0-99.0) fL MCH 25.0 L (27.0-31.0) pg MCHC 30.2 L (32.0-36.0) g/dL RDW 17.9 H (12.0-15.0) % Plt Count 403 (130-450) 10^3/uL MPV 10.1 (7.9-10.8) fL Neut # (Auto) 7.4 H (1.5-6.6) 10^3/uL Lymph # (Auto) 1.6 (1.5-3.5) 10^3/uL [place] # (Auto) 0.8 (0.0-1.0) 10^3/uL Eos # (Auto) 0.0 (0.0-0.7) 10^3/uL Baso # (Auto) 0.0 (0.0-0.1) 10^3/uL Absolute Nucleated RBC 0.00 x10^3/uL Nucleated RBC % 0.0 /100WBC Sodium 138 (135-145) mmol/L Potassium 4.1 (3.5-5.0) mmol/L Chloride 98 L (101-111) mmol/L Carbon Dioxide 24 (21-32) mmol/L Anion Gap 16.0 H (6-13) BUN 35 H (6-20) mg/dL Creatinine 1.7 H (0.4-1.0) mg/dL Estimated GFR (MDRD) 29 L (>89) Glucose 123 H (70-100) mg/dL Calcium 9.4 (8.5-10.3) mg/dL Total Bilirubin 0.9 (0.2-1.0) mg/dL AST 26 (10-42) IU/L ALT 11 (10-60) IU/L Alkaline Phosphatase 68 (42-121) IU/L Total Protein 7.4 (6.7-8.2) g/dL Albumin 3.8 (3.2-5.5) g/dL Globulin 3.6 (2.1-4.2) g/dL Albumin/Globulin Ratio 1.1 (1.0-2.2) Lipase 61 H (22-51) U/L Nasal Adenovirus (PCR) NOT DETECTED Nasal B. parapertussis DNA (PCR) NOT DETECTED Nasal Coronavir 229E PCR NOT DETECTED Nasal Coronavir HKU1 PCR NOT DETECTED Nasal Coronavir NL63 PCR NOT DETECTED Nasal Coronavir OC43 PCR NOT DETECTED Nasal Enterovir/Rhinovir PCR NOT DETECTED Nasal Influenza B PCR NOT DETECTED Nasal Influenza A PCR NOT DETECTED Nasal Parainfluen 1 PCR NOT DETECTED Nasal Parainfluen 2 PCR NOT DETECTED Nasal Parainfluen 3 PCR NOT DETECTED Nasal Parainfluen 4 PCR NOT DETECTED Nasal RSV (PCR) NOT DETECTED Nasal B.pertussis DNA PCR NOT DETECTED Nasal C.pneumoniae (PCR) NOT DETECTED Manuel Human Metapneumo PCR NOT DETECTED Nasal M.pneumoniae (PCR) NOT DETECTED Nasal SARS-CoV-2 (PCR) NOT DETECTED - Diagnostic Imaging Results Diagnostic Imaging Results: positive: Read independently (as above. 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 She has no gallbladder inflammation and does not have cholecystitis clinically. She has had a gastric ulcer in the past. She does not recall having symptoms other than anemia. plan stop aspirin. she is on lovenox. I believe her symptoms are most consistent with intestinal angina. She has an appointment to see [facility] vascular next week. Plan diet of choice. I don't believe she needs another EGD. As her symptoms are not consistent with biliary cholic a HIDA scan is not needed.
--- NOTE | 2020-03-26 15:06 | PHARMACY PROGRESS NOTE ---
- Best Possible Medication History Admit Date and Time: 03/25/20 2100 Processed by: Pharmacy Medication History completed: Yes Patient Interview: Completed Secondary Source(s): Physician records, Insurance records As the person ultimately responsible for medication therapy, providers are able to order a medication from an existing home medication list in [facility] via the "Reconcile Routine" prior to Confirmation of that medication by support service tech. Such practice is discouraged except when the physician, in their clinical judgment, deems that a medical need exists for a medication without regard to previous use.
[2020-03-26] MEDS: ACETAMINOPHEN 325 MG TABLET PO PRN ×2 (15:46→21:25)
[2020-03-27] MEDS: SODIUM CHLORIDE FLUSH 0.9% 10 ML SYRINGE IVP SCH ×3 (01:12→17:41)
[2020-03-27] MEDS: oxyCODONE 5 MG TABLET PO PRN ×4 (01:19→20:21)
[2020-03-27] MEDS: ACETAMINOPHEN 325 MG TABLET PO PRN ×4 (01:28→20:21)
[2020-03-27] MEDS: PANTOPRAZOLE 40 MG TABLET PO SCH (06:40)
[2020-03-27] MEDS: METOPROLOL TARTRATE 50 MG TABLET PO SCH ×2 (08:31→20:21)
[2020-03-27] MEDS: hydroCHLOROthiazide 25 MG TABLET PO SCH (08:31)
[2020-03-27] MEDS: amLODIPine 5 MG TABLET PO SCH (08:31)
[2020-03-27] MEDS: ENOXAPARIN 40 MG/0.4 ML SYRINGE SUBQ SCH (08:31)
[2020-03-27] MEDS ORDERED: polyethylene glycoL 3350 17 GM PACKET PO SCH (09:00)
[2020-03-27] MEDS: D5.45NS W/20 MEQ KCL 1,000 ML IV SCH (12:11)
--- NOTE | 2020-03-27 14:12 | PROVIDER PROGRESS NOTE ---
Subjective - Prog Note Date Prog Note Date: 03/27/20 Prog Note Time: 14:11 - Subjective Pt reports feeling: No change Subjective: Patient reports she is symptom free unless she tries to eat. She then develops nearly immediate aching pain in her abdomen. Pain more on the left than the right but could be either side at times. Objective - Vital Signs/Intake & Output Reviewed Vital Signs: Yes Vital Signs: Vital Signs x48h Temp Pulse Resp BP Pulse Ox 03/27/20 07:56 36.7 C 58 L 16 157/50 H 98 03/27/20 06:37 63 159/61 H Intake & Output: Intake & Output 03/24/20 03/25/20 03/26/20 03/27/20 23:59 23:59 23:59 23:59 Intake Total 200 2628.75 1782.50 Balance 200 2628.75 1782.50 - Objective General Appearance: positive: No acute distress, Alert Eyes Bilateral: positive: Normal inspection, PERRL, EOMI ENT: positive: ENT inspection nml, Pharynx nml, No signs of dehydration Neck: positive: Nml inspection, Trachea midline Respiratory: positive: Chest non-tender, No respiratory distress Cardiovascular: positive: Regular rate & rhythm Abdomen: positive: Non-tender, Nml bowel sounds, No distention Skin: positive: Color nml Extremities: negative: Calf tenderness Neurologic/Psychiatric: positive: Oriented x3 - Lab Results Fish Bones: 03/25/20 16:15 03/25/20 16:15 Assessment/Plan - Problem List (1) Abdominal pain Impression: Findings and symptoms concerning for intestinal angina is the setting of a lady with known severe vascular disease. I have recommended transfer to a facility w [facility] vascular capability. We will contact [place] regarding transfer. Qualifiers: Abdominal location: upper abdomen, unspecified Qualified Code(s): R10.10 - Upper abdominal pain, unspecified
--- NOTE | 2020-03-27 15:38 | Discharge Plan ---
Discharge Plan Problem Reviewed?: Yes Disposition: 02 Transfer Acute Care Hosp Condition: Stable Activity Restrictions: No Restrictions Shower Restrictions: No Driving Restrictions: Yes No Smoking: If you smoke, Please STOP! Call for help. Follow-up with: Arianna Smith DO [Primary Care Provider] -
--- NOTE | 2020-03-27 15:39 | DISCHARGE SUMMARY ---
"Discharge Summary Admit Date: 03/25/20 Discharge Date: 03/27/20 Discharging Provider: Michael Primary Care Provider: Sarah Code Status: Attempt Resuscitation Condition at Discharge: Stable Discharge Disposition: 02 Transfer Acute Care Hosp - DIAGNOSES Admission Diagnoses: Abdominal Pain Discharge Diagnoses with Status of Each Condition: Abdominal pain - stable - HPI History of Present Illness: She has known vascular disease. She continues to smoke. She has seen [facility] and more recently vascular. She states she has a left leg stent. She has significant right leg claudication from calf to buttock. She has been told the rigth side cannot be stented. She is known to [facility]. She had a colonoscopy in 2017. Multiple polyps were removed. She had an EGD at [facility] in 2018 and a gastric ulcer was seen. She had recurrent GI bleeding on plavix and had enteroscopy and treatment of avms at . She had abdominal pain 2 weeks ago and was seen [facility] ED. Her pain improved. Yesterday she had soup, developed sharp mid to left lower quadrant pain that lasted minutes followed by n/v. She denies epigastric pain. She has no pain, bloating, nausea at this time. She denies symptoms of biliary cholic. She states she is afraid to eat because the sharp mid abdominal pain comes on as soon she eats. She had a ct scan 2 weeks ago and 3 years ago. Her gallbladder is similar in mild distension, appearing slightly large and floppy without inflammation. She has had 3 ultrasounds of her gallbladder, 2 in the last 2 weeks. No gallbladder inflammation. Radiologist mentioned stones. She has a single tiny polyp. 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 - CONSULTS | PROCEDURES Consultations: None Procedures: None - HOSPITAL COURSE Hospital Course: The patient was admitted to the med/surg floor with a trial of clear liquid diet. She was able to tolerate the liquids but when advanced to more solid food, her pain recurred. She reports she is continuing to have pain and claudication in her legs as well. She denies any nausea or pain when not eating. She is transferred to a facility with vascular capability to address the concern of intestinal angina. Additionally, she is very high risk for any procedure, including endoscopy, and would be best served at a higher level of care. - ALLERGIES Allergies/Adverse Reactions: Allergies Allergy/AdvReac Type Severity Reaction Status Date / Time hydrocodone Allergy Nausea Verified 03/25/20 15:41 lisinopril Allergy Nausea Verified 03/25/20 15:41 codeine phosphate * AdvReac Intermediate Itching Verified 03/25/20 15:41 [From Tylenol-Codeine #3] - MEDICATIONS Home Medications: Ambulatory Orders Medication Instructions Recorded Confirmed Omeprazole 20 mg PO BID PRN 07/05/17 03/26/20 Metoprolol Succinate [Toprol Xl] 50 mg PO DAILY #30 05/17/19 03/26/20 hydroCHLOROthiazide [Hydrodiuril] 25 mg PO DAILY #30 05/17/19 03/26/20 polyethylene glycoL 3350 [Miralax] 17 gm PO DAILY #30 packet 05/17/19 03/26/20 Ascorbic Acid Chew [Vitamin C] 500 mg PO DAILY 03/26/20 03/26/20 Aspirin EC [Ecotrin] 81 mg PO DAILY 03/26/20 03/26/20 Calcium Carbonate [Tums (Calcium 1,000 mg PO DAILY 03/26/20 03/26/20 Carbonate 500mg)] Cholecalciferol [Vitamin D3] 1 cap PO DAILY 03/26/20 03/26/20 Ondansetron Odt [Zofran Odt] 4 mg SL Q6HR PRN 03/26/20 03/26/20 - PHYSICAL EXAM AT DISCHARGE General Appearance: positive: No acute distress, Alert Eyes Bilateral: positive: Normal inspection, PERRL, EOMI ENT: positive: ENT inspection nml, Pharynx nml Neck: positive: Nml inspection Respiratory: positive: No respiratory distress, Breath sounds nml Cardiovascular: positive: Regular rate & rhythm Peripheral Pulses: positive: 0 Abdomen: positive: Non-tender, No distention. negative: Guarding, Rebound Back: positive: Nml inspection Skin: positive: Color nml Neurologic/Psychiatric: positive: Oriented x3 - LABS Result Diagrams: 03/25/20 16:15 03/25/20 16:15 - DIAGNOSTIC IMAGING Diagnostic Imaging Results: Final report reviewed - QUALITY (Female Hip Fx Only) Was patient sent home on osteoporosis medication?: No - FOLLOW UP Follow Up: With Dr. Smith after discharge from tertiary care facility - TIME SPENT Time Spent in Discharge (Minutes): 15"
[2020-03-27 22:12] VITALS: BP 162/52
== END 2020-03-27 23:50 | disposition short-term general hospital (02) | DRG 392 ==
LOC: ED 15:32 → MS2 21:00
PROVIDERS: ADMIT Surgery; ATTEND Surgery
DX: K81.9 Cholecystitis, unspecified (principal); R10.9 Unspecified abdominal pain; K55.1 Chronic vascular disorders of intestine; Z20.828 Contact with and (suspected) exposure to other viral communicable diseases; I73.9 Peripheral vascular disease, unspecified; Z95.820 Peripheral vascular angioplasty status with implants and grafts; I10 Essential (primary) hypertension; F17.200 Nicotine dependence, unspecified, uncomplicated; Z87.11 Personal history of peptic ulcer disease
CPT/HCPCS: 36415; 76705; 80053; 83690; 85025; 87631; 93005; 96365; 96375; 96376; 99285; A9270; J1170; J1650; J8499; 0202U

== ENCOUNTER 2020-04-02 17:35 | Emergency (ER) | payer MEDICARE ==
[2020-04-02 18:14] LABS: BASOPHILS % (AUTO) 0.3 %; EOSINOPHILS # (AUTO) 0.1 10^3/uL (0.0-0.7); EOSINOPHILS % (AUTO) 0.6 %; HGB - HEMOGLOBIN 9.5 g/dL (12.0-16.0); LYMPHOCYTES # (AUTO) 1.6 10^3/uL (1.5-3.5); LYMPHOCYTES % (AUTO) 14.8 %; MEAN CORPUSCULAR HEMOGLOBIN 24.8 pg (27.0-31.0); MEAN CORPUSCULAR HGB CONC 29.8 g/dL (32.0-36.0); MEAN CORPUSCULAR VOLUME 83.3 fL (81.0-99.0); MEAN PLATELET VOLUME 10.1 fL (7.9-10.8); MONOCYTES # (AUTO) 0.7 10^3/uL (0.0-1.0); MONOCYTES % (AUTO) 6.4 %; NEUTROPHILS # (AUTO) 8.2 10^3/uL (1.5-6.6); NEUTROPHILS % (AUTO) 77.2 %; PLT - PLATELET COUNT 438 10^3/uL (130-450); RED BLOOD COUNT 3.83 10^6/uL (4.20-5.40); RED CELL DISTRIBUTION WIDTH 18.3 % (12.0-15.0); WHITE BLOOD COUNT 10.6 x10^3/uL (4.8-10.8)
[2020-04-02 18:30] LABS: ALBUMIN 3.5 g/dL (3.2-5.5); ALKALINE PHOSPHATASE 79 IU/L (42-121); ALT ALANINE AMINOTRANSFERASE < 10 IU/L (10-60); AST ASPARTATE AMINOTRANSFERASE 25 IU/L (10-42); BILIRUBIN,TOTAL 0.6 mg/dL (0.2-1.0); BUN - BLOOD UREA NITROGEN 42 mg/dL (6-20); CALCIUM 8.5 mg/dL (8.5-10.3); CARBON DIOXIDE - CO2 25 mmol/L (21-32); CHLORIDE 100 mmol/L (101-111); CREATININE 2.3 mg/dL (0.4-1.0); GLUCOSE 112 mg/dL (70-100); LIPASE 53 U/L (22-51); SODIUM 139 mmol/L (135-145)
[2020-04-02] MEDS ORDERED: SODIUM CHLORIDE 0.9% 1,000 ML IV STA ×2 (18:54)
[2020-04-02] MEDS ORDERED: IOVERSOL 320 100 ML VIAL IVP ONE (19:00)
--- NOTE | 2020-04-02 19:37 | CT Report ---
PROCEDURE: Abdomen/Pelvis WO INDICATIONS: abd pain, s/p stent TECHNIQUE: Noncontrast 5 mm thick sections acquired from the diaphragms to the symphysis. 5 mm coronal and sagi ttal reformats were then performed. For radiation dose reduction, the following was used: automated exposure control, adjustment of mA and/or kV according to patient size. COMPARISON: None. FINDINGS: Image quality: Excellent. ABDOMEN: Lung bases: Lung bases are clear. Heart size is normal. Solid organs: Liver and spleen are normal in size. Gallbladder grossly unremarkable Pancreas is no rmal in contours. No adrenal nodules. Bilateral renal cortical scarring. Subcentimeter renal foci wh ich are statistically cysts, however too to characterize accurately and therefore technically indeter minate. Nonobstructive bilateral nephrolithiasis and/or vascular calcifications.. Peritoneum and bowel: Numerous distended small bowel loops measuring up to 3.5 cm in diameter. There are scattered air-fluid levels. The colon is relatively decompressed. There is possible transition point seen in the left paracentral abdomen at the level of the iliac crests, for example image 46/3. The appendix is not clearly identi fied however no suspicious inflammatory changes in the right lower quadrant. No free fluid or air. Nodes and vessels: No retroperitoneal or mesenteric adenopathy by size criteria. Aorta and inferior vena cava are normal in caliber. Scattered vascular calcifications are present in the aorta. A vas cular stent is noted probably within the superior mesenteric artery origin. Miscellaneous: No ventral hernias. PELVIS: Genitourinary: Bladder wall thickness is normal. Miscellaneous: No inguinal hernias or adenopathy. Bones: No suspicious bony lesions. No vertebral body compression fractures. Spondylosis and facet arthropathy. IMPRESSION: Small bowel obstruction, with possible transition point at the left paracentral abdomen, at the level of the iliac crests as above. Reviewed by: Oscar Horvath MD on 04/02/2020 7:36 PM PST Approved by: Oscar Horvath MD on 04/02/2020 7:36 PM PST Station ID: [id number]
[2020-04-02] MEDS ORDERED: ONDANSETRON 4 MG/2 ML VIAL IVP STA (19:50)
[2020-04-02] MEDS ORDERED: MORPHINE 2 MG/ML CARPUJECT IVP STA (19:50)
--- NOTE | 2020-04-02 19:51 | ED Physician Documentation ---
PD HPI ABD PAIN - Stated complaint Stated Complaint: VOMITING, ABD PAIN - Chief complaint Chief Complaint: Abd Pain - History obtained from History obtained from: Patient - History of Present Illness Timing - onset: Today Timing - duration: Days (1) Timing - details: Gradual onset Pain level max: 8 Pain level now: 8 Quality: Aching, Pain Location: All over / everywhere Improved by: Other (nothing) Worsened by: Eating Associated symptoms: Nausea, Vomiting. No: Diarrhea, Constipation, Melena, Hematochezia, Dysuria - Additional information Additional information: Patient is an 79-year-old female who recently had a stent placed in her abdomen for "intestinal angina". This was done at [facility] in [place] last week. She has been home for several days and states that she has been doing well. Today had increasing abdominal pain and vomiting. Came in for evaluation. Has not been able to take any of her medications today. No fevers. No diarrhea. No constipation. Nothing makes it better, worse with eating and drinking. Review of Systems Ten Systems: 10 systems reviewed and negative Constitutional: denies: Fever, Chills Nose: denies: Rhinorrhea / runny nose, Congestion GI: reports: Abdominal Pain (Diffuse, cramping), Nausea, Vomiting. 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 : Renal insuffiency HEENT: None Psych: None Musculoskeletal: Osteoarthritis, Rheumatoid arthritis, Gout Derm: Psoriasis - Past Surgical History Past Surgical History: Yes General: Colonoscopy, EGD Ortho: Hip replacement, Other Cardiovascular: Vascular surgery, Angioplasty - Present Medications Home Medications: Ambulatory Orders Medication Instructions Recorded Confirmed Omeprazole 20 mg PO BID PRN 07/05/17 03/26/20 Metoprolol Succinate [Toprol Xl] 50 mg PO DAILY #30 05/17/19 03/26/20 hydroCHLOROthiazide [Hydrodiuril] 25 mg PO DAILY #30 05/17/19 03/26/20 polyethylene glycoL 3350 [Miralax] 17 gm PO DAILY #30 packet 05/17/19 03/26/20 Ascorbic Acid Chew [Vitamin C] 500 mg PO DAILY 03/26/20 03/26/20 Aspirin EC [Ecotrin] 81 mg PO DAILY 03/26/20 03/26/20 Calcium Carbonate [Tums (Calcium 1,000 mg PO DAILY 03/26/20 03/26/20 Carbonate 500mg)] Cholecalciferol [Vitamin D3] 1 cap PO DAILY 03/26/20 03/26/20 Ondansetron Odt [Zofran Odt] 4 mg SL Q6HR PRN 03/26/20 03/26/20 - Allergies Allergies/Adverse Reactions: Allergies Allergy/AdvReac Type Severity Reaction Status Date / Time hydrocodone Allergy Nausea Verified 03/25/20 15:41 lisinopril Allergy Nausea Verified 03/25/20 15:41 codeine phosphate * AdvReac Intermediate Itching Verified 03/25/20 15:41 [From Tylenol-Codeine #3] - Social History Does the pt smoke?: Yes Smoking Status: Current every day smoker Does the pt drink ETOH?: Yes Does the pt have substance abuse?: No - Immunizations Immunizations are current?: Yes - POLST Patient has POLST: No POLST Status: DNR PD ED PE NORMAL - Vitals Vital signs reviewed: Yes - General General: Alert and oriented X 3, No acute distress, Well developed/nourished - HEENT HEENT: PERRL, Moist mucous membranes - Neck Neck: Supple, no meningeal sign - Cardiac Cardiac: RRR, Strong equal pulses - Respiratory Respiratory: No respiratory distress, Clear bilaterally - Abdomen Abdomen: Soft, Non distended, Other (diffusely tender to palpation. No peritoneal signs) - Derm Derm: Warm and dry - Extremities Extremities: No edema, No calf tenderness / cord - Neuro Neuro: Alert and oriented X 3 - Psych Psych: Normal mood, Normal affect Results - Vitals Vitals: Vital Signs - 24 hr 04/02/20 04/02/20 04/02/20 17:40 18:20 20:00 Temperature 36.5 C 36.5 C Heart Rate 93 76 98 Respiratory 17 18 18 Rate Blood Pressure 141/60 H 138/66 H 181/70 H O2 Saturation 95 98 98 04/02/20 21:19 Temperature 36.5 C Heart Rate 85 Respiratory 16 Rate Blood Pressure 173/66 H O2 Saturation 97 Oxygen O2 Source [] Room air O2 Source Room air - Labs Labs: Laboratory Tests 04/02/20 04/02/20 04/02/20 18:00 18:00 20:35 WBC 10.6 RBC 3.83 L Hgb 9.5 L Hct 31.9 L MCV 83.3 MCH 24.8 L MCHC 29.8 L RDW 18.3 H Plt Count 438 MPV 10.1 Neut # (Auto) 8.2 H Lymph # (Auto) 1.6 [place] # (Auto) 0.7 Eos # (Auto) 0.1 Baso # (Auto) 0.0 Absolute Nucleated RBC 0.00 Nucleated RBC % 0.0 Sodium 139 Potassium 4.0 Chloride 100 L Carbon Dioxide 25 Anion Gap 14.0 H BUN 42 H Creatinine 2.3 H Estimated GFR (MDRD) 20 L Glucose 112 H Calcium 8.5 Total Bilirubin 0.6 AST 25 ALT < 10 L Alkaline Phosphatase 79 Total Protein 7.0 Albumin 3.5 Globulin 3.5 Albumin/Globulin Ratio 1.0 Lipase 53 H Nasal Adenovirus (PCR) NOT DETECTED Nasal B. parapertussis DNA (PCR) NOT DETECTED Nasal Coronavir 229E PCR NOT DETECTED Nasal Coronavir HKU1 PCR NOT DETECTED Nasal Coronavir NL63 PCR NOT DETECTED Nasal Coronavir OC43 PCR NOT DETECTED Nasal Enterovir/Rhinovir PCR NOT DETECTED Nasal Influenza B PCR NOT DETECTED Nasal Influenza A PCR NOT DETECTED Nasal Parainfluen 1 PCR NOT DETECTED Nasal Parainfluen 2 PCR NOT DETECTED Nasal Parainfluen 3 PCR NOT DETECTED Nasal Parainfluen 4 PCR NOT DETECTED Nasal RSV (PCR) NOT DETECTED Nasal B.pertussis DNA PCR NOT DETECTED Nasal C.pneumoniae (PCR) NOT DETECTED Manuel Human Metapneumo PCR NOT DETECTED Nasal M.pneumoniae (PCR) NOT DETECTED Nasal SARS-CoV-2 (PCR) NOT DETECTED - Rads (name of study) Ct abd/pelvis Radiology: Prelim report reviewed, EMP read contemporaneously, See rad report PD MEDICAL DECISION MAKING - ED course Complexity details: reviewed results, re-evaluated patient, considered differential, d/w patient ED course: 79-year-old female presents to the emergency department abdominal pain today. She recently had what appears to be an SMA stent. She has a small bowel obstruction on CT scan. I discussed the case with Dr. Douglass, general surgery on-call who states that the patient is too high risk to stay in this hospital and recommends transfer back to [facility]. He states that this could potentially be a complication of her vascular stent. I contacted [facility], they will evaluate for a bed for transfer. NG tube was placed. Patient tolerated well. Did have a mild nosebleed afterwards. Pain well controlled. Vomiting controlled. COBRA forms completed. Dr. Macias at [facility] in [place] graciously accepts in transfer. This document was made in part using voice recognition software. While efforts are made to proofread this document, sound alike and grammatical errors may occur. IMPRESSION: Small bowel obstruction, with possible transition point at the left paracentral abdomen, at the level of the iliac crests as above. Departure - Departure Disposition: 02 Transfer Acute Care Hosp Clinical Impression: Small bowel obstruction Condition: Stable
[2020-04-02 21:35] LABS: C. PNEUMONIAE- RESP PCR PANEL NOT DETECTED
[2020-04-02 22:15] LABS: BILIRUBIN,URINE NEGATIVE (NEGATIVE); GLUCOSE, URINE (UA) NEGATIVE (NEGATIVE); KETONES,URINE (UA) TRACE mg/dL (NEGATIVE); LEUKOCYTE ESTERASE, URINE NEGATIVE (NEGATIVE); NITRITE,URINE NEGATIVE (NEGATIVE); OCCULT BLOOD,URINE NEGATIVE (NEGATIVE); PROTEIN,URINE 30 mg/dL (NEGATIVE); UROBILINOGEN,URINE 0.2 (NORMAL) E.U./dL (NORMAL)
[2020-04-02 22:18] LABS: CLARITY,URINE CLEAR (CLEAR)
[2020-04-02 22:28] LABS: BACTERIA,URINE None Seen /HPF (None Seen); RBC,URINE 0-5 /HPF (0-5); SQUAMOUS EPITHELIAL CELL,UR NONE SEEN (<= Few)
[2020-04-02 23:28] VITALS: BP 157/63
== END 2020-04-03 00:35 | disposition short-term general hospital (02) ==
LOC: ED 17:35
DX: K56.690 Other partial intestinal obstruction (principal); I10 Essential (primary) hypertension; I73.9 Peripheral vascular disease, unspecified; M06.9 Rheumatoid arthritis, unspecified; Z79.82 Long term (current) use of aspirin; F17.200 Nicotine dependence, unspecified, uncomplicated; Z20.828 Contact with and (suspected) exposure to other viral communicable diseases
CPT/HCPCS: 0202U; 36415; 43753; 74176; 80053; 81001; 81003; 83690; 85025; 87086; 99285

== ENCOUNTER 2020-04-16 10:19 | Emergency (ER) | payer MEDICARE ==
[2020-04-16] MEDS ORDERED: SODIUM CHLORIDE 0.9% 1,000 ML IV STA (10:41)
[2020-04-16] MEDS ORDERED: FAMOTIDINE 20 MG/2 ML VIAL IVP STA (10:42)
[2020-04-16] MEDS ORDERED: MORPHINE 2 MG/ML CARPUJECT IVP STA (10:42)
[2020-04-16] MEDS ORDERED: ONDANSETRON 4 MG/2 ML VIAL IVP STA (10:43)
[2020-04-16 11:32] LABS: BASOPHILS # (AUTO) 0.1 10^3/uL (0.0-0.1); BASOPHILS % (AUTO) 0.5 %; EOSINOPHILS % (AUTO) 0.4 %; HGB - HEMOGLOBIN 10.2 g/dL (12.0-16.0); LYMPHOCYTES % (AUTO) 18.2 %; MEAN CORPUSCULAR HEMOGLOBIN 27.7 pg (27.0-31.0); MEAN CORPUSCULAR HGB CONC 31.7 g/dL (32.0-36.0); MEAN CORPUSCULAR VOLUME 87.5 fL (81.0-99.0); MEAN PLATELET VOLUME 10.2 fL (7.9-10.8); MONOCYTES # (AUTO) 0.6 10^3/uL (0.0-1.0); NEUTROPHILS # (AUTO) 8.3 10^3/uL (1.5-6.6); NEUTROPHILS % (AUTO) 75.3 %; PLT - PLATELET COUNT 412 10^3/uL (130-450); RED BLOOD COUNT 3.68 10^6/uL (4.20-5.40); RED CELL DISTRIBUTION WIDTH 19.5 % (12.0-15.0)
[2020-04-16 11:41] LABS: ALBUMIN 3.3 g/dL (3.2-5.5); ALBUMIN/GLOBULIN RATIO 1.2 (1.0-2.2); BILIRUBIN,TOTAL 0.8 mg/dL (0.2-1.0); CALCIUM 7.5 mg/dL (8.5-10.3); TOTAL PROTEIN 6.1 g/dL (6.7-8.2)
[2020-04-16] MEDS ORDERED: IOVERSOL 320 100 ML VIAL IVP ONE ×2 (11:58→14:29)
[2020-04-16] MEDS ORDERED: LACTATED RINGERS 1,000 ML IV STA (12:05)
--- NOTE | 2020-04-16 12:07 | ED Physician Documentation ---
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 She is passing normal flatus and had a large normal bowel movement this morning without blood. Denies fever chills chest pain palpitations shortness of breath. She does have some mild dizziness.Vascular surgeon Dr. Hernández. 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 OPERATOR: None : Renal insuffiency HEENT: None Psych: None Musculoskeletal: Osteoarthritis, Rheumatoid arthritis, Gout Derm: Psoriasis - Past Surgical History Past Surgical History: Yes General: Colonoscopy, EGD Ortho: Hip replacement, Other Cardiovascular: Vascular surgery, Angioplasty - Present Medications Home Medications: Ambulatory Orders Medication Instructions Recorded Confirmed Omeprazole 20 mg PO BID PRN 07/05/17 04/02/20 Metoprolol Succinate [Toprol Xl] 50 mg PO DAILY #30 05/17/19 04/02/20 hydroCHLOROthiazide [Hydrodiuril] 25 mg PO DAILY #30 05/17/19 04/02/20 polyethylene glycoL 3350 [Miralax] 17 gm PO DAILY #30 packet 05/17/19 03/26/20 Ascorbic Acid Chew [Vitamin C] 500 mg PO DAILY 03/26/20 03/26/20 Aspirin EC [Ecotrin] 81 mg PO DAILY 03/26/20 03/26/20 Calcium Carbonate [Tums (Calcium 1,000 mg PO DAILY 03/26/20 03/26/20 Carbonate 500mg)] Cholecalciferol [Vitamin D3] 1 cap PO DAILY 03/26/20 04/02/20 Ondansetron Odt [Zofran Odt] 4 mg SL Q6HR PRN 03/26/20 03/26/20 Clopidogrel [Plavix] 75 mg PO DAILY 04/02/20 04/02/20 cilostazoL [Pletal] 100 mg PO DAILY 04/02/20 04/02/20 - Allergies Allergies/Adverse Reactions: Allergies Allergy/AdvReac Type Severity Reaction Status Date / Time hydrocodone Allergy Nausea Verified 04/16/20 10:30 lisinopril Allergy Nausea Verified 04/16/20 10:30 codeine phosphate * AdvReac Intermediate Itching Verified 04/16/20 10:30 [From Tylenol-Codeine #3] - Social History Does the pt smoke?: Yes Smoking Status: Current every day smoker Does the pt drink ETOH?: Yes Does the pt have substance abuse?: No - Immunizations Immunizations are current?: Yes - POLST Patient has POLST: No POLST Status: DNR PD ED PE NORMAL - Vitals Vital signs reviewed: Yes - General General: Alert and oriented X 3 - HEENT HEENT: Atraumatic, PERRL, EOMI - Neck Neck: Supple, no meningeal sign - Cardiac Cardiac: RRR - Respiratory Respiratory: No respiratory distress, Clear bilaterally - Abdomen Abdomen: Other (epigastric and periumbilical ttp. otherwise ntnd) - Female Female : Deferred - Rectal Rectal: Deferred - Back Back: No CVA TTP - Derm Derm: Normal color - Extremities Extremities: No deformity, No edema - Neuro Neuro: Alert and oriented X 3 - Psych Psych: Normal mood, Normal affect Results - Vitals Vitals: Vital Signs - 24 hr 04/16/20 04/16/20 04/16/20 10:25 11:25 12:00 Temperature 36.9 C 37.0 C Heart Rate 86 89 83 Respiratory 18 22 18 Rate Blood Pressure 150/95 H 196/72 H 205/82 H O2 Saturation 100 100 99 04/16/20 04/16/20 04/16/20 13:30 14:31 15:00 Temperature 36.7 C Heart Rate 84 88 82 Respiratory 18 20 18 Rate Blood Pressure 201/73 H 210/77 H 181/75 H O2 Saturation 99 100 99 04/16/20 16:00 Temperature Heart Rate 76 Respiratory 18 Rate Blood Pressure 196/75 H O2 Saturation 99 Oxygen O2 Source [With Activity] Room air O2 Source Room air - Labs Labs: Laboratory Tests 04/16/20 04/16/20 04/16/20 11:19 11:19 12:40 WBC 11.0 H RBC 3.68 L Hgb 10.2 L Hct 32.2 L MCV 87.5 MCH 27.7 MCHC 31.7 L RDW 19.5 H Plt Count 412 MPV 10.2 Neut # (Auto) 8.3 H Lymph # (Auto) 2.0 [place] # (Auto) 0.6 Eos # (Auto) 0.0 Baso # (Auto) 0.1 Absolute Nucleated RBC 0.00 Nucleated RBC % 0.0 Sodium 142 Potassium 4.2 Chloride 109 Carbon Dioxide 17 L Anion Gap 16.0 H BUN 56 H Creatinine 2.0 H Estimated GFR (MDRD) 24 L Glucose 91 Lactic Acid Calcium 7.5 L Total Bilirubin 0.8 AST 22 ALT 10 Alkaline Phosphatase 67 Total Protein 6.1 L Albumin 3.3 Globulin 2.8 Albumin/Globulin Ratio 1.2 Lipase 68 H Urine Color YELLOW Urine Clarity CLEAR Urine pH 6.0 Ur Specific [place] 1.020 Urine Protein 30 H Urine Glucose (UA) NEGATIVE Urine Ketones TRACE Urine Occult Blood TRACE-INTA Urine Nitrite NEGATIVE Urine Bilirubin NEGATIVE Urine Urobilinogen 0.2 (NORMAL) Ur Leukocyte Esterase NEGATIVE Urine RBC 0-5 Urine WBC 0-3 Ur Squamous Epith Cells FEW Squamous Urine Bacteria Few Ur Microscopic Review INDICATED Urine Culture Comments NOT INDICATED 04/16/20 12:56 WBC RBC Hgb Hct MCV MCH MCHC RDW Plt Count MPV Neut # (Auto) Lymph # (Auto) [place] # (Auto) Eos # (Auto) Baso # (Auto) Absolute Nucleated RBC Nucleated RBC % Sodium Potassium Chloride Carbon Dioxide Anion Gap BUN Creatinine Estimated GFR (MDRD) Glucose Lactic Acid 1.0 Calcium Total Bilirubin AST ALT Alkaline Phosphatase Total Protein Albumin Globulin Albumin/Globulin Ratio Lipase Urine Color Urine Clarity Urine pH Ur Specific [place] Urine Protein Urine Glucose (UA) Urine Ketones Urine Occult Blood Urine Nitrite Urine Bilirubin Urine Urobilinogen Ur Leukocyte Esterase Urine RBC Urine WBC Ur Squamous Epith Cells Urine Bacteria Ur Microscopic Review Urine Culture Comments PD MEDICAL DECISION MAKING - ED course ED course: 12:06 PMdiscussed with patient re low GFR And differential including GERD versus mesenteric ischemia. Patient thinks that this is acid reflux related and states that the Pepcid helps significantly. On reexamination her abdomen is nontender. Shared decision made to hold off on CT for now. We will call her Dr. [facility] to discuss. 4pm - ct Reviewed with patent SMA stent. She does have high-grade stenosis of the celiac artery but I discussed with SURAJ Ruiz with vascular surgery at [facility] who states that this is nonemergent and that as long as the SMA stent is patent there is no vascular intervention needed.In addition, the report states that she has a persistent small bowel obstruction however she is passing normal gas and had a large bowel movement this morning. Patient states that her abdominal pain has resolved and her abdominal exam is now nontender.She has not had any pain medicine since this morning and has been fine. d/w Dr Gordillo, our nylon hot wire cutter general surgeon who agrees she can go home with follow up. Strict return precautions were discussed. The patient has an appointment and will follow up with her vascular surgeon on Saturday. Departure - Departure Disposition: Home, Self Care Clinical Impression: Abdominal pain, Nausea and vomiting Condition: Good Instructions: ED Nausea Vomiting Ch Comments: You have been seen in the emergency department for abdominal pain. Your CT showed that your SMA stent is intact. It also showed a persistent small bowel obstruction, but because you had a normal bowel movement this morning and you are feeling better we are going to allow you to go home and follow-up in vascular clinic this Saturday. If you have any new or worsening symptoms then you should come back to the ED right away.
[2020-04-16 12:54] LABS: BILIRUBIN,URINE NEGATIVE (NEGATIVE); GLUCOSE, URINE (UA) NEGATIVE (NEGATIVE); KETONES,URINE (UA) TRACE mg/dL (NEGATIVE); LEUKOCYTE ESTERASE, URINE NEGATIVE (NEGATIVE); NITRITE,URINE NEGATIVE (NEGATIVE); OCCULT BLOOD,URINE TRACE-INTA (NEGATIVE); PROTEIN,URINE 30 mg/dL (NEGATIVE); UROBILINOGEN,URINE 0.2 (NORMAL) E.U./dL (NORMAL)
[2020-04-16 12:56] LABS: CLARITY,URINE CLEAR (CLEAR)
[2020-04-16 13:11] LABS: BACTERIA,URINE Few /HPF (None Seen); RBC,URINE 0-5 /HPF (0-5); SQUAMOUS EPITHELIAL CELL,UR FEW Squamous (<= Few)
--- NOTE | 2020-04-16 15:28 | CT Report ---
PROCEDURE: ANGIO ABDOMEN/PELVIS W INDICATIONS: r/o mesenteric stenosis CONTRAST: IV CONTRAST: Optiray 320 ml: 100 PO CONTRAST: Optiray 320 ml100 TECHNIQUE: After the administration of intravenous contrast, 2 and 5 mm sections acquired from the diaphragm to the iliac crests. 3-dimensional maximum intensity projection (MIP) coronal and sagittal reformats, a nd/or 3-dimensional volume rendering reformatting was then performed. For radiation dose reduction, the following was used: automated exposure control, adjustment of mA and/or kV according to patient size. COMPARISON: CT abdomen pelvis 04/02/2020 FINDINGS: Image quality: Excellent. Extravascular tissues: Left lung base atelectasis without consolidation.. Heart size is mildly enlar ged. There is a small hiatal hernia. The gallbladder is distended and there is a tiny stone near the fundus. There is vascular shunting se en within the left hepatic lobe anteriorly. No adrenal nodules. Diminutive spleen. Mildly diminutive pancreas without ductal dilatation. Bilateral thin renal cortex is and scattered cortical cysts. No significant hydronephrosis. Mild left renal prominence. There is a small amount of diffuse intraperitoneal ascites. Numerous mid and lower abdominal small frank wel loops are diffusely distended, demonstrating air-fluid levels, and interloop fluid. No free intra peritoneal air. No definite small bowel pneumatosis. The colon is decompressed. No retroperitoneal or mesenteric adenopathy. No ventral hernias. No suspicious bony abnormalities. No vertebral body compression fractures. Bilateral hepatic plasty is obscured good visualization al aníbal the low pelvis. Abdominal aorta: Normal caliber aorta with heavy atherosclerotic calcification. Mesenteric arteries: There is a high-grade stenosis at the celiac artery origin with length of about 2 cm where a string sign is seen indicating very minimal vascular flow. There is a stent at the SMA origin which appears patent. Moderate scattered calcification in the proximal SMA is also seen. The i nferior mesenteric artery is patent. Renal arteries: Single renal arteries present bilaterally. There is coarse calcification and tortuos ity of the right renal artery origin with high-grade stenosis, and moderate coarse calcification at t he left causing moderate stenosis. IMPRESSION: 1. There is a high-grade stenosis at the celiac artery origin. 2. There is a patent SMA artery stent. 3. There is a persistent high-grade small bowel obstruction with interval development of slightly mor e intra-abdominal ascites. Reviewed by: Marcella Mccarthy MD on 04/16/2020 3:26 PM PST Approved by: Marcella Mccarthy MD on 04/16/2020 3:26 PM PST Station ID: [id number]
[2020-04-16 16:07] VITALS: BP 196/75
== END 2020-04-16 16:59 | disposition home or self-care (01) ==
LOC: ED 10:19
DX: R10.9 Unspecified abdominal pain (principal); R11.2 Nausea with vomiting, unspecified; F17.200 Nicotine dependence, unspecified, uncomplicated
CPT/HCPCS: 36415; 74174; 80053; 81001; 83605; 83690; 85025; 93005; 96374; 96375; 99284; 99285; J7120; Q9967; 81003; 87086

== ENCOUNTER 2020-06-03 08:00 | Outpatient (CLI) | payer MEDICARE ==
[2020-06-03 14:42] LABS: HGB - HEMOGLOBIN 9.4 g/dL (12.0-16.0); MEAN CORPUSCULAR HEMOGLOBIN 28.2 pg (27.0-31.0); MEAN CORPUSCULAR HGB CONC 30.1 g/dL (32.0-36.0); MEAN CORPUSCULAR VOLUME 93.7 fL (81.0-99.0); MEAN PLATELET VOLUME 9.7 fL (7.9-10.8); RED BLOOD COUNT 3.33 10^6/uL (4.20-5.40); RED CELL DISTRIBUTION WIDTH 16.2 % (12.0-15.0); WHITE BLOOD COUNT 9.4 x10^3/uL (4.8-10.8)
[2020-06-03 14:56] LABS: CALCIUM 8.6 mg/dL (8.5-10.3); CREATININE 1.6 mg/dL (0.4-1.0)
== END 2020-06-03 23:59 | disposition home or self-care (01) ==
LOC: LAB 08:00
PROVIDERS: ATTEND Family Medicine
DX: N17.9 Acute kidney failure, unspecified (principal)
CPT/HCPCS: 36415; 80048; 85027

== ENCOUNTER 2020-06-22 08:00 | Outpatient (CLI) | payer MEDICARE ==
[2020-06-22 15:20] LABS: CALCIUM 9.4 mg/dL (8.5-10.3); POTASSIUM 4.8 mmol/L (3.5-5.0)
== END 2020-06-22 23:59 | disposition home or self-care (01) ==
LOC: LAB 08:00
PROVIDERS: ATTEND Family Medicine
DX: N17.9 Acute kidney failure, unspecified (principal)
CPT/HCPCS: 36415; 80048

== ENCOUNTER 2021-01-27 11:59 | Outpatient (CLI) | payer MEDICARE | END 2021-01-27 12:00 | disposition critical access hospital (66) | LOC: EMS 11:59 | DX: R10.33 Periumbilical pain (principal) | CPT/HCPCS: A0425; A0427 ==

== ENCOUNTER 2021-01-27 12:12 | Emergency (ER) | payer MEDICARE ==
[2021-01-27] MEDS ORDERED: ONDANSETRON 4 MG/2 ML VIAL IVP STA (12:19)
[2021-01-27] MEDS ORDERED: HYDROmorphone 1 MG/ML CARPUJECT IVP STA ×3 (12:19→14:08)
--- NOTE | 2021-01-27 12:20 | ED Physician Documentation ---
PD HPI ABD PAIN - Stated complaint Stated Complaint: ABD PAIN - History obtained from History obtained from: Patient, EMS - Additional information Additional information: It is associated with nausea and one episode of vomiting. When queried if it feels like prior episodes of vascular issues in her belly she says no. It started about an hour and a half after eating toast. That is all she has had to eat today. 1 piece of toast. Periumbilical abdominal pain radiating to the back starting about an hour and a half ago suddenly. 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: None : Renal insuffiency HEENT: None Psych: None Musculoskeletal: Osteoarthritis, Rheumatoid arthritis, Gout Derm: Psoriasis - Past Surgical History Past Surgical History: Yes General: Colonoscopy, EGD Ortho: Hip replacement, Other Cardiovascular: Vascular surgery, Angioplasty - Present Medications Home Medications: Ambulatory Orders Medication Instructions Recorded Confirmed Metoprolol Succinate [Toprol Xl] 50 mg PO DAILY #30 05/17/19 11/15/20 hydroCHLOROthiazide [Hydrodiuril] 25 mg PO DAILY #30 05/17/19 11/15/20 Ascorbic Acid [Vitamin C] 500 mg PO DAILY 03/26/20 11/15/20 Aspirin EC [Ecotrin] 81 mg PO DAILY 03/26/20 11/15/20 Calcium Carbonate [Tums (Calcium 1,000 mg PO DAILY 03/26/20 11/15/20 Carbonate 500mg)] Cholecalciferol [Vitamin D3] 1 cap PO DAILY 03/26/20 11/15/20 cilostazoL [Pletal] 100 mg PO DAILY 04/02/20 11/15/20 - Allergies Allergies/Adverse Reactions: Allergies Allergy/AdvReac Type Severity Reaction Status Date / Time hydrocodone Allergy Nausea Verified 01/27/21 12:24 lisinopril Allergy Nausea Verified 01/27/21 12:24 codeine phosphate * AdvReac Intermediate Itching Verified 01/27/21 12:24 [From Tylenol-Codeine #3] - Social History Does the pt smoke?: Yes Smoking Status: Current every day smoker Does the pt drink ETOH?: Yes Does the pt have substance abuse?: No - Immunizations Immunizations are current?: Yes - POLST Patient has POLST: No POLST Status: DNR PD ED PE NORMAL - Vitals Vital signs reviewed: Yes - General General: Other (She is pale and appears to be in pain and she is sweaty; confused) - HEENT HEENT: PERRL, EOMI - Neck Neck: Supple, no meningeal sign, No bony TTP - Cardiac Cardiac: RRR, No murmur - Respiratory Respiratory: No respiratory distress, Clear bilaterally - Abdomen Abdomen: Other (Mild diffuse tenderness, absent bowel tones) - Back Back: No CVA TTP, No spinal TTP - Derm Derm: Normal color, Warm and dry - Extremities Extremities: No edema, No calf tenderness / cord, Other (Pedal pulses are not appreciated, but feet are warm with good cap refill.) - Neuro Neuro: Alert and oriented X 3, Normal speech Results - Vitals Vitals: Vital Signs - 24 hr 01/27/21 01/27/21 01/27/21 12:18 12:46 12:58 Temperature 34.9 C L Heart Rate 107 H 98 84 Respiratory 25 H 24 21 Rate Blood Pressure 250/137 H 230/128 H 168/94 H O2 Saturation 94 97 98 01/27/21 01/27/21 01/27/21 14:00 14:30 15:00 Temperature 35.4 C L Heart Rate 84 85 86 Respiratory 15 15 15 Rate Blood Pressure 187/97 H 200/109 H 197/113 H O2 Saturation 94 95 98 01/27/21 15:30 Temperature Heart Rate 85 Respiratory 14 Rate Blood Pressure 196/105 H O2 Saturation 95 Oxygen O2 Source [] Room air O2 Source Nasal cannula - Labs Labs: Laboratory Tests 01/27/21 01/27/21 01/27/21 12:40 12:40 12:40 WBC 12.8 H RBC 4.60 Hgb 13.5 Hct 44.4 MCV 96.5 MCH 29.3 MCHC 30.4 L RDW 13.9 Plt Count 360 MPV 10.3 Neut # (Auto) 5.8 Lymph # (Auto) 6.1 H [place] # (Auto) 0.6 Eos # (Auto) 0.1 Baso # (Auto) 0.1 Absolute Nucleated RBC 0.00 Nucleated RBC % 0.0 Manual Slide Review Indicated WBC Morphology Platelet Estimate NORMAL (130-450,000) Platelet Morphology NORMAL APPEARANCE RBC Morph Micro Appear NORMAL APPEARANCE PT 10.9 INR 1.0 Sodium Potassium Chloride Carbon Dioxide Anion Gap BUN Creatinine Estimated GFR (MDRD) Glucose Lactic Acid Calcium Total Bilirubin AST ALT Alkaline Phosphatase Total Protein Albumin Globulin Albumin/Globulin Ratio Lipase Nasal Adenovirus (PCR) Nasal B. parapertussis DNA (PCR) Nasal Coronavir 229E PCR Nasal Coronavir HKU1 PCR Nasal Coronavir NL63 PCR Nasal Coronavir OC43 PCR Nasal Enterovir/Rhinovir PCR Nasal Influenza B PCR Nasal Influenza A PCR Nasal Parainfluen 1 PCR Nasal Parainfluen 2 PCR Nasal Parainfluen 3 PCR Nasal Parainfluen 4 PCR Nasal RSV (PCR) Nasal B.pertussis DNA PCR Nasal C.pneumoniae (PCR) Manuel Human Metapneumo PCR Nasal M.pneumoniae (PCR) Nasal SARS-CoV-2 (PCR) Blood Type A POSITIVE Antibody Screen NEGATIVE 01/27/21 01/27/21 01/27/21 12:40 14:18 14:23 WBC RBC Hgb Hct MCV MCH MCHC RDW Plt Count MPV Neut # (Auto) Lymph # (Auto) [place] # (Auto) Eos # (Auto) Baso # (Auto) Absolute Nucleated RBC Nucleated RBC % Manual Slide Review WBC Morphology Platelet Estimate Platelet Morphology RBC Morph Micro Appear PT INR Sodium 144 Potassium 4.2 Chloride 108 Carbon Dioxide 20 L Anion Gap 16.0 H BUN 49 H Creatinine 1.9 H Estimated GFR (MDRD) 25 L Glucose 251 H Lactic Acid 3.4 H* Calcium 9.1 Total Bilirubin 0.5 AST 36 ALT 15 Alkaline Phosphatase 105 Total Protein 7.2 Albumin 3.5 Globulin 3.7 Albumin/Globulin Ratio 0.9 L Lipase 71 H Nasal Adenovirus (PCR) NOT DETECTED Nasal B. parapertussis DNA (PCR) NOT DETECTED Nasal Coronavir 229E PCR NOT DETECTED Nasal Coronavir HKU1 PCR NOT DETECTED Nasal Coronavir NL63 PCR NOT DETECTED Nasal Coronavir OC43 PCR NOT DETECTED Nasal Enterovir/Rhinovir PCR NOT DETECTED Nasal Influenza B PCR NOT DETECTED Nasal Influenza A PCR NOT DETECTED Nasal Parainfluen 1 PCR NOT DETECTED Nasal Parainfluen 2 PCR NOT DETECTED Nasal Parainfluen 3 PCR NOT DETECTED Nasal Parainfluen 4 PCR NOT DETECTED Nasal RSV (PCR) NOT DETECTED Nasal B.pertussis DNA PCR NOT DETECTED Nasal C.pneumoniae (PCR) NOT DETECTED Manuel Human Metapneumo PCR NOT DETECTED Nasal M.pneumoniae (PCR) NOT DETECTED Nasal SARS-CoV-2 (PCR) NOT DETECTED Blood Type Antibody Screen - Rads (name of study) CTA Abd Radiology: EMP read contemporaneously (See MDM) PD MEDICAL DECISION MAKING - ED course ED course: CT angiography of abdomen and pelvis: 1. Occluded SMA stent and mid SMA. 2. High-grade celiac artery origin stenosis versus celiac artery origin occlusion. 3. Right heart failure. 4. R>L pleural effusions. 5. Bibasilar atelectasis versus pneumonia. 6. CAD. 7. Possibly thickened small bowel loops, which could indicate ischemia. 8. L>R adnexal cysts; initial further assessment with ultrasound recommended. 9. Possibly thickened gallbladder. 80-year-old woman with vasculopathy and a known SMA stent Presents with severe abdominal pain radiating to the back of sudden onset. She looks ill, sweaty, pale. She is modestly diffusely tender with abnormal/absent bowel tones. She was attended to immediately and needed pain medication. She is encephalopathic. Despite poor renal function given the gravity of her physical exam and risk factors she was sent for CT angiography of the belly with results as shown above. This was discussed by phone with the who was allowed back into the department noting that we may be dealing with end-of-life care, the gravity of the diagnosis was discussed with him. We called [facility] for transfer as that is where her vascular surgeon is, they are full with no ICU beds, but will try to get the vascular surgeon to accept to the OR anyway. Given the uncertainty we also called the [facility] who may have a bed. IV Zosyn and heparin bolus/drips were ordered as well. At 2:49 PM I spoke with vascular surgery PA in [place] and he will try to get her into the OR there. Still waiting for callback from [place]. Also spoke with transfer center at /[facility] at [phone], they will call me back with vascular. Confirmed with patient and that she is DNR but would want surgery if it was potentially curative. Accepted to [facility] by the hospitalist, Dr. Janie Sultana at 3:11 PM. I will complete cobras. We are awaiting confirmation of bed availability. - Critical Care Time(min): 50 Time Includes: Direct patient care, Review records, Reassess patient, Document care, Coordinate care, Medical consult, Family consult for tx dec Data interpretation: Labs, Pulse ox Procedures included in critical care time: Peripheral IV Departure - Departure Disposition: 02 Transfer Acute Care Hosp Clinical Impression: Mesenteric ischemia due to arterial insufficiency, DNR (do not resuscitate) Condition: Critical Discharge Date/Time: 01/27/21 15:40
[2021-01-27] MEDS ORDERED: LABETALOL 20 MG/4 ML SYRINGE IVP STA (12:45)
[2021-01-27 12:49] LABS: BASOPHILS # (AUTO) 0.1 10^3/uL (0.0-0.1); BASOPHILS % (AUTO) 0.4 %; EOSINOPHILS # (AUTO) 0.1 10^3/uL (0.0-0.7); HCT - HEMATOCRIT 44.4 % (37.0-47.0); HGB - HEMOGLOBIN 13.5 g/dL (12.0-16.0); LYMPHOCYTES # (AUTO) 6.1 10^3/uL (1.5-3.5); LYMPHOCYTES % (AUTO) 47.7 %; MEAN CORPUSCULAR HEMOGLOBIN 29.3 pg (27.0-31.0); MEAN CORPUSCULAR HGB CONC 30.4 g/dL (32.0-36.0); MEAN CORPUSCULAR VOLUME 96.5 fL (81.0-99.0); MEAN PLATELET VOLUME 10.3 fL (7.9-10.8); MONOCYTES # (AUTO) 0.6 10^3/uL (0.0-1.0); MONOCYTES % (AUTO) 4.8 %; NEUTROPHILS # (AUTO) 5.8 10^3/uL (1.5-6.6); NEUTROPHILS % (AUTO) 45.5 %; PLT - PLATELET COUNT 360 10^3/uL (130-450); RED CELL DISTRIBUTION WIDTH 13.9 % (12.0-15.0); WHITE BLOOD COUNT 12.8 x10^3/uL (4.8-10.8)
[2021-01-27 12:52] LABS: SLIDE REVIEW? Indicated
[2021-01-27 12:55] LABS: PT - PROTHROMBIN TIME 10.9 secs (9.9-12.6)
[2021-01-27 13:02] LABS: ALBUMIN 3.5 g/dL (3.2-5.5); ALBUMIN/GLOBULIN RATIO 0.9 (1.0-2.2); BILIRUBIN,TOTAL 0.5 mg/dL (0.2-1.0); CALCIUM 9.1 mg/dL (8.5-10.3); CREATININE 1.9 mg/dL (0.4-1.0); POTASSIUM 4.2 mmol/L (3.5-5.0); TOTAL PROTEIN 7.2 g/dL (6.7-8.2)
[2021-01-27] MEDS ORDERED: SODIUM CHLORIDE 0.9% 1,000 ML IV STA (13:10)
[2021-01-27 13:11] LABS: PLATELET ESTIMATE, MANUAL NORMAL (130-450,000) (NORMAL); PLATELET MORPHOLOGY NORMAL APPEARANCE (NORMAL); RBC MORPHOLOGY (MULTIPLE) NORMAL APPEARANCE (NORMAL)
[2021-01-27] MEDS ORDERED: IOVERSOL 320 100 ML VIAL IVP ONE ×2 (14:07→14:09)
[2021-01-27] MEDS ORDERED: ACETAMINOPHEN 1,000 MG/100 ML 100 ML IV ONE (14:08)
--- NOTE | 2021-01-27 14:10 | CT Report ---
PROCEDURE: ANGIO ABDOMEN/PELVIS W INDICATIONS: Abd/back pain, known SMA stenosis CONTRAST: IV CONTRAST: Optiray 320 ml: 100 PO CONTRAST: *NO PO CONTRAST TECHNIQUE: After the administration of intravenous contrast, 2 and 5 mm sections acquired from the diaphragm to the iliac crests. 3-dimensional maximum intensity projection (MIP) coronal and sagittal reformats, a nd/or 3-dimensional volume rendering reformatting was then performed. For radiation dose reduction, the following was used: automated exposure control, adjustment of mA and/or kV according to patient size. COMPARISON: CT dated 04/16/2020 FINDINGS: Image quality: Partially degraded by hip arthroplasty artifact. Extravascular tissues: Moderate right and small left pleural effusions are present. There is moderate dependent bibasilar atelectasis versus pneumonia. Heart size is normal. There is mild calcification of the coronary vasculature. Liver and spleen are normal in size. There is reflux of contrast into t he hepatic venous vasculature. Hepatic contour appears mildly nodular. Gallbladder appears mildly thi ckened. Biliary system is non dilated. Pancreas enhances normally. No adrenal nodules. Kidneys ar e normal in size and enhancement, without hydronephrosis. Evaluation of the bowel is limited bilatera l contrast. There appear to the thickened and small bowel loops within the mid/left abdomen. No free fluid or air. No retroperitoneal or mesenteric adenopathy. No ventral hernias. There is a septated left adnexal cyst measuring roughly 83 mm diameter. There is a suboptimally visualized right adnexal cyst measuring roughly 32 mm diameter. No suspicious bony abnormalities. No vertebral body compressi on fractures. Abdominal aorta: Moderate diffuse calcific plaque causing mild diffuse stenosis. No aneurysm, nor di ssection. Mesenteric arteries: High-grade stenosis versus occlusion of the celiac origin is present, as before . There is occlusion of the superior mesenteric artery stent with no evidence of flow within the midp ortion of the superior mesenteric artery. There is some reconstituted flow seen within peripheral bra nches of the superior mesenteric artery. Inferior mesenteric artery is grossly patent. Renal arteries: Moderate to high-grade bilateral renal artery origin stenoses are present, as before . IMPRESSION: 1. Occluded superior mesenteric artery stent and mid superior mesenteric artery. 2. High-grade celiac artery origin stenosis versus celiac artery origin occlusion. 3. Right heart failure. 4. Right greater than left pleural effusions. 5. Bibasilar atelectasis versus pneumonia. 6. Coronary artery disease. 7. Possibly thickened small bowel loops, which could indicate ischemia. 8. Left greater than right adnexal cysts; initial further assessment with ultrasound is recommended. 9. Possibly thickened gallbladder, which could be further assessed with ultrasound, if clinically ind icated. Reviewed by: Rosa English MD on 01/27/2021 2:09 PM PDT Approved by: Rosa English MD on 01/27/2021 2:09 PM PDT Station ID: [id number]
[2021-01-27] MEDS ORDERED: PIPERACILLIN/TAZOBACTAM 3.375 GM in SODIUM CHLORIDE 0.9% MINIBAG 100 ML IV STA (14:30)
[2021-01-27] MEDS ORDERED: HEPARIN 25000UNITS/500ML (D5W) 25,000 UNIT/500 ML BAG IV SCH (15:00)
[2021-01-27 15:29] LABS: B. PARAPERTUSSIS- RESP PCR PAN NOT DETECTED; B. PERTUSSIS- RESP PCR PANEL NOT DETECTED; C. PNEUMONIAE- RESP PCR PANEL NOT DETECTED; CORONAVIRUS 229E-RESP PCR NOT DETECTED; CORONAVIRUS HKU1-RESP PCR NOT DETECTED; CORONAVIRUS NL63-RESP PCR NOT DETECTED; CORONAVIRUS OC43-RESP PCR NOT DETECTED; HUMAN METAPNEUMOVIRUS NOT DETECTED; INFLUENZA A- RESP PCR PANEL NOT DETECTED; INFLUENZA B - RESP PCR PANEL NOT DETECTED; M. PNEUMONIAE- RESP PCR PANEL NOT DETECTED; PARAINFLUENZA VIRUS 1 NOT DETECTED; PARAINFLUENZA VIRUS 2 NOT DETECTED; PARAINFLUENZA VIRUS 3 NOT DETECTED; PARAINFLUENZA VIRUS 4 NOT DETECTED; RHINOVIRUS/ENTEROVIRUS NOT DETECTED; RSV- RESP PCR PANEL NOT DETECTED; SARS-CoV-2 -RESP PCR PANEL NOT DETECTED
[2021-01-27 15:47] VITALS: BP 196/105
== END 2021-01-27 15:40 | disposition short-term general hospital (02) ==
LOC: EDUNIT# → ED 12:12
DX: K55.059 Acute (reversible) ischemia of intestine, part and extent unspecified (principal); I77.4 Celiac artery compression syndrome; K55.1 Chronic vascular disorders of intestine; T82.858A Stenosis of other vascular prosthetic devices, implants and grafts, initial encounter; Y83.8 Other surgical procedures as the cause of abnormal reaction of the patient, or of later complication, without mention of misadventure at the time of the procedure; Z20.822 Contact with and (suspected) exposure to COVID-19; Z66 Do not resuscitate; I11.0 Hypertensive heart disease with heart failure; I50.810 Right heart failure, unspecified; J90 Pleural effusion, not elsewhere classified; F17.200 Nicotine dependence, unspecified, uncomplicated
CPT/HCPCS: 36415; 74174; 80053; 83605; 83690; 85025; 85610; 86850; 86900; 86901; 87631; 96374; 96375; 96376; 99285; 99291; J0131; J1170; Q9967; 0202U